=== PATIENT | male | born 1955 | race American Indian/Alaskan Native ===

== ENCOUNTER 2022-07-06 19:25 | Inpatient (IN) | payer MEDICARE ==
[2022-07-07] MEDS ORDERED: HYDROcodone/ACETAMINOPHEN 5-325 MG TAB PO ONE (01:59)
--- NOTE | 2022-07-07 02:16 | Emergency Department Report ---
ED General Adult HPI - General Chief complaint: Extremity Injury, Lower Stated complaint: INFECTED TOE Time Seen by Provider: 07/07/22 01:56 Source: patient Mode of arrival: Ambulatory Limitations: No Limitations - History of Present Illness Initial comments: Patient 67-year-old male with history of diabetes and diabetic right third toe presents for drainage pain to same. Patient is followed by vascular surgery. However states symptoms have worsened over the past 2 weeks. Patient not currently on antibiotic therapy. Is not currently on wound therapy. Patient states yellow-greenish drainage. Patient denies fevers chills or rigors. Patient remains amatory. Diabetic shoes. Patient is followed by [facility] vascular surgery Dr. Cedeño. Patient denies fevers chills nausea vomiting or other symptoms at this time. - Related Data Allergies Allergy/AdvReac Type Severity Reaction Status Date / Time No Known Allergies Allergy Verified 07/07/22 05:35 ED Review of Systems ROS: Stated complaint: INFECTED TOE Other details as noted in HPI Constitutional: denies: chills, fever Eyes: denies: eye pain, eye discharge, vision change ENT: denies: ear pain, throat pain Respiratory: denies: cough, shortness of breath, wheezing Cardiovascular: denies: chest pain, palpitations Endocrine: no symptoms reported Gastrointestinal: denies: abdominal pain, nausea, diarrhea Genitourinary: denies: urgency, dysuria Musculoskeletal: other (Diabetic right foot wound) Skin: other (Right foot third toe wound). denies: rash, lesions Neurological: denies: headache, weakness, paresthesias Psychiatric: denies: anxiety, depression Hematological/Lymphatic: denies: easy bleeding, easy bruising ED Physical Exam - General Limitations: No Limitations General appearance: alert, in no apparent distress - Head Head exam: Present: normocephalic, normal inspection - Eye Eye exam: Present: normal appearance, EOMI Pupils: Present: normal accommodation - ENT ENT exam: Present: mucous membranes moist - Neck Neck exam: Present: normal inspection, full ROM. Absent: tenderness - Respiratory Respiratory exam: Present: normal lung sounds bilaterally. Absent: respiratory distress, wheezes - Cardiovascular Cardiovascular Exam: Present: regular rate, normal rhythm, normal heart sounds. Absent: systolic murmur, diastolic murmur, rubs, gallop - GI/Abdominal GI/Abdominal exam: Present: soft, normal bowel sounds - Rectal Rectal exam: Present: deferred - Extremities Exam Extremities exam: Present: full ROM - Expanded Lower Extremity Exam Right Foot/Toe exam: Present: tenderness, swelling, erythema (Third toe ulcer with drainage). Absent: ecchymosis, crepidus Neuro vascular tendon exam: Absent: pulse deficit, motor deficit, sensory deficit, tendon deficit Gait: Positive: observed and limited by pain - Back Exam Back exam: Present: normal inspection, full ROM. Absent: tenderness - Neurological Exam Neurological exam: Present: alert, oriented X3, CN II-XII intact, motor sensory deficit, reflexes normal - Expanded Neurological Exam Expanded Patient oriented to: Present: person, place, time Speech: Present: fluid speech Motor strength exam: RLE: 5, LLE: 5 Best Eye Response (Tony): (4) open spontaneously Best Motor Response (Tony): (6) obeys commands Best Verbal Response (Hampton): (5) oriented Hampton Total: 15 - Psychiatric Psychiatric exam: Present: normal affect, normal mood - Skin Skin exam: Present: warm, dry, normal color, other (Diabetic right foot ulcer). Absent: rash ED Course Vital Signs 07/06/22 21:14 Temperature 99.0 F Pulse Rate 109 H Respiratory 16 Rate Blood Pressure 124/49 O2 Sat by Pulse 99 Oximetry ED Medical Decision Making - Lab Data Result diagrams: 07/07/22 02:26 07/07/22 02:26 Labs 07/07/22 07/07/22 07/07/22 02:26 02:26 02:26 WBC 27.0 H RBC 2.52 L Hgb 8.2 L Hct 25.5 L MCV 101 H MCH 33 H MCHC 32 RDW 13.1 L Plt Count 31 L Add Manual Diff Complete Total Counted 100 Seg Neuts % (Manual) 88.0 H Band Neutrophils % 2.0 Lymphocytes % (Manual) 7.0 L Reactive Lymphs % (Man) 0 Monocytes % (Manual) 3.0 Eosinophils % (Manual) 0 Basophils % (Manual) 0 Metamyelocytes % 0 Myelocytes % 0 Promyelocytes % 0 Blast Cells % 0 Nucleated RBC % Not Reportable Seg Neutrophils # Man 23.8 H Band Neutrophils # 0.5 Lymphocytes # (Manual) 1.9 Abs React Lymphs (Man) 0.0 Monocytes # (Manual) 0.8 Eosinophils # (Manual) 0.0 Basophils # (Manual) 0.0 Metamyelocytes # 0.0 Myelocytes # 0.0 Promyelocytes # 0.0 Blast Cells # 0.0 WBC Morphology Not Reportable Hypersegmented Neuts Not Reportable Hyposegmented Neuts Not Reportable Hypogranular Neuts Not Reportable Smudge Cells Not Reportable Toxic Granulation Not Reportable Toxic Vacuolation Not Reportable Dohle Bodies Not Reportable Pelger-Huet Anomaly Not Reportable Lulu Rods Not Reportable Platelet Estimate Appears decreased Clumped Platelets Few Plt Clumps, EDTA Not Reportable Large Platelets Not Reportable Giant Platelets Not Reportable Platelet Satelliting Not Reportable Plt Morphology Comment Not Reportable RBC Morphology Not Reportable Dimorphic RBCs Not Reportable Polychromasia Not Reportable Hypochromasia 2+ Poikilocytosis Not Reportable Anisocytosis 1+ Microcytosis Not Reportable Macrocytosis 1+ Spherocytes Not Reportable Pappenheimer Bodies Not Reportable Sickle Cells Not Reportable Target Cells Not Reportable Tear Drop Cells Not Reportable Ovalocytes Few Helmet Cells Not Reportable Capps-[place] Bodies Not Reportable [place]hegan Rings Not Reportable Merry Cells Not Reportable Bite Cells Not Reportable Crenated Cell Not Reportable Elliptocytes Not Reportable Acanthocytes (Spur) Not Reportable Rouleaux Not Reportable Hemoglobin C Crystals Not Reportable Schistocytes Not Reportable Malaria parasites Not Reportable Chintan Bodies Not Reportable Hem Pathologist Commnt No Sodium 129 L Potassium 4.8 Chloride 91.5 L Carbon Dioxide 16 L Anion Gap 26 BUN 57 H Creatinine 1.7 H Estimated GFR 40 BUN/Creatinine Ratio 34 Glucose 509 H* Lactic Acid 1.50 Calcium 8.9 Total Bilirubin 0.70 AST 41 H ALT 28 Alkaline Phosphatase 129 Total Protein 6.9 Albumin 3.6 L Albumin/Globulin Ratio 1.1 - Radiology Data Radiology results: report reviewed, image reviewed LEFT FOOT 3 VIEWS. INDICATION / CLINICAL INFORMATION: r/o osteo COMPARISON: None available. FINDINGS: Small bubbles of gas are present within the soft tissues of the forefoot adjacent the third through fifth toes. Osteolysis of the second toe present. The third toe demonstrates overlying small bubbles of gas versus osteopenia and possible changes of early acute osteomyelitis. Moderate hallux valgus deformity present. IMPRESSION: 1. Soft tissue gas suggestive of gas producing organism and infection as detailed. 2. Early acute osteomyelitis involving third toe not excluded. MRI recommended for further evaluation. Signer Name: Benny Tate II, MD Signed: 07/07/2022 2:43 AM Workstation Name: [id number] Transcribed By: EMA Dictated By: BENNY TATE II, MD Electronically Authenticated By: BENNY TATE II, MD Signed Date/Time: 07/07/22242 DD/ 0 TD/TT: - Medical Decision Making Consulted vascular surgery Dr. Cedeño for diagnosis osteomyelitis left third and second toe, recommendation,: Consult general surgery, admit to hospitalist, diagnosis osteomyelitis left foot. Second and third toe. Discussed same with hospitalist hospitalist agrees with treatment plan. Have discussed same with patient patient agrees with treatment plan. Patient is currently alert oriented x3 with no acute distress. Patient will be admitted to inpatient diagnosis osteomyelitis left foot. Gen Surgery consult completed, Dr. Mccoy, agrees with tx plan, Dx Osteomyelitis left foot, admit to hospitalists, Consult General Surgery. Pt admitted to hospitalist at this time, pt verbalizes consent and understanding of treatments plan. Critical care attestation.: If time is entered above; I have spent that time in minutes in the direct care of this critically ill patient, excluding procedure time. ED Disposition Clinical Impression: Foot osteomyelitis, left Qualifiers: Osteomyelitis type: other acute Qualified Code(s): M86.172 - Other acute osteomyelitis, left ankle and foot Disposition: ADMITTED INPATIENT Is pt being admited?: Yes Does the pt Need Aspirin: No Condition: Stable Time of Disposition: 05:21
[2022-07-07 02:44] LABS: Hematocrit 25.5 % (35.5-45.6); Hemoglobin 8.2 gm/dl (11.8-15.2); Mean Corpuscular HGB Conc 32 % (32-34); Mean Corpuscular Volume 101 fl (84-94); Red Blood Count 2.52 M/mm3 (3.65-5.03); Red Cell Distribution Width 13.1 % (13.2-15.2)
--- NOTE | 2022-07-07 02:47 | XRay Report ---
LEFT FOOT 3 VIEWS. INDICATION / CLINICAL INFORMATION: r/o osteo COMPARISON: None available. FINDINGS: Small bubbles of gas are present within the soft tissues of the forefoot adjacent the third through f ifth toes. Osteolysis of the second toe present. The third toe demonstrates overlying small bubbles o f gas versus osteopenia and possible changes of early acute osteomyelitis. Moderate hallux valgus def ormity present. IMPRESSION: 1. Soft tissue gas suggestive of gas producing organism and infection as detailed. 2. Early acute osteomyelitis involving third toe not excluded. MRI recommended for further evaluation . Signer Name: Mati Phelps II, MD Signed: 07/07/2022 2:43 AM Workstation Name: [id number]
[2022-07-07 03:02] LABS: Albumin 3.6 g/dL (3.9-5); Calcium 8.9 mg/dL (8.4-10.2)
[2022-07-07] MEDS ORDERED: INSULIN REGULAR, HUMAN 100 UNITS/1 ML IV ONE (03:20)
[2022-07-07] MEDS ORDERED: SODIUM CHLORIDE 0.9% 1000 ML 1,000 ML IV ONE ×2 (03:20→04:32)
[2022-07-07 03:21] LABS: Platelet Count 31 K/mm3 (140-440)
[2022-07-07 04:07] LABS: Band Neutrophils # (Manual) 0.5 K/mm3; Basophils % (Manual) 0 % (0.0-1.8); Eosinophils % (Manual) 0 % (0.0-4.3); Total Cells Counted 100
[2022-07-07 04:08] LABS: Anisocytosis 1+; Hypochromasia 2+; Macrocytosis 1+; Ovalocytes Few; Platelet Clumps Few; Platelet Estimate Appears Decreased
[2022-07-07] MEDS ORDERED: VANCOMYCIN/NS 1 GM/250 ML 1 GM/250 ML BAG IV ONE (04:32)
[2022-07-07] MEDS ORDERED: INSULIN REGULAR, HUMAN 100 UNITS/1 ML SUB-Q ONE (08:37)
[2022-07-07] MEDS: CEFEPIME/NS 1 GM/100 ML 1 GM/100 ML BAG IV SCH ×2 (09:10→16:27)
[2022-07-07 09:56] LABS: Chol/HDL Ratio 3.13 %
[2022-07-07] MEDS: INSULIN REGULAR, HUMAN 100 UNITS/1 ML SUB-Q SCH ×4 (09:57→21:46)
[2022-07-07] MEDS ORDERED: LACTATED RINGERS 1,000 ML IV ONE ×2 (13:12→17:40)
--- NOTE | 2022-07-07 14:08 | Consultation ---
History of Present Illness - Reason for Consult Consult date: 07/07/22 3rd toe infection Requesting physician: ALEXANDRU ROWAN - History of Present Illness 67-year-old male with a past medical history of diabetes, CKD, prior bypass of the RLE 10+ years ago, stenting of the LLE from outside facility many years ago who presents to the emergency room with worsening left foot infection. The patient states he has had an ulcer of the third toe of his left foot for the last 1 month. He regularly sees a sales product manager who referred him to vascular surgery. The patient has undergone vascular work-up including ultrasound and diagnostic angiogram by myself. He was being scheduled for a revascularization procedure. The patient was also started on doxycycline and instructed to apply Betadine to the wound daily for wound care. The patient states that over the last 2 to 3 days his ulcer became rapidly worse and became infected. He is noted a stronger odor from the area and more drainage. There is mild swelling of his foot. In the emergency room work-up included lab work and a x-ray of the left foot. Patient was noted to have a leukocytosis greater than 20 and blood sugar greater than 500. X-ray revealed possible osteomyelitis. Vascular consulted for evaluation. Patient has nonpalpable pedal pulses with a open left third digit PIP joint with subluxation of the joint and soft tissue necrosis of the distal and mid phalanx. The toe has a foul odor. Betadine applied. Discussed with patient that plan will be for revascularization on Saturday, and third digit amputation on Saturday. May benefit from hyperbaric oxygen as outpatient. Contacted infectious disease to substitute vancomycin for linezolid to avoid JACQUI on CKD. Dr. Campbell agreed with plan. Past History Past Medical History: diabetes, PVD (s/p RLE bypass 10+ years ago, occluded (pop-dp) ; s/p LLE SFA/pop stenting at outside facility years ago), renal failure (CKD) Past Surgical History: Other (PVD surgery) Social history: no significant social history Family history: no significant family history Medications and Allergies Allergies Allergy/AdvReac Type Severity Reaction Status Date / Time No Known Allergies Allergy Verified 07/07/22 05:35 Active Meds: Active Medications Acetaminophen (Acetaminophen 325 Mg Tab) 650 mg PO Q4H PRN PRN Reason: Pain MILD(1-3)/Fever >100.5/DAS Dextrose (Dextrose 50% In Water (25gm) 50 Ml Syringe) 50 ml IV Q30MIN PRN; Protocol PRN Reason: Hypoglycemia Heparin Sodium (Porcine) (Heparin 5,000 Unit/1 Ml Vial) 5,000 unit SUB-Q Q8HR APRIL Sodium Chloride (Nacl 0.9% 1000 Ml) 1,000 mls @ 100 mls/hr IV DIRECT APRIL Cefepime HCl (Cefepime/Ns 1 Gm/100 Ml) 1 gm in 100 mls @ 200 mls/hr IV Q8H APRIL; Protocol Last Admin: 07/07/22 09:10 Dose: 200 mls/hr Lactated Ringer's (Lactated Ringers) 1,000 mls @ 999 mls/hr IV BOLUS ONE Stop: 07/07/22 14:12 Insulin Human Isoph/Insulin Regular (Insulin Nph/Regular 70/30 Inj) 15 unit SUB-Q BIDDIAB APRIL Insulin Human Regular (Insulin Regular, Human 100 Units/1 Ml) 0 units SUB-Q Q6H APRIL; Protocol Last Admin: 07/07/22 09:57 Dose: 8 units Morphine Sulfate (Morphine 4 Mg/1 Ml Inj) 2 mg IV Q4H PRN PRN Reason: Pain , Severe (7-10) Ondansetron HCl (Ondansetron 4 Mg/2 Ml Inj) 4 mg IV Q8H PRN PRN Reason: Nausea And Vomiting Oxycodone/Acetaminophen (Oxycodone /Acetaminophen 5-325mg Tab) 1 tab PO Q6H PRN PRN Reason: Pain, Moderate (4-6) Sodium Chloride (Sodium Chloride 0.9% 10 Ml Flush Syringe) 10 ml IV BID [facility] Last Admin: 07/07/22 11:12 Dose: 10 ml Sodium Chloride (Sodium Chloride 0.9% 10 Ml Flush Syringe) 10 ml IV PRN PRN PRN Reason: LINE FLUSH Review of Systems All systems: negative (see HPI) Exam - Constitutional Vitals: Temp Pulse Resp BP Pulse Ox 99.0 F 109 H 16 124/49 99 07/06/22 21:14 07/06/22 21:14 07/06/22 21:14 07/06/22 21:14 07/06/22 21:14 General appearance: Present: no acute distress - EENT Eyes: Present: EOM intact ENT: hearing intact - Neck Neck: Present: supple - Respiratory Respiratory effort: normal - Extremities Extremities: normal temperature, normal color Extremity abnormal: pulses diminished, other (Left third digit as described in HPI) - Abdominal General gastrointestinal: Present: soft, non-tender - Psychiatric Psychiatric: appropriate mood/affect, cooperative Results - Labs CBC & Chem 7: 07/07/22 02:26 07/07/22 02:26 Labs: Abnormal lab results 07/07/22 07/07/22 07/07/22 Range/Units 02:26 02:26 08:41 WBC 27.0 H (4.5-11.0) K/mm3 RBC 2.52 L (3.65-5.03) M/mm3 Hgb 8.2 L (11.8-15.2) gm/dl Hct 25.5 L (35.5-45.6) % MCV 101 H (84-94) fl MCH 33 H (28-32) pg RDW 13.1 L (13.2-15.2) % Plt Count 31 L (140-440) K/mm3 Seg Neuts % (Manual) 88.0 H (40.0-70.0) % Lymphocytes % (Manual) 7.0 L (13.4-35.0) % Seg Neutrophils # Man 23.8 H (1.8-7.7) K/mm3 Sodium 129 L (137-145) mmol/L Chloride 91.5 L (98-107) mmol/L Carbon Dioxide 16 L (22-30) mmol/L BUN 57 H (9-20) mg/dL Creatinine 1.7 H (0.8-1.3) mg/dL Glucose 509 H* (75-100) mg/dL POC Glucose (70-105) mg/dL Hemoglobin A1c 6.5 H (4-6) % AST 41 H (5-40) units/L Albumin 3.6 L (3.9-5) g/dL LDL Cholesterol Direct (50-130) mg/dL HDL Cholesterol (40-59) mg/dL 07/07/22 07/07/22 07/07/22 Range/Units 08:41 09:19 11:22 WBC (4.5-11.0) K/mm3 RBC (3.65-5.03) M/mm3 Hgb (11.8-15.2) gm/dl Hct (35.5-45.6) % MCV (84-94) fl MCH (28-32) pg RDW (13.2-15.2) % Plt Count (140-440) K/mm3 Seg Neuts % (Manual) (40.0-70.0) % Lymphocytes % (Manual) (13.4-35.0) % Seg Neutrophils # Man (1.8-7.7) K/mm3 Sodium (137-145) mmol/L Chloride (98-107) mmol/L Carbon Dioxide (22-30) mmol/L BUN (9-20) mg/dL Creatinine (0.8-1.3) mg/dL Glucose (75-100) mg/dL POC Glucose 394 H 343 H (70-105) mg/dL Hemoglobin A1c (4-6) % AST (5-40) units/L Albumin (3.9-5) g/dL LDL Cholesterol Direct 46 L (50-130) mg/dL HDL Cholesterol 37 L (40-59) mg/dL Assessment and Plan 67-year-old male with past medical history of diabetes, PVD, right TMA, left thi rd digit ulceration who presents with wet gangrene of the left third digit distal phalanx and mid phalanx. There is an open left PIP. There is a septic joint left third digit PIP with distal and mid phalanx necrosis and foul odor compatible with wet gangrene. Patient has nonpalpable pedal pulses. Plan for revascularization on Saturday. Plan for amputation on Saturday. Contact infectious disease for antibiotic management and changing vancomycin to linezolid. Appreciate assistance. Continue aspirin, cilostazol, and will start Plavix. N.p.o. after midnight on Saturday for revascularization. Recommend continued IV hydration in preparation for procedure.
--- NOTE | 2022-07-07 14:20 | Consultation ---
History of Present Illness Consult date: 07/07/22 Reason for consult: wound care Chief complaint: Left third toe open wound - History of present illness History of present illness: 67-year-old male with a past medical history of diabetes who presents to the emergency room with worsening left foot infection. The patient states he has had an infection of the third toe of his left foot for the last 1 month. He regularly sees a cellophaner who referred him to vascular surgery. The patient has undergone vascular work-up including ultrasound and diagnostic angiogram with Dr. Cedeño. He was being scheduled for a revascularization procedure. The patient was also started on doxycycline and instructed to apply Betadine to the wound daily for wound care. The patient states that over the last 2 to 3 days his infection has gotten worse. He is noted a stronger odor from the area and more drainage. There is mild swelling of his foot. In the emergency room work- up included lab work and a x-ray of the left foot. Patient was noted to have a leukocytosis greater than 20 and blood sugar greater than 500. X-ray revealed possible osteomyelitis. Past History Past Medical History: diabetes, hypertension Past Surgical History: Other (Right lower extremity arterial bypass, right transmetatarsal amputation) Social history: no significant social history Family history: no significant family history Medications and Allergies Allergies Allergy/AdvReac Type Severity Reaction Status Date / Time No Known Allergies Allergy Verified 07/07/22 05:35 Active Meds: Active Medications Acetaminophen (Acetaminophen 325 Mg Tab) 650 mg PO Q4H PRN PRN Reason: Pain MILD(1-3)/Fever >100.5/DAS Dextrose (Dextrose 50% In Water (25gm) 50 Ml Syringe) 50 ml IV Q30MIN PRN; Pr otocol PRN Reason: Hypoglycemia Heparin Sodium (Porcine) (Heparin 5,000 Unit/1 Ml Vial) 5,000 unit SUB-Q Q8HR APRIL Sodium Chloride (Nacl 0.9% 1000 Ml) 1,000 mls @ 100 mls/hr IV DIRECT APRIL Cefepime HCl (Cefepime/Ns 1 Gm/100 Ml) 1 gm in 100 mls @ 200 mls/hr IV Q8H APRIL; Protocol Last Admin: 07/07/22 09:10 Dose: 200 mls/hr Insulin Human Isoph/Insulin Regular (Insulin Nph/Regular 70/30 Inj) 15 unit SUB-Q BIDDIAB APRIL Insulin Human Regular (Insulin Regular, Human 100 Units/1 Ml) 0 units SUB-Q Q6H [facility]; Protocol Last Admin: 07/07/22 09:57 Dose: 8 units Morphine Sulfate (Morphine 4 Mg/1 Ml Inj) 2 mg IV Q4H PRN PRN Reason: Pain , Severe (7-10) Ondansetron HCl (Ondansetron 4 Mg/2 Ml Inj) 4 mg IV Q8H PRN PRN Reason: Nausea And Vomiting Oxycodone/Acetaminophen (Oxycodone /Acetaminophen 5-325mg Tab) 1 tab PO Q6H PRN PRN Reason: Pain, Moderate (4-6) Sodium Chloride (Sodium Chloride 0.9% 10 Ml Flush Syringe) 10 ml IV BID [facility] Last Admin: 07/07/22 11:12 Dose: 10 ml Sodium Chloride (Sodium Chloride 0.9% 10 Ml Flush Syringe) 10 ml IV PRN PRN PRN Reason: LINE FLUSH Review of Systems All systems: negative (10 point ROS performed and negative except for that listed in HPI) Exam Vital Signs Temp Pulse Resp BP Pulse Ox 99.0 F 109 H 16 124/49 99 07/06/22 21:14 07/06/22 21:14 07/06/22 21:14 07/06/22 21:14 07/06/22 21:14 Narrative exam: Gen.: Awake, alert, oriented x3. No apparent distress ENT: Trachea midline. No lymphadenopathy. No scleral icterus or conjunctival pallor CV: S1, S2 present Respiratory: No audible wheezes Abdomen: Soft, nondistended, nontender. No rebound, rigidity, guarding Extremities: Previous right TMA. Left foot is warm. There is mild edema and erythema of the distal forefoot. Distal pulses are not palpable. There is an open wound of the third toe with necrotic tissue present and bone exposed. The wound was cleansed and Betadine applied. The wound was wrapped with 4 x 4 gauze and secured with a Kerlix. Results - Labs 07/07/22 02:26 07/07/22 02:26 Abnormal lab results 07/07/22 07/07/22 07/07/22 Range/Units 02:26 02:26 08:41 WBC 27.0 H (4.5-11.0) K/mm3 RBC 2.52 L (3.65-5.03) M/mm3 Hgb 8.2 L (11.8-15.2) gm/dl Hct 25.5 L (35.5-45.6) % MCV 101 H (84-94) fl MCH 33 H (28-32) pg RDW 13.1 L (13.2-15.2) % Plt Count 31 L (140-440) K/mm3 Seg Neuts % (Manual) 88.0 H (40.0-70.0) % Lymphocytes % (Manual) 7.0 L (13.4-35.0) % Seg Neutrophils # Man 23.8 H (1.8-7.7) K/mm3 Sodium 129 L (137-145) mmol/L Chloride 91.5 L (98-107) mmol/L Carbon Dioxide 16 L (22-30) mmol/L BUN 57 H (9-20) mg/dL Creatinine 1.7 H (0.8-1.3) mg/dL Glucose 509 H* (75-100) mg/dL POC Glucose (70-105) mg/dL Hemoglobin A1c 6.5 H (4-6) % AST 41 H (5-40) units/L Albumin 3.6 L (3.9-5) g/dL LDL Cholesterol Direct (50-130) mg/dL HDL Cholesterol (40-59) mg/dL 07/07/22 07/07/22 07/07/22 Range/Units 08:41 09:19 11:22 WBC (4.5-11.0) K/mm3 RBC (3.65-5.03) M/mm3 Hgb (11.8-15.2) gm/dl Hct (35.5-45.6) % MCV (84-94) fl MCH (28-32) pg RDW (13.2-15.2) % Plt Count (140-440) K/mm3 Seg Neuts % (Manual) (40.0-70.0) % Lymphocytes % (Manual) (13.4-35.0) % Seg Neutrophils # Man (1.8-7.7) K/mm3 Sodium (137-145) mmol/L Chloride (98-107) mmol/L Carbon Dioxide (22-30) mmol/L BUN (9-20) mg/dL Creatinine (0.8-1.3) mg/dL Glucose (75-100) mg/dL POC Glucose 394 H 343 H (70-105) mg/dL Hemoglobin A1c (4-6) % AST (5-40) units/L Albumin (3.9-5) g/dL LDL Cholesterol Direct 46 L (50-130) mg/dL HDL Cholesterol 37 L (40-59) mg/dL Diabetes panel 07/07/22 07/07/22 07/07/22 Range/Units 02:26 08:41 08:41 Sodium 129 L (137-145) mmol/L Potassium 4.8 (3.6-5.0) mmol/L Chloride 91.5 L (98-107) mmol/L Carbon Dioxide 16 L (22-30) mmol/L BUN 57 H (9-20) mg/dL Creatinine 1.7 H (0.8-1.3) mg/dL Glucose 509 H* (75-100) mg/dL Hemoglobin A1c 6.5 H (4-6) % Calcium 8.9 (8.4-10.2) mg/dL AST 41 H (5-40) units/L ALT 28 (7-56) units/L Alkaline Phosphatase 129 (35-129) units/L Total Protein 6.9 (6.3-8.2) g/dL Albumin 3.6 L (3.9-5) g/dL Triglycerides 114 (2-149) mg/dL HDL Cholesterol 37 L (40-59) mg/dL Calcium panel 07/07/22 Range/Units 02:26 Calcium 8.9 (8.4-10.2) mg/dL Albumin 3.6 L (3.9-5) g/dL Pituitary panel 07/07/22 Range/Units 02:26 Sodium 129 L (137-145) mmol/L Potassium 4.8 (3.6-5.0) mmol/L Chloride 91.5 L (98-107) mmol/L Carbon Dioxide 16 L (22-30) mmol/L BUN 57 H (9-20) mg/dL Creatinine 1.7 H (0.8-1.3) mg/dL Glucose 509 H* (75-100) mg/dL Calcium 8.9 (8.4-10.2) mg/dL Adrenal panel 07/07/22 Range/Units 02:26 Sodium 129 L (137-145) mmol/L Potassium 4.8 (3.6-5.0) mmol/L Chloride 91.5 L (98-107) mmol/L Carbon Dioxide 16 L (22-30) mmol/L BUN 57 H (9-20) mg/dL Creatinine 1.7 H (0.8-1.3) mg/dL Glucose 509 H* (75-100) mg/dL Calcium 8.9 (8.4-10.2) mg/dL Total Bilirubin 0.70 (0.1-1.2) mg/dL AST 41 H (5-40) units/L ALT 28 (7-56) units/L Alkaline Phosphatase 129 (35-129) units/L Total Protein 6.9 (6.3-8.2) g/dL Albumin 3.6 L (3.9-5) g/dL - Imaging Additional studies: X-ray left foot Assessment and Plan 67-year-old male with 1. Infected diabetic foot wound left third toe 2. Osteomyelitis 3. Peripheral arterial disease Plan: 1. Consistent carb diet 2. strict glucose control 3. gentle IVF 4. IV abx 5. Daily wound care 6. Vascular surgery consulted - d/w Dr. Cedeño. Pt to be scheduled for revasc on Saturday 7. Obtain MRI L foot 8. Patient at the very least will need an amputation of his left third toe. We will await results from revascularization procedure and MRI left foot to determine extent of amputation. 9. Patient will be a candidate for hyperbaric oxygen therapy as an outpatient. Will obtain chest x-ray as Pre-HBOT workup Plan was discussed in detail with the patient and he acknowledged understanding. All questions answered. Thank you for this consultation. Please call with any questions or concerns.
--- NOTE | 2022-07-07 14:52 | XRay Report ---
CHEST 1 VIEW 07/07/2022 2:35 PM INDICATION / CLINICAL INFORMATION: hyperbaric oxygen therapy w/u. COMPARISON: None available. FINDINGS: SUPPORT DEVICES: None. HEART / MEDIASTINUM: No significant abnormality. LUNGS / PLEURA: Mild atelectasis in the left lower lung. No pneumothorax. ADDITIONAL FINDINGS: No significant additional findings. IMPRESSION: 1. No acute findings. Signer Name: Bj Macario MD Signed: 07/07/2022 2:47 PM Workstation Name: [id number]
[2022-07-07] MEDS: HEPARIN 5,000 UNIT/1 ML VIAL SUB-Q SCH ×2 (15:10→21:44)
[2022-07-07] MEDS: SODIUM CHLORIDE 0.9% 1000 ML 1,000 ML IV SCH (15:10)
[2022-07-07] MEDS: oxyCODONE /ACETAMINOPHEN 5-325MG TAB PO PRN (15:36)
[2022-07-07] MEDS: LINEZOLID 600 MG/300 ML BAG IV SCH (16:27)
[2022-07-07] MEDS: POVIDONE-IODINE OINTMENT 28.35 GM TP SCH (16:27)
[2022-07-07] MEDS ORDERED: INSULIN NPH/REGULAR 70/30 INJ SUB-Q SCH (17:00)
[2022-07-07] MEDS ORDERED: VANCOMYCIN PHARMACY TO DOSE IV SCH (17:00)
[2022-07-07] MEDS ORDERED: INSULIN REGULAR, HUMAN 100 UNITS/1 ML SUB-Q PRN (17:38)
--- NOTE | 2022-07-07 19:21 | History and Physical Report ---
History of Present Illness Date of examination: 07/07/22 Date of admission: 07/07/22 08:30 Chief complaint: Infected left diabetic foot Past History Past Medical History: diabetes, PVD (s/p RLE bypass 10+ years ago, occluded (pop-dp) ; s/p LLE SFA/pop stenting at outside facility years ago), renal failure (CKD) Past Surgical History: Other (PVD surgery; transmetatarsal amputation of right foot) Social history: no significant social history Family history: no significant family history Medications and Allergies Allergies Allergy/AdvReac Type Severity Reaction Status Date / Time No Known Allergies Allergy Verified 07/07/22 05:35 Active Meds: Active Medications Acetaminophen (Acetaminophen 325 Mg Tab) 650 mg PO Q4H PRN PRN Reason: Pain MILD(1-3)/Fever >100.5/DAS Dextrose (Dextrose 50% In Water (25gm) 50 Ml Syringe) 50 ml IV Q30MIN PRN; Protocol PRN Reason: Hypoglycemia Heparin Sodium (Porcine) (Heparin 5,000 Unit/1 Ml Vial) 5,000 unit SUB-Q Q8HR APRIL Last Admin: 07/07/22 15:10 Dose: 5,000 unit Sodium Chloride (Nacl 0.9% 1000 Ml) 1,000 mls @ 100 mls/hr IV DIRECT APRIL Last Admin: 07/07/22 15:10 Dose: 100 mls/hr Cefepime HCl (Cefepime/Ns 1 Gm/100 Ml) 1 gm in 100 mls @ 200 mls/hr IV Q8H APRIL; Protocol Last Admin: 07/07/22 16:27 Dose: 200 mls/hr Linezolid (Zyvox 600mg/300ml) 600 mg in 300 mls @ 300 mls/hr IV Q12H APRIL; Protocol Last Admin: 07/07/22 16:27 Dose: 300 mls/hr Insulin Human Isoph/Insulin Regular (Insulin Nph/Regular 70/30 Inj) 25 unit SUB-Q BIDDIAB APRIL Insulin Human Regular (Insulin Regular, Human 100 Units/1 Ml) 0 units SUB-Q Q6H APRIL; Protocol Last Admin: 07/07/22 16:24 Dose: 8 units Insulin Human Regular (Insulin Regular, Human 100 Units/1 Ml) 10 units SUB-Q ONCE PRN PRN Reason: Hyperglycemia Last Admin: 07/07/22 18:29 Dose: 10 units Insulin Human Regular (Insulin Regular, Human 100 Units/1 Ml) 5 units SUB-Q ACHS [facility] Morphine Sulfate (Morphine 4 Mg/1 Ml Inj) 2 mg IV Q4H PRN PRN Reason: Pain , Severe (7-10) Ondansetron HCl (Ondansetron 4 Mg/2 Ml Inj) 4 mg IV Q8H PRN PRN Reason: Nausea And Vomiting Oxycodone/Acetaminophen (Oxycodone /Acetaminophen 5-325mg Tab) 1 tab PO Q6H PRN PRN Reason: Pain, Moderate (4-6) Last Admin: 07/07/22 15:36 Dose: 1 tab Pneumococcal Polyvalent Vaccine (Pneumococcal 23 Valent 0.5 Ml Vial) 0.5 ml IM .ONCE ONE Stop: 07/08/22 12:01 Povidone Iodine (Povidone-Iodine Ointment 28.35 Gm) 1 applic TP DAILY [facility] Last Admin: 07/07/22 16:27 Dose: 1 applic Sodium Chloride (Sodium Chloride 0.9% 10 Ml Flush Syringe) 10 ml IV BID [facility] Last Admin: 07/07/22 11:12 Dose: 10 ml Sodium Chloride (Sodium Chloride 0.9% 10 Ml Flush Syringe) 10 ml IV PRN PRN PRN Reason: LINE FLUSH Review of Systems All systems: negative Constitutional: fever, chills, malaise Gastrointestinal: nausea, diarrhea Exam - Constitutional Vitals: Temp Pulse Resp BP Pulse Ox 97.8 F 109 H 18 141/61 99 07/07/22 14:16 07/07/22 14:16 07/07/22 14:16 07/07/22 14:16 07/06/22 21:14 General appearance: Present: no acute distress, well-nourished, malodorous (Malodorous wet gangrene of left foot with ulceration of third digit) - EENT Eyes: Present: PERRL, EOM intact ENT: hearing intact, clear oral mucosa, dentition normal - Neck Neck: Present: supple, normal ROM - Respiratory Respiratory effort: normal Respiratory: bilateral: CTA - Cardiovascular Rhythm: regular Heart Sounds: Present: S1 & S2 - Extremities Extremities: no ischemia, pulses symmetrical, No edema, normal temperature, abnormal (Transmetatarsal amputation of right foot) Extremity abnormal: pulses diminished (Nonpalpable pedal pulses) Peripheral Pulses: within normal limits - Abdominal General gastrointestinal: Present: soft, non-tender, non-distended, normal bowel sounds Male genitourinary: Present: deferred - Rectal Rectal Exam: deferred - Integumentary Integumentary: Present: clear, warm, dry - Musculoskeletal Musculoskeletal: strength equal bilaterally - Psychiatric Psychiatric: appropriate mood/affect, cooperative - Neurologic Neurologic: CNII-XII intact, moves all extremities - Allied Health Allied health notes reviewed: nursing Results - Labs CBC & Chem 7: 07/07/22 02:26 07/07/22 02:26 Labs: Laboratory Last Values WBC 27.0 K/mm3 (4.5-11.0) H 07/07/22 02:26 RBC 2.52 M/mm3 (3.65-5.03) L 07/07/22 02:26 Hgb 8.2 gm/dl (11.8-15.2) L 07/07/22 02:26 Hct 25.5 % (35.5-45.6) L 07/07/22 02:26 MCV 101 fl (84-94) H 07/07/22 02:26 MCH 33 pg (28-32) H 07/07/22 02:26 MCHC 32 % (32-34) 07/07/22 02:26 RDW 13.1 % (13.2-15.2) L 07/07/22 02:26 Plt Count 31 K/mm3 (140-440) L 07/07/22 02:26 Add Manual Diff Complete 07/07/22 02:26 Total Counted 100 07/07/22 02:26 Seg Neuts % (Manual) 88.0 % (40.0-70.0) H 07/07/22 02:26 Band Neutrophils % 2.0 % 07/07/22 02:26 Lymphocytes % (Manual) 7.0 % (13.4-35.0) L 07/07/22 02:26 Reactive Lymphs % (Man) 0 % 07/07/22 02:26 Monocytes % (Manual) 3.0 % (0.0-7.3) 07/07/22 02:26 Eosinophils % (Manual) 0 % (0.0-4.3) 07/07/22 02:26 Basophils % (Manual) 0 % (0.0-1.8) 07/07/22 02:26 Metamyelocytes % 0 % 07/07/22 02:26 Myelocytes % 0 % 07/07/22 02:26 Promyelocytes % 0 % 07/07/22 02:26 Blast Cells % 0 % 07/07/22 02:26 Nucleated RBC % Not Reportable 07/07/22 02:26 Seg Neutrophils # Man 23.8 K/mm3 (1.8-7.7) H 07/07/22 02:26 Band Neutrophils # 0.5 K/mm3 07/07/22 02:26 Lymphocytes # (Manual) 1.9 K/mm3 (1.2-5.4) 07/07/22 02:26 Abs React Lymphs (Man) 0.0 K/mm3 07/07/22 02:26 Monocytes # (Manual) 0.8 K/mm3 (0.0-0.8) 07/07/22 02:26 Eosinophils # (Manual) 0.0 K/mm3 (0.0-0.4) 07/07/22 02:26 Basophils # (Manual) 0.0 K/mm3 (0.0-0.1) 07/07/22 02:26 Metamyelocytes # 0.0 K/mm3 07/07/22 02:26 Myelocytes # 0.0 K/mm3 07/07/22 02:26 Promyelocytes # 0.0 K/mm3 07/07/22 02:26 Blast Cells # 0.0 K/mm3 07/07/22 02:26 WBC Morphology Not Reportable 07/07/22 02:26 Hypersegmented Neuts Not Reportable 07/07/22 02:26 Hyposegmented Neuts Not Reportable 07/07/22 02:26 Hypogranular Neuts Not Reportable 07/07/22 02:26 Smudge Cells Not Reportable 07/07/22 02:26 Toxic Granulation Not Reportable 07/07/22 02:26 Toxic Vacuolation Not Reportable 07/07/22 02:26 Dohle Bodies Not Reportable 07/07/22 02:26 Pelger-Huet Anomaly Not Reportable 07/07/22 02:26 Lulu Rods Not Reportable 07/07/22 02:26 Platelet Estimate Appears decreased 07/07/22 02:26 Clumped Platelets Few 07/07/22 02:26 Plt Clumps, EDTA Not Reportable 07/07/22 02:26 Large Platelets Not Reportable 07/07/22 02:26 Giant Platelets Not Reportable 07/07/22 02:26 Platelet Satelliting Not Reportable 07/07/22 02:26 Plt Morphology Comment Not Reportable 07/07/22 02:26 RBC Morphology Not Reportable 07/07/22 02:26 Dimorphic RBCs Not Reportable 07/07/22 02:26 Polychromasia Not Reportable 07/07/22 02:26 Hypochromasia 2+ 07/07/22 02:26 Poikilocytosis Not Reportable 07/07/22 02:26 Anisocytosis 1+ 07/07/22 02:26 Microcytosis Not Reportable 07/07/22 02:26 Macrocytosis 1+ 07/07/22 02:26 Spherocytes Not Reportable 07/07/22 02:26 Pappenheimer Bodies Not Reportable 07/07/22 02:26 Sickle Cells Not Reportable 07/07/22 02:26 Target Cells Not Reportable 07/07/22 02:26 Tear Drop Cells Not Reportable 07/07/22 02:26 Ovalocytes Few 07/07/22 02:26 Helmet Cells Not Reportable 07/07/22 02:26 [place] Bodies Not Reportable 07/07/22 02:26 [place] Rings Not Reportable 07/07/22 02:26 [place] Cells Not Reportable 07/07/22 02:26 Bite Cells Not Reportable 07/07/22 02:26 Crenated Cell Not Reportable 07/07/22 02:26 Elliptocytes Not Reportable 07/07/22 02:26 Acanthocytes (Spur) Not Reportable 07/07/22 02:26 Rouleaux Not Reportable 07/07/22 02:26 Hemoglobin C Crystals Not Reportable 07/07/22 02:26 Schistocytes Not Reportable 07/07/22 02:26 Malaria parasites Not Reportable 07/07/22 02:26 [place] Bodies Not Reportable 07/07/22 02:26 Hem Pathologist Commnt No 07/07/22 02:26 Sodium 129 mmol/L (137-145) L 07/07/22 02:26 Potassium 4.8 mmol/L (3.6-5.0) 07/07/22 02:26 Chloride 91.5 mmol/L (98-107) L 07/07/22 02:26 Carbon Dioxide 16 mmol/L (22-30) L 07/07/22 02:26 Anion Gap 26 mmol/L 07/07/22 02:26 BUN 57 mg/dL (9-20) H 07/07/22 02:26 Creatinine 1.7 mg/dL (0.8-1.3) H 07/07/22 02:26 Estimated GFR 40 ml/min 07/07/22 02:26 BUN/Creatinine Ratio 34 % 07/07/22 02:26 Glucose 509 mg/dL (75-100) H* 07/07/22 02:26 POC Glucose 464 mg/dL (70-105) H 07/07/22 18:16 Hemoglobin A1c 6.5 % (4-6) H 07/07/22 08:41 Lactic Acid 1.50 mmol/L (0.7-2.0) 07/07/22 02:26 Calcium 8.9 mg/dL (8.4-10.2) 07/07/22 02:26 Total Bilirubin 0.70 mg/dL (0.1-1.2) 07/07/22 02:26 AST 41 units/L (5-40) H 07/07/22 02:26 ALT 28 units/L (7-56) 07/07/22 02:26 Alkaline Phosphatase 129 units/L (35-129) 07/07/22 02:26 Total Protein 6.9 g/dL (6.3-8.2) 07/07/22 02:26 Albumin 3.6 g/dL (3.9-5) L 07/07/22 02:26 Albumin/Globulin Ratio 1.1 % 07/07/22 02:26 Triglycerides 114 mg/dL (2-149) 07/07/22 08:41 Cholesterol 116 mg/dL (50-199) 07/07/22 08:41 LDL Cholesterol Direct 46 mg/dL (50-130) L 07/07/22 08:41 HDL Cholesterol 37 mg/dL (40-59) L 07/07/22 08:41 Cholesterol/HDL Ratio 3.13 % 07/07/22 08:41 Microbiology: Microbiology 07/07/22 02:26 Peripheral/Venous Blood Culture - Preliminary Culture in Progress 07/07/22 02:26 Peripheral/Venous Blood Culture - Preliminary Culture in Progress [place]/IV: Voiding Method Urinal Assessment and Plan Assessment and plan: #Wet gangrene of left third distal phalanx and middle phalanx #Diabetic foot infection with ulceration of left third digit #Osteomyelitis of left foot #Peripheral arterial disease of bilateral lower extremities Visualized on x-ray of left foot and CT of left lower extremity. Pending MRI left foot WBC 27 Continue cefepime 1 g every 8 hours and IV linezolid 600 mg every 12 hours. Status post aggressive IV fluid resuscitation. Infectious disease consulted; pending recs Vascular surgery consulted; appreciate recs. Planning for revascularization on 07/09/2022. General surgery consulted; appreciate recs. Plan for possible amputation on 07/10/2022. 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 Monitor with repeat BMP tomorrow. Consider nephrology consult showed creatinine 1 continue to increase. #Normocytic anemia #Likely anemia of chronic disease Hemoglobin 8.2 Pending iron studies; transfuse if hemoglobin <7. #Chronic thrombocytopenia Platelets 31 Patient endorses being aware but not having etiology determined by other clinicians. Transfusing 2 jumbo platelets tomorrow for pending vascularization on 07/09/2022. #Moderate protein caloric malnutrition Albumin 3.6 Will initiate dietary supplementation once hyperglycemia is under control. #Advanced care planning -Disease education conducted, care plan discussed, diagnoses discussed, prognosis discussed, and patient acknowledges understanding with care plan -Time: +30 min Advance Directives: No VTE prophylaxis?: Chemical Plan of care discussed with patient/family: Yes
[2022-07-08] MEDS: INSULIN REGULAR, HUMAN 100 UNITS/1 ML SUB-Q SCH ×9 (00:28→23:18)
[2022-07-08] MEDS: oxyCODONE /ACETAMINOPHEN 5-325MG TAB PO PRN ×4 (00:35→21:08)
[2022-07-08] MEDS: CEFEPIME/NS 1 GM/100 ML 1 GM/100 ML BAG IV SCH ×2 (00:35→13:35)
[2022-07-08] MEDS: LINEZOLID 600 MG/300 ML BAG IV SCH ×2 (03:19→15:19)
[2022-07-08] MEDS: HEPARIN 5,000 UNIT/1 ML VIAL SUB-Q SCH ×3 (06:08→22:03)
[2022-07-08] MEDS: SODIUM CHLORIDE 0.9% 1000 ML 1,000 ML IV SCH (06:16)
[2022-07-08 06:17] LABS: Hematocrit 25.3 % (35.5-45.6); Hemoglobin 7.9 gm/dl (11.8-15.2); Mean Corpuscular HGB Conc 31 % (32-34); Mean Corpuscular Volume 102 fl (84-94); Red Blood Count 2.49 M/mm3 (3.65-5.03); Red Cell Distribution Width 13.1 % (13.2-15.2)
[2022-07-08 06:18] LABS: Platelet Count 27 K/mm3 (140-440)
[2022-07-08 06:23] LABS: BUN/Creatinine Ratio 32; Blood Urea Nitrogen 29 mg/dL (9-20); Calcium 8.5 mg/dL (8.4-10.2); Hemolysis Index 40; Iron 16 ug/dL (49-181); Total Iron Binding Capacity 133 mcg/dL (250-450)
[2022-07-08 07:05] LABS: Anisocytosis 1+; Basophils % (Manual) 0 % (0.0-1.8); Macrocytosis 1+; Monocytes % (Manual) 4.5 % (0.0-7.3); Total Cells Counted 200
[2022-07-08 07:06] LABS: Platelet Estimate Consistent w Auto
[2022-07-08] MEDS ORDERED: SODIUM CHLORIDE 0.9% 500 ML 500 ML IV ONE (08:49)
[2022-07-08] MEDS: NIFEdipine XL 30 MG TAB PO SCH (09:50)
[2022-07-08] MEDS: INSULIN NPH/REGULAR 70/30 INJ SUB-Q SCH ×2 (09:52→17:42)
[2022-07-08] MEDS ORDERED: PNEUMOCOCCAL 23 Valent 0.5 ML VIAL IM ONE (12:00)
--- NOTE | 2022-07-08 13:36 | Progress Note ---
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 Pending MRI left foot WBC 27-->21 Continue cefepime 1 g every 8 hours and IV linezolid 600 mg every 12 hours. Status post aggressive IV fluid resuscitation. Infectious disease consulted; pending recs Vascular surgery consulted; appreciate recs. Planning for revascularization on 07/09/2022. General surgery consulted; appreciate recs. Plan for possible amputation on 07/10/2022. Continue to monitor #Insulin dependent type II diabetes mellitus with hyperglycemiaimproving Worsened by diabetic foot infection - hemoglobin A1c: 6.5 - home regimen: Unknown - current regimen: NPH 25 units twice daily + moderate SSI +8 units regular insulin with meals - blood glucose goal 140-180 while inpatient - continue to monitor #Pseudohyponatremiaresolved Sodium 129 (corrected 136) #JACQUI on likely CKD stage IIIresolved Creatinine 1.7-->0.9 (baseline unknown) Status post aggressive IV fluid resuscitation Renally dose meds and avoid nephrotoxic drugs. Monitor with repeat BMP tomorrow. Consider nephrology consult showed creatinine 1 continue to increase. #Hypertension - home medications: Unknown - current medications: Started nifedipine 30 mg daily - SBP goal <160 and DBP goal <90 while inpatient - continue to monitor #Iron deficiency anemia #anemia of chronic disease Hemoglobin 8.2 Pending iron studies; transfuse if hemoglobin <7. #Chronic thrombocytopenia Platelets 31-->27 Patient endorses being aware but not having etiology determined by other clinicians. Transfusing 2 jumbo platelets today for pending vascularization on 07/09/2022. #Moderate protein caloric malnutrition Albumin 3.6 Will initiate dietary supplementation once hyperglycemia is under control. #Advanced care planning -Disease education conducted, care plan discussed, diagnoses discussed, prognosis discussed, and patient acknowledges understanding with care plan -Time: +30 min Disposition Plan: Continue medical management Total Time Spent with Patient (Minutes): 45 minutes History Interval history: No acute events overnight. Hospitalist Physical - Constitutional Vitals: Temp Pulse Resp BP Pulse Ox 98.7 F 106 H 16 161/69 97 07/08/22 07:38 07/08/22 07:38 07/08/22 09:49 07/08/22 07:38 07/08/22 07:38 General appearance: Present: no acute distress, well-nourished, malodorous (Malodorous wet gangrene of left foot with ulceration of third digit) - EENT Eyes: Present: PERRL, EOM intact ENT: hearing intact, clear oral mucosa, dentition normal - Neck Neck: Present: supple, normal ROM - Respiratory Respiratory effort: normal Respiratory: bilateral: CTA - Cardiovascular Rhythm: regular Heart Sounds: Present: S1 & S2 - Extremities Extremities: no ischemia, pulses intact, No edema, normal temperature, normal color, abnormal (Transmetatarsal amputation of right foot; weight gangrenous ulcer of left foot) Extremity abnormal: pulses diminished (At about milligrams a) Peripheral Pulses: within normal limits - Abdominal General gastrointestinal: soft, non-tender, non-distended, normal bowel sounds - Integumentary Integumentary: Present: clear, warm, dry - Psychiatric Psychiatric: appropriate mood/affect, intact judgment & insight, memory intact, cooperative - Neurologic Neurologic: CNII-XII intact, moves all extremities - Allied Health Allied health notes reviewed: nursing Results - Labs CBC & Chem 7: 07/08/22 05:35 07/08/22 05:35 Labs: Laboratory Last Values WBC 21.2 K/mm3 (4.5-11.0) H 07/08/22 05:35 RBC 2.49 M/mm3 (3.65-5.03) L 07/08/22 05:35 Hgb 7.9 gm/dl (11.8-15.2) L 07/08/22 05:35 Hct 25.3 % (35.5-45.6) L 07/08/22 05:35 MCV 102 fl (84-94) H 07/08/22 05:35 MCH 32 pg (28-32) 07/08/22 05:35 MCHC 31 % (32-34) L 07/08/22 05:35 RDW 13.1 % (13.2-15.2) L 07/08/22 05:35 Plt Count 27 K/mm3 (140-440) L 07/08/22 05:35 Add Manual Diff Complete 07/08/22 05:35 Total Counted 200 07/08/22 05:35 Seg Neuts % (Manual) 81.5 % (40.0-70.0) H 07/08/22 05:35 Band Neutrophils % 0 % 07/08/22 05:35 Lymphocytes % (Manual) 12.0 % (13.4-35.0) L 07/08/22 05:35 Reactive Lymphs % (Man) 0 % 07/08/22 05:35 Monocytes % (Manual) 4.5 % (0.0-7.3) 07/08/22 05:35 Eosinophils % (Manual) 2.0 % (0.0-4.3) 07/08/22 05:35 Basophils % (Manual) 0 % (0.0-1.8) 07/08/22 05:35 Metamyelocytes % 0 % 07/08/22 05:35 Myelocytes % 0 % 07/08/22 05:35 Promyelocytes % 0 % 07/08/22 05:35 Blast Cells % 0 % 07/08/22 05:35 Nucleated RBC % Not Reportable 07/08/22 05:35 Seg Neutrophils # Man 17.3 K/mm3 (1.8-7.7) H 07/08/22 05:35 Band Neutrophils # 0.0 K/mm3 07/08/22 05:35 Lymphocytes # (Manual) 2.5 K/mm3 (1.2-5.4) 07/08/22 05:35 Abs React Lymphs (Man) 0.0 K/mm3 07/08/22 05:35 Monocytes # (Manual) 1.0 K/mm3 (0.0-0.8) H 07/08/22 05:35 Eosinophils # (Manual) 0.4 K/mm3 (0.0-0.4) 07/08/22 05:35 Basophils # (Manual) 0.0 K/mm3 (0.0-0.1) 07/08/22 05:35 Metamyelocytes # 0.0 K/mm3 07/08/22 05:35 Myelocytes # 0.0 K/mm3 07/08/22 05:35 Promyelocytes # 0.0 K/mm3 07/08/22 05:35 Blast Cells # 0.0 K/mm3 07/08/22 05:35 WBC Morphology Not Reportable 07/08/22 05:35 Hypersegmented Neuts Not Reportable 07/08/22 05:35 Hyposegmented Neuts Not Reportable 07/08/22 05:35 Hypogranular Neuts Not Reportable 07/08/22 05:35 Smudge Cells Not Reportable 07/08/22 05:35 Toxic Granulation Not Reportable 07/08/22 05:35 Toxic Vacuolation Not Reportable 07/08/22 05:35 Dohle Bodies Not Reportable 07/08/22 05:35 Pelger-Huet Anomaly Not Reportable 07/08/22 05:35 Lulu Rods Not Reportable 07/08/22 05:35 Platelet Estimate Consistent w auto 07/08/22 05:35 Clumped Platelets Not Reportable 07/08/22 05:35 Plt Clumps, EDTA Not Reportable 07/08/22 05:35 Large Platelets Not Reportable 07/08/22 05:35 Giant Platelets Not Reportable 07/08/22 05:35 Platelet Satelliting Not Reportable 07/08/22 05:35 Plt Morphology Comment Not Reportable 07/08/22 05:35 RBC Morphology Not Reportable 07/08/22 05:35 Dimorphic RBCs Not Reportable 07/08/22 05:35 Polychromasia Not Reportable 07/08/22 05:35 Hypochromasia Not Reportable 07/08/22 05:35 Poikilocytosis Not Reportable 07/08/22 05:35 Anisocytosis 1+ 07/08/22 05:35 Microcytosis Not Reportable 07/08/22 05:35 Macrocytosis 1+ 07/08/22 05:35 Spherocytes Not Reportable 07/08/22 05:35 Pappenheimer Bodies Not Reportable 07/08/22 05:35 Sickle Cells Not Reportable 07/08/22 05:35 Target Cells Not Reportable 07/08/22 05:35 Tear Drop Cells Not Reportable 07/08/22 05:35 Ovalocytes Not Reportable 07/08/22 05:35 Helmet Cells Not Reportable 07/08/22 05:35 [place] Bodies Not Reportable 07/08/22 05:35 Buda Rings Not Reportable 07/08/22 05:35 Merry Cells Not Reportable 07/08/22 05:35 Bite Cells Not Reportable 07/08/22 05:35 Crenated Cell Not Reportable 07/08/22 05:35 Elliptocytes Not Reportable 07/08/22 05:35 Acanthocytes (Spur) Not Reportable 07/08/22 05:35 Rouleaux Not Reportable 07/08/22 05:35 Hemoglobin C Crystals Not Reportable 07/08/22 05:35 Schistocytes Not Reportable 07/08/22 05:35 Malaria parasites Not Reportable 07/08/22 05:35 Chintan Bodies Not Reportable 07/08/22 05:35 Hem Pathologist Commnt No 07/08/22 05:35 Sodium 134 mmol/L (137-145) L 07/08/22 05:35 Potassium 4.5 mmol/L (3.6-5.0) 07/08/22 05:35 Chloride 101.0 mmol/L (98-107) 07/08/22 05:35 Carbon Dioxide 21 mmol/L (22-30) L 07/08/22 05:35 Anion Gap 17 mmol/L 07/08/22 05:35 BUN 29 mg/dL (9-20) H 07/08/22 05:35 Creatinine 0.9 mg/dL (0.8-1.3) 07/08/22 05:35 Estimated GFR > 60 ml/min 07/08/22 05:35 BUN/Creatinine Ratio 32 % 07/08/22 05:35 Glucose 179 mg/dL (75-100) H 07/08/22 05:35 POC Glucose 164 mg/dL (70-105) H 07/08/22 05:50 Hemoglobin A1c 6.5 % (4-6) H 07/07/22 08:41 Lactic Acid 1.50 mmol/L (0.7-2.0) 07/07/22 02:26 Calcium 8.5 mg/dL (8.4-10.2) 07/08/22 05:35 Iron 16 ug/dL (49-181) L 07/08/22 05:35 TIBC 133 mcg/dL (250-450) L 07/08/22 05:35 Ferritin 2888.0 ng/mL (30.0-300.0) H 07/08/22 05:35 Total Bilirubin 0.70 mg/dL (0.1-1.2) 07/07/22 02:26 AST 41 units/L (5-40) H 07/07/22 02:26 ALT 28 units/L (7-56) 07/07/22 02:26 Alkaline Phosphatase 129 units/L (35-129) 07/07/22 02:26 Total Protein 6.9 g/dL (6.3-8.2) 07/07/22 02:26 Albumin 3.6 g/dL (3.9-5) L 07/07/22 02:26 Albumin/Globulin Ratio 1.1 % 07/07/22 02:26 Triglycerides 114 mg/dL (2-149) 07/07/22 08:41 Cholesterol 116 mg/dL (50-199) 07/07/22 08:41 LDL Cholesterol Direct 46 mg/dL (50-130) L 07/07/22 08:41 HDL Cholesterol 37 mg/dL (40-59) L 07/07/22 08:41 Cholesterol/HDL Ratio 3.13 % 07/07/22 08:41 Blood Type O POSITIVE 07/08/22 Unknown Microbiology: Microbiology 07/07/22 02:26 Peripheral/Venous Blood Culture - Preliminary NO GROWTH AFTER 24 HOURS 07/07/22 02:26 Peripheral/Venous Blood Culture - Preliminary NO GROWTH AFTER 24 HOURS Villareal/IV: Voiding Method Urinal Active Medications - Current Medications Current Medications: Generic Name Dose Route Start Last Admin Trade Name Freq PRN Reason Stop Dose Admin Acetaminophen 650 mg 07/07/22 08:30 Acetaminophen 325 Mg Tab PO Q4H PRN Pain MILD(1-3)/Fever >100.5/DAS Atorvastatin Calcium 40 mg 07/08/22 22:00 Atorvastatin 40 Mg Tab PO QHS APRIL Dextrose 50 ml 07/07/22 08:35 Dextrose 50% In Water (25gm) 50 Ml Syringe IV Q30MIN PRN Hypoglycemia Protocol Heparin Sodium (Porcine) 5,000 unit 07/07/22 14:00 07/08/22 06:08 Heparin 5,000 Unit/1 Ml Vial SUB-Q 5,000 unit Q8HR APRIL Administration Sodium Chloride 1,000 mls @ 100 mls/hr 07/07/22 05:30 07/08/22 06:16 Nacl 0.9% 1000 Ml IV 100 mls/hr DIRECT APRIL Administration Cefepime HCl 1 gm in 100 mls @ 200 mls/hr 07/07/22 09:00 07/08/22 00:35 Cefepime/Ns 1 Gm/100 Ml IV 200 mls/hr Q8H APRIL Administration Protocol Linezolid 600 mg in 300 mls @ 300 mls/hr 07/07/22 15:00 07/08/22 03:19 Zyvox 600mg/300ml IV 300 mls/hr Q12H APRIL Administration Protocol Insulin Human Isoph/Insulin Regular 25 unit 07/07/22 19:16 07/08/22 09:52 Insulin Nph/Regular 70/30 Inj SUB-Q 25 unit BIDDIAB APRIL Administration Insulin Human Regular 0 units 07/07/22 09:00 07/08/22 09:54 Insulin Regular, Human 100 Units/1 Ml SUB-Q 2 units Q6H APRIL Administration Protocol Insulin Human Regular 10 units 07/07/22 17:38 07/07/22 18:29 Insulin Regular, Human 100 Units/1 Ml SUB-Q 10 units ONCE PRN Administration Hyperglycemia Insulin Human Regular 5 units 07/07/22 22:00 07/07/22 21:44 Insulin Regular, Human 100 Units/1 Ml SUB-Q 5 units ACHS APRIL Administration Insulin Human Regular 0 units 07/08/22 00:00 07/08/22 06:08 Insulin Regular, Human 100 Units/1 Ml SUB-Q 2 units Q6H APRIL Administration Protocol Morphine Sulfate 2 mg 07/07/22 08:30 Morphine 4 Mg/1 Ml Inj IV Q4H PRN Pain , Severe (7-10) Nifedipine 30 mg 07/08/22 10:00 07/08/22 09:50 Nifedipine Xl 30 Mg Tab PO 30 mg QDAY APRIL Administration Ondansetron HCl 4 mg 07/07/22 08:30 Ondansetron 4 Mg/2 Ml Inj IV Q8H PRN Nausea And Vomiting Oxycodone/Acetaminophen 1 tab 07/07/22 08:30 07/08/22 09:49 Oxycodone /Acetaminophen 5-325mg Tab PO 1 tab Q6H PRN Administration Pain, Moderate (4-6) Povidone Iodine 1 applic 07/07/22 15:00 07/07/22 16:27 Povidone-Iodine Ointment 28.35 Gm TP 1 applic DAILY APRIL Administration Sodium Chloride 10 ml 07/07/22 10:00 07/07/22 21:47 Sodium Chloride 0.9% 10 Ml Flush Syringe IV 10 ml BID APRIL Administration Sodium Chloride 10 ml 07/07/22 08:30 Sodium Chloride 0.9% 10 Ml Flush Syringe IV PRN PRN LINE FLUSH Nutrition/Malnutrition Assess - Dietary Evaluation Nutrition/Malnutrition Findings: Nutrition Notes Start: 07/08/22 11:33 Freq: Status: Active Protocol: Document 07/08/22 11:33 ESTHER (Rec: 07/08/22 11:52 ESTHER [email or web address]) Nutrition Notes 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 He consumed 50% of dinner last pm; he is able to feed himself. Revascularization procedure scheduled for tomorrow; pt will be NPO after midnight tonight. PMHx includes PVD (s/p RLE bypass 10+ yrs ago), (R) foot transmetatarsal amputation. 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 No Is Patient Ambulatory and/or Out of Bed No REE-([facility]-confined to bed) 5887.160 Calculation Used for Recommendations [facility] Additional Notes Pro needs 1.25-1.5g/k- 108g/day Fluid needs 1ml/kcal Nutrition Intervention Follow-Up By: 07/12/22 Additional Comments F/U: intakes, need for ONS
[2022-07-08] MEDS: POVIDONE-IODINE OINTMENT 28.35 GM TP SCH (13:53)
[2022-07-09] MEDS: CEFEPIME/NS 1 GM/100 ML 1 GM/100 ML BAG IV SCH ×2 (01:00→18:57)
[2022-07-09] MEDS: INSULIN REGULAR, HUMAN 100 UNITS/1 ML SUB-Q SCH ×8 (01:01→22:52)
[2022-07-09] MEDS: ACETAMINOPHEN 325 MG TAB PO PRN (01:31)
[2022-07-09] MEDS: LINEZOLID 600 MG/300 ML BAG IV SCH (02:56)
[2022-07-09 08:26] LABS: Basophils # (Auto) 0.1 K/mm3 (0.0-0.1); Basophils % (Auto) 0.5 % (0.0-1.8); Eosinophils # (Auto) 0.1 K/mm3 (0.0-0.4); Eosinophils % (Auto) 0.7 % (0.0-4.3); Hematocrit 27.3 % (35.5-45.6); Hemoglobin 8.6 gm/dl (11.8-15.2); Lymphocytes # (Auto) 2.9 K/mm3 (1.2-5.4); Lymphocytes % (Auto) 16.2 % (13.4-35.0); Mean Corpuscular HGB Conc 31 % (32-34); Mean Corpuscular Volume 101 fl (84-94); Monocytes # (Auto) 2.1 K/mm3 (0.0-0.8); Monocytes % (Auto) 11.9 % (0.0-7.3); Red Blood Count 2.71 M/mm3 (3.65-5.03); Red Cell Distribution Width 13.1 % (13.2-15.2)
[2022-07-09 08:30] LABS: Platelet Count 47 K/mm3 (140-440)
[2022-07-09] MEDS: oxyCODONE /ACETAMINOPHEN 5-325MG TAB PO PRN (08:43)
[2022-07-09 08:58] LABS: BUN/Creatinine Ratio 16; Blood Urea Nitrogen 13 mg/dL (9-20); Calcium 8.6 mg/dL (8.4-10.2); Hemolysis Index 0
[2022-07-09 09:03] LABS: INR 0.99 (0.87-1.13)
[2022-07-09] MEDS: INSULIN NPH/REGULAR 70/30 INJ SUB-Q SCH ×2 (09:12→18:23)
[2022-07-09] MEDS: HEPARIN 5,000 UNIT/1 ML VIAL SUB-Q SCH ×3 (09:12→22:50)
[2022-07-09] MEDS: NIFEdipine XL 30 MG TAB PO SCH (09:12)
--- NOTE | 2022-07-09 10:07 | Consultation ---
History of Present Illness - Reason for Consult Consult date: 07/09/22 abx management Requesting physician: AMMY KURTZ - History of Present Illness The patient is a 67-year-old male with diabetes, hypertension, peripheral vascular disease with previous history of RLE arterial bypass, right TMA, former smoker quit in 2005 was admitted to the hospital with left third toe wound. Ulcer has been present for the last 1 month, following up outpatient with podiatry who referred him to vascular surgery. Patient was given p.o. doxycycline as an outpatient but due to worsening ulcer and infection along with odor, came to the hospital. X-ray showed findings concerning for osteomyelitis. Vascular and general surgery are following. Awaiting revascularization and possible to amputation. ID was consulted for antibiotic management. Low-grade fever of 100 F. Labs revealed leukocytosis which appears to be improving. There is also significant thrombocytopenia. Review of Systems: General: no fevers,chills or rigors HEENT: no new visual disturbance Respiratory: No cough, sputum, hemoptysis or shortness of breath Cardiovascular: No chest pain, syncope Gastrointestinal: No nausea, vomiting or diarrhea Genitourinary: No dysuria or hematuria Musculoskeletal: No new or worsening neck pain or back pain Neurologic: No headaches, seizures Hematologic: No easy bruising or bleeding Endocrine: No night sweats or acute weight loss Skin: negative for rash, jaundice Psychiatric: No suicidal or homicidal ideation Past History Past Medical History: diabetes, PVD (s/p RLE bypass 10+ years ago, occluded (pop-dp) ; s/p LLE SFA/pop stenting at outside facility years ago), renal alina lure (CKD) Past Surgical History: Other (PVD surgery; transmetatarsal amputation of right foot) Social history: no significant social history Family history: no significant family history Medications and Allergies Allergies Allergy/AdvReac Type Severity Reaction Status Date / Time No Known Allergies Allergy Verified 07/07/22 05:35 Home Medications Medication Instructions Recorded Confirmed Last Taken Type Atorvastatin 40 mg PO DAILY 07/07/22 07/07/22 07/06/22 History Chlorthalidone 12.5 mg PO DAILY 07/07/22 07/07/22 07/06/22 History Lisinopril 30 mg PO DAILY 07/07/22 07/07/22 07/06/22 History Metoprolol 100 mg PO BID 0907/07/22 07/06/22 History Sertraline 100 mg PO DAILY 07/07/22 07/07/22 07/06/22 History Tamsulosin [Flomax] 0.4 mg PO QDAY 07/07/22 07/07/22 07/06/22 History traZODone [Desyrel] 100 mg PO QHS 07/07/22 07/07/22 Unknown History Active Meds: Active Medications Acetaminophen (Acetaminophen 325 Mg Tab) 650 mg PO Q4H PRN PRN Reason: Pain MILD(1-3)/Fever >100.5/DAS Last Admin: 07/09/22 01:31 Dose: 650 mg Atorvastatin Calcium (Atorvastatin 40 Mg Tab) 40 mg PO QHS APRIL Last Admin: 07/08/22 21:08 Dose: 40 mg Dextrose (Dextrose 50% In Water (25gm) 50 Ml Syringe) 50 ml IV Q30MIN PRN; Protocol PRN Reason: Hypoglycemia Heparin Sodium (Porcine) (Heparin 5,000 Unit/1 Ml Vial) 5,000 unit SUB-Q Q8HR APRIL Last Admin: 07/09/22 09:12 Dose: 5,000 unit Sodium Chloride (Nacl 0.9% 1000 Ml) 1,000 mls @ 100 mls/hr IV DIRECT APRIL Last Admin: 07/08/22 06:16 Dose: 100 mls/hr Cefepime HCl (Cefepime/Ns 1 Gm/100 Ml) 1 gm in 100 mls @ 200 mls/hr IV Q8H APRIL; Protocol Last Admin: 07/09/22 01:00 Dose: 200 mls/hr Linezolid (Zyvox 600mg/300ml) 600 mg in 300 mls @ 300 mls/hr IV Q12H APRIL; Protocol Last Admin: 07/09/22 02:56 Dose: 300 mls/hr Insulin Human Isoph/Insulin Regular (Insulin Nph/Regular 70/30 Inj) 25 unit SUB-Q BIDDIAB APRIL Last Admin: 07/09/22 09:12 Dose: Not Given Insulin Human Regular (Insulin Regular, Human 100 Units/1 Ml) 5 units SUB-Q ACHS APRIL Last Admin: 07/09/22 08:45 Dose: Not Given Insulin Human Regular (Insulin Regular, Human 100 Units/1 Ml) 0 units SUB-Q Q6H APRIL; Protocol Last Admin: 07/09/22 06:48 Dose: Not Given Morphine Sulfate (Morphine 4 Mg/1 Ml Inj) 2 mg IV Q4H PRN PRN Reason: Pain , Severe (7-10) Nifedipine (Nifedipine Xl 30 Mg Tab) 30 mg PO QDAY [facility] Last Admin: 07/09/22 09:12 Dose: 30 mg Ondansetron HCl (Ondansetron 4 Mg/2 Ml Inj) 4 mg IV Q8H PRN PRN Reason: Nausea And Vomiting Oxycodone/Acetaminophen (Oxycodone /Acetaminophen 5-325mg Tab) 1 tab PO Q6H PRN PRN Reason: Pain, Moderate (4-6) Last Admin: 07/09/22 08:43 Dose: 1 tab Povidone Iodine (Povidone-Iodine Ointment 28.35 Gm) 1 applic TP DAILY [facility] Last Admin: 07/08/22 13:53 Dose: 1 applic Sodium Chloride (Sodium Chloride 0.9% 10 Ml Flush Syringe) 10 ml IV BID [facility] Last Admin: 07/08/22 21:10 Dose: 10 ml Sodium Chloride (Sodium Chloride 0.9% 10 Ml Flush Syringe) 10 ml IV PRN PRN PRN Reason: LINE FLUSH Physical Examination - Physical Exam Narrative exam: Physical Exam: Constitutional: Alert, cooperative. No acute distress Head, Ears, Nose: Normocephalic, atraumatic. External ears, nose normal Eyes: Conjunctivae/corneas clear. No icterus. No ptosis. Neck: Supple, no meningeal signs Cardiovascular: S1, S2 + Respiratory: Good air entry, clear to auscultation bilaterally GI: Soft, non-tender; bowel sounds normal. No peritoneal signs Musculoskeletal: Right TMA well-healed, left foot in dressing Skin: No rash or abscess Hem/Lymphatic: No palpable cervical or supraclavicular nodes. No lymphangitis Psych: Mood ok. Affect normal Neurological: Awake, alert, oriented. No gross abnormality - Constitutional Vitals: Vital Signs Temp Pulse Resp BP Pulse Ox 98.5 F 99 H 18 140/64 99 07/09/22 04:50 07/09/22 04:50 07/09/22 04:50 07/09/22 04:50 07/09/22 04:50 Temperature -Last 24 Hours Temperature 98.5 F Temperature 100.0 F Temperature 100.0 F Temperature 98.6 F Temperature 98.2 F Temperature 98.6 F Results - Labs CBC & Chem 7: 07/09/22 Unknown 07/09/22 Unknown Labs: Abnormal lab results 07/08/22 07/08/22 07/08/22 Range/Units 07:39 11:39 16:33 WBC (4.5-11.0) K/mm3 RBC (3.65-5.03) M/mm3 Hgb (11.8-15.2) gm/dl Hct (35.5-45.6) % MCV (84-94) fl MCHC (32-34) % RDW (13.2-15.2) % Plt Count (140-440) K/mm3 Ransom % (Auto) (0.0-7.3) % Ransom # (Auto) (0.0-0.8) K/mm3 Seg Neutrophils % (40.0-70.0) % Seg Neutrophils # (1.8-7.7) K/mm3 Sodium (137-145) mmol/L Glucose (75-100) mg/dL POC Glucose 180 H 202 H 182 H (70-105) mg/dL 07/09/22 07/09/22 07/09/22 Range/Units 06:01 Unknown Unknown WBC 17.9 H (4.5-11.0) K/mm3 RBC 2.71 L (3.65-5.03) M/mm3 Hgb 8.6 L (11.8-15.2) gm/dl Hct 27.3 L (35.5-45.6) % MCV 101 H (84-94) fl MCHC 31 L (32-34) % RDW 13.1 L (13.2-15.2) % Plt Count 47 L (140-440) K/mm3 Ransom % (Auto) 11.9 H (0.0-7.3) % Ransom # (Auto) 2.1 H (0.0-0.8) K/mm3 Seg Neutrophils % 70.7 H (40.0-70.0) % Seg Neutrophils # 12.6 H (1.8-7.7) K/mm3 Sodium 136 L (137-145) mmol/L Glucose 174 H (75-100) mg/dL POC Glucose 150 H (70-105) mg/dL - Imaging and Cardiology Chest x-ray: report reviewed, image reviewed (no pneumonia) Assessment and Plan Cultures: 07/07/2022 blood culture: No growth A/P: 67-year-old male with diabetes, hypertension, peripheral vascular disease with previous history of RLE arterial bypass, right TMA, former smoker quit in 2005 was admitted to the hospital with left third toe wound: #Sepsis, secondary to diabetic foot infection, osteomyelitis of left foot third toe: Risk factors diabetes and peripheral vascular disease. WBC improving. #Thrombocytopenia: ?acute #JACQUI: Improving. Renally adjust antibiotics as needed. #Peripheral vascular disease, history of RLE arterial bypass, prior right TMA. #Diabetes mellitus type 2, uncontrolled Recs: Continue IV cefepime Due to thrombocytopenia, will discontinue linezolid and switch to IV daptomycin. Avoiding vancomycin due to patient's CKD and elevated creatinine at the time of admission Follow-up revascularization and toe amputation plans Ivett Campbell MD, FACP, [facility] O: [phone] F: [phone] C: [phone]
[2022-07-09] MEDS ORDERED: ASPIRIN EC 81 MG TAB PO SCH (12:00)
--- NOTE | 2022-07-09 12:07 | Event Note ---
Date: 07/09/22 Pt chart reviewed. Tm 100. WBC trending down. CXR - no acute findings HbA1C 6.5 67-year-old male with 1. Infected diabetic foot wound left third toe 2. Osteomyelitis 3. Peripheral arterial disease Plan: 1. Consistent carb diet after revasc procedure today 2. strict glucose control 3. gentle IVF 4. IV abx - ID on board 5. Daily wound care 6. Vascular on board - for revasc today 7. MRI L foot pending 8. Patient at the very least will need an amputation of his left third toe. We will await results from revascularization procedure and MRI left foot to determine extent of amputation. 9. Will submit for HBOT auth via outpatient wound clinic. Pt to follow up there [place]. Thank you for this consultation. Please call with any questions or concerns.
--- NOTE | 2022-07-09 12:33 | Progress Note ---
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 Pending MRI left foot WBC 27-->21-->17.9 Continue cefepime 1 g every 8 hours and IV linezolid 600 mg every 12 hours. Status post aggressive IV fluid resuscitation. Infectious disease consulted; appreciate recs Vascular surgery consulted; appreciate recs. Planning for revascularization on 07/09/2022. General surgery consulted; appreciate recs. Plan for possible amputation on 07/10/2022. Continue to monitor #Insulin dependent type II diabetes mellitus with hyperglycemiaimproving Worsened by diabetic foot infection - hemoglobin A1c: 6.5 - home regimen: Unknown - current regimen: NPH 25 units twice daily + moderate SSI +8 units regular insulin with meals - blood glucose goal 140-180 while inpatient - continue to monitor #Pseudohyponatremiaresolved Sodium 129 (corrected 136) #JACQUI on likely CKD stage IIIresolved Creatinine 1.7-->0.9 (baseline unknown) Status post aggressive IV fluid resuscitation Renally dose meds and avoid nephrotoxic drugs. Monitor with repeat BMP tomorrow. Consider nephrology consult showed cre atinine 1 continue to increase. #Hypertension - home medications: Unknown - current medications: Started nifedipine 30 mg daily - SBP goal <160 and DBP goal <90 while inpatient - continue to monitor #Iron deficiency anemia #anemia of chronic disease Hemoglobin 8.2 Iron 16, TIBC 133, ferritin 2880. Transfuse if hemoglobin <7 #Chronic thrombocytopenia Platelets 31-->27-->47 (status post transfusion of 1 platelet on 07/08/2022) Patient endorses being aware but not having etiology determined by other clinicians. Pending transfusion of 1 additional jumbo platelet for upcoming amputation by general surgery. #Moderate protein caloric malnutrition Albumin 3.6 Will initiate dietary supplementation once hyperglycemia is under control. #Advanced care planning -Disease education conducted, care plan discussed, diagnoses discussed, prognosis discussed, and patient acknowledges understanding with care plan -Time: +30 min Disposition Plan: Continue medical management Total Time Spent with Patient (Minutes): 45 minutes History Interval history: No acute events overnight. Hospitalist Physical - Constitutional Vitals: Temp Pulse Resp BP Pulse Ox 99.5 F 94 H 16 147/71 96 07/09/22 10:29 07/09/22 10:29 07/09/22 10:29 07/09/22 10:29 07/09/22 10:29 General appearance: Present: no acute distress, well-nourished, malodorous (Malodorous wet gangrene of left foot with ulceration of third digit) - EENT Eyes: Present: PERRL, EOM intact ENT: hearing intact, clear oral mucosa, dentition normal - Neck Neck: Present: supple, normal ROM - Respiratory Respiratory effort: normal Respiratory: bilateral: CTA - Cardiovascular Rhythm: regular Heart Sounds: Present: S1 & S2 - Extremities Extremities: no ischemia, pulses symmetrical, normal temperature, Full ROM, abnormal (Right transmetatarsal amputation) Extremity abnormal: ulceration (Ulceration of left third digit with wet gangrene) Peripheral Pulses: within normal limits - Abdominal General gastrointestinal: soft, non-tender, non-distended, normal bowel sounds - Integumentary Integumentary: Present: clear, warm, dry - Psychiatric Psychiatric: appropriate mood/affect, intact judgment & insight, memory intact, cooperative - Neurologic Neurologic: CNII-XII intact, moves all extremities - Allied Health Allied health notes reviewed: nursing Results - Labs CBC & Chem 7: 07/09/22 Unknown 07/09/22 Unknown Labs: Laboratory Last Values WBC 17.9 K/mm3 (4.5-11.0) H 07/09/22 Unknown RBC 2.71 M/mm3 (3.65-5.03) L 07/09/22 Unknown Hgb 8.6 gm/dl (11.8-15.2) L 07/09/22 Unknown Hct 27.3 % (35.5-45.6) L 07/09/22 Unknown MCV 101 fl (84-94) H 07/09/22 Unknown MCH 32 pg (28-32) 07/09/22 Unknown MCHC 31 % (32-34) L 07/09/22 Unknown RDW 13.1 % (13.2-15.2) L 07/09/22 Unknown Plt Count 47 K/mm3 (140-440) L 07/09/22 Unknown Lymph % (Auto) 16.2 % (13.4-35.0) 07/09/22 Unknown [place] % (Auto) 11.9 % (0.0-7.3) H 07/09/22 Unknown Eos % (Auto) 0.7 % (0.0-4.3) 07/09/22 Unknown Baso % (Auto) 0.5 % (0.0-1.8) 07/09/22 Unknown Lymph # (Auto) 2.9 K/mm3 (1.2-5.4) 07/09/22 Unknown [place] # (Auto) 2.1 K/mm3 (0.0-0.8) H 07/09/22 Unknown Eos # (Auto) 0.1 K/mm3 (0.0-0.4) 07/09/22 Unknown Baso # (Auto) 0.1 K/mm3 (0.0-0.1) 07/09/22 Unknown Add Manual Diff Complete 07/08/22 05:35 Total Counted 200 07/08/22 05:35 Seg Neutrophils % 70.7 % (40.0-70.0) H 07/09/22 Unknown Seg Neuts % (Manual) 81.5 % (40.0-70.0) H 07/08/22 05:35 Band Neutrophils % 0 % 07/08/22 05:35 Lymphocytes % (Manual) 12.0 % (13.4-35.0) L 07/08/22 05:35 Reactive Lymphs % (Man) 0 % 07/08/22 05:35 Monocytes % (Manual) 4.5 % (0.0-7.3) 07/08/22 05:35 Eosinophils % (Manual) 2.0 % (0.0-4.3) 07/08/22 05:35 Basophils % (Manual) 0 % (0.0-1.8) 07/08/22 05:35 Metamyelocytes % 0 % 07/08/22 05:35 Myelocytes % 0 % 07/08/22 05:35 Promyelocytes % 0 % 07/08/22 05:35 Blast Cells % 0 % 07/08/22 05:35 Nucleated RBC % Not Reportable 07/08/22 05:35 Seg Neutrophils # 12.6 K/mm3 (1.8-7.7) H 07/09/22 Unknown Seg Neutrophils # Man 17.3 K/mm3 (1.8-7.7) H 07/08/22 05:35 Band Neutrophils # 0.0 K/mm3 07/08/22 05:35 Lymphocytes # (Manual) 2.5 K/mm3 (1.2-5.4) 07/08/22 05:35 Abs React Lymphs (Man) 0.0 K/mm3 07/08/22 05:35 Monocytes # (Manual) 1.0 K/mm3 (0.0-0.8) H 07/08/22 05:35 Eosinophils # (Manual) 0.4 K/mm3 (0.0-0.4) 07/08/22 05:35 Basophils # (Manual) 0.0 K/mm3 (0.0-0.1) 07/08/22 05:35 Metamyelocytes # 0.0 K/mm3 07/08/22 05:35 Myelocytes # 0.0 K/mm3 07/08/22 05:35 Promyelocytes # 0.0 K/mm3 07/08/22 05:35 Blast Cells # 0.0 K/mm3 07/08/22 05:35 WBC Morphology Not Reportable 07/08/22 05:35 Hypersegmented Neuts Not Reportable 07/08/22 05:35 Hyposegmented Neuts Not Reportable 07/08/22 05:35 Hypogranular Neuts Not Reportable 07/08/22 05:35 Smudge Cells Not Reportable 07/08/22 05:35 Toxic Granulation Not Reportable 07/08/22 05:35 Toxic Vacuolation Not Reportable 07/08/22 05:35 Dohle Bodies Not Reportable 07/08/22 05:35 Pelger-Huet Anomaly Not Reportable 07/08/22 05:35 Lulu Rods Not Reportable 07/08/22 05:35 Platelet Estimate Consistent w auto 07/08/22 05:35 Clumped Platelets Not Reportable 07/08/22 05:35 Plt Clumps, EDTA Not Reportable 07/08/22 05:35 Large Platelets Not Reportable 07/08/22 05:35 Giant Platelets Not Reportable 07/08/22 05:35 Platelet Satelliting Not Reportable 07/08/22 05:35 Plt Morphology Comment Not Reportable 07/08/22 05:35 RBC Morphology Not Reportable 07/08/22 05:35 Dimorphic RBCs Not Reportable 07/08/22 05:35 Polychromasia Not Reportable 07/08/22 05:35 Hypochromasia Not Reportable 07/08/22 05:35 Poikilocytosis Not Reportable 07/08/22 05:35 Anisocytosis 1+ 07/08/22 05:35 Microcytosis Not Reportable 07/08/22 05:35 Macrocytosis 1+ 07/08/22 05:35 Spherocytes Not Reportable 07/08/22 05:35 Pappenheimer Bodies Not Reportable 07/08/22 05:35 Sickle Cells Not Reportable 07/08/22 05:35 Target Cells Not Reportable 07/08/22 05:35 Tear Drop Cells Not Reportable 07/08/22 05:35 Ovalocytes Not Reportable 07/08/22 05:35 Helmet Cells Not Reportable 07/08/22 05:35 Capps-[place]hal[place] Bodies Not Reportable 07/08/22 05:35 [place] Rings Not Reportable 07/08/22 05:35 [place] Cells Not Reportable 07/08/22 05:35 Bite Cells Not Reportable 07/08/22 05:35 Crenated Cell Not Reportable 07/08/22 05:35 Elliptocytes Not Reportable 07/08/22 05:35 Acanthocytes (Spur) Not Reportable 07/08/22 05:35 Rouleaux Not Reportable 07/08/22 05:35 Hemoglobin C Crystals Not Reportable 07/08/22 05:35 Schistocytes Not Reportable 07/08/22 05:35 Malaria parasites Not Reportable 07/08/22 05:35 Chintan Bodies Not Reportable 07/08/22 05:35 Hem Pathologist Commnt No 07/08/22 05:35 PT 14.5 Sec. (12.2-14.9) 07/09/22 Unknown INR 0.99 (0.87-1.13) 07/09/22 Unknown Sodium 136 mmol/L (137-145) L 07/09/22 Unknown Potassium 4.3 mmol/L (3.6-5.0) 07/09/22 Unknown Chloride 99.2 mmol/L (98-107) 07/09/22 Unknown Carbon Dioxide 27 mmol/L (22-30) 07/09/22 Unknown Anion Gap 14 mmol/L 07/09/22 Unknown BUN 13 mg/dL (9-20) 07/09/22 Unknown Creatinine 0.8 mg/dL (0.8-1.3) 07/09/22 Unknown Estimated GFR > 60 ml/min 07/09/22 Unknown BUN/Creatinine Ratio 16 % 07/09/22 Unknown Glucose 174 mg/dL (75-100) H 07/09/22 Unknown POC Glucose 150 mg/dL (70-105) H 07/09/22 06:01 Hemoglobin A1c 6.5 % (4-6) H 07/07/22 08:41 Lactic Acid 1.50 mmol/L (0.7-2.0) 07/07/22 02:26 Calcium 8.6 mg/dL (8.4-10.2) 07/09/22 Unknown Iron 16 ug/dL (49-181) L 07/08/22 05:35 TIBC 133 mcg/dL (250-450) L 07/08/22 05:35 Ferritin 2888.0 ng/mL (30.0-300.0) H 07/08/22 05:35 Total Bilirubin 0.70 mg/dL (0.1-1.2) 07/07/22 02:26 AST 41 units/L (5-40) H 07/07/22 02:26 ALT 28 units/L (7-56) 07/07/22 02:26 Alkaline Phosphatase 129 units/L (35-129) 07/07/22 02:26 Total Protein 6.9 g/dL (6.3-8.2) 07/07/22 02:26 Albumin 3.6 g/dL (3.9-5) L 07/07/22 02:26 Albumin/Globulin Ratio 1.1 % 07/07/22 02:26 Triglycerides 114 mg/dL (2-149) 07/07/22 08:41 Cholesterol 116 mg/dL (50-199) 07/07/22 08:41 LDL Cholesterol Direct 46 mg/dL (50-130) L 07/07/22 08:41 HDL Cholesterol 37 mg/dL (40-59) L 07/07/22 08:41 Cholesterol/HDL Ratio 3.13 % 07/07/22 08:41 Blood Type O POSITIVE 07/08/22 Unknown Microbiology: Microbiology 07/07/22 02:26 Peripheral/Venous Blood Culture - Preliminary NO GROWTH AFTER 48 HOURS 07/07/22 02:26 Peripheral/Venous Blood Culture - Preliminary NO GROWTH AFTER 48 HOURS [place]/IV: Voiding Method Urinal Active Medications - Current Medications Current Medications: Generic Name Dose Route Start Last Admin Trade Name Freq PRN Reason Stop Dose Admin Acetaminophen 650 mg 07/07/22 08:30 07/09/22 01:31 Acetaminophen 325 Mg Tab PO 650 mg Q4H PRN Administration Pain MILD(1-3)/Fever >100.5/DAS Aspirin 81 mg 07/09/22 12:00 Aspirin Ec 81 Mg Tab PO QDAY APRIL Atorvastatin Calcium 40 mg 07/08/22 22:00 07/08/22 21:08 Atorvastatin 40 Mg Tab PO 40 mg QHS APRIL Administration Cilostazol 100 mg 07/09/22 12:00 Cilostazol 100 Mg Tab PO BID APRIL Dextrose 50 ml 07/07/22 08:35 Dextrose 50% In Water (25gm) 50 Ml Syringe IV Q30MIN PRN Hypoglycemia Protocol Heparin Sodium (Porcine) 5,000 unit 07/07/22 14:00 07/09/22 09:12 Heparin 5,000 Unit/1 Ml Vial SUB-Q 5,000 unit Q8HR APRIL Administration Sodium Chloride 1,000 mls @ 100 mls/hr 07/07/22 05:30 07/08/22 06:16 Nacl 0.9% 1000 Ml IV 100 mls/hr DIRECT APRIL Administration Cefepime HCl 1 gm in 100 mls @ 200 mls/hr 07/07/22 09:00 07/09/22 01:00 Cefepime/Ns 1 Gm/100 Ml IV 200 mls/hr Q8H APRIL Administration Protocol Daptomycin 420 mg/ Sodium 100 mls @ 200 mls/hr 07/09/22 12:00 Chloride IV Q24H [facility] Protocol Insulin Human Isoph/Insulin Regular 25 unit 07/07/22 19:16 07/09/22 09:12 Insulin Nph/Regular 70/30 Inj SUB-Q Not Given BIDDIAB [facility] Insulin Human Regular 5 units 07/07/22 22:00 07/09/22 08:45 Insulin Regular, Human 100 Units/1 Ml SUB-Q Not Given ACHS [facility] Insulin Human Regular 0 units 07/08/22 00:00 07/09/22 06:48 Insulin Regular, Human 100 Units/1 Ml SUB-Q Not Given Q6H [facility] Protocol Morphine Sulfate 2 mg 07/07/22 08:30 Morphine 4 Mg/1 Ml Inj IV Q4H PRN Pain , Severe (7-10) Nifedipine 30 mg 07/08/22 10:00 07/09/22 09:12 Nifedipine Xl 30 Mg Tab PO 30 mg QDAY APRIL Administration Ondansetron HCl 4 mg 07/07/22 08:30 Ondansetron 4 Mg/2 Ml Inj IV Q8H PRN Nausea And Vomiting Oxycodone/Acetaminophen 1 tab 07/07/22 08:30 07/09/22 08:43 Oxycodone /Acetaminophen 5-325mg Tab PO 1 tab Q6H PRN Administration Pain, Moderate (4-6) Povidone Iodine 1 applic 07/07/22 15:00 07/08/22 13:53 Povidone-Iodine Ointment 28.35 Gm TP 1 applic DAILY APRIL Administration Sodium Chloride 10 ml 07/07/22 10:00 07/08/22 21:10 Sodium Chloride 0.9% 10 Ml Flush Syringe IV 10 ml BID APRIL Administration Sodium Chloride 10 ml 07/07/22 08:30 Sodium Chloride 0.9% 10 Ml Flush Syringe IV PRN PRN LINE FLUSH Nutrition/Malnutrition Assess - Dietary Evaluation Nutrition/Malnutrition Findings: Nutrition Notes Start: 07/08/22 11:33 Freq: Status: Active Protocol: Document 07/08/22 11:33 ESTHER (Rec: 07/08/22 11:52 ESTHER [id number]) Nutrition Notes Need for Assessment generated from: contract officer Initial or Follow up Brief Note Current Diagnosis Diabetes Other Pertinent Diagnosis Infected (L) diabetic foot, (L ) foot osteomyelitis Current Diet Consistent CHO Labs/Tests BUN 29 BG 179 Iron 16 TIBC 133 A1C 6.5 Pertinent Medications NS at 100ml/hr Height 5 ft 8 in Weight 72 kg [place] Body Weight (kg) 70.00 BMI 24.1 Weight Status Appropriate Subjective/Other Information Pt screened for skin risk assessment (Austen score: 18). He consumed 50% of dinner last pm; he is able to feed himself. Revascularization procedure scheduled for tomorrow; pt will be NPO after midnight tonight. PMHx includes PVD (s/p RLE bypass 10+ yrs ago), (R) foot transmetatarsal amputation. Burn Absent Trauma Absent Current % PO Fair (50-74%) Minimum of two criteria No Reduced Faculty Instructor Strength Measurably Reduced (severe) Is patient on ventilator? No Is Patient Ambulatory and/or Out of Bed No REE-([facility]-confined to bed) 4967.160 Calculation Used for Recommendations [facility] Additional Notes Pro needs 1.25-1.5g/k- 108g/day Fluid needs 1ml/kcal Nutrition Intervention Follow-Up By: 07/12/22 Additional Comments F/U: intakes, need for ONS
[2022-07-09 14:36] LABS: Hematocrit 27.2 % (35.5-45.6); Hemoglobin 8.8 gm/dl (11.8-15.2); Mean Corpuscular HGB Conc 33 % (32-34); Mean Corpuscular Volume 101 fl (84-94); Red Cell Distribution Width 13.3 % (13.2-15.2)
[2022-07-09 14:39] LABS: Platelet Count 44 K/mm3 (140-440)
[2022-07-09] MEDS ORDERED: NITROGLYCERIN DRIP 50 MG/250 ML BOTTLE ONE (15:08)
[2022-07-09] MEDS ORDERED: ceFAZolin/Water 2 GM/20 ML 2 GM/20 ML SYRINGE IV ONE (15:09)
[2022-07-09] MEDS ORDERED: HEPARIN/NS 5000 UNIT/500ML 1,000 ML IR ONE (15:09)
--- NOTE | 2022-07-09 15:10 | Event Note ---
Date: 07/09/22 Patient has thrombocytopenia. Received 1 unit pheresis yesterday and today. Repeat CBC demonstrated platelet count 47. We will proceed with rev ascularization. Risk discussed with patient. Ordered 1 more unit of platelet pheresis. May need more platelet infusions for toe amputation tomorrow.
[2022-07-09] MEDS ORDERED: SODIUM CHLORIDE 0.9% 500 ML 500 ML IV SCH (15:30)
[2022-07-09] MEDS: fentaNYL 100 MCG/2 ML INJ ONE ×5 (15:33→16:20)
[2022-07-09] MEDS: MIDAZOLAM 2 MG/2 ML INJ ONE ×5 (15:33→16:20)
[2022-07-09] MEDS: SODIUM CHLORIDE 0.9% 1000 ML 1,000 ML IV SCH (15:35)
[2022-07-09] MEDS: HEPARIN 10,000 UNITS/10 ML VIAL ONE ×2 (15:36→16:20)
[2022-07-09] MEDS ORDERED: LIDOCAINE 1%/EPINEPHRINE 1:100,000 VIAL (20 ML) INFILTRATI ONE (15:48)
[2022-07-09] MEDS ORDERED: ONDANSETRON 4 MG/2 ML INJ ONE ×3 (16:05→17:01)
[2022-07-09] MEDS ORDERED: MIDAZOLAM 2 MG/2 ML INJ ONE (16:58)
[2022-07-09] MEDS ORDERED: CLOPIDOGREL 75 MG TAB ONE (17:12)
--- NOTE | 2022-07-09 17:28 | Post Operative Note ---
Date of procedure: 07/09/22 Pre-op diagnosis: PVD with gangrene of the left 3rd digit Post-op diagnosis: same Findings: Patient had adverse effect to Versed with nausea and vomiting. Zofran provided. 12 mg of Zofran had to be provided for control of vomiting during procedure. May need Reglan. Procedure: 1. Ultrasound guided access of the right common femoral artery 2. Angiography of the right lower extremity 3. Selection of the abdominal aorta, left common iliac arteries, left superficial femoral artery, left tibioperoneal trunk with angiography 4. Fluoroscopic guided placement of a 7 mm spider in the left popliteal artery 5. Atherectomy of the left knjmv-tsz-kbor popliteal artery with a Funplus M device 6. Angioplasty of the left yovlt-jno-cttq popliteal artery with a 6 mm x 150 mm 0.018 iNPACT balloon 7. Angioplasty of the left common iliac artery with a 7 mm x 40 mm angioplasty balloon 8. Closure of the right common femoral artery with a 6 [place] Pro stent Anesthesia: local (With conscious sedation) Surgeon: AMMY KURTZ Estimated blood loss: minimal Condition: stable Disposition: floor
--- NOTE | 2022-07-09 17:32 | Operative Report ---
Operative Report Operative Report: EXAM: 1. Ultrasound guided access of the right common femoral artery 2. Angiography of the right lower extremity 3. Selection of the abdominal aorta, left common iliac arteries, left superficial femoral artery, left tibioperoneal trunk with angiography 4. Fluoroscopic guided placement of a 7 mm spider in the left popliteal artery 5. Atherectomy of the left ziqmm-qoc-razy popliteal artery with a Hawkone M device 6. Angioplasty of the left maibk-hox-twjb popliteal artery with a 6 mm x 150 mm 0.018 iNPACT balloon 7. Fluoroscopic guided retrieval of the spider embolic protection device 8. Angioplasty of the left common iliac artery with a 7 mm x 40 mm angioplasty balloon 9. Closure of the right common femoral artery with a 6 Barb[place] Pro stent DATE: 07/09/2022 ROTARY DRYER OPERATOR: AMMY KURTZ MD INDICATION: PVD with gangrene of the left third digit MEDICATIONS: Please see nursing report for full details. DEVICES: Hawkone M device 6 mm x 150 mm 0.018 iNPACT balloon 7 mm x 40 mm angioplasty balloon CONTRAST: Please see Cleaning Validation Consultant report for full detail PROCEDURE: The risk, benefits, and alternatives were discussed with the patient; written informed consent was obtained. The patient was transferred to the angiography table in stable condition and his groins were prepped and draped in a sterile fashion. Ultrasound was used to evaluate the right common femoral artery which was patent. Under direct ultrasound guidance, the right common femoral artery was accessed with a 21-gauge micropuncture needle. 0.018 inch wire was passed into the aorta. Needle was exchanged for transitional dilator. Wire was exchanged for a 0.035 inch wire. Transitional dilator was exchanged for 5 Barb[place] sheath. Digital subtraction angiography was performed demonstrating appropriate puncture, above the bifurcation below the inferior epigastric artery. The right external iliac artery, common femoral artery, proximal profunda femoral artery and proximal superficial femoral artery were patent. The abdominal aorta was selected and digital subtraction angiography was performed. Left external iliac artery was selected and digital subtraction angiography was performed. The left profunda femoral artery was selected and digital subtraction angiography was performed. The left superficial femoral ar gabby was selected and digital subtraction angiography was performed. The infrarenal abdominal aorta is patent. The left proximal common iliac artery is patent. The left mid common iliac artery has a 50% stenosis. The left distal common iliac artery is patent. The left external iliac artery is patent. Left internal iliac artery is diffusely atherosclerotic. The left common femoral artery has a high bifurcation but is patent. The left profunda femoral artery is patent. The left proximal and mid superficial femoral artery are patent. The left distal superficial femoral artery is stented and the stented area is patent. Immediately below the stented area in the tynlh-lcr-alkt popliteal artery is a 70% calcific eccentric stenosis and some 30 to 40% stenosis. The left mid knee popliteal artery is patent. The left below-knee popliteal artery has a 30 to 40% stenosis. The tibioperoneal trunk is patent. There is two-vessel runoff through the peroneal artery and the posterior tibial artery. These vessels are both predominantly patent. There is 20 to 30% irregular stenosis in the mid proximal to midportion of the vessel but otherwise they are patent. The medial and lateral plantar arteries are patent. Anterior tibial artery is occluded soon after takeoff and reconstitutes at the level of the dorsalis pedis artery through wispy collaterals from the peroneal artery. The reconstituted vessel is very small in diameter. After reviewing the diagnostic imaging, the patient was heparinized. Sheath was then exchanged for a 6 [place] destination positioned in the left superficial femoral artery. Wire and catheter used to cross into the popliteal artery and then the tibial peroneal trunk was selected. Digital subtraction angiography was performed confirming position and demonstrating the above-mentioned runoff. The catheter was retracted to the popliteal artery and a 7 mm spider embolic protection device was deployed in the left mid popliteal artery. Atherectomy was performed of the zjvpx-ymz-ldvm popliteal artery with a Hawkone M device. Once there was less than 40% residual stenosis, I used a 6 mm x 150 mm 0.018 iNPACT balloon to perform angioplasty of the ujxcr-twj-wowe popliteal artery region. Digital subtraction angiography was performed demonstrating less than 10% residual narrowing of the wlnll-ugw-gjvo popliteal artery. The embolic protection device was then retrieved. Hub was removed and flushed. Hub was reattached. Digital subtraction angiography was performed demonstrating unchanged runoff. Sheath was then retracted to the left proximal common iliac artery and 7 mm x 40 mm angioplasty balloon was used to perform angioplasty of the left mid common iliac artery. Digital subtraction angiography was then performed demonstrating less than 30% residual stenosis. I considered stenting this lesion, but the patient was having emesis during the procedure and prior to the procedure which was only partially being effectively treated with Zofran. Therefore, I decided to conclude the procedure with angioplasty alone. All wires, catheters, and sheaths were then retracted to the right external iliac artery and the right common femoral artery arteriotomy was closed with a 6 Barb[place] Pro style device. There is immediate acquisition of hemostasis. Sterile dressing and pressure dressing applied. The patient tolerated the procedure well except for emesis which predated the procedure. No immediate postprocedural complications. FINDINGS: Please see procedure note above. IMPRESSION: Successful atherectomy and angioplasty of the left cwstn-kam-wbid popliteal artery. Successful angioplasty of the left common iliac artery. Successful third order selection of the left tibioperoneal trunk.
[2022-07-09] MEDS ORDERED: CLOPIDOGREL 300 MG TAB PO ONE ×2 (17:33→22:21)
[2022-07-09] MEDS: POVIDONE-IODINE OINTMENT 28.35 GM TP SCH (18:21)
[2022-07-09] MEDS: CILOSTAZOL 100 MG TAB PO SCH ×2 (18:25→22:51)
[2022-07-09 18:52] LABS: Basophils % (Manual) 0 % (0.0-1.8); Eosinophils % (Manual) 0 % (0.0-4.3); Platelet Estimate Consistent w Auto; RBC Morphology Normal; Total Cells Counted 100
[2022-07-09] MEDS: MORPHINE 4 MG/1 ML INJ IV PRN (20:04)
[2022-07-09] MEDS: METOCLOPRAMIDE 10 MG/2 ML INJ IV PRN (22:50)
[2022-07-10] MEDS: CEFEPIME/NS 1 GM/100 ML 1 GM/100 ML BAG IV SCH (01:00)
[2022-07-10] MEDS ORDERED: SODIUM CHLORIDE 0.9% 500 ML IVPB IV ONE (04:04)
[2022-07-10] MEDS: HEPARIN 5,000 UNIT/1 ML VIAL SUB-Q SCH ×3 (05:39→21:49)
[2022-07-10 05:41] LABS: Hematocrit 24.9 % (35.5-45.6); Hemoglobin 8.1 gm/dl (11.8-15.2); Mean Corpuscular HGB Conc 32 % (32-34); Mean Corpuscular Volume 99 fl (84-94); Red Blood Count 2.51 M/mm3 (3.65-5.03); Red Cell Distribution Width 13.3 % (13.2-15.2)
[2022-07-10 06:04] LABS: BUN/Creatinine Ratio 16; Blood Urea Nitrogen 14 mg/dL (9-20); Calcium 8.5 mg/dL (8.4-10.2); Hemolysis Index 5
[2022-07-10] MEDS: INSULIN REGULAR, HUMAN 100 UNITS/1 ML SUB-Q SCH ×10 (06:17→23:18)
[2022-07-10 06:24] LABS: Platelet Count 41 K/mm3 (140-440)
[2022-07-10 06:28] LABS: Basophils % (Manual) 0 % (0.0-1.8); Eosinophils % (Manual) 0 % (0.0-4.3); Total Cells Counted 100
[2022-07-10 06:29] LABS: Platelet Estimate Consistent w Auto
[2022-07-10] MEDS: oxyCODONE /ACETAMINOPHEN 5-325MG TAB PO PRN ×2 (09:26→21:49)
[2022-07-10] MEDS: NIFEdipine XL 30 MG TAB PO SCH (09:26)
[2022-07-10] MEDS: CILOSTAZOL 100 MG TAB PO SCH ×2 (09:28→21:48)
[2022-07-10] MEDS: INSULIN NPH/REGULAR 70/30 INJ SUB-Q SCH ×2 (09:29→18:52)
[2022-07-10] MEDS: POVIDONE-IODINE OINTMENT 28.35 GM TP SCH (09:29)
[2022-07-10] MEDS: CLOPIDOGREL 75 MG TAB PO SCH (09:46)
[2022-07-10] MEDS ORDERED: ATORVASTATIN 40 MG PO SCH (10:00)
[2022-07-10] MEDS ORDERED: METOPROLOL 100 MG PO SCH (10:00)
--- NOTE | 2022-07-10 10:27 | Progress Note ---
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 Pending MRI left foot WBC 27-->21-->17.9 Continue cefepime 1 g every 8 hours and IV linezolid 600 mg every 12 hours. Status post aggressive IV fluid resuscitation. Infectious disease consulted; appreciate recs Vascular surgery consulted; appreciate recs. Planning for revascularization on 07/09/2022. General surgery consulted; appreciate recs. Plan for amputation on 07/10/2022. Continue to monitor Insulin dependent type II diabetes mellitus with hyperglycemiaimproving Worsened by diabetic foot infection - hemoglobin A1c: 6.5 - home regimen: Unknown - current regimen: NPH 25 units twice daily + moderate SSI +8 units regular insulin with meals - blood glucose goal 140-180 while inpatient - continue to monitor Pseudohyponatremiaresolved Sodium 129 (corrected 136) JACQUI on likely CKD stage IIIresolved Creatinine 1.7-->0.9 (baseline unknown) Status post aggressive IV fluid resuscitation Renally dose meds and avoid nephrotoxic drugs. Monitor with repeat BMP tomorrow. Consider nephrology consult showed creatinine 1 continue to increase. Hypertension - home medications: Unknown - current medications: Started nifedipine 30 mg daily - SBP goal <160 and DBP goal <90 while inpatient - continue to monitor Iron deficiency anemia anemia of chronic disease Hemoglobin 8.2 Iron 16, TIBC 133, ferritin 2880. Transfuse if hemoglobin <7 Chronic thrombocytopenia Platelets 31-->27-->47--41 (status post transfusion of 1 platelet on 07/08/2022) Patient endorses being aware but not having etiology determined by other clinicians. Pending transfusion of 1 additional jumbo platelet for upcoming amputation by general surgery. #Moderate protein caloric malnutrition Albumin 3.6 Will initiate dietary supplementation once hyperglycemia is under control. History Interval history: No new issues overnight Hospitalist Physical - Constitutional Vitals: Temp Pulse Resp BP Pulse Ox 98.6 F 117 H 16 162/67 97 07/10/22 08:07 07/10/22 08:10 07/10/22 09:26 07/10/22 08:10 07/10/22 08:10 General appearance: Present: no acute distress, well-nourished, malodorous (Malodorous wet gangrene of left foot with ulceration of third digit) - EENT Eyes: Present: PERRL, EOM intact ENT: hearing intact, clear oral mucosa, dentition normal - Neck Neck: Present: supple, normal ROM - Respiratory Respiratory effort: normal Respiratory: bilateral: CTA - Cardiovascular Rhythm: regular Heart Sounds: Present: S1 & S2. Absent: gallop, rub - Extremities Extremities: no ischemia, No edema, Full ROM - Abdominal General gastrointestinal: soft, non-tender, non-distended, normal bowel sounds - Integumentary Integumentary: Present: clear, warm, dry - Neurologic Neurologic: CNII-XII intact, moves all extremities Results - Labs CBC & Chem 7: 07/10/22 05:10 07/10/22 05:10 Labs: Laboratory Last Values WBC 25.0 K/mm3 (4.5-11.0) H 07/10/22 05:10 RBC 2.51 M/mm3 (3.65-5.03) L 07/10/22 05:10 Hgb 8.1 gm/dl (11.8-15.2) L 07/10/22 05:10 Hct 24.9 % (35.5-45.6) L 07/10/22 05:10 MCV 99 fl (84-94) H 07/10/22 05:10 MCH 32 pg (28-32) 07/10/22 05:10 MCHC 32 % (32-34) 07/10/22 05:10 RDW 13.3 % (13.2-15.2) 07/10/22 05:10 Plt Count 41 K/mm3 (140-440) L 07/10/22 05:10 Lymph % (Auto) 16.2 % (13.4-35.0) 07/09/22 Unknown Robertson % (Auto) 11.9 % (0.0-7.3) H 07/09/22 Unknown Eos % (Auto) 0.7 % (0.0-4.3) 07/09/22 Unknown Baso % (Auto) 0.5 % (0.0-1.8) 07/09/22 Unknown Lymph # (Auto) 2.9 K/mm3 (1.2-5.4) 07/09/22 Unknown Robertson # (Auto) 2.1 K/mm3 (0.0-0.8) H 07/09/22 Unknown Eos # (Auto) 0.1 K/mm3 (0.0-0.4) 07/09/22 Unknown Baso # (Auto) 0.1 K/mm3 (0.0-0.1) 07/09/22 Unknown Add Manual Diff Complete 07/10/22 05:10 Total Counted 100 07/10/22 05:10 Seg Neutrophils % 70.7 % (40.0-70.0) H 07/09/22 Unknown Seg Neuts % (Manual) 91.0 % (40.0-70.0) H 07/10/22 05:10 Band Neutrophils % 0 % 07/10/22 05:10 Lymphocytes % (Manual) 6.0 % (13.4-35.0) L 07/10/22 05:10 Reactive Lymphs % (Man) 0 % 07/10/22 05:10 Monocytes % (Manual) 3.0 % (0.0-7.3) 07/10/22 05:10 Eosinophils % (Manual) 0 % (0.0-4.3) 07/10/22 05:10 Basophils % (Manual) 0 % (0.0-1.8) 07/10/22 05:10 Metamyelocytes % 0 % 07/10/22 05:10 Myelocytes % 0 % 07/10/22 05:10 Promyelocytes % 0 % 07/10/22 05:10 Blast Cells % 0 % 07/10/22 05:10 Nucleated RBC % Not Reportable 07/10/22 05:10 Seg Neutrophils # 12.6 K/mm3 (1.8-7.7) H 07/09/22 Unknown Seg Neutrophils # Man 22.8 K/mm3 (1.8-7.7) H 07/10/22 05:10 Band Neutrophils # 0.0 K/mm3 07/10/22 05:10 Lymphocytes # (Manual) 1.5 K/mm3 (1.2-5.4) 07/10/22 05:10 Abs React Lymphs (Man) 0.0 K/mm3 07/10/22 05:10 Monocytes # (Manual) 0.8 K/mm3 (0.0-0.8) 07/10/22 05:10 Eosinophils # (Manual) 0.0 K/mm3 (0.0-0.4) 07/10/22 05:10 Basophils # (Manual) 0.0 K/mm3 (0.0-0.1) 07/10/22 05:10 Metamyelocytes # 0.0 K/mm3 07/10/22 05:10 Myelocytes # 0.0 K/mm3 07/10/22 05:10 Promyelocytes # 0.0 K/mm3 07/10/22 05:10 Blast Cells # 0.0 K/mm3 07/10/22 05:10 WBC Morphology Not Reportable 07/10/22 05:10 Hypersegmented Neuts Not Reportable 07/10/22 05:10 Hyposegmented Neuts Not Reportable 07/10/22 05:10 Hypogranular Neuts Not Reportable 07/10/22 05:10 Smudge Cells Not Reportable 07/10/22 05:10 Toxic Granulation Not Reportable 07/10/22 05:10 Toxic Vacuolation Not Reportable 07/10/22 05:10 Dohle Bodies Not Reportable 07/10/22 05:10 Pelger-Huet Anomaly Not Reportable 07/10/22 05:10 Lulu Rods Not Reportable 07/10/22 05:10 Platelet Estimate Consistent w auto 07/10/22 05:10 Clumped Platelets Not Reportable 07/10/22 05:10 Plt Clumps, EDTA Not Reportable 07/10/22 05:10 Large Platelets Not Reportable 07/10/22 05:10 Giant Platelets Not Reportable 07/10/22 05:10 Platelet Satelliting Not Reportable 07/10/22 05:10 Plt Morphology Comment Platelet clumping 07/10/22 05:10 RBC Morphology Not Reportable 07/10/22 05:10 Dimorphic RBCs Not Reportable 07/10/22 05:10 Polychromasia Not Reportable 07/10/22 05:10 Hypochromasia Not Reportable 07/10/22 05:10 Poikilocytosis Not Reportable 07/10/22 05:10 Anisocytosis Not Reportable 07/10/22 05:10 Microcytosis Not Reportable 07/10/22 05:10 Macrocytosis Not Reportable 07/10/22 05:10 Spherocytes Not Reportable 07/10/22 05:10 Pappenheimer Bodies Not Reportable 07/10/22 05:10 Sickle Cells Not Reportable 07/10/22 05:10 Target Cells Not Reportable 07/10/22 05:10 Tear Drop Cells Not Reportable 07/10/22 05:10 Ovalocytes Not Reportable 07/10/22 05:10 Helmet Cells Not Reportable 07/10/22 05:10 Capps-Lanark Bodies Not Reportable 07/10/22 05:10 Warne Rings Not Reportable 07/10/22 05:10 Levasy Cells Not Reportable 07/10/22 05:10 Bite Cells Not Reportable 07/10/22 05:10 Crenated Cell Not Reportable 07/10/22 05:10 Elliptocytes Not Reportable 07/10/22 05:10 Acanthocytes (Spur) Not Reportable 07/10/22 05:10 Rouleaux Not Reportable 07/10/22 05:10 Hemoglobin C Crystals Not Reportable 07/10/22 05:10 Schistocytes Not Reportable 07/10/22 05:10 Malaria parasites Not Reportable 07/10/22 05:10 Chintan Bodies Not Reportable 07/10/22 05:10 Hem Pathologist Commnt No 07/10/22 05:10 PT 14.5 Sec. (12.2-14.9) 07/09/22 Unknown INR 0.99 (0.87-1.13) 07/09/22 Unknown Sodium 139 mmol/L (137-145) 07/10/22 05:10 Potassium 4.0 mmol/L (3.6-5.0) 07/10/22 05:10 Chloride 99.7 mmol/L (98-107) 07/10/22 05:10 Carbon Dioxide 26 mmol/L (22-30) 07/10/22 05:10 Anion Gap 17 mmol/L 07/10/22 05:10 BUN 14 mg/dL (9-20) 07/10/22 05:10 Creatinine 0.9 mg/dL (0.8-1.3) 07/10/22 05:10 Estimated GFR > 60 ml/min 07/10/22 05:10 BUN/Creatinine Ratio 16 % 07/10/22 05:10 Glucose 197 mg/dL (75-100) H 07/10/22 05:10 POC Glucose 380 mg/dL (70-105) H 07/09/22 20:41 Hemoglobin A1c 6.5 % (4-6) H 07/07/22 08:41 Lactic Acid 1.50 mmol/L (0.7-2.0) 07/07/22 02:26 Calcium 8.5 mg/dL (8.4-10.2) 07/10/22 05:10 Iron 16 ug/dL (49-181) L 07/08/22 05:35 TIBC 133 mcg/dL (250-450) L 07/08/22 05:35 Ferritin 2888.0 ng/mL (30.0-300.0) H 07/08/22 05:35 Total Bilirubin 0.70 mg/dL (0.1-1.2) 07/07/22 02:26 AST 41 units/L (5-40) H 07/07/22 02:26 ALT 28 units/L (7-56) 07/07/22 02:26 Alkaline Phosphatase 129 units/L (35-129) 07/07/22 02:26 Total Creatine Kinase 816 units/L (55-170) H 07/10/22 05:10 Total Protein 6.9 g/dL (6.3-8.2) 07/07/22 02:26 Albumin 3.6 g/dL (3.9-5) L 07/07/22 02:26 Albumin/Globulin Ratio 1.1 % 07/07/22 02:26 Triglycerides 114 mg/dL (2-149) 07/07/22 08:41 Cholesterol 116 mg/dL (50-199) 07/07/22 08:41 LDL Cholesterol Direct 46 mg/dL (50-130) L 07/07/22 08:41 HDL Cholesterol 37 mg/dL (40-59) L 07/07/22 08:41 Cholesterol/HDL Ratio 3.13 % 07/07/22 08:41 Blood Type O POSITIVE 07/08/22 Unknown Microbiology: Microbiology 07/07/22 02:26 Peripheral/Venous Blood Culture - Preliminary NO GROWTH AFTER 72 HOURS 07/07/22 02:26 Peripheral/Venous Blood Culture - Preliminary NO GROWTH AFTER 72 HOURS Villareal/IV: Voiding Method Condom Catheter Active Medications - Current Medications Current Medications: Generic Name Dose Route Start Last Admin Trade Name Freq PRN Reason Stop Dose Admin Acetaminophen 650 mg 07/07/22 08:30 07/09/22 01:31 Acetaminophen 325 Mg Tab PO 650 mg Q4H PRN Administration Pain MILD(1-3)/Fever >100.5/DAS Atorvastatin Calcium 40 mg 07/08/22 22:00 07/09/22 22:51 Atorvastatin 40 Mg Tab PO 40 mg QHS APRIL Administration Cilostazol 100 mg 07/09/22 12:00 07/10/22 09:28 Cilostazol 100 Mg Tab PO 100 mg BID APRIL Administration Clopidogrel Bisulfate 75 mg 07/10/22 10:00 07/10/22 09:46 Clopidogrel 75 Mg Tab PO Not Given QDAY APRIL Dextrose 50 ml 07/07/22 08:35 Dextrose 50% In Water (25gm) 50 Ml Syringe IV Q30MIN PRN Hypoglycemia Protocol Heparin Sodium (Porcine) 5,000 unit 07/07/22 14:00 07/10/22 05:39 Heparin 5,000 Unit/1 Ml Vial SUB-Q Not Given Q8HR [facility] Sodium Chloride 1,000 mls @ 100 mls/hr 07/07/22 05:30 07/09/22 15:35 Nacl 0.9% 1000 Ml IV 100 mls/hr DIRECT APRIL Administration Cefepime HCl 1 gm in 100 mls @ 200 mls/hr 07/07/22 09:00 07/10/22 01:00 Cefepime/Ns 1 Gm/100 Ml IV 200 mls/hr Q8H APRIL Administration Protocol Daptomycin 500 mg/ Sodium 100 mls @ 200 mls/hr 07/10/22 18:00 Chloride IV Q24H [facility] Protocol Insulin Human Isoph/Insulin Regular 25 unit 07/07/22 19:16 07/10/22 09:29 Insulin Nph/Regular 70/30 Inj SUB-Q Not Given BIDDIAB APRIL Insulin Human Regular 5 units 07/07/22 22:00 07/10/22 09:30 Insulin Regular, Human 100 Units/1 Ml SUB-Q Not Given ACHS [facility] Insulin Human Regular 0 units 07/08/22 00:00 07/10/22 06:17 Insulin Regular, Human 100 Units/1 Ml SUB-Q 2 units Q6H APRIL Administration Protocol Metoclopramide HCl 10 mg 07/09/22 17:34 07/09/22 22:50 Metoclopramide 10 Mg/2 Ml Inj IV 10 mg Q6H PRN Administration Nausea And Vomiting Miscellaneous Medication 40 mg 07/10/22 10:00 Atorvastatin PO DAILY APRIL Miscellaneous Medication 100 mg 07/10/22 10:00 Metoprolol PO BID APRIL Morphine Sulfate 2 mg 07/07/22 08:30 07/09/22 20:04 Morphine 4 Mg/1 Ml Inj IV 2 mg Q4H PRN Administration Pain , Severe (7-10) Nifedipine 30 mg 07/08/22 10:00 07/10/22 09:26 Nifedipine Xl 30 Mg Tab PO 30 mg QDAY APRIL Administration Ondansetron HCl 4 mg 07/07/22 08:30 Ondansetron 4 Mg/2 Ml Inj IV Q8H PRN Nausea And Vomiting Oxycodone/Acetaminophen 1 tab 07/07/22 08:30 07/10/22 09:26 Oxycodone /Acetaminophen 5-325mg Tab PO 1 tab Q6H PRN Administration Pain, Moderate (4-6) Povidone Iodine 1 applic 07/07/22 15:00 07/10/22 09:29 Povidone-Iodine Ointment 28.35 Gm TP 1 applic DAILY APRIL Administration Sodium Chloride 10 ml 07/07/22 10:00 07/10/22 09:29 Sodium Chloride 0.9% 10 Ml Flush Syringe IV 10 ml BID APRIL Administration Sodium Chloride 10 ml 07/07/22 08:30 Sodium Chloride 0.9% 10 Ml Flush Syringe IV PRN PRN LINE FLUSH Nutrition/Malnutrition Assess - Dietary Evaluation Nutrition/Malnutrition Findings: Nutrition Notes Start: 07/08/22 11:33 Freq: Status: Active Protocol: Document 07/08/22 11:33 ESTHER (Rec: 07/08/22 11:52 ESTHER [id number]) Nutrition Notes Need for Assessment generated from: rn imcu Initial or Follow up Brief Note Current Diagnosis Diabetes Other Pertinent Diagnosis Infected (L) diabetic foot, (L ) foot osteomyelitis Current Diet Consistent CHO Labs/Tests BUN 29 BG 179 Iron 16 TIBC 133 A1C 6.5 Pertinent Medications NS at 100ml/hr Height 5 ft 8 in Weight 72 kg [place] Body Weight (kg) 70.00 BMI 24.1 Weight Status Appropriate Subjective/Other Information Pt screened for skin risk assessment (Austen score: 18). He consumed 50% of dinner last pm; he is able to feed himself. Revascularization procedure scheduled for tomorrow; pt will be NPO after midnight tonight. PMHx includes PVD (s/p RLE bypass 10+ yrs ago), (R) foot transmetatarsal amputation. 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 No Is Patient Ambulatory and/or Out of Bed No REE-([facility]-confined to bed) 3047.160 Calculation Used for Recommendations [facility] Additional Notes Pro needs 1.25-1.5g/k- 108g/day Fluid needs 1ml/kcal Nutrition Intervention Follow-Up By: 07/12/22 Additional Comments F/U: intakes, need for ONS
--- NOTE | 2022-07-10 10:52 | Anesthesia Consultation ---
Anesthesia Consult and Med Hx Date of service: 07/10/22 - Airway Anesthetic Teeth Evaluation: Edentulous ROM Head & Neck: Adequate Mental/Hyoid Distance: Adequate Mallampati Class: Class II Intubation Access Assessment: Probably Good - Pulmonary Exam CTA: Yes - Cardiac Exam Cardiac Exam: RRR - Pre-Operative Health Status ASA Pre-Surgery Classification: ASA3 Proposed Anesthetic Plan: General - Pulmonary Hx Smoking: No Hx Respiratory Symptoms: No - Cardiovascular System Hx Hypertension: Yes Hx Heart Attack/AMI: No Hx Cardia Arrhythmia: No - Central Nervous System Hx Neuromuscular Disorder: No CVA: No - Gastrointestinal Hx Gastroesophageal Reflux Disease: No - Endocrine Hx Renal Disease: No (Cr 0.9) Hx Liver Disease: No Hx Insulin Dependent Diabetes: Yes Hx Thyroid Disease: No - Hematic Hx Anemia: Yes (hgb 8.1) - Other Systems Hx Alcohol Use: No Hx Obesity: No - Additional Comments Anesthesia Medical History Comments: No GAC. No FHAC.
--- NOTE | 2022-07-10 10:52 | Anesthesia Day of Surgery ---
Anesthesia Day of Surgery - Day of Surgery Patient Examined: Yes Patient H&P Reviewed: Yes Patient is NPO: Yes (>24 hours)
--- NOTE | 2022-07-10 11:00 | Progress Note ---
Assessment and Plan Cultures: 07/07/2022 blood culture: No growth A/P: 67-year-old male with diabetes, hypertension, peripheral vascular disease with previous history of RLE arterial bypass, right TMA, former smoker quit in 2005 was admitted to the hospital with left third toe wound: #Sepsis, secondary to diabetic foot infection, osteomyelitis of left foot third toe: Risk factors diabetes and peripheral vascular disease. WBC improving. S/p revascularization on 07/09/2022. #Thrombocytopenia: ?acute #JACQUI: Improving. Renally adjust antibiotics as needed. #Peripheral vascular disease, history of RLE arterial bypass, prior right TMA. S/p revascularization on 07/09/2022. #Diabetes mellitus type 2, uncontrolled Recs: Continue IV cefepime + Daptomycin. Avoiding linezolid due to thrombocytopenia. CK elevated at 816, recheck tomorrow, if persistently elevated or worsening, will switch IV daptomycin to vancomycin. awaiting toe amputation Ivett Campbell MD, FACP, [facility] O: [phone] F: [phone] C: [phone] Subjective Date of service: 07/10/22 Interval history: Afebrile. Had some nausea, vomiting during procedure yesterday. None currently. Objective - Exam Narrative Exam: Physical Exam: Constitutional: Alert, cooperative. No acute distress Head, Ears, Nose: Normocephalic, atraumatic. External ears, nose normal Eyes: Conjunctivae/corneas clear. No icterus. No ptosis. Neck: Supple, no meningeal signs Cardiovascular: S1, S2 + Respiratory: Good air entry, clear to auscultation bilaterally GI: Soft, non-tender; bowel sounds normal. No peritoneal signs Musculoskeletal: Right TMA well-healed, left foot in dressing Skin: No rash or abscess Hem/Lymphatic: No palpable cervical or supraclavicular nodes. No lymphangitis Psych: Mood ok. Affect normal Neurological: Awake, alert, oriented. No gross abnormality - Constitutional Vitals: Vital Signs Temp Pulse Resp BP Pulse Ox 98.6 F 117 H 16 162/67 97 07/10/22 08:07 07/10/22 08:10 07/10/22 09:26 07/10/22 08:10 07/10/22 08:10 Temperature -Last 24 Hours Temperature 98.6 F Temperature 99.2 F Temperature 99.2 F Temperature 99.1 F Temperature 99.1 F Temperature 99 F Temperature 99 F Temperature 98.9 F Temperature 100.0 F Temperature 99.2 F Temperature 99.3 F - Labs CBC & Chem 7: 07/10/22 05:10 07/10/22 05:10 Labs: Abnormal lab results 07/09/22 07/09/22 07/09/22 Range/Units 08:50 12:09 13:02 WBC 22.5 H (4.5-11.0) K/mm3 RBC 2.70 L (3.65-5.03) M/mm3 Hgb 8.8 L (11.8-15.2) gm/dl Hct 27.2 L (35.5-45.6) % MCV 101 H (84-94) fl MCH 33 H (28-32) pg Plt Count 44 L (140-440) K/mm3 Seg Neuts % (Manual) 77.0 H (40.0-70.0) % Lymphocytes % (Manual) 11.0 L (13.4-35.0) % Monocytes % (Manual) 12.0 H (0.0-7.3) % Seg Neutrophils # Man 17.3 H (1.8-7.7) K/mm3 Monocytes # (Manual) 2.7 H (0.0-0.8) K/mm3 Glucose (75-100) mg/dL POC Glucose 191 H 228 H (70-105) mg/dL Total Creatine Kinase (55-170) units/L 07/09/22 07/10/22 07/10/22 Range/Units 20:41 05:10 05:10 WBC 25.0 H (4.5-11.0) K/mm3 RBC 2.51 L (3.65-5.03) M/mm3 Hgb 8.1 L (11.8-15.2) gm/dl Hct 24.9 L (35.5-45.6) % MCV 99 H (84-94) fl MCH (28-32) pg Plt Count 41 L (140-440) K/mm3 Seg Neuts % (Manual) 91.0 H (40.0-70.0) % Lymphocytes % (Manual) 6.0 L (13.4-35.0) % Monocytes % (Manual) (0.0-7.3) % Seg Neutrophils # Man 22.8 H (1.8-7.7) K/mm3 Monocytes # (Manual) (0.0-0.8) K/mm3 Glucose 197 H (75-100) mg/dL POC Glucose 380 H (70-105) mg/dL Total Creatine Kinase 816 H (55-170) units/L
--- NOTE | 2022-07-10 12:03 | Vascular Lab Report ---
DUPLEX DOPPLER UPPER EXTREMITY ARTERIAL, RIGHT INDICATION / CLINICAL INFORMATION: severe pain after IV placement. TECHNIQUE: Arterial duplex examination of the right upper extremity performed using B-mode, color jennifer w and spectral Doppler assessment. FINDINGS: RIGHT: -Subclavian: PSV 150 cm/sec. Triphasic waveform. - Axillary: PSV 107 cm/sec. Biphasic waveform. -Brachial: PSV 150 cm/sec. Triphasic waveform. proximal Radial: PSV 87 cm/sec. Biphasic waveform. -distal Radial: PSV 152 cm/sec. Monophasic waveform. -proximal Ulnar: PSV 100 cm/sec. Triphasic waveform. -distal ulnar: PSV 147 cm/sec. Monophasic waveform. ADDITIONAL FINDINGS: None. IMPRESSION: 1. Arterial structures of the right upper extremity are patent as noted above. There is however monop hasic wave forms in the distal radial and ulnar arteries. The remaining arteries demonstrate multipha sic flow. Doppler Waveform: - Triphasic is normal. - Biphasic is abnormal if clear transition from triphasic signal along vascular tree. - Monophasic is abnormal. Signer Name: Ceasar Velasquez Jr, MD Signed: 07/10/2022 11:59 AM Workstation Name: [id number]
--- NOTE | 2022-07-10 12:42 | Vascular Lab Report ---
DUPLEX DOPPLER UPPER EXTREMITY VENOUS, RIGHT INDICATION / CLINICAL INFORMATION: severe pain after IV placement. TECHNIQUE: Duplex doppler imaging was performed through the veins of the right upper extremity using venous compression and other maneuvers. COMPARISON: None available. FINDINGS: RIGHT INTERNAL JUGULAR VEIN: Negative. RIGHT SUBCLAVIAN VEIN: Negative. RIGHT AXILLARY VEIN: Negative. RIGHT BRACHIAL VEIN: Negative. RIGHT FOREARM VEINS: Negative. RIGHT BASILIC VEIN (SUPERFICIAL): Negative. ADDITIONAL FINDINGS: Occlusive superficial thrombus is visualized in the cephalic vein. IMPRESSION: 1. No sonographic evidence for DVT. 2. Occlusive superficial thrombus within the right cephalic vein. Scribed by: Anjali Rinaldi RDMS, GRETCHEN, ABBE Scribed: 07/10/2022 11:24 AM I have reviewed the images, agree with this report, and edited this report as needed. Signer Name: Kobe Lou MD Signed: 07/10/2022 12:38 PM Workstation Name: [id number]
[2022-07-10] MEDS ORDERED: ONDANSETRON 4 MG/2 ML INJ ONE (13:13)
[2022-07-10] MEDS ORDERED: LIDOCAINE MPF (2%) 20 MG/1 ML VIAL 5 ML ONE (13:13)
[2022-07-10] MEDS ORDERED: propofoL 200 MG/20 ML VIAL IV ONE (13:14)
[2022-07-10] MEDS ORDERED: fentaNYL 100 MCG/2 ML INJ ONE (13:14)
[2022-07-10] MEDS ORDERED: LIDOCAINE (2%) 20 MG/1 ML VIAL 20 ML MDV INFILTRATI ONE (14:17)
[2022-07-10] MEDS ORDERED: BUPIVACAINE/PF (0.5%) 5 MG/1 ML 30 ML VIAL INFILTRATI ONE ×2 (14:17→15:21)
[2022-07-10] MEDS: METOPROLOL TARTRATE 100 MG TAB PO SCH ×2 (14:52→21:49)
[2022-07-10] MEDS ORDERED: SODIUM CHLORIDE 0.9% 1000 ML 1,000 ML ONE (14:58)
--- NOTE | 2022-07-10 15:04 | Operative Report ---
Operative Report Operative Report: Date of procedure: 07/10/2022 Preop diagnosis: Left foot third toe osteomyelitis and soft tissue infection Postop diagnosis: Same with extension of soft tissue infection to include the fourth toe Procedure: Amputation of left third toe Surgeon: Dr. Fajardo Anesthesia: LMA Specimen: Distal phalanx Estimated blood loss: Minimal Findings: Patient is taken to the OR where under LMA anesthesia timeouts completed consents on the chart. The left foot is prepped with Betadine and draped in a sterile fashion: A teardrop shaped incision is used to expose the joint space between the middle and distal phalanx. The toe amputation is completed through the joint space. Extensive soft tissue necrosis is noted circumferentially around the third and fourth toes. The metatarsal phalangeal joint is entered and used to have as the level of amputation. Bone cutter is used to trim the cartilage from the distal metatarsal head. The wound is irrigated with copious amounts of Betadine and saline. It is then packed with iodoform gauze. Patient tolerated the procedure well. A sterile dressing is placed over this.
[2022-07-10] MEDS ORDERED: LIDOCAINE (1%) 10 MG/1 ML VIAL 20 ML MDV INFILTRATI ONE (15:20)
[2022-07-10] MEDS ORDERED: SODIUM CHLORIDE 0.9% IRR 1,500 ML BOTTLE IR ONE (15:20)
[2022-07-10] MEDS ORDERED: INSULIN REGULAR, HUMAN 100 UNITS/1 ML SUB-Q NR (15:33)
[2022-07-10] MEDS: HYDROmorphone 0.5 MG/0.5 ML INJ IV PRN ×2 (15:41→15:57)
--- NOTE | 2022-07-10 16:18 | Post Anesthesia Evaluation ---
- Post Anesthesia Evaluation Patient Participated: Yes Airway Patent: Yes Stable Respiratory Function: Yes Nausea/Vomiting: No Temp > 96.8F: Yes Pain Manageable: Yes Adequeate Hydration: Yes Anesthesia Complications: No
--- NOTE | 2022-07-10 17:34 | Magnetic Resonance Report ---
MRI LEFT FOOT WITHOUT AND WITH CONTRAST INDICATION / CLINICAL INFORMATION: L foot infected diabetic wounds, r/o osteo. TECHNIQUE: Multiplanar, multisequence MR images were obtained. Pre and postcontrast sequences were ob tained. 17 mL Clariscan injected IV. COMPARISON: Radiographs 07/07/2022 FINDINGS: BONES: There is osseous destruction throughout the middle phalanx of the second toe with similar eros ions of the adjacent distal and proximal phalanges. There is marrow edema involving the proximal and middle phalanges of the third toe. No osseous lesion. JOINTS: Moderate grade tear MTP joint osteoarthrosis. No significant joint effusion or synovitis. MUSCLES: No significant abnormality. FLEXOR TENDONS: No significant abnormality. EXTENSOR TENDONS: No significant abnormality. PERONEAL TENDONS: No significant abnormality. LIGAMENTS: No significant abnormality. SOFT TISSUES: There is excess soft tissue thickening about the distal forefoot and toes with postcont rast enhancement, predominantly involving the second and third toes. There is a peripherally fluid we ighted sequence hyperintense collection extending along the distal intermetatarsal space of the third and fourth rays measuring 2.8 x 0.6 x 0.6 cm. A small developing collection is seen between the meta tarsal heads of the fourth and fifth rays, possibly representing fibrous change/early abscess. Again extensive locules of air throughout the subcutaneous tissues, concerning for gas-forming organism. ADDITIONAL FINDINGS: None. IMPRESSION: 1. Extensive soft tissue infection of the forefoot with relatively diffuse edema and postcontrast enh ancement, with extensive scattered locules of air. Findings are consistent with diffuse cellulitis wi th potential necrotizing fasciitis. 2. Osteomyelitis of the phalanges of the second and third toes. 3. Intermetatarsal abscess measuring up to 2.8 cm between the third and fourth rays. 4. Phlegmonous change/developing abscess between the fourth and fifth metatarsal heads. Report dictated by: Ivan Delgadillo MD Report dictated on: 07/10/2022 12:19 PM I have reviewed the images, agree with this report, and edited this report as needed. Signer Name: Yoan Hastings MD Signed: 07/10/2022 5:30 PM Workstation Name: [id number]
[2022-07-10] MEDS: MORPHINE 4 MG/1 ML INJ IV PRN (19:01)
[2022-07-10] MEDS: SODIUM CHLORIDE 0.9% 1000 ML 1,000 ML IV SCH (22:00)
[2022-07-11] MEDS: INSULIN REGULAR, HUMAN 100 UNITS/1 ML SUB-Q SCH ×9 (00:18→18:27)
[2022-07-11] MEDS: CEFEPIME/NS 1 GM/100 ML 1 GM/100 ML BAG IV SCH ×2 (01:46→10:24)
[2022-07-11] MEDS: MORPHINE 4 MG/1 ML INJ IV PRN ×2 (04:09→21:14)
[2022-07-11] MEDS: HEPARIN 5,000 UNIT/1 ML VIAL SUB-Q SCH ×3 (05:22→21:22)
[2022-07-11 06:55] LABS: Hematocrit 24.7 % (35.5-45.6); Hemoglobin 7.9 gm/dl (11.8-15.2); Mean Corpuscular HGB Conc 32 % (32-34); Mean Corpuscular Volume 100 fl (84-94); Platelet Count 51 K/mm3 (140-440); Red Blood Count 2.48 M/mm3 (3.65-5.03); Red Cell Distribution Width 13.3 % (13.2-15.2)
[2022-07-11 07:02] LABS: BUN/Creatinine Ratio 14; Blood Urea Nitrogen 13 mg/dL (9-20); Calcium 8.3 mg/dL (8.4-10.2); Hemolysis Index 3
[2022-07-11 07:36] LABS: Basophils % (Manual) 0 % (0.0-1.8); Eosinophils % (Manual) 0 % (0.0-4.3); Total Cells Counted 100
[2022-07-11 07:37] LABS: Hypochromasia 1+; Platelet Estimate Consistent w Auto
--- NOTE | 2022-07-11 09:09 | Progress Note ---
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 Pending MRI left foot WBC 27-->21-->17.9 Continue cefepime 1 g every 8 hours and IV linezolid 600 mg every 12 hours. Status post aggressive IV fluid resuscitation. Infectious disease consulted; appreciate recs Vascular surgery consulted; appreciate recs. Planning for revascularization on 07/09/2022. General surgery consulted; appreciate recs. Plan for amputation on 07/10/2022. Amputation complete. Tolerated procedure well. Follow further recommendations per surgery and ID. Continue to monitor Insulin dependent type II diabetes mellitus with hyperglycemiaimproving Worsened by diabetic foot infection - hemoglobin A1c: 6.5 - home regimen: Unknown - current regimen: NPH 25 units twice daily + moderate SSI +8 units regular insulin with meals - blood glucose goal 140-180 while inpatient - continue to monitor Pseudohyponatremiaresolved Sodium 129 (corrected 136) JACQUI on likely CKD stage IIIresolved Creatinine 1.7-->0.9 (baseline unknown) Resolved. Patient back at baseline. Status post aggressive IV fluid resuscitation Renally dose meds and avoid nephrotoxic drugs. Monitor with repeat BMP tomorrow. Consider nephrology consult showed creatinine 1 continue to increase. Hypertension - home medications: Unknown Suboptimal control. Will increase nifedipine to 60. - current medications: Started nifedipine 30 mg daily increased to 60 mg. - SBP goal <160 and DBP goal <90 while inpatient - continue to monitor Iron deficiency anemia anemia of chronic disease Hemoglobin 8.2 Iron 16, TIBC 133, ferritin 2880. Transfuse if hemoglobin <7 Chronic thrombocytopenia Platelets 31-->27-->47--41 (status post transfusion of 1 platelet on 07/08/2022) Patient endorses being aware but not having etiology determined by other clinicians. Pending transfusion of 1 additional jumbo platelet for upcoming amputation by general surgery. #Moderate protein caloric malnutrition Albumin 3.6 Will initiate dietary supplementation once hyperglycemia is under control. History Interval history: Presents with sepsis. Peripheral vascular disease. Revascularization procedure 07/09/2022. Patient septic with a white count of 27. Patient feels much better today denies pain. Surgical procedure amputation went well. Patient remains on cefepime and daptomycin. Improvement of platelets from 41-51 over p.m. Tolerated surgical procedure well. No fever or chills. No pain. Area bandaged. Hospitalist Physical - Constitutional Vitals: Temp Pulse Resp BP Pulse Ox 98.4 F 106 H 18 144/57 94 07/11/22 05:31 07/11/22 05:31 07/11/22 05:31 07/11/22 05:31 07/11/22 05:31 General appearance: Present: no acute distress, well-nourished, malodorous (Malodorous wet gangrene of left foot with ulceration of third digit) - EENT Eyes: Present: PERRL, EOM intact ENT: clear oral mucosa, dentition normal - Neck Neck: Present: supple, normal ROM - Respiratory Respiratory: bilateral: CTA - Cardiovascular Rhythm: regular - Extremities Extremities: no ischemia, pulses intact Extremity abnormal: other (Foot bandaged. Not evaluated today. Surgical dressing.) Peripheral Pulses: within normal limits - Abdominal General gastrointestinal: soft, non-tender, non-distended - Psychiatric Psychiatric: appropriate mood/affect, cooperative - Neurologic Neurologic: CNII-XII intact, focal deficits Results - Labs CBC & Chem 7: 07/11/22 06:04 07/11/22 06:04 Labs: Laboratory Last Values WBC 27.9 K/mm3 (4.5-11.0) H 07/11/22 06:04 RBC 2.48 M/mm3 (3.65-5.03) L 07/11/22 06:04 Hgb 7.9 gm/dl (11.8-15.2) L 07/11/22 06:04 Hct 24.7 % (35.5-45.6) L 07/11/22 06:04 MCV 100 fl (84-94) H 07/11/22 06:04 MCH 32 pg (28-32) 07/11/22 06:04 MCHC 32 % (32-34) 07/11/22 06:04 RDW 13.3 % (13.2-15.2) 07/11/22 06:04 Plt Count 51 K/mm3 (140-440) L 07/11/22 06:04 Lymph % (Auto) 16.2 % (13.4-35.0) 07/09/22 Unknown [place] % (Auto) 11.9 % (0.0-7.3) H 07/09/22 Unknown Eos % (Auto) 0.7 % (0.0-4.3) 07/09/22 Unknown Baso % (Auto) 0.5 % (0.0-1.8) 07/09/22 Unknown Lymph # (Auto) 2.9 K/mm3 (1.2-5.4) 07/09/22 Unknown [place] # (Auto) 2.1 K/mm3 (0.0-0.8) H 07/09/22 Unknown Eos # (Auto) 0.1 K/mm3 (0.0-0.4) 07/09/22 Unknown Baso # (Auto) 0.1 K/mm3 (0.0-0.1) 07/09/22 Unknown Add Manual Diff Complete 07/11/22 06:04 Total Counted 100 07/11/22 06:04 Seg Neutrophils % 70.7 % (40.0-70.0) H 07/09/22 Unknown Seg Neuts % (Manual) 82.0 % (40.0-70.0) H 07/11/22 06:04 Band Neutrophils % 0 % 07/11/22 06:04 Lymphocytes % (Manual) 8.0 % (13.4-35.0) L 07/11/22 06:04 Reactive Lymphs % (Man) 0 % 07/11/22 06:04 Monocytes % (Manual) 10.0 % (0.0-7.3) H 07/11/22 06:04 Eosinophils % (Manual) 0 % (0.0-4.3) 07/11/22 06:04 Basophils % (Manual) 0 % (0.0-1.8) 07/11/22 06:04 Metamyelocytes % 0 % 07/11/22 06:04 Myelocytes % 0 % 07/11/22 06:04 Promyelocytes % 0 % 07/11/22 06:04 Blast Cells % 0 % 07/11/22 06:04 Nucleated RBC % Not Reportable 07/11/22 06:04 Seg Neutrophils # 12.6 K/mm3 (1.8-7.7) H 07/09/22 Unknown Seg Neutrophils # Man 22.9 K/mm3 (1.8-7.7) H 07/11/22 06:04 Band Neutrophils # 0.0 K/mm3 07/11/22 06:04 Lymphocytes # (Manual) 2.2 K/mm3 (1.2-5.4) 07/11/22 06:04 Abs React Lymphs (Man) 0.0 K/mm3 07/11/22 06:04 Monocytes # (Manual) 2.8 K/mm3 (0.0-0.8) H 07/11/22 06:04 Eosinophils # (Manual) 0.0 K/mm3 (0.0-0.4) 07/11/22 06:04 Basophils # (Manual) 0.0 K/mm3 (0.0-0.1) 07/11/22 06:04 Metamyelocytes # 0.0 K/mm3 07/11/22 06:04 Myelocytes # 0.0 K/mm3 07/11/22 06:04 Promyelocytes # 0.0 K/mm3 07/11/22 06:04 Blast Cells # 0.0 K/mm3 07/11/22 06:04 WBC Morphology Not Reportable 07/11/22 06:04 Hypersegmented Neuts Not Reportable 07/11/22 06:04 Hyposegmented Neuts Not Reportable 07/11/22 06:04 Hypogranular Neuts Not Reportable 07/11/22 06:04 Smudge Cells Not Reportable 07/11/22 06:04 Toxic Granulation Not Reportable 07/11/22 06:04 Toxic Vacuolation Not Reportable 07/11/22 06:04 Dohle Bodies Not Reportable 07/11/22 06:04 Pelger-Huet Anomaly Not Reportable 07/11/22 06:04 Lulu Rods Not Reportable 07/11/22 06:04 Platelet Estimate Consistent w auto 07/11/22 06:04 Clumped Platelets Not Reportable 07/11/22 06:04 Plt Clumps, EDTA Not Reportable 07/11/22 06:04 Large Platelets Not Reportable 07/11/22 06:04 Giant Platelets Not Reportable 07/11/22 06:04 Platelet Satelliting Not Reportable 07/11/22 06:04 Plt Morphology Comment Not Reportable 07/11/22 06:04 RBC Morphology Not Reportable 07/11/22 06:04 Dimorphic RBCs Not Reportable 07/11/22 06:04 Polychromasia Not Reportable 07/11/22 06:04 Hypochromasia 1+ 07/11/22 06:04 Poikilocytosis Not Reportable 07/11/22 06:04 Anisocytosis Not Reportable 07/11/22 06:04 Microcytosis Not Reportable 07/11/22 06:04 Macrocytosis Not Reportable 07/11/22 06:04 Spherocytes Not Reportable 07/11/22 06:04 Pappenheimer Bodies Not Reportable 07/11/22 06:04 Sickle Cells Not Reportable 07/11/22 06:04 Target Cells Not Reportable 07/11/22 06:04 Tear Drop Cells Not Reportable 07/11/22 06:04 Ovalocytes Not Reportable 07/11/22 06:04 Helmet Cells Not Reportable 07/11/22 06:04 [place] Bodies Not Reportable 07/11/22 06:04 [place] Rings Not Reportable 07/11/22 06:04 [place] Cells Not Reportable 07/11/22 06:04 Bite Cells Not Reportable 07/11/22 06:04 Crenated Cell Not Reportable 07/11/22 06:04 Elliptocytes Not Reportable 07/11/22 06:04 Acanthocytes (Spur) Not Reportable 07/11/22 06:04 Rouleaux Not Reportable 07/11/22 06:04 Hemoglobin C Crystals Not Reportable 07/11/22 06:04 Schistocytes Not Reportable 07/11/22 06:04 Malaria parasites Not Reportable 07/11/22 06:04 [place] Bodies Not Reportable 07/11/22 06:04 Hem Pathologist Commnt No 07/11/22 06:04 PT 14.5 Sec. (12.2-14.9) 07/09/22 Unknown INR 0.99 (0.87-1.13) 07/09/22 Unknown Sodium 141 mmol/L (137-145) 07/11/22 06:04 Potassium 4.4 mmol/L (3.6-5.0) 07/11/22 06:04 Chloride 100.8 mmol/L (98-107) 07/11/22 06:04 Carbon Dioxide 23 mmol/L (22-30) 07/11/22 06:04 Anion Gap 22 mmol/L 07/11/22 06:04 BUN 13 mg/dL (9-20) 07/11/22 06:04 Creatinine 0.9 mg/dL (0.8-1.3) 07/11/22 06:04 Estimated GFR > 60 ml/min 07/11/22 06:04 BUN/Creatinine Ratio 14 % 07/11/22 06:04 Glucose 64 mg/dL (75-100) L 07/11/22 06:04 POC Glucose 250 mg/dL (70-105) H 07/10/22 20:20 Hemoglobin A1c 6.5 % (4-6) H 07/07/22 08:41 Lactic Acid 1.50 mmol/L (0.7-2.0) 07/07/22 02:26 Calcium 8.3 mg/dL (8.4-10.2) L 07/11/22 06:04 Iron 16 ug/dL (49-181) L 07/08/22 05:35 TIBC 133 mcg/dL (250-450) L 07/08/22 05:35 Ferritin 2888.0 ng/mL (30.0-300.0) H 07/08/22 05:35 Total Bilirubin 0.70 mg/dL (0.1-1.2) 07/07/22 02:26 AST 41 units/L (5-40) H 07/07/22 02:26 ALT 28 units/L (7-56) 07/07/22 02:26 Alkaline Phosphatase 129 units/L (35-129) 07/07/22 02:26 Total Creatine Kinase 483 units/L (55-170) H 07/11/22 06:04 Total Protein 6.9 g/dL (6.3-8.2) 07/07/22 02:26 Albumin 3.6 g/dL (3.9-5) L 07/07/22 02:26 Albumin/Globulin Ratio 1.1 % 07/07/22 02:26 Triglycerides 114 mg/dL (2-149) 07/07/22 08:41 Cholesterol 116 mg/dL (50-199) 07/07/22 08:41 LDL Cholesterol Direct 46 mg/dL (50-130) L 07/07/22 08:41 HDL Cholesterol 37 mg/dL (40-59) L 07/07/22 08:41 Cholesterol/HDL Ratio 3.13 % 07/07/22 08:41 Blood Type O POSITIVE 07/08/22 Unknown Microbiology: Microbiology 07/07/22 02:26 Peripheral/Venous Blood Culture - Preliminary NO GROWTH AFTER 4 DAYS 07/07/22 02:26 Peripheral/Venous Blood Culture - Preliminary NO GROWTH AFTER 4 DAYS [place]/IV: Voiding Method Condom Catheter Active Medications - Current Medications Current Medications: Generic Name Dose Route Start Last Admin Trade Name Freq PRN Reason Stop Dose Admin Acetaminophen 650 mg 07/07/22 08:30 07/09/22 01:31 Acetaminophen 325 Mg Tab PO 650 mg Q4H PRN Administration Pain MILD(1-3)/Fever >100.5/DAS Atorvastatin Calcium 40 mg 07/10/22 11:00 07/10/22 17:39 Atorvastatin 40 Mg Tab PO Not Given DAILY APRIL Cilostazol 100 mg 07/09/22 12:00 07/10/22 21:48 Cilostazol 100 Mg Tab PO 100 mg BID APRIL Administration Clopidogrel Bisulfate 75 mg 07/10/22 10:00 07/10/22 09:46 Clopidogrel 75 Mg Tab PO Not Given QDAY APRIL Dextrose 50 ml 07/07/22 08:35 Dextrose 50% In Water (25gm) 50 Ml Syringe IV Q30MIN PRN Hypoglycemia Protocol Heparin Sodium (Porcine) 5,000 unit 07/07/22 14:00 07/11/22 05:22 Heparin 5,000 Unit/1 Ml Vial SUB-Q 5,000 unit Q8HR APRIL Administration Sodium Chloride 1,000 mls @ 100 mls/hr 07/07/22 05:30 07/10/22 22:00 Nacl 0.9% 1000 Ml IV 100 mls/hr DIRECT APRIL Administration Cefepime HCl 1 gm in 100 mls @ 200 mls/hr 07/07/22 09:00 07/11/22 04:57 Cefepime/Ns 1 Gm/100 Ml IV Infused Q8H APRIL Infusion Protocol Daptomycin 500 mg/ Sodium 100 mls @ 200 mls/hr 07/10/22 18:00 07/10/22 20:37 Chloride IV Infused Q24H APRIL Infusion Protocol Insulin Human Isoph/Insulin Regular 25 unit 07/07/22 19:16 07/10/22 18:52 Insulin Nph/Regular 70/30 Inj SUB-Q 25 unit BIDDIAB APRIL Administration Insulin Human Regular 5 units 07/07/22 22:00 07/10/22 23:18 Insulin Regular, Human 100 Units/1 Ml SUB-Q 5 units ACHS APRIL Administration Insulin Human Regular 0 units 07/08/22 00:00 07/11/22 07:51 Insulin Regular, Human 100 Units/1 Ml SUB-Q Not Given Q6H [facility] Protocol Metoclopramide HCl 10 mg 07/09/22 17:34 07/09/22 22:50 Metoclopramide 10 Mg/2 Ml Inj IV 10 mg Q6H PRN Administration Nausea And Vomiting Metoprolol Tartrate 100 mg 07/10/22 11:00 07/10/22 21:49 Metoprolol Tartrate 100 Mg Tab PO 100 mg BID APRIL Administration Morphine Sulfate 2 mg 07/07/22 08:30 07/11/22 04:09 Morphine 4 Mg/1 Ml Inj IV 2 mg Q4H PRN Administration Pain , Severe (7-10) Nifedipine 30 mg 07/08/22 10:00 07/10/22 09:26 Nifedipine Xl 30 Mg Tab PO 30 mg QDAY APRIL Administration Ondansetron HCl 4 mg 07/07/22 08:30 Ondansetron 4 Mg/2 Ml Inj IV Q8H PRN Nausea And Vomiting Oxycodone/Acetaminophen 1 tab 07/07/22 08:30 07/10/22 21:49 Oxycodone /Acetaminophen 5-325mg Tab PO 1 tab Q6H PRN Administration Pain, Moderate (4-6) Povidone Iodine 1 applic 07/07/22 15:00 07/10/22 09:29 Povidone-Iodine Ointment 28.35 Gm TP 1 applic DAILY APRIL Administration Sodium Chloride 10 ml 07/07/22 10:00 07/10/22 23:19 Sodium Chloride 0.9% 10 Ml Flush Syringe IV 10 ml BID APRIL Administration Sodium Chloride 10 ml 07/07/22 08:30 Sodium Chloride 0.9% 10 Ml Flush Syringe IV PRN PRN LINE FLUSH Nutrition/Malnutrition Assess - Dietary Evaluation Nutrition/Malnutrition Findings: Nutrition Notes Start: 07/08/22 11:33 Freq: Status: Active Protocol: Document 07/08/22 11:33 ESTHER (Rec: 07/08/22 11:52 ESTHER [email or web address]) Nutrition Notes Need for Assessment generated from: dispatcher 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 He consumed 50% of dinner last pm; he is able to feed himself. Revascularization procedure scheduled for tomorrow; pt will be NPO after midnight tonight. PMHx includes PVD (s/p RLE bypass 10+ yrs ago), (R) foot transmetatarsal amputation. Burn Absent Trauma Absent Current % PO Fair (50-74%) Minimum of two criteria No Reduced Solvent Mixer Strength Measurably Reduced (severe) Is patient on ventilator? No Is Patient Ambulatory and/or Out of Bed No REE-([facility]-confined to bed) 2357.160 Calculation Used for Recommendations [facility] Additional Notes Pro needs 1.25-1.5g/k- 108g/day Fluid needs 1ml/kcal Nutrition Intervention Follow-Up By: 07/12/22 Additional Comments F/U: intakes, need for ONS
[2022-07-11] MEDS: CILOSTAZOL 100 MG TAB PO SCH ×2 (10:22→21:13)
[2022-07-11] MEDS: CLOPIDOGREL 75 MG TAB PO SCH (10:22)
[2022-07-11] MEDS: NIFEdipine XL 30 MG TAB PO SCH (10:22)
[2022-07-11] MEDS: METOPROLOL TARTRATE 100 MG TAB PO SCH ×2 (10:22→21:14)
[2022-07-11] MEDS: INSULIN NPH/REGULAR 70/30 INJ SUB-Q SCH ×2 (10:23→17:58)
[2022-07-11] MEDS: POVIDONE-IODINE OINTMENT 28.35 GM TP SCH (10:23)
--- NOTE | 2022-07-11 10:45 | Progress Note ---
Assessment and Plan Cultures: 07/07/2022 blood culture: No growth A/P: 67-year-old male with diabetes, hypertension, peripheral vascular disease with previous history of RLE arterial bypass, right TMA, former smoker quit in 2005 was admitted to the hospital with left third toe wound: #Sepsis, secondary to diabetic foot infection, osteomyelitis of left foot third toe: Risk factors diabetes and peripheral vascular disease. WBC improving. S/p revascularization on 07/09/2022, followed by toe amputation 07/10/2022. Noted to have necrotic tissue. #Thrombocytopenia: ?acute #JACQUI: Improving. Renally adjust antibiotics as needed. #Peripheral vascular disease, history of RLE arterial bypass, prior right TMA. S/p revascularization on 07/09/2022. #Diabetes mellitus type 2, uncontrolled Recs: -Continue IV cefepime + Daptomycin. Avoiding linezolid due to thrombocytopenia. -CK downtrending, OK to continue Daptomycin -monitor WBC Ivett Campbell MD, FACP, [facility] O: [phone] F: [phone] C: [phone] Subjective Date of service: 07/11/22 Interval history: Afebrile. tolerating abx, no complaints. Underwent toe amputation yesterday. Objective - Exam Narrative Exam: Physical Exam: Constitutional: Alert, cooperative. No acute distress Head, Ears, Nose: Normocephalic, atraumatic. External ears, nose normal Eyes: Conjunctivae/corneas clear. No icterus. No ptosis. Neck: Supple, no meningeal signs Cardiovascular: S1, S2 + Respiratory: Good air entry, clear to auscultation bilaterally GI: Soft, non-tender; bowel sounds normal. No peritoneal signs Musculoskeletal: Right TMA well-healed, left foot dressing + Skin: No rash or abscess Hem/Lymphatic: No palpable cervical or supraclavicular nodes. No lymphangitis Psych: Mood ok. Affect normal Neurological: Awake, alert, oriented. No gross abnormality - Constitutional Vitals: Vital Signs Temp Pulse Resp BP Pulse Ox 98.4 F 106 H 18 144/57 94 07/11/22 05:31 07/11/22 05:31 07/11/22 05:31 07/11/22 05:31 07/11/22 05:31 Temperature -Last 24 Hours Temperature 98.4 F Temperature 98.0 F Temperature 98.6 F Temperature 98.4 F Temperature 97.7 F - Labs CBC & Chem 7: 07/11/22 06:04 07/11/22 06:04 Labs: Abnormal lab results 07/10/22 07/10/22 07/10/22 Range/Units 05:49 15:31 15:33 WBC (4.5-11.0) K/mm3 RBC (3.65-5.03) M/mm3 Hgb (11.8-15.2) gm/dl Hct (35.5-45.6) % MCV (84-94) fl Plt Count (140-440) K/mm3 Seg Neuts % (Manual) (40.0-70.0) % Lymphocytes % (Manual) (13.4-35.0) % Monocytes % (Manual) (0.0-7.3) % Seg Neutrophils # Man (1.8-7.7) K/mm3 Monocytes # (Manual) (0.0-0.8) K/mm3 Glucose (75-100) mg/dL POC Glucose 230 H 319 H 335 H (70-105) mg/dL Calcium (8.4-10.2) mg/dL Total Creatine Kinase (55-170) units/L 07/10/22 07/10/22 07/11/22 Range/Units 17:52 20:20 06:04 WBC 27.9 H (4.5-11.0) K/mm3 RBC 2.48 L (3.65-5.03) M/mm3 Hgb 7.9 L (11.8-15.2) gm/dl Hct 24.7 L (35.5-45.6) % MCV 100 H (84-94) fl Plt Count 51 L (140-440) K/mm3 Seg Neuts % (Manual) 82.0 H (40.0-70.0) % Lymphocytes % (Manual) 8.0 L (13.4-35.0) % Monocytes % (Manual) 10.0 H (0.0-7.3) % Seg Neutrophils # Man 22.9 H (1.8-7.7) K/mm3 Monocytes # (Manual) 2.8 H (0.0-0.8) K/mm3 Glucose (75-100) mg/dL POC Glucose 334 H 250 H (70-105) mg/dL Calcium (8.4-10.2) mg/dL Total Creatine Kinase (55-170) units/L 07/11/22 Range/Units 06:04 WBC (4.5-11.0) K/mm3 RBC (3.65-5.03) M/mm3 Hgb (11.8-15.2) gm/dl Hct (35.5-45.6) % MCV (84-94) fl Plt Count (140-440) K/mm3 Seg Neuts % (Manual) (40.0-70.0) % Lymphocytes % (Manual) (13.4-35.0) % Monocytes % (Manual) (0.0-7.3) % Seg Neutrophils # Man (1.8-7.7) K/mm3 Monocytes # (Manual) (0.0-0.8) K/mm3 Glucose 64 L (75-100) mg/dL POC Glucose (70-105) mg/dL Calcium 8.3 L (8.4-10.2) mg/dL Total Creatine Kinase 483 H (55-170) units/L
--- NOTE | 2022-07-11 12:35 | Post Anesthesia Evaluation ---
- Post Anesthesia Evaluation Patient Participated: Yes Airway Patent: Yes Temp > 96.8F: Yes Pain Manageable: Yes Adequeate Hydration: Yes Anesthesia Complications: No Block Receding Appropriately: No Patient on Ventilator: No
--- NOTE | 2022-07-11 15:09 | Progress Note ---
Assessment and Plan Patient is postop day 1 status post amputation of his third toe. Intraoperative observations include an abscess between the third and fourth toes extending to space between the metatarsal bones. Extensive necrosis also noted to the distal part of the fourth toe and possibly extending to include the fifth toe. MRI reports and it x-rays reviewed with radiologist today. They confirmed the presence of the abscess between the third and fourth toe also extensive bony destruction of the third fourth fifth and even the second toe. Intraoperative findings and MRI findings discussed with the patient. Recommendations are to return to the OR tomorrow for potentially transmetatarsal amputations of the second through the fifth toes. Patient understands and agrees to proceed with surgery. Subjective Date of service: 07/11/22 Patient Reports: Positive: still having pain Narrative: Patient is postop day 1 status post amputation of his third toe. Intraoperative observations include an abscess between the third and fourth toes extending to space between the metatarsal bones. Extensive necrosis also noted to the distal part of the fourth toe and possibly extending to include the fifth toe. MRI reports and it x-rays reviewed with radiologist today. They confirmed the presence of the abscess between the third and fourth toe also extensive bony destruction of the third fourth fifth and even the second toe. Intraoperative findings and MRI findings discussed with the patient. Recommendations are to return to the OR tomorrow for potentially transmetatarsal amputations of the second through the fifth toes. Patient understands and ag jaime to proceed with surgery. Objective Vital Signs - 12hr 07/11/22 07/11/22 05:31 14:00 Temperature 98.4 F Pulse Rate 106 H 92 H Respiratory 18 Rate Blood Pressure 144/57 O2 Sat by Pulse 94 98 Oximetry - Labs 07/11/22 06:04 07/11/22 06:04 Diabetes panel 07/11/22 Range/Units 06:04 Sodium 141 (137-145) mmol/L Potassium 4.4 (3.6-5.0) mmol/L Chloride 100.8 (98-107) mmol/L Carbon Dioxide 23 (22-30) mmol/L BUN 13 (9-20) mg/dL Creatinine 0.9 (0.8-1.3) mg/dL Glucose 64 L (75-100) mg/dL Calcium 8.3 L (8.4-10.2) mg/dL Calcium panel 07/11/22 Range/Units 06:04 Calcium 8.3 L (8.4-10.2) mg/dL Pituitary panel 07/11/22 Range/Units 06:04 Sodium 141 (137-145) mmol/L Potassium 4.4 (3.6-5.0) mmol/L Chloride 100.8 (98-107) mmol/L Carbon Dioxide 23 (22-30) mmol/L BUN 13 (9-20) mg/dL Creatinine 0.9 (0.8-1.3) mg/dL Glucose 64 L (75-100) mg/dL Calcium 8.3 L (8.4-10.2) mg/dL Adrenal panel 07/11/22 Range/Units 06:04 Sodium 141 (137-145) mmol/L Potassium 4.4 (3.6-5.0) mmol/L Chloride 100.8 (98-107) mmol/L Carbon Dioxide 23 (22-30) mmol/L BUN 13 (9-20) mg/dL Creatinine 0.9 (0.8-1.3) mg/dL Glucose 64 L (75-100) mg/dL Calcium 8.3 L (8.4-10.2) mg/dL
[2022-07-11] MEDS: SODIUM CHLORIDE 0.9% 1000 ML 1,000 ML IV SCH ×2 (17:02→17:04)
[2022-07-12] MEDS: INSULIN REGULAR, HUMAN 100 UNITS/1 ML SUB-Q SCH ×9 (01:31→18:09)
[2022-07-12] MEDS: CEFEPIME/NS 1 GM/100 ML 1 GM/100 ML BAG IV SCH ×5 (01:39→18:31)
[2022-07-12] MEDS: HEPARIN 5,000 UNIT/1 ML VIAL SUB-Q SCH ×3 (04:59→22:30)
[2022-07-12] MEDS: INSULIN NPH/REGULAR 70/30 INJ SUB-Q SCH ×2 (08:03→18:08)
[2022-07-12] MEDS: NIFEdipine XL 30 MG TAB PO SCH (08:59)
[2022-07-12] MEDS: CILOSTAZOL 100 MG TAB PO SCH ×2 (08:59→22:26)
[2022-07-12] MEDS: METOPROLOL TARTRATE 100 MG TAB PO SCH ×2 (08:59→22:27)
[2022-07-12] MEDS: CLOPIDOGREL 75 MG TAB PO SCH (08:59)
[2022-07-12] MEDS: POVIDONE-IODINE OINTMENT 28.35 GM TP SCH (09:03)
--- NOTE | 2022-07-12 11:11 | Progress Note ---
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 Pending MRI left foot WBC 27-->21-->17.9 -Continue IV cefepime + Daptomycin. Avoiding linezolid due to thrombocytopenia. -CK downtrending, ID wants to cintinue Daptomycin Infectious disease consulted; appreciate recs Vascular surgery consulted; appreciate recs. Planning for revascularization on 07/09/2022. General surgery consulted; appreciate recs. Plan for amputation on 07/10/2022. Continue to monitor Insulin dependent type II diabetes mellitus with hyperglycemiaimproving Worsened by diabetic foot infection - hemoglobin A1c: 6.5 - home regimen: Unknown - current regimen: NPH 25 units twice daily + moderate SSI +8 units regular insulin with meals - blood glucose goal 140-180 while inpatient - continue to monitor Pseudohyponatremiaresolved Sodium 129 (corrected 136) JACQUI on likely CKD stage IIIresolved Creatinine 1.7-->0.9 (baseline unknown) Status post aggressive IV fluid resuscitation Renally dose meds and avoid nephrotoxic drugs. Monitor with repeat BMP tomorrow. Consider nephrology consult showed creatinine 1 continue to increase. Hypertension - home medications: Unknown - current medications: Started nifedipine 30 mg daily - SBP goal <160 and DBP goal <90 while inpatient - continue to monitor Iron deficiency anemia anemia of chronic disease Hemoglobin 8.2 Iron 16, TIBC 133, ferritin 2880. Transfuse if hemoglobin <7 Chronic thrombocytopenia Platelets 31-->27-->47--41 (status post transfusion of 1 platelet on 07/08/2022) Patient endorses being aware but not having etiology determined by other clinicians. Pending transfusion of 1 additional jumbo platelet for upcoming amputation by general surgery. #Moderate protein caloric malnutrition Albumin 3.6 Will initiate dietary supplementation once hyperglycemia is under control. Disposition Case management reports placement at a [facility] History Interval history: No new issues overnight Hospitalist Physical - Constitutional Vitals: Temp Pulse Resp BP Pulse Ox 98.4 F 125 H 18 175/70 95 07/12/22 07:51 07/12/22 08:59 07/12/22 07:51 07/12/22 08:59 07/12/22 07:51 General appearance: Present: no acute distress, well-nourished, malodorous (Malodorous wet gangrene of left foot with ulceration of third digit) - EENT Eyes: Present: PERRL, EOM intact ENT: hearing intact, clear oral mucosa, dentition normal - Neck Neck: Present: supple, normal ROM - Respiratory Respiratory effort: normal Respiratory: bilateral: CTA - Cardiovascular Rhythm: regular Heart Sounds: Present: S1 & S2. Absent: gallop, rub - Extremities Extremities: no ischemia, No edema, Full ROM - Abdominal General gastrointestinal: soft, non-tender, non-distended, normal bowel sounds - Integumentary Integumentary: Present: clear, warm, dry - Neurologic Neurologic: CNII-XII intact, moves all extremities Results - Labs CBC & Chem 7: 07/11/22 06:04 07/11/22 06:04 Labs: Laboratory Last Values WBC 27.9 K/mm3 (4.5-11.0) H 07/11/22 06:04 RBC 2.48 M/mm3 (3.65-5.03) L 07/11/22 06:04 Hgb 7.9 gm/dl (11.8-15.2) L 07/11/22 06:04 Hct 24.7 % (35.5-45.6) L 07/11/22 06:04 MCV 100 fl (84-94) H 07/11/22 06:04 MCH 32 pg (28-32) 07/11/22 06:04 MCHC 32 % (32-34) 07/11/22 06:04 RDW 13.3 % (13.2-15.2) 07/11/22 06:04 Plt Count 51 K/mm3 (140-440) L 07/11/22 06:04 Lymph % (Auto) 16.2 % (13.4-35.0) 07/09/22 Unknown Tillman % (Auto) 11.9 % (0.0-7.3) H 07/09/22 Unknown Eos % (Auto) 0.7 % (0.0-4.3) 07/09/22 Unknown Baso % (Auto) 0.5 % (0.0-1.8) 07/09/22 Unknown Lymph # (Auto) 2.9 K/mm3 (1.2-5.4) 07/09/22 Unknown Tillman # (Auto) 2.1 K/mm3 (0.0-0.8) H 07/09/22 Unknown Eos # (Auto) 0.1 K/mm3 (0.0-0.4) 07/09/22 Unknown Baso # (Auto) 0.1 K/mm3 (0.0-0.1) 07/09/22 Unknown Add Manual Diff Complete 07/11/22 06:04 Total Counted 100 07/11/22 06:04 Seg Neutrophils % 70.7 % (40.0-70.0) H 07/09/22 Unknown Seg Neuts % (Manual) 82.0 % (40.0-70.0) H 07/11/22 06:04 Band Neutrophils % 0 % 07/11/22 06:04 Lymphocytes % (Manual) 8.0 % (13.4-35.0) L 07/11/22 06:04 Reactive Lymphs % (Man) 0 % 07/11/22 06:04 Monocytes % (Manual) 10.0 % (0.0-7.3) H 07/11/22 06:04 Eosinophils % (Manual) 0 % (0.0-4.3) 07/11/22 06:04 Basophils % (Manual) 0 % (0.0-1.8) 07/11/22 06:04 Metamyelocytes % 0 % 07/11/22 06:04 Myelocytes % 0 % 07/11/22 06:04 Promyelocytes % 0 % 07/11/22 06:04 Blast Cells % 0 % 07/11/22 06:04 Nucleated RBC % Not Reportable 07/11/22 06:04 Seg Neutrophils # 12.6 K/mm3 (1.8-7.7) H 07/09/22 Unknown Seg Neutrophils # Man 22.9 K/mm3 (1.8-7.7) H 07/11/22 06:04 Band Neutrophils # 0.0 K/mm3 07/11/22 06:04 Lymphocytes # (Manual) 2.2 K/mm3 (1.2-5.4) 07/11/22 06:04 Abs React Lymphs (Man) 0.0 K/mm3 07/11/22 06:04 Monocytes # (Manual) 2.8 K/mm3 (0.0-0.8) H 07/11/22 06:04 Eosinophils # (Manual) 0.0 K/mm3 (0.0-0.4) 07/11/22 06:04 Basophils # (Manual) 0.0 K/mm3 (0.0-0.1) 07/11/22 06:04 Metamyelocytes # 0.0 K/mm3 07/11/22 06:04 Myelocytes # 0.0 K/mm3 07/11/22 06:04 Promyelocytes # 0.0 K/mm3 07/11/22 06:04 Blast Cells # 0.0 K/mm3 07/11/22 06:04 WBC Morphology Not Reportable 07/11/22 06:04 Hypersegmented Neuts Not Reportable 07/11/22 06:04 Hyposegmented Neuts Not Reportable 07/11/22 06:04 Hypogranular Neuts Not Reportable 07/11/22 06:04 Smudge Cells Not Reportable 07/11/22 06:04 Toxic Granulation Not Reportable 07/11/22 06:04 Toxic Vacuolation Not Reportable 07/11/22 06:04 Dohle Bodies Not Reportable 07/11/22 06:04 Pelger-Huet Anomaly Not Reportable 07/11/22 06:04 Lulu Rods Not Reportable 07/11/22 06:04 Platelet Estimate Consistent w auto 07/11/22 06:04 Clumped Platelets Not Reportable 07/11/22 06:04 Plt Clumps, EDTA Not Reportable 07/11/22 06:04 Large Platelets Not Reportable 07/11/22 06:04 Giant Platelets Not Reportable 07/11/22 06:04 Platelet Satelliting Not Reportable 07/11/22 06:04 Plt Morphology Comment Not Reportable 07/11/22 06:04 RBC Morphology Not Reportable 07/11/22 06:04 Dimorphic RBCs Not Reportable 07/11/22 06:04 Polychromasia Not Reportable 07/11/22 06:04 Hypochromasia 1+ 07/11/22 06:04 Poikilocytosis Not Reportable 07/11/22 06:04 Anisocytosis Not Reportable 07/11/22 06:04 Microcytosis Not Reportable 07/11/22 06:04 Macrocytosis Not Reportable 07/11/22 06:04 Spherocytes Not Reportable 07/11/22 06:04 Pappenheimer Bodies Not Reportable 07/11/22 06:04 Sickle Cells Not Reportable 07/11/22 06:04 Target Cells Not Reportable 07/11/22 06:04 Tear Drop Cells Not Reportable 07/11/22 06:04 Ovalocytes Not Reportable 07/11/22 06:04 Helmet Cells Not Reportable 07/11/22 06:04 Capps-Sauget Bodies Not Reportable 07/11/22 06:04 [place] Rings Not Reportable 07/11/22 06:04 Merry Cells Not Reportable 07/11/22 06:04 Bite Cells Not Reportable 07/11/22 06:04 Crenated Cell Not Reportable 07/11/22 06:04 Elliptocytes Not Reportable 07/11/22 06:04 Acanthocytes (Spur) Not Reportable 07/11/22 06:04 Rouleaux Not Reportable 07/11/22 06:04 Hemoglobin C Crystals Not Reportable 07/11/22 06:04 Schistocytes Not Reportable 07/11/22 06:04 Malaria parasites Not Reportable 07/11/22 06:04 Chintan Bodies Not Reportable 07/11/22 06:04 Hem Pathologist Commnt No 07/11/22 06:04 PT 14.5 Sec. (12.2-14.9) 07/09/22 Unknown INR 0.99 (0.87-1.13) 07/09/22 Unknown Sodium 141 mmol/L (137-145) 07/11/22 06:04 Potassium 4.4 mmol/L (3.6-5.0) 07/11/22 06:04 Chloride 100.8 mmol/L (98-107) 07/11/22 06:04 Carbon Dioxide 23 mmol/L (22-30) 07/11/22 06:04 Anion Gap 22 mmol/L 07/11/22 06:04 BUN 13 mg/dL (9-20) 07/11/22 06:04 Creatinine 0.9 mg/dL (0.8-1.3) 07/11/22 06:04 Estimated GFR > 60 ml/min 07/11/22 06:04 BUN/Creatinine Ratio 14 % 07/11/22 06:04 Glucose 64 mg/dL (75-100) L 07/11/22 06:04 POC Glucose 109 mg/dL (70-105) H 07/11/22 22:37 Hemoglobin A1c 6.5 % (4-6) H 07/07/22 08:41 Lactic Acid 1.50 mmol/L (0.7-2.0) 07/07/22 02:26 Calcium 8.3 mg/dL (8.4-10.2) L 07/11/22 06:04 Iron 16 ug/dL (49-181) L 07/08/22 05:35 TIBC 133 mcg/dL (250-450) L 07/08/22 05:35 Ferritin 2888.0 ng/mL (30.0-300.0) H 07/08/22 05:35 Total Bilirubin 0.70 mg/dL (0.1-1.2) 07/07/22 02:26 AST 41 units/L (5-40) H 07/07/22 02:26 ALT 28 units/L (7-56) 07/07/22 02:26 Alkaline Phosphatase 129 units/L (35-129) 07/07/22 02:26 Total Creatine Kinase 304 units/L (55-170) H 07/12/22 05:15 Total Protein 6.9 g/dL (6.3-8.2) 07/07/22 02:26 Albumin 3.6 g/dL (3.9-5) L 07/07/22 02:26 Albumin/Globulin Ratio 1.1 % 07/07/22 02:26 Triglycerides 114 mg/dL (2-149) 07/07/22 08:41 Cholesterol 116 mg/dL (50-199) 07/07/22 08:41 LDL Cholesterol Direct 46 mg/dL (50-130) L 07/07/22 08:41 HDL Cholesterol 37 mg/dL (40-59) L 07/07/22 08:41 Cholesterol/HDL Ratio 3.13 % 07/07/22 08:41 Blood Type O POSITIVE 07/08/22 Unknown Microbiology: Microbiology 07/10/22 15:32 Toe - Left Third Surgical Culture - Preliminary 07/07/22 02:26 Peripheral/Venous Blood Culture - Final NO GROWTH AFTER 5 DAYS 07/07/22 02:26 Peripheral/Venous Blood Culture - Final NO GROWTH AFTER 5 DAYS Villare[place]/IV: Voiding Method Urinal Active Medications - Current Medications Current Medications: Generic Name Dose Route Start Last Admin Trade Name Freq PRN Reason Stop Dose Admin Acetaminophen 650 mg 07/07/22 08:30 07/09/22 01:31 Acetaminophen 325 Mg Tab PO 650 mg Q4H PRN Administration Pain MILD(1-3)/Fever >100.5/DAS Atorvastatin Calcium 40 mg 07/10/22 11:00 07/12/22 08:59 Atorvastatin 40 Mg Tab PO 40 mg DAILY APRIL Administration Cilostazol 100 mg 07/09/22 12:00 07/12/22 08:59 Cilostazol 100 Mg Tab PO 100 mg BID APRIL Administration Clopidogrel Bisulfate 75 mg 07/10/22 10:00 07/12/22 08:59 Clopidogrel 75 Mg Tab PO 75 mg QDAY APRIL Administration Dextrose 50 ml 07/07/22 08:35 Dextrose 50% In Water (25gm) 50 Ml Syringe IV Q30MIN PRN Hypoglycemia Protocol Heparin Sodium (Porcine) 5,000 unit 07/07/22 14:00 07/12/22 04:59 Heparin 5,000 Unit/1 Ml Vial SUB-Q 5,000 unit Q8HR APRIL Administration Sodium Chloride 1,000 mls @ 100 mls/hr 07/07/22 05:30 07/11/22 17:04 Nacl 0.9% 1000 Ml IV 100 mls/hr DIRECT APRIL Administration Cefepime HCl 1 gm in 100 mls @ 200 mls/hr 07/07/22 09:00 07/12/22 01:42 Cefepime/Ns 1 Gm/100 Ml IV 200 mls/hr Q8H APRIL Administration Protocol Daptomycin 500 mg/ Sodium 100 mls @ 200 mls/hr 07/10/22 18:00 07/11/22 17:59 Chloride IV 200 mls/hr Q24H APRIL Administration Protocol Insulin Human Isoph/Insulin Regular 25 unit 07/07/22 19:16 07/12/22 08:03 Insulin Nph/Regular 70/30 Inj SUB-Q Not Given BIDDIAB [facility] Insulin Human Regular 5 units 07/07/22 22:00 07/12/22 08:03 Insulin Regular, Human 100 Units/1 Ml SUB-Q Not Given ACHS [facility] Insulin Human Regular 0 units 07/08/22 00:00 07/12/22 05:01 Insulin Regular, Human 100 Units/1 Ml SUB-Q Not Given Q6H [facility] Protocol Metoclopramide HCl 10 mg 07/09/22 17:34 07/09/22 22:50 Metoclopramide 10 Mg/2 Ml Inj IV 10 mg Q6H PRN Administration Nausea And Vomiting Metoprolol Tartrate 100 mg 07/10/22 11:00 07/12/22 08:59 Metoprolol Tartrate 100 Mg Tab PO 100 mg BID APRIL Administration Morphine Sulfate 2 mg 07/07/22 08:30 07/11/22 21:14 Morphine 4 Mg/1 Ml Inj IV 2 mg Q4H PRN Administration Pain , Severe (7-10) Nifedipine 30 mg 07/08/22 10:00 07/12/22 08:59 Nifedipine Xl 30 Mg Tab PO 30 mg QDAY APRLI Administration Ondansetron HCl 4 mg 07/07/22 08:30 Ondansetron 4 Mg/2 Ml Inj IV Q8H PRN Nausea And Vomiting Oxycodone/Acetaminophen 1 tab 07/07/22 08:30 07/10/22 21:49 Oxycodone /Acetaminophen 5-325mg Tab PO 1 tab Q6H PRN Administration Pain, Moderate (4-6) Povidone Iodine 1 applic 07/07/22 15:00 07/12/22 09:03 Povidone-Iodine Ointment 28.35 Gm TP Not Given DAILY [facility] Sodium Chloride 10 ml 07/07/22 10:00 07/12/22 08:59 Sodium Chloride 0.9% 10 Ml Flush Syringe IV 10 ml BID APRIL Administration Sodium Chloride 10 ml 07/07/22 08:30 Sodium Chloride 0.9% 10 Ml Flush Syringe IV PRN PRN LINE FLUSH Nutrition/Malnutrition Assess - Dietary Evaluation Nutrition/Malnutrition Findings: Nutrition Notes Start: 07/08/22 11:33 Freq: Status: Active Protocol: Document 07/08/22 11:33 ESTHER (Rec: 07/08/22 11:52 ESTHER [id number]) Nutrition Notes 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 He consumed 50% of dinner last pm; he is able to feed himself. Revascularization procedure scheduled for tomorrow; pt will be NPO after midnight tonight. PMHx includes PVD (s/p RLE bypass 10+ yrs ago), (R) foot transmetatarsal amputation. Burn Absent Trauma Absent Current % PO Fair (50-74%) Minimum of two criteria No Reduced Detective Strength Measurably Reduced (severe) Is patient on ventilator? No Is Patient Ambulatory and/or Out of Bed No REE-([facility]-confined to bed) 2859.160 Calculation Used for Recommendations [facility] Additional Notes Pro needs 1.25-1.5g/k- 108g/day Fluid needs 1ml/kcal Nutrition Intervention Follow-Up By: 07/12/22 Additional Comments F/U: intakes, need for ONS
--- NOTE | 2022-07-12 11:23 | Progress Note ---
Assessment and Plan Cultures: 07/07/2022 blood culture: No growth 07/10/2022 left third toe surgical culture: In process. Gram stain appears mixed with GPC in pairs, rare GNR. 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 WBC elevated. S/p revascularization on 07/09/2022, followed by toe amputation 07/10/2022. Noted to have necrotic tissue. MRI with abscess between the third and fourth toe also extensive bony destruction of the third fourth fifth and even the second toe. #Thrombocytopenia: ?acute #JACQUI: Improved. Renally adjust antibiotics as needed. #Peripheral vascular disease, history of RLE arterial bypass, prior right TMA. S/p revascularization on 07/09/2022. #Diabetes mellitus type 2, uncontrolled Recs: -Continue IV cefepime + Daptomycin. Avoiding linezolid due to thrombocytopenia. -Flagyl added for anaerobic coverage -CK continues to downtrend, okay to continue IV daptomycin -Follow-up surgical culture -Noted plans to return to the OR for potential transmetatarsal amputations of the second through the fifth toes Ivett Campbell MD, FACP, [facility] O: [phone] F: [phone] C: [phone] Subjective Date of service: 07/12/22 Interval history: Tmax 99.7F. Tolerating abx, no complaints. Awaiting OR. Objective - Exam Narrative Exam: Physical Exam: Constitutional: Alert, cooperative. No acute distress Head, Ears, Nose: Normocephalic, atraumatic. External ears, nose normal Eyes: Conjunctivae/corneas clear. No icterus. No ptosis. Neck: Supple, no meningeal signs Cardiovascular: S1, S2 + Respiratory: Good air entry, clear to auscultation bilaterally GI: Soft, non-tender; bowel sounds normal. No peritoneal signs Musculoskeletal: Right TMA well-healed, left foot dressing + Skin: No rash or abscess Hem/Lymphatic: No palpable cervical or supraclavicular nodes. No lymphangitis Psych: Mood ok. Affect normal Neurological: Awake, alert, oriented. No gross abnormality - Constitutional Vitals: Vital Signs Temp Pulse Resp BP Pulse Ox 98.4 F 125 H 18 175/70 95 07/12/22 07:51 07/12/22 08:59 07/12/22 07:51 07/12/22 08:59 07/12/22 07:51 Temperature -Last 24 Hours Temperature 98.4 F Temperature 97.5 F Temperature 99.3 F Temperature 99.7 F Temperature 98.3 F Temperature 98.1 F - Labs CBC & Chem 7: 07/11/22 06:04 07/11/22 06:04 Labs: Abnormal lab results 07/11/22 07/11/22 07/11/22 Range/Units 08:35 13:06 16:00 POC Glucose 111 H 220 H 107 H (70-105) mg/dL Total Creatine Kinase (55-170) units/L 07/11/22 07/12/22 Range/Units 22:37 05:15 POC Glucose 109 H (70-105) mg/dL Total Creatine Kinase 304 H (55-170) units/L
[2022-07-12] MEDS: metroNIDAZOLE/NS 500 MG/100 ML 500 MG/100 ML BAG IV SCH ×2 (12:20→22:34)
[2022-07-12] MEDS ORDERED: CEFEPIME/NS 1 GM/100 ML 1 GM/100 ML BAG IV SCH (13:00)
--- NOTE | 2022-07-12 13:13 | Progress Note ---
Assessment and Plan Patient doing well following his revascularization procedure. Management per surgery regarding toe amputations. Patient otherwise doing well Subjective Date of service: 07/12/22 Principal diagnosis: PVD with critical limb Interval history: Patient with a history of toe infection status post amputation of the third toe on his left foot. Prior to this, he underwent a revascularization procedure. His foot is wrapped as he has planned a second through fourth toe amputations today. The patient's lower leg to the dorsum of the foot are warm and asymmetrically warmer than his contralateral leg indicating increased perfusion. His right groin puncture site is soft with no significant hematoma. Objective - Constitutional Vitals: Vital Signs - 12hr 07/12/22 07/12/22 07/12/22 03:44 07:51 08:59 Temperature 97.5 F L 98.4 F Pulse Rate 106 H 125 H 125 H Respiratory 18 18 Rate Blood Pressure 147/60 175/70 175/70 O2 Sat by Pulse 90 95 Oximetry 07/12/22 11:09 Temperature 98.7 F Pulse Rate 97 H Respiratory 18 Rate Blood Pressure 148/65 O2 Sat by Pulse 96 Oximetry General appearance: Present: no acute distress - EENT Eyes: EOM intact ENT: hearing intact - Neck Neck: supple, normal ROM - Respiratory Respiratory effort: normal Extremities: abnormal - Gastrointestinal General gastrointestinal: Present: deferred Rectal Exam: deferred - Genitourinary Male genitourinary: deferred - Labs CBC & Chem 7: 07/11/22 06:04 07/11/22 06:04 Labs: Abnormal lab results 07/11/22 07/11/22 07/11/22 Range/Units 13:06 16:00 22:37 POC Glucose 220 H 107 H 109 H (70-105) mg/dL Total Creatine Kinase (55-170) units/L 07/12/22 07/12/22 07/12/22 Range/Units 04:51 05:15 07:53 POC Glucose 189 H 242 H (70-105) mg/dL Total Creatine Kinase 304 H (55-170) units/L 07/12/22 Range/Units 11:09 POC Glucose 269 H (70-105) mg/dL Total Creatine Kinase (55-170) units/L Medications & Allergies - Medications Allergies/Adverse Reactions: Allergies No Known Allergies Allergy (Verified 07/10/22 13:17) Home Medications: Home Medications Medication Instructions Recorded Confirmed Last Taken Type Tamsulosin [Flomax] 0.4 mg PO QDAY 07/07/22 07/10/22 Unknown History traZODone [Desyrel] 100 mg PO QHS 07/07/22 07/10/22 Unknown History AtorvaSTATin [Lipitor] 40 mg PO QHS 07/10/22 07/10/22 Unknown History Chlorthalidone [Thalitone] 25 mg PO QDAY 07/10/22 07/10/22 Unknown History Insulin Glargine,Hum.rec.anlog 60 units SQ QDAY 07/10/22 07/10/22 Unknown History [Lantus Solostar] Lisinopril [Zestril TAB] 30 mg PO QDAY 07/10/22 07/10/22 Unknown History Lispro Insulin [HumaLOG] 10 units SQ TIDWM 07/10/22 07/10/22 Unknown History Metoprolol [Lopressor] 100 mg PO BID 07/10/22 07/10/22 Unknown History Multivitamin 1 each PO QDAY 07/10/22 07/10/22 Unknown History Sertraline [Zoloft] 100 mg PO QDAY 07/10/22 07/10/22 Unknown History Timolol Maleate/Pf [Timolol 1 drop OU BID 07/10/22 07/10/22 Unknown History Maleate 0.5% Eye Drop] cilostazoL [Pletal] 100 mg PO BID 07/10/22 07/10/22 Unknown History Active Medications: Generic Name Dose Route Start Last Admin Trade Name Freq PRN Reason Stop Dose Admin Acetaminophen 650 mg 07/07/22 08:30 07/09/22 01:31 Acetaminophen 325 Mg Tab PO 650 mg Q4H PRN Administration Pain MILD(1-3)/Fever >100.5/DAS Atorvastatin Calcium 40 mg 07/10/22 11:00 07/12/22 08:59 Atorvastatin 40 Mg Tab PO 40 mg DAILY APRIL Administration Cilostazol 100 mg 07/09/22 12:00 07/12/22 08:59 Cilostazol 100 Mg Tab PO 100 mg BID APRIL Administration Clopidogrel Bisulfate 75 mg 07/10/22 10:00 07/12/22 08:59 Clopidogrel 75 Mg Tab PO 75 mg QDAY APRIL Administration Dextrose 50 ml 07/07/22 08:35 Dextrose 50% In Water (25gm) 50 Ml Syringe IV Q30MIN PRN Hypoglycemia Protocol Heparin Sodium (Porcine) 5,000 unit 07/07/22 14:00 07/12/22 04:59 Heparin 5,000 Unit/1 Ml Vial SUB-Q 5,000 unit Q8HR APRIL Administration Sodium Chloride 1,000 mls @ 100 mls/hr 07/07/22 05:30 07/11/22 17:04 Nacl 0.9% 1000 Ml IV 100 mls/hr DIRECT APRIL Administration Cefepime HCl 1 gm in 100 mls @ 200 mls/hr 07/07/22 09:00 07/12/22 01:42 Cefepime/Ns 1 Gm/100 Ml IV 200 mls/hr Q8H APRIL Administration Protocol Daptomycin 500 mg/ Sodium 100 mls @ 200 mls/hr 07/10/22 18:00 07/11/22 17:59 Chloride IV 200 mls/hr Q24H APRIL Administration Protocol Metronidazole 500 mg in 100 mls @ 100 mls/hr 07/12/22 12:00 07/12/22 12:20 Flagyl 500 Mg/100 Ml IV 100 mls/hr Q8H APRIL Administration Protocol Cefepime HCl 1 gm in 100 mls @ 200 mls/hr 07/12/22 13:00 Cefepime/Ns 1 Gm/100 Ml IV Q8H [facility] Protocol Insulin Human Isoph/Insulin Regular 25 unit 07/07/22 19:16 07/12/22 08:03 Insulin Nph/Regular 70/30 Inj SUB-Q Not Given BIDDIAB [facility] Insulin Human Regular 5 units 07/07/22 22:00 07/12/22 12:08 Insulin Regular, Human 100 Units/1 Ml SUB-Q Not Given ACHS [facility] Insulin Human Regular 0 units 07/08/22 00:00 07/12/22 12:23 Insulin Regular, Human 100 Units/1 Ml SUB-Q Not Given Q6H [facility] Protocol Metoclopramide HCl 10 mg 07/09/22 17:34 07/09/22 22:50 Metoclopramide 10 Mg/2 Ml Inj IV 10 mg Q6H PRN Administration Nausea And Vomiting Metoprolol Tartrate 100 mg 07/10/22 11:00 07/12/22 08:59 Metoprolol Tartrate 100 Mg Tab PO 100 mg BID APRIL Administration Morphine Sulfate 2 mg 07/07/22 08:30 07/11/22 21:14 Morphine 4 Mg/1 Ml Inj IV 2 mg Q4H PRN Administration Pain , Severe (7-10) Nifedipine 30 mg 07/08/22 10:00 07/12/22 08:59 Nifedipine Xl 30 Mg Tab PO 30 mg QDAY APRIL Administration Ondansetron HCl 4 mg 07/07/22 08:30 Ondansetron 4 Mg/2 Ml Inj IV Q8H PRN Nausea And Vomiting Oxycodone/Acetaminophen 1 tab 07/07/22 08:30 07/10/22 21:49 Oxycodone /Acetaminophen 5-325mg Tab PO 1 tab Q6H PRN Administration Pain, Moderate (4-6) Povidone Iodine 1 applic 07/07/22 15:00 07/12/22 09:03 Povidone-Iodine Ointment 28.35 Gm TP Not Given DAILY APRIL Sodium Chloride 10 ml 07/07/22 10:00 07/12/22 08:59 Sodium Chloride 0.9% 10 Ml Flush Syringe IV 10 ml BID APRIL Administration Sodium Chloride 10 ml 07/07/22 08:30 Sodium Chloride 0.9% 10 Ml Flush Syringe IV PRN PRN LINE FLUSH
[2022-07-12] MEDS ORDERED: LIDOCAINE MPF (2%) 20 MG/1 ML VIAL 5 ML ONE (13:14)
[2022-07-12] MEDS ORDERED: propofoL 200 MG/20 ML VIAL IV ONE (13:15)
[2022-07-12] MEDS ORDERED: MIDAZOLAM 2 MG/2 ML INJ ONE (13:15)
[2022-07-12] MEDS ORDERED: fentaNYL 100 MCG/2 ML INJ ONE (13:15)
[2022-07-12] MEDS ORDERED: HYDROmorphone 0.5 MG/0.5 ML INJ IV PRN (13:51)
--- NOTE | 2022-07-12 13:51 | Anesthesia Day of Surgery ---
Anesthesia Day of Surgery - Day of Surgery Patient Examined: Yes Patient H&P Reviewed: Yes Patient is NPO: Yes
[2022-07-12] MEDS ORDERED: LACTATED RINGERS 1,000 ML ONE (13:55)
[2022-07-12] MEDS ORDERED: ONDANSETRON 4 MG/2 ML INJ ONE (14:27)
[2022-07-12] MEDS ORDERED: LACTATED RINGERS 1,000 ML IV SCH (14:45)
[2022-07-12] MEDS ORDERED: MIDAZOLAM 2 MG/2 ML INJ IV NR (14:54)
[2022-07-12] MEDS ORDERED: SODIUM CHLORIDE 0.9% IRR 1,500 ML BOTTLE IR ONE (15:50)
[2022-07-12] MEDS ORDERED: SODIUM HYPOCHLORITE, DAKIN'S FULL STRENGTH (0.5%) 473 ML TOPICAL SOLN ONE (15:53)
[2022-07-12] MEDS ORDERED: SODIUM HYPOCHLORITE, DAKIN'S 1/2 STRENGTH (0.25%) 473 ML TOPICAL SOLN IR ONE (15:54)
--- NOTE | 2022-07-12 17:09 | Operative Report ---
Operative Report Operative Report: Procedure date: 07/12/2022 Preop diagnosis: Osteomyelitis and extensive soft tissue infection forefoot left side Postop diagnosis: Same Procedure: Transmit amputation of second third fourth and fifth toes Surgeon: Dr. Fajardo [place] [employer] Operator: Dr. Greene Estimated blood loss minimal. Specimen: Necrotic left foot second third fourth and fifth toes Findings: This is a 67-year-old -[place] gentleman with diabetes and peripheral vascular disease. He is with an extensive soft tissue necrosis of the left forefoot. Air and abscess collections between the metatarsals are noted. Changes consistent with osteomyelitis also noted on MRI of the second third fourth and fifth toes. Patient is taken to the OR under general LMA anesthesia timeouts completed consent is reviewed and put laced on the chart. The left foot is then prepped with Betadine draped in a sterile fashion. An incision of the skin along the necrotic necrosis line on the dorsum and palmar aspect of the of the foot is then made. Scalpel was used to take the incision sharply down to the level of the bone. Periosteal elevator is used to elevate the soft tissue and periosteum off of the metatarsal heads. A oscillating saw was then used to transect the metatarsal heads. Condition room necrotic tissue was debrided from the plantar and dorsal aspects. An additional pocket of abscess infection is noted between the third and fourth metatarsals. This is irrigated with copious months of Dakin's solution full-strength. Hemostasis is good and is maintained with electrocautery. Loose approximation of the skin flaps is done down with a 2-0 Vicryl suture for the deep subcu tissue not particular leg there. The skin closure is then completed with 2-0 nylon suture interrupted. 1/4 inch [place] is placed to the deep space and tied to itself. Sterile dressing is placed over this patient tolerated seizure well.
[2022-07-12] MEDS: MORPHINE 4 MG/1 ML INJ IV PRN (18:13)
[2022-07-12] MEDS: SODIUM CHLORIDE 0.9% 1000 ML 1,000 ML IV SCH (18:13)
[2022-07-12] MEDS: oxyCODONE /ACETAMINOPHEN 5-325MG TAB PO PRN (19:23)
[2022-07-13] MEDS: INSULIN REGULAR, HUMAN 100 UNITS/1 ML SUB-Q SCH ×10 (00:01→23:47)
[2022-07-13] MEDS: CEFEPIME/NS 1 GM/100 ML 1 GM/100 ML BAG IV SCH ×4 (00:09→21:27)
[2022-07-13] MEDS: MORPHINE 4 MG/1 ML INJ IV PRN ×2 (03:32→12:29)
[2022-07-13] MEDS: HEPARIN 5,000 UNIT/1 ML VIAL SUB-Q SCH ×3 (06:10→21:13)
[2022-07-13] MEDS: metroNIDAZOLE/NS 500 MG/100 ML 500 MG/100 ML BAG IV SCH ×3 (06:26→20:48)
--- NOTE | 2022-07-13 08:38 | Progress Note ---
Assessment and Plan Cultures: 07/07/2022 blood culture: No growth 07/10/2022 left third toe surgical culture: In process. Gram stain appears mixed with GPC in pairs, rare GNR. 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 WBC elevated. S/p revascularization on 07/09/2022, followed by toe amputation 07/10/2022. Noted to have necrotic tissue. MRI with abscess between the third and fourth toe also extensive bony destruction of the third fourth fifth and even the second toe. S/p TMA of second through fifth toes on 07/12/2022 #Thrombocytopenia: ?acute #JACQUI: Improved. Renally adjust antibiotics as needed. #Peripheral vascular disease, history of RLE arterial bypass, prior right TMA. S/p revascularization on 07/09/2022. #Diabetes mellitus type 2, uncontrolled Recs: -Continue IV cefepime + Daptomycin + Flagyl. Avoiding linezolid due to thrombocytopenia. -CK continues to downtrend, okay to continue IV daptomycin. Recheck on Saturday -Follow-up surgical culture to help decide final abx plan Ivett Campbell MD, FACP, [facility] O: [phone] F: [phone] C: [phone] Subjective Date of service: 07/13/22 Principal diagnosis: PVD with critical limb Interval history: No fever. Went to the OR yesterday and underwent transmetatarsal amputation of the second through fifth toes. Objective - Exam Narrative Exam: Physical Exam: Constitutional: Alert, cooperative. No acute distress Head, Ears, Nose: Normocephalic, atraumatic. External ears, nose normal Eyes: Conjunctivae/corneas clear. No icterus. No ptosis. Neck: Supple, no meningeal signs Cardiovascular: S1, S2 + Respiratory: Good air entry, clear to auscultation bilaterally GI: Soft, non-tender; bowel sounds normal. No peritoneal signs Musculoskeletal: Right TMA well-healed, left foot dressing + Skin: No rash or abscess Hem/Lymphatic: No palpable cervical or supraclavicular nodes. No lymphangitis Psych: Mood ok. Affect normal Neurological: Awake, alert, oriented. No gross abnormality - Constitutional Vitals: Vital Signs Temp Pulse Resp BP Pulse Ox 97.4 F L 111 H 17 141/58 94 07/13/22 03:10 07/13/22 04:30 07/13/22 03:32 07/13/22 03:10 07/13/22 03:10 Temperature -Last 24 Hours Temperature 97.4 F Temperature 99.9 F Temperature 99.0 F Temperature 98.6 F Temperature 97.9 F Temperature 100.1 F Temperature 98.7 F - Labs CBC & Chem 7: 07/11/22 06:04 07/11/22 06:04 Labs: Abnormal lab results 07/12/22 07/12/22 07/12/22 Range/Units 04:51 07:53 11:09 POC Glucose 189 H 242 H 269 H (70-105) mg/dL 07/12/22 07/12/22 07/12/22 Range/Units 14:04 17:11 17:50 POC Glucose 285 H 301 H 299 H (70-105) mg/dL 07/12/22 Range/Units 21:18 POC Glucose 331 H (70-105) mg/dL
[2022-07-13] MEDS: INSULIN NPH/REGULAR 70/30 INJ SUB-Q SCH ×3 (09:22→17:50)
[2022-07-13] MEDS: CLOPIDOGREL 75 MG TAB PO SCH (09:23)
[2022-07-13] MEDS: NIFEdipine XL 30 MG TAB PO SCH (09:23)
[2022-07-13] MEDS: CILOSTAZOL 100 MG TAB PO SCH ×2 (09:23→21:12)
[2022-07-13] MEDS: METOPROLOL TARTRATE 100 MG TAB PO SCH ×2 (09:23→22:55)
[2022-07-13] MEDS: POVIDONE-IODINE OINTMENT 28.35 GM TP SCH (09:24)
--- NOTE | 2022-07-13 09:40 | Progress Note ---
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 S/p revascularization on 07/09/2022, followed by toe amputation . Noted to have necrotic tissue. MRI with abscess between the third and fourth toe also extensive bony destruction of the third fourth fifth and even the second toe. S/p TMA of second through fifth toes on 07/12/2022 Insulin dependent type II diabetes mellitus with hyperglycemiaimproving Worsened by diabetic foot infection - hemoglobin A1c: 6.5 - home regimen: Unknown - current regimen: NPH 25 units twice daily + moderate SSI +8 units regular insulin with meals - blood glucose goal 140-180 while inpatient - continue to monitor Pseudohyponatremiaresolved JACQUI on likely CKD stage IIIresolved Status post aggressive IV fluid resuscitation Renally dose meds and avoid nephrotoxic drugs. Monitor BMP Hypertension - home medications: Unknown - current medications: Started nifedipine 30 mg daily - SBP goal <160 and DBP goal <90 while inpatient - continue to monitor Iron deficiency anemia anemia of chronic disease Hemoglobin 8.2 Iron 16, TIBC 133, ferritin 2880. Transfuse if hemoglobin <7 Acute thrombocytopenia status post transfusion of 1 platelet on 07/08/2022 Patient endorses being aware but not having etiology determined by other clinicians. -Consult hematology Moderate protein caloric malnutrition Albumin 3.6 Will initiate dietary supplementation once hyperglycemia is under control. Disposition [facility] History Interval history: No new issues overnight Hospitalist Physical - Constitutional Vitals: Temp Pulse Resp BP Pulse Ox 98.7 F 119 H 18 174/56 98 07/13/22 08:10 07/13/22 08:10 07/13/22 08:10 07/13/22 08:10 07/13/22 08:10 General appearance: Present: no acute distress, well-nourished, malodorous (Malodorous wet gangrene of left foot with ulceration of third digit) - EENT Eyes: Present: PERRL, EOM intact ENT: hearing intact, clear oral mucosa, dentition normal - Neck Neck: Present: supple, normal ROM - Respiratory Respiratory effort: normal Respiratory: bilateral: CTA - Cardiovascular Rhythm: regular Heart Sounds: Present: S1 & S2. Absent: gallop, rub - Extremities Extremities: no ischemia, No edema, Full ROM - Abdominal General gastrointestinal: soft, non-tender, non-distended, normal bowel sounds - Integumentary Integumentary: Present: clear, warm, dry - Neurologic Neurologic: CNII-XII intact, moves all extremities Results - Labs CBC & Chem 7: 07/11/22 06:04 07/11/22 06:04 Labs: Laboratory Last Values WBC 27.9 K/mm3 (4.5-11.0) H 07/11/22 06:04 RBC 2.48 M/mm3 (3.65-5.03) L 07/11/22 06:04 Hgb 7.9 gm/dl (11.8-15.2) L 07/11/22 06:04 Hct 24.7 % (35.5-45.6) L 07/11/22 06:04 MCV 100 fl (84-94) H 07/11/22 06:04 MCH 32 pg (28-32) 07/11/22 06:04 MCHC 32 % (32-34) 07/11/22 06:04 RDW 13.3 % (13.2-15.2) 07/11/22 06:04 Plt Count 51 K/mm3 (140-440) L 07/11/22 06:04 Lymph % (Auto) 16.2 % (13.4-35.0) 07/09/22 Unknown [place] % (Auto) 11.9 % (0.0-7.3) H 07/09/22 Unknown Eos % (Auto) 0.7 % (0.0-4.3) 07/09/22 Unknown Baso % (Auto) 0.5 % (0.0-1.8) 07/09/22 Unknown Lymph # (Auto) 2.9 K/mm3 (1.2-5.4) 07/09/22 Unknown [place] # (Auto) 2.1 K/mm3 (0.0-0.8) H 07/09/22 Unknown Eos # (Auto) 0.1 K/mm3 (0.0-0.4) 07/09/22 Unknown Baso # (Auto) 0.1 K/mm3 (0.0-0.1) 07/09/22 Unknown Add Manual Diff Complete 07/11/22 06:04 Total Counted 100 07/11/22 06:04 Seg Neutrophils % 70.7 % (40.0-70.0) H 07/09/22 Unknown Seg Neuts % (Manual) 82.0 % (40.0-70.0) H 07/11/22 06:04 Band Neutrophils % 0 % 07/11/22 06:04 Lymphocytes % (Manual) 8.0 % (13.4-35.0) L 07/11/22 06:04 Reactive Lymphs % (Man) 0 % 07/11/22 06:04 Monocytes % (Manual) 10.0 % (0.0-7.3) H 07/11/22 06:04 Eosinophils % (Manual) 0 % (0.0-4.3) 07/11/22 06:04 Basophils % (Manual) 0 % (0.0-1.8) 07/11/22 06:04 Metamyelocytes % 0 % 07/11/22 06:04 Myelocytes % 0 % 07/11/22 06:04 Promyelocytes % 0 % 07/11/22 06:04 Blast Cells % 0 % 07/11/22 06:04 Nucleated RBC % Not Reportable 07/11/22 06:04 Seg Neutrophils # 12.6 K/mm3 (1.8-7.7) H 07/09/22 Unknown Seg Neutrophils # Man 22.9 K/mm3 (1.8-7.7) H 07/11/22 06:04 Band Neutrophils # 0.0 K/mm3 07/11/22 06:04 Lymphocytes # (Manual) 2.2 K/mm3 (1.2-5.4) 07/11/22 06:04 Abs React Lymphs (Man) 0.0 K/mm3 07/11/22 06:04 Monocytes # (Manual) 2.8 K/mm3 (0.0-0.8) H 07/11/22 06:04 Eosinophils # (Manual) 0.0 K/mm3 (0.0-0.4) 07/11/22 06:04 Basophils # (Manual) 0.0 K/mm3 (0.0-0.1) 07/11/22 06:04 Metamyelocytes # 0.0 K/mm3 07/11/22 06:04 Myelocytes # 0.0 K/mm3 07/11/22 06:04 Promyelocytes # 0.0 K/mm3 07/11/22 06:04 Blast Cells # 0.0 K/mm3 07/11/22 06:04 WBC Morphology Not Reportable 07/11/22 06:04 Hypersegmented Neuts Not Reportable 07/11/22 06:04 Hyposegmented Neuts Not Reportable 07/11/22 06:04 Hypogranular Neuts Not Reportable 07/11/22 06:04 Smudge Cells Not Reportable 07/11/22 06:04 Toxic Granulation Not Reportable 07/11/22 06:04 Toxic Vacuolation Not Reportable 07/11/22 06:04 Dohle Bodies Not Reportable 07/11/22 06:04 Pelger-Huet Anomaly Not Reportable 07/11/22 06:04 Lulu Rods Not Reportable 07/11/22 06:04 Platelet Estimate Consistent w auto 07/11/22 06:04 Clumped Platelets Not Reportable 07/11/22 06:04 Plt Clumps, EDTA Not Reportable 07/11/22 06:04 Large Platelets Not Reportable 07/11/22 06:04 Giant Platelets Not Reportable 07/11/22 06:04 Platelet Satelliting Not Reportable 07/11/22 06:04 Plt Morphology Comment Not Reportable 07/11/22 06:04 RBC Morphology Not Reportable 07/11/22 06:04 Dimorphic RBCs Not Reportable 07/11/22 06:04 Polychromasia Not Reportable 07/11/22 06:04 Hypochromasia 1+ 07/11/22 06:04 Poikilocytosis Not Reportable 07/11/22 06:04 Anisocytosis Not Reportable 07/11/22 06:04 Microcytosis Not Reportable 07/11/22 06:04 Macrocytosis Not Reportable 07/11/22 06:04 Spherocytes Not Reportable 07/11/22 06:04 Pappenheimer Bodies Not Reportable 07/11/22 06:04 Sickle Cells Not Reportable 07/11/22 06:04 Target Cells Not Reportable 07/11/22 06:04 Tear Drop Cells Not Reportable 07/11/22 06:04 Ovalocytes Not Reportable 07/11/22 06:04 Helmet Cells Not Reportable 07/11/22 06:04 [place] Bodies Not Reportable 07/11/22 06:04 [place] Rings Not Reportable 07/11/22 06:04 Merry Cells Not Reportable 07/11/22 06:04 Bite Cells Not Reportable 07/11/22 06:04 Crenated Cell Not Reportable 07/11/22 06:04 Elliptocytes Not Reportable 07/11/22 06:04 Acanthocytes (Spur) Not Reportable 07/11/22 06:04 Rouleaux Not Reportable 07/11/22 06:04 Hemoglobin C Crystals Not Reportable 07/11/22 06:04 Schistocytes Not Reportable 07/11/22 06:04 Malaria parasites Not Reportable 07/11/22 06:04 Chintan Bodies Not Reportable 07/11/22 06:04 Hem Pathologist Commnt No 07/11/22 06:04 PT 14.5 Sec. (12.2-14.9) 07/09/22 Unknown INR 0.99 (0.87-1.13) 07/09/22 Unknown Sodium 141 mmol/L (137-145) 07/11/22 06:04 Potassium 4.4 mmol/L (3.6-5.0) 07/11/22 06:04 Chloride 100.8 mmol/L (98-107) 07/11/22 06:04 Carbon Dioxide 23 mmol/L (22-30) 07/11/22 06:04 Anion Gap 22 mmol/L 07/11/22 06:04 BUN 13 mg/dL (9-20) 07/11/22 06:04 Creatinine 0.9 mg/dL (0.8-1.3) 07/11/22 06:04 Estimated GFR > 60 ml/min 07/11/22 06:04 BUN/Creatinine Ratio 14 % 07/11/22 06:04 Glucose 64 mg/dL (75-100) L 07/11/22 06:04 POC Glucose 158 mg/dL (70-105) H 07/13/22 08:10 Hemoglobin A1c 6.5 % (4-6) H 07/07/22 08:41 Lactic Acid 1.50 mmol/L (0.7-2.0) 07/07/22 02:26 Calcium 8.3 mg/dL (8.4-10.2) L 07/11/22 06:04 Iron 16 ug/dL (49-181) L 07/08/22 05:35 TIBC 133 mcg/dL (250-450) L 07/08/22 05:35 Ferritin 2888.0 ng/mL (30.0-300.0) H 07/08/22 05:35 Total Bilirubin 0.70 mg/dL (0.1-1.2) 07/07/22 02:26 AST 41 units/L (5-40) H 07/07/22 02:26 ALT 28 units/L (7-56) 07/07/22 02:26 Alkaline Phosphatase 129 units/L (35-129) 07/07/22 02:26 Total Creatine Kinase 304 units/L (55-170) H 07/12/22 05:15 Total Protein 6.9 g/dL (6.3-8.2) 07/07/22 02:26 Albumin 3.6 g/dL (3.9-5) L 07/07/22 02:26 Albumin/Globulin Ratio 1.1 % 07/07/22 02:26 Triglycerides 114 mg/dL (2-149) 07/07/22 08:41 Cholesterol 116 mg/dL (50-199) 07/07/22 08:41 LDL Cholesterol Direct 46 mg/dL (50-130) L 07/07/22 08:41 HDL Cholesterol 37 mg/dL (40-59) L 07/07/22 08:41 Cholesterol/HDL Ratio 3.13 % 07/07/22 08:41 Blood Type O POSITIVE 07/08/22 Unknown Microbiology: Microbiology 07/10/22 15:32 Toe - Left Third Surgical Culture - Preliminary [place]/IV: Voiding Method Urinal Active Medications - Current Medications Current Medications: Generic Name Dose Route Start Last Admin Trade Name Freq PRN Reason Stop Dose Admin Acetaminophen 650 mg 07/07/22 08:30 07/09/22 01:31 Acetaminophen 325 Mg Tab PO 650 mg Q4H PRN Administration Pain MILD(1-3)/Fever >100.5/DAS Atorvastatin Calcium 40 mg 07/10/22 11:00 07/13/22 09:23 Atorvastatin 40 Mg Tab PO 40 mg DAILY APRIL Administration Cilostazol 100 mg 07/09/22 12:00 07/13/22 09:23 Cilostazol 100 Mg Tab PO 100 mg BID APRIL Administration Clopidogrel Bisulfate 75 mg 07/10/22 10:00 07/13/22 09:23 Clopidogrel 75 Mg Tab PO 75 mg QDAY APRIL Administration Dextrose 50 ml 07/07/22 08:35 Dextrose 50% In Water (25gm) 50 Ml Syringe IV Q30MIN PRN Hypoglycemia Protocol Heparin Sodium (Porcine) 5,000 unit 07/07/22 14:00 07/13/22 06:10 Heparin 5,000 Unit/1 Ml Vial SUB-Q 5,000 unit Q8HR APRIL Administration Hydromorphone HCl 0.5 mg 07/12/22 13:51 Hydromorphone 0.5 Mg/0.5 Ml Inj IV Q10MIN PRN Pain , Severe (7-10) Sodium Chloride 1,000 mls @ 100 mls/hr 07/07/22 05:30 07/12/22 18:13 Nacl 0.9% 1000 Ml IV 100 mls/hr DIRECT APRIL Administration Daptomycin 500 mg/ Sodium 100 mls @ 200 mls/hr 07/10/22 18:00 07/12/22 18:09 Chloride IV 200 mls/hr Q24H APRIL Administration Protocol Metronidazole 500 mg in 100 mls @ 100 mls/hr 07/12/22 12:00 07/13/22 06:26 Flagyl 500 Mg/100 Ml IV 100 mls/hr Q8H APRIL Administration Protocol Cefepime HCl 1 gm in 100 mls @ 200 mls/hr 07/12/22 14:00 07/13/22 06:19 Cefepime/Ns 1 Gm/100 Ml IV 200 mls/hr Q8H APRIL Administration Protocol Insulin Human Isoph/Insulin Regular 25 unit 07/07/22 19:16 07/13/22 09:22 Insulin Nph/Regular 70/30 Inj SUB-Q 25 unit BIDDIAB APRIL Administration Insulin Human Regular 5 units 07/07/22 22:00 07/13/22 08:22 Insulin Regular, Human 100 Units/1 Ml SUB-Q 5 units ACHS APRIL Administration Insulin Human Regular 0 units 07/08/22 00:00 07/13/22 07:03 Insulin Regular, Human 100 Units/1 Ml SUB-Q Not Given Q6H APRIL Protocol Metoclopramide HCl 10 mg 07/09/22 17:34 07/09/22 22:50 Metoclopramide 10 Mg/2 Ml Inj IV 10 mg Q6H PRN Administration Nausea And Vomiting Metoprolol Tartrate 100 mg 07/10/22 11:00 07/13/22 09:23 Metoprolol Tartrate 100 Mg Tab PO 100 mg BID APRIL Administration Morphine Sulfate 2 mg 07/07/22 08:30 07/13/22 03:32 Morphine 4 Mg/1 Ml Inj IV 2 mg Q4H PRN Administration Pain , Severe (7-10) Nifedipine 30 mg 07/08/22 10:00 07/13/22 09:23 Nifedipine Xl 30 Mg Tab PO 30 mg QDAY APRIL Administration Ondansetron HCl 4 mg 07/07/22 08:30 Ondansetron 4 Mg/2 Ml Inj IV Q8H PRN Nausea And Vomiting Oxycodone/Acetaminophen 1 tab 07/07/22 08:30 07/12/22 19:23 Oxycodone /Acetaminophen 5-325mg Tab PO 1 tab Q6H PRN Administration Pain, Moderate (4-6) Povidone Iodine 1 applic 07/07/22 15:00 07/13/22 09:24 Povidone-Iodine Ointment 28.35 Gm TP Not Given DAILY APRIL Sodium Chloride 10 ml 07/07/22 10:00 07/13/22 09:23 Sodium Chloride 0.9% 10 Ml Flush Syringe IV 10 ml BID APRIL Administration Sodium Chloride 10 ml 07/07/22 08:30 Sodium Chloride 0.9% 10 Ml Flush Syringe IV PRN PRN LINE FLUSH Nutrition/Malnutrition Assess - Dietary Evaluation Nutrition/Malnutrition Findings: Nutrition Notes Start: 07/08/22 11:33 Freq: Status: Active Protocol: Document 07/12/22 13:45 CM (Rec: 07/12/22 14:16 CM [email or web address]) Co-Sign 07/12/22 13:45 WW Nutrition Notes Initial or Follow up Assessment Current Diagnosis Diabetes,Hypertension Other Pertinent Diagnosis PVD s/p RLE bypass, thrombocytopenia Current Diet NPO Labs/Tests 07/12: Glu 64 Pertinent Medications Atorvastatin Others reviewed Height 5 ft 8 in Weight 72 kg Usual Body Weight 75 kg [place] Body Weight (kg) 70.00 BMI 24.1 Intake Prior to Admission Good Weight change and time frame No wt loss [employer]GER per malnutrition screening tool. 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 Weight Status Appropriate Subjective/Other Information RD follow-up per protocol. Diet %: 50% D 07/07, 100% D , 0% B 07/12 per ADL notes. Pt reported a poor appetite since admission, difficulty chewing/swallowing (without aspiration), mild abdominal pain while eating, and average consumption of 25%/meal. Spoke w/ RN regarding dysphagia/masticatory difficulty - monitoring. Last BM reported 2 days ago per pt. Nutrition-focused physical assessment performed indicating moderate muscle wasting of the calves - significant for mild malnutrition. Pt bedscale revealed pt is 78. 2kg. 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 Etiology Predicted undernutrition As Evidenced by Signs and Symptoms Moderate (Calves) / mild ( [place]) muscle wasting. Is patient on ventilator? No Is Patient Ambulatory and/or Out of Bed No REE-([facility]-confined to bed) 1757.160 Kcal/Kg value to use for calculation 27 Approximate Energy Requirements Using 1944 kcal/Kg Calculation Used for Recommendations Kcal/kg Additional Notes 1.2-1.5g/kg ABW; 86-108g PRO q day Fluid needs: 30mL/kg or per MD . Nutrition Intervention Change Diet Order: Recommend diet to advance when medically feasible. Add Supplement/Snack (indicate name/kcal Glucerna BID (Chocolate) /protein ) Provides kCal: 440 Provides Protein (gm) 20 Goal #1 Diet to advance within 24- 48hrs. Follow-Up By: 07/13/22 Additional Comments Monitor diet advancement and wt status.
--- NOTE | 2022-07-13 10:33 | Hem/Onc Consultation ---
History of Present Illness - Reason for Consult Consult date: 07/13/22 Thrombocytopenia - History of Present Illness Heme Consult Note CPT 55708 Dx Thrombocytopenia This is a 67yo male who presented to [facility] ED with worsening left foot infection. Past medical history of diabetes, CKD, prior bypass of the RLE 10+ years ago, and stenting of the LLE from outside facility many years ago. The patient states he has had an ulcer of the third toe of his left foot for the last 1 month. He regularly sees a prison teacher who referred him to vascular surgeon. The patient has undergone vascular work-up including ultrasound and diagnostic angiogram. He was being scheduled for a revascularization procedure. The patient was also started on doxycycline and instructed to apply Betadine to the wound daily for wound care. The patient states that over the last 2 to 3 days his ulcer became rapidly worse and became infected. He is noted a stronger odor from the area and more drainage. There is mild swelling of his foot. In the emergency room work-up included lab work and a x-ray of the left foot. Patient was noted to have a leukocytosis greater than 20 and blood sugar greater than 500. X-ray revealed possible osteomyelitis. S/p revascularization on 07/09/2022, followed by toe amputation 07/10/2022. Noted to have necrotic tissue. MRI with abscess between the third and fourth toe also extensive bony destruction of the third fourth fifth and even the second toe. S/p TMA of second through fifth toes on 07/12/2022. Hematology was consulted for evaluation of thrombocytopenia. DATA REVIEWED BELOW IMP: Thrombocytopenia secondary to sepsis, diabetic foot infection, osteomyelitis --reports chronic low platelets, likely due to liver dysfunction Macrocytic anemia secondary to liver dysfunction and sepsis --noted with iron deficiency, 12% sat --possible GI etiology or recent bleed PLAN: Monitor CBC Transfuse 1 dose of plts whenever plts <20 Transfuse 1 unit pRBC whenever HCT <23 B12 level Liver U/S IV Ferrlicet 125mg while inpatient IV antibx Consider GI eval Case D/w Dr. Kike Méndez. Laboratory Last Values WBC 27.9 K/mm3 (4.5-11.0) H 07/11/22 06:04 Hgb 7.9 gm/dl (11.8-15.2) L 07/11/22 06:04 Hct 24.7 % (35.5-45.6) L 07/11/22 06:04 MCV 100 fl (84-94) H 07/11/22 06:04 Plt Count 51 K/mm3 (140-440) L 07/11/22 06:04 [place] % (Auto) 11.9 % (0.0-7.3) H 07/09/22 Unknown [place] # (Auto) 2.1 K/mm3 (0.0-0.8) H 07/09/22 Unknown Seg Neutrophils % 70.7 % (40.0-70.0) H 07/09/22 Unknown Seg Neuts % (Manual) 82.0 % (40.0-70.0) H 07/11/22 06:04 Lymphocytes % (Manual) 8.0 % (13.4-35.0) L 07/11/22 06:04 Monocytes % (Manual) 10.0 % (0.0-7.3) H 07/11/22 06:04 Seg Neutrophils # 12.6 K/mm3 (1.8-7.7) H 07/09/22 Unknown Seg Neutrophils # Man 22.9 K/mm3 (1.8-7.7) H 07/11/22 06:04 Monocytes # (Manual) 2.8 K/mm3 (0.0-0.8) H 07/11/22 06:04 PT 14.5 Sec. (12.2-14.9) 07/09/22 Unknown INR 0.99 (0.87-1.13) 07/09/22 Unknown Creatinine 0.9 mg/dL (0.8-1.3) 07/11/22 06:04 Iron 16 ug/dL (49-181) L 07/08/22 05:35 TIBC 133 mcg/dL (250-450) L 07/08/22 05:35 Ferritin 2888.0 ng/mL (30.0-300.0) H 07/08/22 05:35 Total Bilirubin 0.70 mg/dL (0.1-1.2) 07/07/22 02:26 AST 41 units/L (5-40) H 07/07/22 02:26 ALT 28 units/L (7-56) 07/07/22 02:26 Alkaline Phosphatase 129 units/L (35-129) 09/10/22 02:26 Total Creatine Kinase 304 units/L (55-170) H 07/12/22 05:15 1 Blood Type O POSITIVE 07/08/22 Unknown Past History Past Medical History: diabetes, PVD (s/p RLE bypass 10+ years ago, occluded (pop-dp) ; s/p LLE SFA/pop stenting at outside facility years ago), renal failure (CKD) Past Surgical History: Other (PVD surgery; transmetatarsal amputation of right foot) Social history: no significant social history Family history: no significant family history Medications and Allergies Allergies Allergy/AdvReac Type Severity Reaction Status Date / Time No Known Allergies Allergy Verified 07/10/22 13:17 Home Medications Medication Instructions Recorded Confirmed Last Taken Type Tamsulosin [Flomax] 0.4 mg PO QDAY 07/07/22 07/10/22 Unknown History traZODone [Desyrel] 100 mg PO QHS 07/07/22 07/10/22 Unknown History AtorvaSTATin [Lipitor] 40 mg PO QHS 07/10/22 07/10/22 Unknown History Chlorthalidone [Thalitone] 25 mg PO QDAY 07/10/22 07/10/22 Unknown History Insulin Glargine,Hum.rec.anlog 60 units SQ QDAY 07/10/22 07/10/22 Unknown History [Lantus Solostar] Lisinopril [Zestril TAB] 30 mg PO QDAY 07/10/22 07/10/22 Unknown History Lispro Insulin [HumaLOG] 10 units SQ TIDWM 07/10/22 07/10/22 Unknown History Metoprolol [Lopressor] 100 mg PO BID 07/10/22 07/10/22 Unknown History Multivitamin 1 each PO QDAY 07/10/22 07/10/22 Unknown History Sertraline [Zoloft] 100 mg PO QDAY 07/10/22 07/10/22 Unknown History Timolol Maleate/Pf [Timolol 1 drop OU BID 07/10/22 07/10/22 Unknown History Maleate 0.5% Eye Drop] cilostazoL [Pletal] 100 mg PO BID 07/10/22 07/10/22 Unknown History Active Meds: Active Medications Acetaminophen (Acetaminophen 325 Mg Tab) 650 mg PO Q4H PRN PRN Reason: Pain MILD(1-3)/Fever >100.5/DAS Last Admin: 07/09/22 01:31 Dose: 650 mg Atorvastatin Calcium (Atorvastatin 40 Mg Tab) 40 mg PO DAILY [facility] Last Admin: 07/13/22 09:23 Dose: 40 mg Cilostazol (Cilostazol 100 Mg Tab) 100 mg PO BID [facility] Last Admin: 07/13/22 09:23 Dose: 100 mg Clopidogrel Bisulfate (Clopidogrel 75 Mg Tab) 75 mg PO QDAY [facility] Last Admin: 07/13/22 09:23 Dose: 75 mg Dextrose (Dextrose 50% In Water (25gm) 50 Ml Syringe) 50 ml IV Q30MIN PRN; Protocol PRN Reason: Hypoglycemia Heparin Sodium (Porcine) (Heparin 5,000 Unit/1 Ml Vial) 5,000 unit SUB-Q Q8HR [facility] Last Admin: 07/13/22 06:10 Dose: 5,000 unit Hydromorphone HCl (Hydromorphone 0.5 Mg/0.5 Ml Inj) 0.5 mg IV Q10MIN PRN PRN Reason: Pain , Severe (7-10) Sodium Chloride (Nacl 0.9% 1000 Ml) 1,000 mls @ 100 mls/hr IV DIRECT [facility] Last Admin: 07/12/22 18:13 Dose: 100 mls/hr Daptomycin 500 mg/ Sodium (Chloride) 100 mls @ 200 mls/hr IV Q24H [facility]; Protocol Last Admin: 07/12/22 18:09 Dose: 200 mls/hr Metronidazole (Flagyl 500 Mg/100 Ml) 500 mg in 100 mls @ 100 mls/hr IV Q8H [facility]; Protocol Last Admin: 07/13/22 06:26 Dose: 100 mls/hr Cefepime HCl (Cefepime/Ns 1 Gm/100 Ml) 1 gm in 100 mls @ 200 mls/hr IV Q8H [facility]; Protocol Last Admin: 07/13/22 06:19 Dose: 200 mls/hr Insulin Human Isoph/Insulin Regular (Insulin Nph/Regular 70/30 Inj) 25 unit SUB-Q BIDDIAB [facility] Last Admin: 07/13/22 09:22 Dose: 25 unit Insulin Human Regular (Insulin Regular, Human 100 Units/1 Ml) 5 units SUB-Q ACHS [facility] Last Admin: 07/13/22 08:22 Dose: 5 units Insulin Human Regular (Insulin Regular, Human 100 Units/1 Ml) 0 units SUB-Q Q6H [facility]; Protocol Last Admin: 07/13/22 07:03 Dose: Not Given Metoclopramide HCl (Metoclopramide 10 Mg/2 Ml Inj) 10 mg IV Q6H PRN PRN Reason: Nausea And Vomiting Last Admin: 07/09/22 22:50 Dose: 10 mg Metoprolol Tartrate (Metoprolol Tartrate 100 Mg Tab) 100 mg PO BID [facility] Last Admin: 07/13/22 09:23 Dose: 100 mg Morphine Sulfate (Morphine 4 Mg/1 Ml Inj) 2 mg IV Q4H PRN PRN Reason: Pain , Severe (7-10) Last Admin: 07/13/22 03:32 Dose: 2 mg Nifedipine (Nifedipine Xl 30 Mg Tab) 30 mg PO QDAY [facility] Last Admin: 07/13/22 09:23 Dose: 30 mg Ondansetron HCl (Ondansetron 4 Mg/2 Ml Inj) 4 mg IV Q8H PRN PRN Reason: Nausea And Vomiting Oxycodone/Acetaminophen (Oxycodone /Acetaminophen 5-325mg Tab) 1 tab PO Q6H PRN PRN Reason: Pain, Moderate (4-6) Last Admin: 07/12/22 19:23 Dose: 1 tab Povidone Iodine (Povidone-Iodine Ointment 28.35 Gm) 1 applic TP DAILY [facility] Last Admin: 07/13/22 09:24 Dose: Not Given Sodium Chloride (Sodium Chloride 0.9% 10 Ml Flush Syringe) 10 ml IV BID [facility] Last Admin: 07/13/22 09:23 Dose: 10 ml Sodium Chloride (Sodium Chloride 0.9% 10 Ml Flush Syringe) 10 ml IV PRN PRN PRN Reason: LINE FLUSH Exam - Constitutional Vitals: Last Vital Signs Temp 98.7 F 07/13/22 08:10 Pulse 119 H 07/13/22 08:10 Resp 18 07/13/22 08:10 BP 174/56 07/13/22 08:10 Pulse Ox 98 07/13/22 08:10 Results - Labs lab Results: Laboratory Results - last 24 hr 07/12/22 07/12/22 07/12/22 04:51 07:53 11:09 POC Glucose 189 H 242 H 269 H 09/07/12/22 07/12/22 14:04 17:11 17:50 POC Glucose 285 H 301 H 299 H 07/12/22 07/13/22 07/13/22 21:18 07:02 08:10 POC Glucose 331 H 134 H 158 H
--- NOTE | 2022-07-13 11:32 | Post Anesthesia Evaluation ---
- Post Anesthesia Evaluation Patient Participated: Yes Airway Patent: Yes Stable Respiratory Function: Yes Nausea/Vomiting: No Temp > 96.8F: Yes Pain Manageable: Yes Adequeate Hydration: Yes Anesthesia Complications: No Block Receding Appropriately: Not Applicable Patient on Ventilator: No
[2022-07-13] MEDS: SODIUM CHLORIDE 0.9% 1000 ML 1,000 ML IV SCH (12:29)
--- NOTE | 2022-07-13 17:16 | Ultrasound Report ---
ULTRASOUND ABDOMEN, COMPLETE INDICATION / CLINICAL INFORMATION: Evaluate for cirrhosis. COMPARISON: None available. FINDINGS: PANCREAS: No significant abnormality. ABDOMINAL AORTA: Mild/moderate atherosclerosis without aneurysmal dilation. IVC: No significant abnormality. LIVER: Mildly heterogeneous echogenicity. Normal hepatopedal blood flow in the main portal vein. GALLBLADDER: Mildly distended with layering stones. No wall thickening or pericholecystic fluid. BILE DUCTS: No significant abnormality. Common bile duct measures 6 mm. KIDNEYS: Right: There is a 2.3 x 2.1 x 2.9 cm hypoechoic structure within the inferior pole of the ri ght kidney, likely representing a simple cyst. Additional smaller hypoechoic focus demonstrates poste rior acoustic enhancement and measures 1.4 x 1.3 x 1.6 cm Left: No significant abnormality. SPLEEN: No significant abnormality. FREE FLUID: None. ADDITIONAL FINDINGS: None. IMPRESSION: 1. The liver is mildly heterogeneous in echogenicity, which can be seen in the setting of chronic hep atocellular disease. 2. Cholelithiasis within a mildly distended gallbladder without additional signs of cholecystitis. Signer Name: Ivan Delgadillo MD Signed: 07/13/2022 5:12 PM Workstation Name: [email or web address]
[2022-07-13] MEDS: ONDANSETRON 4 MG/2 ML INJ IV PRN (21:27)
[2022-07-13] MEDS: ACETAMINOPHEN 325 MG TAB PO PRN (23:47)
[2022-07-14] MEDS: MORPHINE 4 MG/1 ML INJ IV PRN ×2 (01:53→20:35)
[2022-07-14] MEDS: SODIUM CHLORIDE 0.9% 1000 ML 1,000 ML IV SCH ×2 (04:07→20:19)
[2022-07-14] MEDS: metroNIDAZOLE/NS 500 MG/100 ML 500 MG/100 ML BAG IV SCH ×3 (04:07→20:15)
[2022-07-14] MEDS: HEPARIN 5,000 UNIT/1 ML VIAL SUB-Q SCH ×2 (05:57→14:32)
[2022-07-14] MEDS: CEFEPIME/NS 1 GM/100 ML 1 GM/100 ML BAG IV SCH ×3 (05:57→23:16)
[2022-07-14] MEDS: INSULIN REGULAR, HUMAN 100 UNITS/1 ML SUB-Q SCH ×9 (06:19→22:00)
[2022-07-14] MEDS: oxyCODONE /ACETAMINOPHEN 5-325MG TAB PO PRN ×2 (06:20→23:19)
[2022-07-14 08:42] LABS: Hemoglobin 6.7 gm/dl (11.8-15.2); Mean Corpuscular HGB Conc 32 % (32-34); Mean Corpuscular Volume 100 fl (84-94); Red Blood Count 2.11 M/mm3 (3.65-5.03); Red Cell Distribution Width 13.5 % (13.2-15.2)
[2022-07-14 08:46] LABS: Platelet Count 34 K/mm3 (140-440)
[2022-07-14 08:51] LABS: BUN/Creatinine Ratio 17; Blood Urea Nitrogen 15 mg/dL (9-20); Calcium 7.5 mg/dL (8.4-10.2); Hemolysis Index 0
--- NOTE | 2022-07-14 09:51 | Progress Note ---
Assessment and Plan Postop day #2 status post transmetatarsal amputation of toes 2 through 5. Patient with elevated white count this morning 28,000 potassium also is a little low at 2.9. Intraoperative wound cultures remain pending. Patient with minimal foot pain but complaining abdominal discomfort. He has lost his appetite. There may be some postprandial symptoms. Ultrasound of the right upper quadrant is reviewed showing gallstones but no active signs of cholecystitis. begin bid soaks in dakins soluiton. If abdo sx persist will check hida scan for biliary colic and chronic cholecystitis. Replace Potassium. Subjective Date of service: 07/14/22 Narrative: Postop day #2 status post transmetatarsal amputation of toes 2 through 5. Patient with elevated white count this morning 28,000 potassium also is a little low at 2.9. Intraoperative wound cultures remain pending. Patient with minimal foot pain but complaining abdominal discomfort. He has lost his appetite. There may be some postprandial symptoms. Ultrasound of the right upper quadrant is reviewed showing gallstones but no active signs of cholecystitis. Objective Vital Signs - 12hr 07/13/22 07/13/22 07/13/22 22:00 22:55 23:11 Temperature 100.2 F H Pulse Rate 126 H 97 H Respiratory 17 18 Rate Respiratory 17 Rate [Left Foot ] Blood Pressure 162/60 129/56 O2 Sat by Pulse 92 88 Oximetry 07/13/22 07/14/22 07/14/22 23:47 00:00 00:47 Temperature Pulse Rate 120 H Respiratory 17 17 Rate Respiratory Rate [Left Foot ] Blood Pressure O2 Sat by Pulse Oximetry 07/14/22 07/14/22 07/14/22 01:53 02:23 03:23 Temperature 99.3 F Pulse Rate 63 Respiratory 18 17 18 Rate Respiratory Rate [Left Foot ] Blood Pressure 131/58 O2 Sat by Pulse 90 Oximetry 07/14/22 07/14/22 07/14/22 04:00 04:47 06:20 Temperature Pulse Rate 94 H 89 Respiratory 18 Rate Respiratory Rate [Left Foot ] Blood Pressure O2 Sat by Pulse Oximetry 07/14/22 07:20 Temperature Pulse Rate Respiratory 17 Rate Respiratory Rate [Left Foot ] Blood Pressure O2 Sat by Pulse Oximetry - Labs 07/14/22 07:58 07/14/22 07:58 Diabetes panel 07/14/22 Range/Units 07:58 Sodium 136 L (137-145) mmol/L Potassium 2.9 L* D (3.6-5.0) mmol/L Chloride 98.8 (98-107) mmol/L Carbon Dioxide 24 (22-30) mmol/L BUN 15 (9-20) mg/dL Creatinine 0.9 (0.8-1.3) mg/dL Glucose 217 H (75-100) mg/dL Calcium 7.5 L (8.4-10.2) mg/dL Calcium panel 07/14/22 Range/Units 07:58 Calcium 7.5 L (8.4-10.2) mg/dL Pituitary panel 07/14/22 Range/Units 07:58 Sodium 136 L (137-145) mmol/L Potassium 2.9 L* D (3.6-5.0) mmol/L Chloride 98.8 (98-107) mmol/L Carbon Dioxide 24 (22-30) mmol/L BUN 15 (9-20) mg/dL Creatinine 0.9 (0.8-1.3) mg/dL Glucose 217 H (75-100) mg/dL Calcium 7.5 L (8.4-10.2) mg/dL Adrenal panel 07/14/22 Range/Units 07:58 Sodium 136 L (137-145) mmol/L Potassium 2.9 L* D (3.6-5.0) mmol/L Chloride 98.8 (98-107) mmol/L Carbon Dioxide 24 (22-30) mmol/L BUN 15 (9-20) mg/dL Creatinine 0.9 (0.8-1.3) mg/dL Glucose 217 H (75-100) mg/dL Calcium 7.5 L (8.4-10.2) mg/dL
--- NOTE | 2022-07-14 10:15 | Progress Note ---
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 S/p revascularization on 07/09/2022, followed by toe amputation . Noted to have necrotic tissue. MRI with abscess between the third and fourth toe also extensive bony destruction of the third fourth fifth and even the second toe. S/p TMA of second through fifth toes on 07/12/2022 Continue IV cefepime + Daptomycin + Flagyl. Avoiding linezolid due to thromb ocytopenia. -ID to follow-up surgical culture to help decide final abx plan, patient may receive IV antibiotics at the [facility] Diarrhea Check C. difficile Hypokalemia Etiology likely secondary to diarrhea, check magnesium Replete potassium insulin dependent type II diabetes mellitus with hyperglycemiaimproving Worsened by diabetic foot infection - hemoglobin A1c: 6.5 - home regimen: Unknown - current regimen: NPH 25 units twice daily + moderate SSI +8 units regular insulin with meals - blood glucose goal 140-180 while inpatient - continue to monitor Pseudohyponatremiaresolved JACQUI on likely CKD stage IIIresolved Status post aggressive IV fluid resuscitation Renally dose meds and avoid nephrotoxic drugs. Monitor BMP Hypertension - home medications: Unknown - current medications: Started nifedipine 30 mg daily - SBP goal <160 and DBP goal <90 while inpatient - continue to monitor Iron deficiency anemia anemia of chronic disease Hemoglobin 8.2 Iron 16, TIBC 133, ferritin 2880. Transfuse if hemoglobin <7 Acute thrombocytopenia status post transfusion of 1 platelet on 07/08/2022 Patient endorses being aware but not having etiology determined by other clinicians. -Consult hematology Moderate protein caloric malnutrition Albumin 3.6 Will initiate dietary supplementation once hyperglycemia is under control. Disposition Case management reports placement at a [facility]. Also, patient may receive IV antibiotics at the [facility] per case management. History Interval history: No new issues overnight Hospitalist Physical - Constitutional Vitals: Temp Pulse Resp BP Pulse Ox 99.3 F 89 17 131/58 90 07/14/22 03:23 07/14/22 04:47 07/14/22 07:20 07/14/22 03:23 07/14/22 03:23 General appearance: Present: no acute distress, well-nourished, malodorous (Malodorous wet gangrene of left foot with ulceration of third digit) - EENT Eyes: Present: PERRL, EOM intact ENT: hearing intact, clear oral mucosa, dentition normal - Neck Neck: Present: supple, normal ROM - Respiratory Respiratory effort: normal Respiratory: bilateral: CTA - Cardiovascular Rhythm: regular Heart Sounds: Present: S1 & S2. Absent: gallop, rub - Extremities Extremities: no ischemia, No edema, Full ROM - Abdominal General gastrointestinal: soft, non-tender, non-distended, normal bowel sounds - Integumentary Integumentary: Present: clear, warm, dry - Neurologic Neurologic: CNII-XII intact, moves all extremities Results - Labs CBC & Chem 7: 07/14/22 07:58 07/14/22 07:58 Labs: Laboratory Last Values WBC 29.4 K/mm3 (4.5-11.0) H 07/14/22 07:58 RBC 2.11 M/mm3 (3.65-5.03) L 07/14/22 07:58 Hgb 6.7 gm/dl (11.8-15.2) L 07/14/22 07:58 Hct 21.0 % (35.5-45.6) L 07/14/22 07:58 MCV 100 fl (84-94) H 07/14/22 07:58 MCH 32 pg (28-32) 07/14/22 07:58 MCHC 32 % (32-34) 07/14/22 07:58 RDW 13.5 % (13.2-15.2) 07/14/22 07:58 Plt Count 34 K/mm3 (140-440) L 07/14/22 07:58 Lymph % (Auto) 16.2 % (13.4-35.0) 07/09/22 Unknown Wirt % (Auto) 11.9 % (0.0-7.3) H 07/09/22 Unknown Eos % (Auto) 0.7 % (0.0-4.3) 07/09/22 Unknown Baso % (Auto) 0.5 % (0.0-1.8) 07/09/22 Unknown Lymph # (Auto) 2.9 K/mm3 (1.2-5.4) 07/09/22 Unknown Wirt # (Auto) 2.1 K/mm3 (0.0-0.8) H 07/09/22 Unknown Eos # (Auto) 0.1 K/mm3 (0.0-0.4) 07/09/22 Unknown Baso # (Auto) 0.1 K/mm3 (0.0-0.1) 07/09/22 Unknown Add Manual Diff Complete 07/11/22 06:04 Total Counted 100 07/11/22 06:04 Seg Neutrophils % 70.7 % (40.0-70.0) H 07/09/22 Unknown Seg Neuts % (Manual) 82.0 % (40.0-70.0) H 07/11/22 06:04 Band Neutrophils % 0 % 07/11/22 06:04 Lymphocytes % (Manual) 8.0 % (13.4-35.0) L 07/11/22 06:04 Reactive Lymphs % (Man) 0 % 07/11/22 06:04 Monocytes % (Manual) 10.0 % (0.0-7.3) H 07/11/22 06:04 Eosinophils % (Manual) 0 % (0.0-4.3) 07/11/22 06:04 Basophils % (Manual) 0 % (0.0-1.8) 07/11/22 06:04 Metamyelocytes % 0 % 07/11/22 06:04 Myelocytes % 0 % 07/11/22 06:04 Promyelocytes % 0 % 07/11/22 06:04 Blast Cells % 0 % 07/11/22 06:04 Nucleated RBC % Not Reportable 07/11/22 06:04 Seg Neutrophils # 12.6 K/mm3 (1.8-7.7) H 07/09/22 Unknown Seg Neutrophils # Man 22.9 K/mm3 (1.8-7.7) H 07/11/22 06:04 Band Neutrophils # 0.0 K/mm3 07/11/22 06:04 Lymphocytes # (Manual) 2.2 K/mm3 (1.2-5.4) 07/11/22 06:04 Abs React Lymphs (Man) 0.0 K/mm3 07/11/22 06:04 Monocytes # (Manual) 2.8 K/mm3 (0.0-0.8) H 07/11/22 06:04 Eosinophils # (Manual) 0.0 K/mm3 (0.0-0.4) 07/11/22 06:04 Basophils # (Manual) 0.0 K/mm3 (0.0-0.1) 07/11/22 06:04 Metamyelocytes # 0.0 K/mm3 07/11/22 06:04 Myelocytes # 0.0 K/mm3 07/11/22 06:04 Promyelocytes # 0.0 K/mm3 07/11/22 06:04 Blast Cells # 0.0 K/mm3 07/11/22 06:04 WBC Morphology Not Reportable 07/11/22 06:04 Hypersegmented Neuts Not Reportable 07/11/22 06:04 Hyposegmented Neuts Not Reportable 07/11/22 06:04 Hypogranular Neuts Not Reportable 07/11/22 06:04 Smudge Cells Not Reportable 07/11/22 06:04 Toxic Granulation Not Reportable 07/11/22 06:04 Toxic Vacuolation Not Reportable 07/11/22 06:04 Dohle Bodies Not Reportable 07/11/22 06:04 Pelger-Huet Anomaly Not Reportable 07/11/22 06:04 Lulu Rods Not Reportable 07/11/22 06:04 Platelet Estimate Consistent w auto 07/11/22 06:04 Clumped Platelets Not Reportable 07/11/22 06:04 Plt Clumps, EDTA Not Reportable 07/11/22 06:04 Large Platelets Not Reportable 07/11/22 06:04 Giant Platelets Not Reportable 07/11/22 06:04 Platelet Satelliting Not Reportable 07/11/22 06:04 Plt Morphology Comment Not Reportable 07/11/22 06:04 RBC Morphology Not Reportable 07/11/22 06:04 Dimorphic RBCs Not Reportable 07/11/22 06:04 Polychromasia Not Reportable 07/11/22 06:04 Hypochromasia 1+ 07/11/22 06:04 Poikilocytosis Not Reportable 07/11/22 06:04 Anisocytosis Not Reportable 07/11/22 06:04 Microcytosis Not Reportable 07/11/22 06:04 Macrocytosis Not Reportable 07/11/22 06:04 Spherocytes Not Reportable 07/11/22 06:04 Pappenheimer Bodies Not Reportable 07/11/22 06:04 Sickle Cells Not Reportable 07/11/22 06:04 Target Cells Not Reportable 07/11/22 06:04 Tear Drop Cells Not Reportable 07/11/22 06:04 Ovalocytes Not Reportable 07/11/22 06:04 Helmet Cells Not Reportable 07/11/22 06:04 [place] Bodies Not Reportable 07/11/22 06:04 [place] Rings Not Reportable 07/11/22 06:04 [place] Cells Not Reportable 07/11/22 06:04 Bite Cells Not Reportable 07/11/22 06:04 Crenated Cell Not Reportable 07/11/22 06:04 Elliptocytes Not Reportable 07/11/22 06:04 Acanthocytes (Spur) Not Reportable 07/11/22 06:04 Rouleaux Not Reportable 07/11/22 06:04 Hemoglobin C Crystals Not Reportable 07/11/22 06:04 Schistocytes Not Reportable 07/11/22 06:04 Malaria parasites Not Reportable 07/11/22 06:04 Chintan Bodies Not Reportable 07/11/22 06:04 Hem Pathologist Commnt No 07/11/22 06:04 PT 14.5 Sec. (12.2-14.9) 07/09/22 Unknown INR 0.99 (0.87-1.13) 07/09/22 Unknown Sodium 136 mmol/L (137-145) L 07/14/22 07:58 Potassium 2.9 mmol/L (3.6-5.0) L* D 07/14/22 07:58 Chloride 98.8 mmol/L (98-107) 07/14/22 07:58 Carbon Dioxide 24 mmol/L (22-30) 07/14/22 07:58 Anion Gap 16 mmol/L 07/14/22 07:58 BUN 15 mg/dL (9-20) 07/14/22 07:58 Creatinine 0.9 mg/dL (0.8-1.3) 07/14/22 07:58 Estimated GFR > 60 ml/min 07/14/22 07:58 BUN/Creatinine Ratio 17 % 07/14/22 07:58 Glucose 217 mg/dL (75-100) H 07/14/22 07:58 POC Glucose 175 mg/dL (70-105) H 07/14/22 06:01 Hemoglobin A1c 6.5 % (4-6) H 07/07/22 08:41 Lactic Acid 1.50 mmol/L (0.7-2.0) 07/07/22 02:26 Calcium 7.5 mg/dL (8.4-10.2) L 07/14/22 07:58 Iron 16 ug/dL (49-181) L 07/08/22 05:35 TIBC 133 mcg/dL (250-450) L 07/08/22 05:35 Ferritin 2888.0 ng/mL (30.0-300.0) H 07/08/22 05:35 Total Bilirubin 0.70 mg/dL (0.1-1.2) 07/07/22 02:26 AST 41 units/L (5-40) H 07/07/22 02:26 ALT 28 units/L (7-56) 07/07/22 02:26 Alkaline Phosphatase 129 units/L (35-129) 07/07/22 02:26 Total Creatine Kinase 95 units/L (55-170) 07/14/22 07:58 Total Protein 6.9 g/dL (6.3-8.2) 07/07/22 02:26 Albumin 3.6 g/dL (3.9-5) L 07/07/22 02:26 Albumin/Globulin Ratio 1.1 % 07/07/22 02:26 Triglycerides 114 mg/dL (2-149) 07/07/22 08:41 Cholesterol 116 mg/dL (50-199) 07/07/22 08:41 LDL Cholesterol Direct 46 mg/dL (50-130) L 07/07/22 08:41 HDL Cholesterol 37 mg/dL (40-59) L 07/07/22 08:41 Cholesterol/HDL Ratio 3.13 % 07/07/22 08:41 Blood Type O POSITIVE 07/08/22 Unknown [place]/IV: Voiding Method Condom Catheter Active Medications - Current Medications Current Medications: Generic Name Dose Route Start Last Admin Trade Name Freq PRN Reason Stop Dose Admin Acetaminophen 650 mg 07/07/22 08:30 07/13/22 23:47 Acetaminophen 325 Mg Tab PO 650 mg Q4H PRN Administration Pain MILD(1-3)/Fever >100.5/DAS Atorvastatin Calcium 40 mg 07/10/22 11:00 07/13/22 09:23 Atorvastatin 40 Mg Tab PO 40 mg DAILY APRIL Administration Cilostazol 100 mg 07/09/22 12:00 07/13/22 21:12 Cilostazol 100 Mg Tab PO 100 mg BID APRIL Administration Clopidogrel Bisulfate 75 mg 07/10/22 10:00 07/13/22 09:23 Clopidogrel 75 Mg Tab PO 75 mg QDAY APRIL Administration Dextrose 50 ml 07/07/22 08:35 Dextrose 50% In Water (25gm) 50 Ml Syringe IV Q30MIN PRN Hypoglycemia Protocol Heparin Sodium (Porcine) 5,000 unit 07/07/22 14:00 07/14/22 05:57 Heparin 5,000 Unit/1 Ml Vial SUB-Q 5,000 unit Q8HR APRIL Administration Hydromorphone HCl 0.5 mg 07/12/22 13:51 Hydromorphone 0.5 Mg/0.5 Ml Inj IV Q10MIN PRN Pain , Severe (7-10) Sodium Chloride 1,000 mls @ 100 mls/hr 07/07/22 05:30 07/14/22 04:07 Nacl 0.9% 1000 Ml IV 100 mls/hr DIRECT APRIL Administration Daptomycin 500 mg/ Sodium 100 mls @ 200 mls/hr 07/10/22 18:00 07/13/22 17:42 Chloride IV 200 mls/hr Q24H APRIL Administration Protocol Metronidazole 500 mg in 100 mls @ 100 mls/hr 07/12/22 12:00 07/14/22 04:07 Flagyl 500 Mg/100 Ml IV 100 mls/hr Q8H APRIL Administration Protocol Cefepime HCl 1 gm in 100 mls @ 200 mls/hr 07/12/22 14:00 07/14/22 05:57 Cefepime/Ns 1 Gm/100 Ml IV 200 mls/hr Q8H APRIL Administration Protocol Insulin Human Isoph/Insulin Regular 25 unit 07/07/22 19:16 07/13/22 17:50 Insulin Nph/Regular 70/30 Inj SUB-Q Not Given BIDDIAB APRIL Insulin Human Regular 5 units 07/07/22 22:00 07/13/22 21:11 Insulin Regular, Human 100 Units/1 Ml SUB-Q 5 units ACHS APRIL Administration Insulin Human Regular 0 units 07/14/22 07:30 Insulin Regular, Human 100 Units/1 Ml SUB-Q ACHS [facility] Protocol Metoclopramide HCl 10 mg 07/09/22 17:34 07/09/22 22:50 Metoclopramide 10 Mg/2 Ml Inj IV 10 mg Q6H PRN Administration Nausea And Vomiting Metoprolol Tartrate 100 mg 07/10/22 11:00 07/13/22 22:55 Metoprolol Tartrate 100 Mg Tab PO 100 mg BID APRIL Administration Morphine Sulfate 2 mg 07/07/22 08:30 07/14/22 01:53 Morphine 4 Mg/1 Ml Inj IV 2 mg Q4H PRN Administration Pain , Severe (7-10) Nifedipine 30 mg 07/08/22 10:00 07/13/22 09:23 Nifedipine Xl 30 Mg Tab PO 30 mg QDAY APRIL Administration Ondansetron HCl 4 mg 07/07/22 08:30 07/13/22 21:27 Ondansetron 4 Mg/2 Ml Inj IV 4 mg Q8H PRN Administration Nausea And Vomiting Oxycodone/Acetaminophen 1 tab 07/07/22 08:30 07/14/22 06:20 Oxycodone /Acetaminophen 5-325mg Tab PO 1 tab Q6H PRN Administration Pain, Moderate (4-6) Sodium Chloride 10 ml 07/07/22 10:00 07/13/22 21:13 Sodium Chloride 0.9% 10 Ml Flush Syringe IV 10 ml BID APRIL Administration Sodium Chloride 10 ml 07/07/22 08:30 Sodium Chloride 0.9% 10 Ml Flush Syringe IV PRN PRN LINE FLUSH Sodium Hypochlorite 1 applic 07/14/22 10:00 Sodium Hypochlorite, Dakin's 1/2 Strength (0.25%) 473 Ml Topical Soln TP BID [facility] Nutrition/Malnutrition Assess - Dietary Evaluation Nutrition/Malnutrition Findings: Nutrition Notes Start: 07/08/22 11:33 Freq: Status: Active Protocol: Document 07/13/22 13:47 CM (Rec: 07/13/22 13:56 CM [id number]) Co-Sign 07/13/22 13:47 WW Nutrition Notes Initial or Follow up Brief Note Current Diagnosis Diabetes,Hypertension Other Pertinent Diagnosis PVD s/p RLE bypass, thrombocytopenia Current Diet Cardiac Diet + Glucerna BID Labs/Tests 9/16: Glu 158 Pertinent Medications 07/13: Atorvastatin Humulin 70/30 Humulin R Height 5 ft 8 in Weight 70.1 kg Usual Body Weight 75 kg [place] Body Weight (kg) 70.00 BMI 23.5 Weight change and time frame 2% wt loss in 1 day - will monitor. Weight Status Appropriate Subjective/Other Information RD follow-up per protocol. Pt advanced to cardiac diet and Glucerna BID ordered. 100% of dinner consumed 07/12. New wt added today. Percent of energy/protein needs met: Cardiac Diet provides 2230kcal / 85g PRO q day - 113% Kcal / 99% AA before nutrition supplements. GI Symptoms None #1 Nutrition Diagnosis Malnutrition Diagnosis Progress(for reassessment Continues documentation) Is patient on ventilator? No Is Patient Ambulatory and/or Out of Bed No REE-([place]-confined to bed) 1734.384 Kcal/Kg value to use for calculation 28 Approximate Energy Requirements Using 1963 kcal/Kg Calculation Used for Recommendations Kcal/kg Additional Notes 1.2-1.5g/kg ABW; 86-108g PRO q day Fluid needs: 30mL/kg or per MD . Nutrition Intervention Change Diet Order: Continue current diet order or per MARKETING ENGINEER recommendations. Add Supplement/Snack (indicate name/kcal Glucerna BID (Chocolate) /protein ) Provides kCal: 440 Provides Protein (gm) 20 Goal #1 Pt to consume >75% of estimated energy/protein needs through current diet order and nutrition supplements Goal #2 Pt to maintain current wt status within 2.5% throughout LOS. Follow-Up By: 07/20/22 Additional Comments Monitor % PO intake, diet tolerance, and wt status.
[2022-07-14] MEDS: CILOSTAZOL 100 MG TAB PO SCH ×2 (10:23→23:18)
[2022-07-14] MEDS: INSULIN NPH/REGULAR 70/30 INJ SUB-Q SCH ×2 (10:23→17:57)
[2022-07-14] MEDS: METOPROLOL TARTRATE 100 MG TAB PO SCH ×2 (10:23→23:17)
[2022-07-14] MEDS: NIFEdipine XL 30 MG TAB PO SCH (10:23)
[2022-07-14] MEDS: CLOPIDOGREL 75 MG TAB PO SCH (10:23)
[2022-07-14] MEDS: POVIDONE-IODINE OINTMENT 28.35 GM TP SCH (10:44)
[2022-07-14] MEDS ORDERED: POTASSIUM CHLORIDE ER 20 MEQ TAB PO ONE ×2 (11:00→15:00)
[2022-07-14 12:07] LABS: Basophils % (Manual) 0 % (0.0-1.8); Eosinophils % (Manual) 0 % (0.0-4.3); Total Cells Counted 100
[2022-07-14 12:08] LABS: Hypochromasia Few; Platelet Clumps 1+; Target Cells Few
[2022-07-14] MEDS: SODIUM HYPOCHLORITE, DAKIN'S 1/2 STRENGTH (0.25%) 473 ML TOPICAL SOLN TP SCH ×2 (12:38→23:39)
[2022-07-14] MEDS: ACETAMINOPHEN 325 MG TAB PO PRN (20:15)
[2022-07-14] MEDS: ONDANSETRON 4 MG/2 ML INJ IV PRN (20:16)
--- NOTE | 2022-07-15 03:43 | XRay Report ---
CHEST 1 VIEW INDICATION / CLINICAL INFORMATION: fever and oxygen saturation low. COMPARISON: 07/07/2022 FINDINGS: SUPPORT DEVICES: None. HEART / MEDIASTINUM: No significant abnormality. LUNGS / PLEURA: Mild interstitial prominence has developed bilaterally with appearance most suggestiv e of interstitial pulmonary edema. Trace bilateral pleural effusions are most likely present as well. No focal area of consolidation noted. No pneumothorax. ADDITIONAL FINDINGS: No significant additional findings. IMPRESSION: 1. Findings most compatible with interval development of mild interstitial pulmonary edema and trace bilateral pleural effusions. Signer Name: Susan Jaffe MD Signed: 07/15/2022 3:39 AM Workstation Name: [id number]
[2022-07-15] MEDS: metroNIDAZOLE/NS 500 MG/100 ML 500 MG/100 ML BAG IV SCH ×3 (04:24→19:24)
[2022-07-15] MEDS: CEFEPIME/NS 1 GM/100 ML 1 GM/100 ML BAG IV SCH ×3 (06:05→22:11)
--- NOTE | 2022-07-15 08:10 | Progress Note ---
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 S/p revascularization on 07/09/2022, followed by toe amputation . Noted to have necrotic tissue. MRI with abscess between the third and fourth toe also extensive bony destruction of the third fourth fifth and even the second toe. S/p TMA of second through fifth toes on 07/12/2022 Continue IV cefepime + Daptomycin + Flagyl. Avoiding linezolid due to thromb ocytopenia. -ID to follow-up surgical culture to help decide final abx plan, patient may receive IV antibiotics at the residential -Patient with fever of 101.5. Diarrhea Check C. difficile Hypokalemia Etiology likely secondary to diarrhea, check magnesium Replete potassium insulin dependent type II diabetes mellitus with hyperglycemiaimproving Worsened by diabetic foot infection - hemoglobin A1c: 6.5 - home regimen: Unknown - current regimen: NPH 25 units twice daily + moderate SSI +8 units regular insulin with meals - blood glucose goal 140-180 while inpatient - continue to monitor Pseudohyponatremiaresolved JACQUI on likely CKD stage IIIresolved Status post aggressive IV fluid resuscitation Renally dose meds and avoid nephrotoxic drugs. Monitor BMP Hypertension - home medications: Unknown - current medications: Started nifedipine 30 mg daily - SBP goal <160 and DBP goal <90 while inpatient - continue to monitor Iron deficiency anemia anemia of chronic disease Hemoglobin 6.7 We will transfuse 1 unit PRBCs Acute thrombocytopenia status post transfusion of 1 platelet on 07/08/2022 Patient endorses being aware but not having etiology determined by other clinicians. -Consult hematology Moderate protein caloric malnutrition Albumin 3.6 Will initiate dietary supplementation once hyperglycemia is under control. Disposition Case management reports placement at a residential. Also, patient may receive IV antibiotics at the residential per case management. History Interval history: No new issues overnight Hospitalist Physical - Constitutional Vitals: Temp Pulse Resp BP Pulse Ox 97.7 F 86 19 144/52 97 07/15/22 03:33 07/15/22 03:33 07/15/22 03:33 07/15/22 03:33 07/15/22 03:33 General appearance: Present: no acute distress, well-nourished, malodorous (Malodorous wet gangrene of left foot with ulceration of third digit) - EENT Eyes: Present: PERRL, EOM intact ENT: hearing intact, clear oral mucosa, dentition normal - Neck Neck: Present: supple, normal ROM - Respiratory Respiratory effort: normal Respiratory: bilateral: CTA - Cardiovascular Rhythm: regular Heart Sounds: Present: S1 & S2. Absent: gallop, rub - Extremities Extremities: no ischemia, No edema, Full ROM - Abdominal General gastrointestinal: soft, non-tender, non-distended, normal bowel sounds - Integumentary Integumentary: Present: clear, warm, dry - Neurologic Neurologic: CNII-XII intact, moves all extremities Results - Labs CBC & Chem 7: 07/14/22 07:58 07/14/22 07:58 Labs: Laboratory Last Values WBC 29.4 K/mm3 (4.5-11.0) H 07/14/22 07:58 RBC 2.11 M/mm3 (3.65-5.03) L 07/14/22 07:58 Hgb 6.7 gm/dl (11.8-15.2) L 07/14/22 07:58 Hct 21.0 % (35.5-45.6) L 07/14/22 07:58 MCV 100 fl (84-94) H 07/14/22 07:58 MCH 32 pg (28-32) 07/14/22 07:58 MCHC 32 % (32-34) 07/14/22 07:58 RDW 13.5 % (13.2-15.2) 07/14/22 07:58 Plt Count 34 K/mm3 (140-440) L 07/14/22 07:58 Lymph % (Auto) 16.2 % (13.4-35.0) 07/09/22 Unknown [place] % (Auto) 11.9 % (0.0-7.3) H 07/09/22 Unknown Eos % (Auto) 0.7 % (0.0-4.3) 07/09/22 Unknown Baso % (Auto) 0.5 % (0.0-1.8) 07/09/22 Unknown Lymph # (Auto) 2.9 K/mm3 (1.2-5.4) 07/09/22 Unknown [place]ount # (Auto) 2.1 K/mm3 (0.0-0.8) H 07/09/22 Unknown Eos # (Auto) 0.1 K/mm3 (0.0-0.4) 07/09/22 Unknown Baso # (Auto) 0.1 K/mm3 (0.0-0.1) 07/09/22 Unknown Add Manual Diff Complete 07/14/22 07:58 Total Counted 100 07/14/22 07:58 Seg Neutrophils % 70.7 % (40.0-70.0) H 07/09/22 Unknown Seg Neuts % (Manual) 86.0 % (40.0-70.0) H 07/14/22 07:58 Band Neutrophils % 0 % 07/14/22 07:58 Lymphocytes % (Manual) 4.0 % (13.4-35.0) L 07/14/22 07:58 Reactive Lymphs % (Man) 0 % 07/14/22 07:58 Monocytes % (Manual) 10.0 % (0.0-7.3) H 07/14/22 07:58 Eosinophils % (Manual) 0 % (0.0-4.3) 07/14/22 07:58 Basophils % (Manual) 0 % (0.0-1.8) 07/14/22 07:58 Metamyelocytes % 0 % 07/14/22 07:58 Myelocytes % 0 % 07/14/22 07:58 Promyelocytes % 0 % 07/14/22 07:58 Blast Cells % 0 % 07/14/22 07:58 Nucleated RBC % Not Reportable 07/14/22 07:58 Seg Neutrophils # 12.6 K/mm3 (1.8-7.7) H 07/09/22 Unknown Seg Neutrophils # Man 25.3 K/mm3 (1.8-7.7) H 07/14/22 07:58 Band Neutrophils # 0.0 K/mm3 07/14/22 07:58 Lymphocytes # (Manual) 1.2 K/mm3 (1.2-5.4) 07/14/22 07:58 Abs React Lymphs (Man) 0.0 K/mm3 07/14/22 07:58 Monocytes # (Manual) 2.9 K/mm3 (0.0-0.8) H 07/14/22 07:58 Eosinophils # (Manual) 0.0 K/mm3 (0.0-0.4) 07/14/22 07:58 Basophils # (Manual) 0.0 K/mm3 (0.0-0.1) 07/14/22 07:58 Metamyelocytes # 0.0 K/mm3 07/14/22 07:58 Myelocytes # 0.0 K/mm3 07/14/22 07:58 Promyelocytes # 0.0 K/mm3 07/14/22 07:58 Blast Cells # 0.0 K/mm3 07/14/22 07:58 WBC Morphology Not Reportable 07/14/22 07:58 WBC Morphology TNR 07/14/22 07:58 Hypersegmented Neuts Not Reportable 07/14/22 07:58 Hyposegmented Neuts Not Reportable 07/14/22 07:58 Hypogranular Neuts Not Reportable 07/14/22 07:58 Smudge Cells Not Reportable 07/14/22 07:58 Toxic Granulation Not Reportable 07/14/22 07:58 Toxic Vacuolation Not Reportable 07/14/22 07:58 Dohle Bodies Not Reportable 07/14/22 07:58 Pelger-Huet Anomaly Not Reportable 07/14/22 07:58 Lulu Rods Not Reportable 07/14/22 07:58 Platelet Estimate Appears normal 07/14/22 07:58 Clumped Platelets 1+ 07/14/22 07:58 Plt Clumps, EDTA Not Reportable 07/14/22 07:58 Large Platelets Not Reportable 07/14/22 07:58 Giant Platelets Not Reportable 07/14/22 07:58 Platelet Satelliting Not Reportable 07/14/22 07:58 Plt Morphology Comment Not Reportable 07/14/22 07:58 RBC Morphology Not Reportable 07/14/22 07:58 Dimorphic RBCs Not Reportable 07/14/22 07:58 Polychromasia Few 07/14/22 07:58 Hypochromasia Few 07/14/22 07:58 Poikilocytosis Not Reportable 07/14/22 07:58 Anisocytosis Not Reportable 07/14/22 07:58 Microcytosis Not Reportable 07/14/22 07:58 Macrocytosis Not Reportable 07/14/22 07:58 Spherocytes Not Reportable 07/14/22 07:58 Pappenheimer Bodies Not Reportable 07/14/22 07:58 Sickle Cells Not Reportable 07/14/22 07:58 Target Cells Few 07/14/22 07:58 Tear Drop Cells Not Reportable 07/14/22 07:58 Ovalocytes Not Reportable 07/14/22 07:58 Helmet Cells Not Reportable 07/14/22 07:58 [place] Bodies Not Reportable 07/14/22 07:58 [place] Rings Not Reportable 07/14/22 07:58 [place] Cells Not Reportable 07/14/22 07:58 Bite Cells Not Reportable 07/14/22 07:58 Crenated Cell Not Reportable 07/14/22 07:58 Elliptocytes Not Reportable 07/14/22 07:58 Acanthocytes (Spur) Not Reportable 07/14/22 07:58 Rouleaux Not Reportable 07/14/22 07:58 Hemoglobin C Crystals Not Reportable 07/14/22 07:58 Schistocytes Not Reportable 07/14/22 07:58 Malaria parasites Not Reportable 07/14/22 07:58 Chintan Bodies Not Reportable 07/14/22 07:58 Hem Pathologist Commnt No 07/14/22 07:58 PT 14.5 Sec. (12.2-14.9) 07/09/22 Unknown INR 0.99 (0.87-1.13) 07/09/22 Unknown Sodium 136 mmol/L (137-145) L 07/14/22 07:58 Potassium 2.9 mmol/L (3.6-5.0) L* D 07/14/22 07:58 Chloride 98.8 mmol/L (98-107) 07/14/22 07:58 Carbon Dioxide 24 mmol/L (22-30) 07/14/22 07:58 Anion Gap 16 mmol/L 07/14/22 07:58 BUN 15 mg/dL (9-20) 07/14/22 07:58 Creatinine 0.9 mg/dL (0.8-1.3) 07/14/22 07:58 Estimated GFR > 60 ml/min 07/14/22 07:58 BUN/Creatinine Ratio 17 % 07/14/22 07:58 Glucose 217 mg/dL (75-100) H 07/14/22 07:58 POC Glucose 159 mg/dL (70-105) H 07/14/22 20:32 Hemoglobin A1c 6.5 % (4-6) H 07/07/22 08:41 Lactic Acid 1.50 mmol/L (0.7-2.0) 07/07/22 02:26 Calcium 7.5 mg/dL (8.4-10.2) L 07/14/22 07:58 Magnesium 1.80 mg/dL (1.7-2.3) 07/14/22 10:44 Iron 16 ug/dL (49-181) L 07/08/22 05:35 TIBC 133 mcg/dL (250-450) L 07/08/22 05:35 Ferritin 2888.0 ng/mL (30.0-300.0) H 07/08/22 05:35 Total Bilirubin 0.70 mg/dL (0.1-1.2) 07/07/22 02:26 AST 41 units/L (5-40) H 07/07/22 02:26 ALT 28 units/L (7-56) 07/07/22 02:26 Alkaline Phosphatase 129 units/L (35-129) 07/07/22 02:26 Total Creatine Kinase 95 units/L (55-170) 07/14/22 07:58 Total Protein 6.9 g/dL (6.3-8.2) 07/07/22 02:26 Albumin 3.6 g/dL (3.9-5) L 07/07/22 02:26 Albumin/Globulin Ratio 1.1 % 07/07/22 02:26 Triglycerides 114 mg/dL (2-149) 07/07/22 08:41 Cholesterol 116 mg/dL (50-199) 07/07/22 08:41 LDL Cholesterol Direct 46 mg/dL (50-130) L 07/07/22 08:41 HDL Cholesterol 37 mg/dL (40-59) L 07/07/22 08:41 Cholesterol/HDL Ratio 3.13 % 07/07/22 08:41 Vitamin B12 > 2000 pg/mL (211-911) H 07/14/22 07:58 Blood Type O POSITIVE 07/08/22 Unknown Microbiology: Microbiology 07/10/22 15:33 Toe - Left Third Anaerobic Culture - Final 07/10/22 15:32 Toe - Left Third Surgical Culture - Final [place]/IV: Voiding Method Condom Catheter Active Medications - Current Medications Current Medications: Generic Name Dose Route Start Last Admin Trade Name Freq PRN Reason Stop Dose Admin Acetaminophen 650 mg 07/07/22 08:30 07/14/22 20:15 Acetaminophen 325 Mg Tab PO 650 mg Q4H PRN Administration Pain MILD(1-3)/Fever >100.5/DAS Atorvastatin Calcium 40 mg 07/10/22 11:00 07/14/22 10:23 Atorvastatin 40 Mg Tab PO 40 mg DAILY APRIL Administration Cilostazol 100 mg 07/09/22 12:00 07/14/22 23:18 Cilostazol 100 Mg Tab PO 100 mg BID APRIL Administration Clopidogrel Bisulfate 75 mg 07/10/22 10:00 07/14/22 10:23 Clopidogrel 75 Mg Tab PO 75 mg QDAY APRIL Administration Dextrose 50 ml 07/07/22 08:35 Dextrose 50% In Water (25gm) 50 Ml Syringe IV Q30MIN PRN Hypoglycemia Protocol Sodium Chloride 1,000 mls @ 100 mls/hr 07/07/22 05:30 07/14/22 20:19 Nacl 0.9% 1000 Ml IV 100 mls/hr DIRECT APRIL Administration Daptomycin 500 mg/ Sodium 100 mls @ 200 mls/hr 07/10/22 18:00 07/14/22 17:57 Chloride IV 200 mls/hr Q24H APRIL Administration Protocol Metronidazole 500 mg in 100 mls @ 100 mls/hr 07/12/22 12:00 07/15/22 04:24 Flagyl 500 Mg/100 Ml IV 100 mls/hr Q8H APRIL Administration Protocol Cefepime HCl 1 gm in 100 mls @ 200 mls/hr 07/12/22 14:00 07/15/22 06:05 Cefepime/Ns 1 Gm/100 Ml IV 200 mls/hr Q8H APRIL Administration Protocol Insulin Human Isoph/Insulin Regular 25 unit 07/07/22 19:16 07/14/22 17:57 Insulin Nph/Regular 70/30 Inj SUB-Q 25 unit BIDDIAB APRIL Administration Insulin Human Regular 5 units 07/07/22 22:00 07/14/22 22:00 Insulin Regular, Human 100 Units/1 Ml [facility] Regular 0 units 07/14/22 07:30 07/14/22 22:00 Insulin Regular, Human 100 Units/1 Ml SUB-Q Not Given [facility] Protocol Metoclopramide HCl 10 mg 07/09/22 17:34 07/09/22 22:50 Metoclopramide 10 Mg/2 Ml Inj IV 10 mg Q6H PRN Administration Nausea And Vomiting Metoprolol Tartrate 100 mg 07/10/22 11:00 07/14/22 23:17 Metoprolol Tartrate 100 Mg Tab PO 100 mg BID APRIL Administration Morphine Sulfate 2 mg 07/07/22 08:30 07/14/22 20:35 Morphine 4 Mg/1 Ml Inj IV 2 mg Q4H PRN Administration Pain , Severe (7-10) Nifedipine 30 mg 07/08/22 10:00 07/14/22 10:23 Nifedipine Xl 30 Mg Tab PO 30 mg QDAY APRIL Administration Ondansetron HCl 4 mg 07/07/22 08:30 07/14/22 20:16 Ondansetron 4 Mg/2 Ml Inj IV 4 mg Q8H PRN Administration Nausea And Vomiting Oxycodone/Acetaminophen 1 tab 07/07/22 08:30 07/14/22 23:19 Oxycodone /Acetaminophen 5-325mg Tab PO 1 tab Q6H PRN Administration Pain, Moderate (4-6) Sodium Chloride 10 ml 07/07/22 10:00 07/14/22 23:18 Sodium Chloride 0.9% 10 Ml Flush Syringe IV 10 ml BID APRIL Administration Sodium Chloride 10 ml 07/07/22 08:30 Sodium Chloride 0.9% 10 Ml Flush Syringe IV PRN PRN LINE FLUSH Sodium Hypochlorite 1 applic 07/14/22 10:00 07/14/22 23:39 Sodium Hypochlorite, Dakin's 1/2 Strength (0.25%) 473 Ml Topical Soln TP 1 dose BID APRIL Administration Nutrition/Malnutrition Assess - Dietary Evaluation Nutrition/Malnutrition Findings: Nutrition Notes Start: 07/08/22 11:33 Freq: Status: Active Protocol: Document 07/13/22 13:47 CM (Rec: 07/13/22 13:56 CM [id number]) Co-Sign 07/13/22 13:47 WW Nutrition Notes Initial or Follow up Brief Note Current Diagnosis Diabetes,Hypertension Other Pertinent Diagnosis PVD s/p RLE bypass, thrombocytopenia Current Diet Cardiac Diet + Glucerna BID Labs/Tests 07/13: Glu 158 Pertinent Medications 07/13: Atorvastatin Humulin 70/30 Humulin R Height 5 ft 8 in Weight 70.1 kg Usual Body Weight 75 kg [place] Body Weight (kg) 70.00 BMI 23.5 Weight change and time frame 2% wt loss in 1 day - will monitor. Weight Status Appropriate Subjective/Other Information RD follow-up per protocol. Pt advanced to cardiac diet and Glucerna BID ordered. 100% of dinner consumed 07/12. New wt added today. Percent of energy/protein needs met: Cardiac Diet provides 2230kcal / 85g PRO q day - 113% Kcal / 99% AA before nutrition supplements. GI Symptoms None #1 Nutrition Diagnosis Malnutrition Diagnosis Progress(for reassessment Continues documentation) Is patient on ventilator? No Is Patient Ambulatory and/or Out of Bed No [facility] 1734.384 Kcal/Kg value to use for calculation 28 Approximate Energy Requirements Using 1963 kcal/Kg Calculation Used for Recommendations Kcal/kg Additional Notes 1.2-1.5g/kg ABW; 86-108g PRO q day Fluid needs: 30mL/kg or per MD . Nutrition Intervention Change Diet Order: Continue current diet order or per TRANSPORT CONDUCTOR recommendations. Add Supplement/Snack (indicate name/kcal Glucerna BID (Chocolate) /protein ) Provides kCal: 440 Provides Protein (gm) 20 Goal #1 Pt to consume >75% of estimated energy/protein needs through current diet order and nutrition supplements Goal #2 Pt to maintain current wt status within 2.5% throughout LOS. Follow-Up By: 07/20/22 Additional Comments Monitor % PO intake, diet tolerance, and wt status.
[2022-07-15] MEDS: INSULIN REGULAR, HUMAN 100 UNITS/1 ML SUB-Q SCH ×8 (09:47→22:04)
[2022-07-15] MEDS: oxyCODONE /ACETAMINOPHEN 5-325MG TAB PO PRN (09:49)
[2022-07-15] MEDS: INSULIN NPH/REGULAR 70/30 INJ SUB-Q SCH ×2 (09:49→16:39)
[2022-07-15] MEDS: CILOSTAZOL 100 MG TAB PO SCH ×2 (09:50→21:59)
[2022-07-15] MEDS: SODIUM HYPOCHLORITE, DAKIN'S 1/2 STRENGTH (0.25%) 473 ML TOPICAL SOLN TP SCH (09:50)
[2022-07-15] MEDS: NIFEdipine XL 30 MG TAB PO SCH (09:50)
[2022-07-15] MEDS: CLOPIDOGREL 75 MG TAB PO SCH (09:50)
[2022-07-15] MEDS: METOPROLOL TARTRATE 100 MG TAB PO SCH ×2 (09:50→22:05)
[2022-07-15] MEDS ORDERED: SODIUM CHLORIDE 0.9% 500 ML 500 ML IV NR (10:00)
[2022-07-15 12:18] LABS: ABG Base Excess 1.6 mmol/L (-2.0-3.0); ABG HCO3 24.4 mmol/L (20.0-26.0); ABG Methemoglobin 0.4 % (0.0-1.5); ABG Oxygen Saturation 98.7 % (95.0-99.0); ABG PH 7.528 pH Units (7.350-7.450)
[2022-07-15] MEDS: SODIUM CHLORIDE 0.9% 1000 ML 1,000 ML IV SCH (12:47)
[2022-07-15] MEDS: DEXTROSE 50% IN WATER (25GM) 50 ML SYRINGE IV PRN (16:13)
[2022-07-15 17:08] LABS: BUN/Creatinine Ratio 12; Blood Urea Nitrogen 12 mg/dL (9-20); Calcium 7.2 mg/dL (8.4-10.2); Hemolysis Index 0
[2022-07-15] MEDS: ONDANSETRON 4 MG/2 ML INJ IV PRN (19:18)
[2022-07-15] MEDS: ACETAMINOPHEN 325 MG TAB PO PRN (20:37)
[2022-07-15] MEDS: METOCLOPRAMIDE 10 MG/2 ML INJ IV PRN (20:54)
[2022-07-15] MEDS: MORPHINE 4 MG/1 ML INJ IV PRN (21:53)
[2022-07-15] MEDS ORDERED: SODIUM CHLORIDE 0.9% 500 ML 500 ML IV ONE (23:30)
[2022-07-16] MEDS: SODIUM HYPOCHLORITE, DAKIN'S 1/2 STRENGTH (0.25%) 473 ML TOPICAL SOLN TP SCH ×2 (02:04→22:34)
[2022-07-16] MEDS: metroNIDAZOLE/NS 500 MG/100 ML 500 MG/100 ML BAG IV SCH ×3 (03:40→21:15)
[2022-07-16] MEDS: CEFEPIME/NS 1 GM/100 ML 1 GM/100 ML BAG IV SCH ×3 (05:15→22:34)
[2022-07-16] MEDS: INSULIN REGULAR, HUMAN 100 UNITS/1 ML SUB-Q SCH ×5 (09:34→22:33)
[2022-07-16] MEDS: NIFEdipine XL 30 MG TAB PO SCH (09:35)
[2022-07-16] MEDS: CILOSTAZOL 100 MG TAB PO SCH ×2 (09:35→21:15)
[2022-07-16] MEDS: oxyCODONE /ACETAMINOPHEN 5-325MG TAB PO PRN ×2 (09:35→16:24)
[2022-07-16] MEDS: CLOPIDOGREL 75 MG TAB PO SCH (09:35)
[2022-07-16] MEDS: METOPROLOL TARTRATE 100 MG TAB PO SCH ×2 (09:36→21:15)
--- NOTE | 2022-07-16 09:39 | Progress Note ---
Assessment and Plan Assessment and plan: Acute hypoxic respiratory failure Patient had desaturation on 07/15 in the mid 80s Chest x-ray revealed mild interstitial pulmonary edema Will check echocardiogram wet gangrene of left third distal phalanx and middle phalanx Diabetic foot infection with abscess of left third digit Osteomyelitis of left foot Peripheral arterial disease of bilateral lower extremities WBC elevated. S/p revascularization on 07/09/2022, followed by toe amputation 07/10/2022. Noted to have necrotic tissue. MRI with abscess between the third and fourth toe also extensive bony destruction of the third fourth fifth and even the second toe. S/p TMA of second through fifth toes on 07/12/2022 Continue IV cefepime + Daptomycin + Flagyl. Avoiding linezolid due to thrombocytopenia. -ID to follow-up surgical culture to help decide final abx plan, patient may receive IV antibiotics at the [facility] -Patient with fever of 101.5. Diarrhea Check C. difficile Hypokalemia Etiology likely secondary to diarrhea, check magnesium Replete potassium insulin dependent type II diabetes mellitus with hyperglycemiaimproving Worsened by diabetic foot infection - hemoglobin A1c: 6.5 - home regimen: Unknown - current regimen: NPH 25 units twice daily + moderate SSI +8 units regular insulin with meals - blood glucose goal 140-180 while inpatient - continue to monitor Pseudohyponatremiaresolved JACQUI on likely CKD stage IIIresolved Status post aggressive IV fluid resuscitation Renally dose meds and avoid nephrotoxic drugs. Monitor BMP Hypertension - home medications: Unknown - current medications: Started nifedipine 30 mg daily - SBP goal <160 and DBP goal <90 while inpatient - continue to monitor Iron deficiency anemia anemia of chronic disease Hemoglobin 6.7 We will transfuse 1 unit PRBCs Acute thrombocytopenia status post transfusion of 1 platelet on 07/08/2022 Patient endorses being aware but not having etiology determined by other clinicians. -Consult hematology Moderate protein caloric malnutrition Albumin 3.6 Will initiate dietary supplementation once hyperglycemia is under control. Disposition Case management reports placement at a [facility]. Also, patient may receive IV antibiotics at the [facility] per case management. History Interval history: No new issues overnight Hospitalist Physical - Constitutional Vitals: Temp Pulse Resp BP Pulse Ox 99.7 F H 115 H 18 153/57 91 07/16/22 07:36 07/16/22 07:36 07/16/22 07:36 07/16/22 07:36 07/16/22 07:36 General appearance: Present: no acute distress, well-nourished, malodorous (Malodorous wet gangrene of left foot with ulceration of third digit) - EENT Eyes: Present: PERRL, EOM intact ENT: hearing intact, clear oral mucosa, dentition normal - Neck Neck: Present: supple, normal ROM - Respiratory Respiratory effort: normal Respiratory: bilateral: CTA - Cardiovascular Rhythm: regular Heart Sounds: Present: S1 & S2. Absent: gallop, rub - Extremities Extremities: no ischemia, No edema, Full ROM - Abdominal General gastrointestinal: soft, non-tender, non-distended, normal bowel sounds - Integumentary Integumentary: Present: clear, warm, dry - Neurologic Neurologic: CNII-XII intact, moves all extremities Results - Labs CBC & Chem 7: 07/14/22 07:58 07/15/22 08:22 Labs: Laboratory Last Values WBC 29.4 K/mm3 (4.5-11.0) H 07/14/22 07:58 RBC 2.11 M/mm3 (3.65-5.03) L 07/14/22 07:58 Hgb 6.7 gm/dl (11.8-15.2) L 07/14/22 07:58 Hct 21.0 % (35.5-45.6) L 07/14/22 07:58 MCV 100 fl (84-94) H 07/14/22 07:58 MCH 32 pg (28-32) 07/14/22 07:58 MCHC 32 % (32-34) 07/14/22 07:58 RDW 13.5 % (13.2-15.2) 07/14/22 07:58 Plt Count 34 K/mm3 (140-440) L 07/14/22 07:58 Lymph % (Auto) 16.2 % (13.4-35.0) 07/09/22 Unknown [place] % (Auto) 11.9 % (0.0-7.3) H 07/09/22 Unknown Eos % (Auto) 0.7 % (0.0-4.3) 07/09/22 Unknown Baso % (Auto) 0.5 % (0.0-1.8) 07/09/22 Unknown Lymph # (Auto) 2.9 K/mm3 (1.2-5.4) 07/09/22 Unknown [place] # (Auto) 2.1 K/mm3 (0.0-0.8) H 07/09/22 Unknown Eos # (Auto) 0.1 K/mm3 (0.0-0.4) 07/09/22 Unknown Baso # (Auto) 0.1 K/mm3 (0.0-0.1) 07/09/22 Unknown Add Manual Diff Complete 07/14/22 07:58 Total Counted 100 07/14/22 07:58 Seg Neutrophils % 70.7 % (40.0-70.0) H 07/09/22 Unknown Seg Neuts % (Manual) 86.0 % (40.0-70.0) H 07/14/22 07:58 Band Neutrophils % 0 % 07/14/22 07:58 Lymphocytes % (Manual) 4.0 % (13.4-35.0) L 07/14/22 07:58 Reactive Lymphs % (Man) 0 % 07/14/22 07:58 Monocytes % (Manual) 10.0 % (0.0-7.3) H 07/14/22 07:58 Eosinophils % (Manual) 0 % (0.0-4.3) 07/14/22 07:58 Basophils % (Manual) 0 % (0.0-1.8) 07/14/22 07:58 Metamyelocytes % 0 % 07/14/22 07:58 Myelocytes % 0 % 07/14/22 07:58 Promyelocytes % 0 % 07/14/22 07:58 Blast Cells % 0 % 07/14/22 07:58 Nucleated RBC % Not Reportable 07/14/22 07:58 Seg Neutrophils # 12.6 K/mm3 (1.8-7.7) H 07/09/22 Unknown Seg Neutrophils # Man 25.3 K/mm3 (1.8-7.7) H 07/14/22 07:58 Band Neutrophils # 0.0 K/mm3 07/14/22 07:58 Lymphocytes # (Manual) 1.2 K/mm3 (1.2-5.4) 07/14/22 07:58 Abs React Lymphs (Man) 0.0 K/mm3 07/14/22 07:58 Monocytes # (Manual) 2.9 K/mm3 (0.0-0.8) H 07/14/22 07:58 Eosinophils # (Manual) 0.0 K/mm3 (0.0-0.4) 07/14/22 07:58 Basophils # (Manual) 0.0 K/mm3 (0.0-0.1) 07/14/22 07:58 Metamyelocytes # 0.0 K/mm3 07/14/22 07:58 Myelocytes # 0.0 K/mm3 07/14/22 07:58 Promyelocytes # 0.0 K/mm3 07/14/22 07:58 Blast Cells # 0.0 K/mm3 07/14/22 07:58 WBC Morphology Not Reportable 07/14/22 07:58 WBC Morphology TNR 07/14/22 07:58 Hypersegmented Neuts Not Reportable 07/14/22 07:58 Hyposegmented Neuts Not Reportable 07/14/22 07:58 Hypogranular Neuts Not Reportable 07/14/22 07:58 Smudge Cells Not Reportable 07/14/22 07:58 Toxic Granulation Not Reportable 07/14/22 07:58 Toxic Vacuolation Not Reportable 07/14/22 07:58 Dohle Bodies Not Reportable 07/14/22 07:58 Pelger-Huet Anomaly Not Reportable 07/14/22 07:58 Lulu Rods Not Reportable 07/14/22 07:58 Platelet Estimate Appears normal 07/14/22 07:58 Clumped Platelets 1+ 07/14/22 07:58 Plt Clumps, EDTA Not Reportable 07/14/22 07:58 Large Platelets Not Reportable 07/14/22 07:58 Giant Platelets Not Reportable 07/14/22 07:58 Platelet Satelliting Not Reportable 07/14/22 07:58 Plt Morphology Comment Not Reportable 07/14/22 07:58 RBC Morphology Not Reportable 07/14/22 07:58 Dimorphic RBCs Not Reportable 07/14/22 07:58 Polychromasia Few 07/14/22 07:58 Hypochromasia Few 07/14/22 07:58 Poikilocytosis Not Reportable 07/14/22 07:58 Anisocytosis Not Reportable 07/14/22 07:58 Microcytosis Not Reportable 07/14/22 07:58 Macrocytosis Not Reportable 07/14/22 07:58 Spherocytes Not Reportable 07/14/22 07:58 Pappenheimer Bodies Not Reportable 07/14/22 07:58 Sickle Cells Not Reportable 07/14/22 07:58 Target Cells Few 07/14/22 07:58 Tear Drop Cells Not Reportable 07/14/22 07:58 Ovalocytes Not Reportable 07/14/22 07:58 Helmet Cells Not Reportable 07/14/22 07:58 Capps-Clarks Bodies Not Reportable 07/14/22 07:58 [place] Rings Not Reportable 07/14/22 07:58 Merry Cells Not Reportable 07/14/22 07:58 Bite Cells Not Reportable 07/14/22 07:58 Crenated Cell Not Reportable 07/14/22 07:58 Elliptocytes Not Reportable 07/14/22 07:58 Acanthocytes (Spur) Not Reportable 07/14/22 07:58 Rouleaux Not Reportable 07/14/22 07:58 Hemoglobin C Crystals Not Reportable 07/14/22 07:58 Schistocytes Not Reportable 07/14/22 07:58 Malaria parasites Not Reportable 07/14/22 07:58 Chintan Bodies Not Reportable 07/14/22 07:58 Hem Pathologist Commnt No 07/14/22 07:58 PT 14.5 Sec. (12.2-14.9) 07/09/22 Unknown INR 0.99 (0.87-1.13) 07/09/22 Unknown ABG pH 7.528 pH Units (7.350-7.450) H 07/15/22 11:56 ABG pCO2 30.0 mm Hg 07/15/22 11:56 ABG pO2 125.0 mm Hg (80.0-90.0) H 07/15/22 11:56 ABG HCO3 24.4 mmol/L (20.0-26.0) 07/15/22 11:56 ABG O2 Saturation 98.7 % (95.0-99.0) 07/15/22 11:56 ABG O2 Content 9.7 (0.0-44) 07/15/22 11:56 ABG Base Excess 1.6 mmol/L (-2.0-3.0) 07/15/22 11:56 ABG Hemoglobin 6.9 gm/dl (14.0-18.0) L 07/15/22 11:56 ABG Carboxyhemoglobin 1.6 % (0.0-5.0) 07/15/22 11:56 ABG Methemoglobin 0.4 % (0.0-1.5) 07/15/22 11:56 Oxyhemoglobin 96.6 % (95.0-99.0) 07/15/22 11:56 FiO2 60 % 07/15/22 11:56 Sodium 141 mmol/L (137-145) 07/15/22 08:22 Potassium 3.5 mmol/L (3.6-5.0) L D 07/15/22 08:22 Chloride 103.1 mmol/L (98-107) 07/15/22 08:22 Carbon Dioxide 24 mmol/L (22-30) 07/15/22 08:22 Anion Gap 17 mmol/L 07/15/22 08:22 BUN 12 mg/dL (9-20) 07/15/22 08:22 Creatinine 1.0 mg/dL (0.8-1.3) 07/15/22 08:22 Estimated GFR > 60 ml/min 07/15/22 08:22 BUN/Creatinine Ratio 12 % 07/15/22 08:22 Glucose 30 mg/dL (75-100) L* 07/15/22 08:22 POC Glucose 188 mg/dL (70-105) H 07/15/22 20:44 Hemoglobin A1c 6.5 % (4-6) H 07/07/22 08:41 Lactic Acid 1.50 mmol/L (0.7-2.0) 07/07/22 02:26 Calcium 7.2 mg/dL (8.4-10.2) L 07/15/22 08:22 Magnesium 1.80 mg/dL (1.7-2.3) 07/14/22 10:44 Iron 16 ug/dL (49-181) L 07/08/22 05:35 TIBC 133 mcg/dL (250-450) L 07/08/22 05:35 Ferritin 2888.0 ng/mL (30.0-300.0) H 07/08/22 05:35 Total Bilirubin 0.70 mg/dL (0.1-1.2) 07/07/22 02:26 AST 41 units/L (5-40) H 07/07/22 02:26 ALT 28 units/L (7-56) 07/07/22 02:26 Alkaline Phosphatase 129 units/L (35-129) 07/07/22 02:26 Total Creatine Kinase 95 units/L (55-170) 07/14/22 07:58 Total Protein 6.9 g/dL (6.3-8.2) 07/07/22 02:26 Albumin 3.6 g/dL (3.9-5) L 07/07/22 02:26 Albumin/Globulin Ratio 1.1 % 07/07/22 02:26 Triglycerides 114 mg/dL (2-149) 07/07/22 08:41 Cholesterol 116 mg/dL (50-199) 07/07/22 08:41 LDL Cholesterol Direct 46 mg/dL (50-130) L 07/07/22 08:41 HDL Cholesterol 37 mg/dL (40-59) L 07/07/22 08:41 Cholesterol/HDL Ratio 3.13 % 07/07/22 08:41 Vitamin B12 > 2000 pg/mL (211-911) H 07/14/22 07:58 Blood Type O POSITIVE 07/15/22 16:19 Antibody Screen Negative 07/15/22 16:19 Crossmatch See Detail 07/15/22 16:19 Microbiology: Microbiology 07/15/22 11:34 Peripheral/Venous Blood Culture - Preliminary Culture in Progress 07/15/22 11:34 Peripheral/Venous Blood Culture - Preliminary Culture in Progress [place]/IV: Voiding Method Condom Catheter Active Medications - Current Medications Current Medications: Generic Name Dose Route Start Last Admin Trade Name Freq PRN Reason Stop Dose Admin Acetaminophen 650 mg 07/07/22 08:30 07/15/22 20:37 Acetaminophen 325 Mg Tab PO 650 mg Q4H PRN Administration Pain MILD(1-3)/Fever >100.5/DAS Atorvastatin Calcium 40 mg 07/10/22 11:00 07/15/22 09:50 Atorvastatin 40 Mg Tab PO 40 mg DAILY APRIL Administration Cilostazol 100 mg 07/09/22 12:00 07/15/22 21:59 Cilostazol 100 Mg Tab PO 100 mg BID APRIL Administration Clopidogrel Bisulfate 75 mg 07/10/22 10:00 07/15/22 09:50 Clopidogrel 75 Mg Tab PO 75 mg QDAY APRIL Administration Dextrose 50 ml 07/07/22 08:35 07/15/22 16:13 Dextrose 50% In Water (25gm) 50 Ml Syringe IV 25 ml Q30MIN PRN Administration Hypoglycemia Protocol Sodium Chloride 1,000 mls @ 100 mls/hr 07/07/22 05:30 07/15/22 12:47 Nacl 0.9% 1000 Ml IV 100 mls/hr DIRECT APRIL Administration Daptomycin 500 mg/ Sodium 100 mls @ 200 mls/hr 07/10/22 18:00 07/15/22 17:28 Chloride IV 200 mls/hr Q24H APRIL Administration Protocol Metronidazole 500 mg in 100 mls @ 100 mls/hr 07/12/22 12:00 07/16/22 03:40 Flagyl 500 Mg/100 Ml IV 100 mls/hr Q8H APRIL Administration Protocol Cefepime HCl 1 gm in 100 mls @ 200 mls/hr 07/12/22 14:00 07/16/22 05:15 Cefepime/Ns 1 Gm/100 Ml IV 200 mls/hr Q8H APRIL Administration Protocol Insulin Human Isoph/Insulin Regular 25 unit 07/07/22 19:16 07/15/22 16:39 Insulin Nph/Regular 70/30 Inj SUB-Q Not Given BIDDIAB [facility] Insulin Human Regular 5 units 07/07/22 22:00 07/15/22 22:03 Insulin Regular, Human 100 Units/1 Ml SUB-Q Not Given ACHS [facility] Insulin Human Regular 0 units 07/14/22 07:30 07/15/22 22:04 Insulin Regular, Human 100 Units/1 Ml SUB-Q Not Given ACHS [facility] Protocol Metoclopramide HCl 10 mg 07/09/22 17:34 07/15/22 20:54 Metoclopramide 10 Mg/2 Ml Inj IV 10 mg Q6H PRN Administration Nausea And Vomiting Metoprolol Tartrate 100 mg 07/10/22 11:00 07/15/22 22:05 Metoprolol Tartrate 100 Mg Tab PO 100 mg BID APRIL Administration Morphine Sulfate 2 mg 07/07/22 08:30 07/15/22 21:53 Morphine 4 Mg/1 Ml Inj IV 2 mg Q4H PRN Administration Pain , Severe (7-10) Nifedipine 30 mg 07/08/22 10:00 07/15/22 09:50 Nifedipine Xl 30 Mg Tab PO 30 mg QDAY APRIL Administration Ondansetron HCl 4 mg 07/07/22 08:30 07/15/22 19:18 Ondansetron 4 Mg/2 Ml Inj IV 4 mg Q8H PRN Administration Nausea And Vomiting Oxycodone/Acetaminophen 1 tab 07/07/22 08:30 07/15/22 09:49 Oxycodone /Acetaminophen 5-325mg Tab PO 1 tab Q6H PRN Administration Pain, Moderate (4-6) Sodium Chloride 10 ml 07/07/22 10:00 07/15/22 22:06 Sodium Chloride 0.9% 10 Ml Flush Syringe IV Not Given BID APRIL Sodium Chloride 10 ml 07/07/22 08:30 Sodium Chloride 0.9% 10 Ml Flush Syringe IV PRN PRN LINE FLUSH Sodium Hypochlorite 1 applic 07/14/22 10:00 07/16/22 02:04 Sodium Hypochlorite, Dakin's 1/2 Strength (0.25%) 473 Ml Topical Soln TP 1 dose BID APRIL Administration Nutrition/Malnutrition Assess - Dietary Evaluation Nutrition/Malnutrition Findings: Nutrition Notes Start: 07/08/22 11:33 Freq: Status: Active Protocol: Document 07/13/22 13:47 CM (Rec: 07/13/22 13:56 CM [id number]) Co-Sign 07/13/22 13:47 WW Nutrition Notes Initial or Follow up Brief Note Current Diagnosis Diabetes,Hypertension Other Pertinent Diagnosis PVD s/p RLE bypass, thrombocytopenia Current Diet Cardiac Diet + Glucerna BID Labs/Tests 07/13: Glu 158 Pertinent Medications 07/13: Atorvastatin Humulin 70/30 Humulin R Height 5 ft 8 in Weight 70.1 kg Usual Body Weight 75 kg [place] Body Weight (kg) 70.00 BMI 23.5 Weight change and time frame 2% wt loss in 1 day - will monitor. Weight Status Appropriate Subjective/Other Information RD follow-up per protocol. Pt advanced to cardiac diet and Glucerna BID ordered. 100% of dinner consumed 07/12. New wt added today. Percent of energy/protein needs met: Cardiac Diet provides 2230kcal / 85g PRO q day - 113% Kcal / 99% AA before nutrition supplements. GI Symptoms None #1 Nutrition Diagnosis Malnutrition Diagnosis Progress(for reassessment Continues documentation) Is patient on ventilator? No Is Patient Ambulatory and/or Out of Bed No REE-([facility]-confined to bed) 1734.384 Kcal/Kg value to use for calculation 28 Approximate Energy Requirements Using 1963 kcal/Kg Calculation Used for Recommendations Kcal/kg Additional Notes 1.2-1.5g/kg ABW; 86-108g PRO q day Fluid needs: 30mL/kg or per MD . Nutrition Intervention Change Diet Order: Continue current diet order or per MA[facility] FISHER recommendations. Add Supplement/Snack (indicate name/kcal Glucerna BID (Chocolate) /protein ) Provides kCal: 440 Provides Protein (gm) 20 Goal #1 Pt to consume >75% of estimated energy/protein needs through current diet order and nutrition supplements Goal #2 Pt to maintain current wt status within 2.5% throughout LOS. Follow-Up By: 07/20/22 Additional Comments Monitor % PO intake, diet tolerance, and wt status.
--- NOTE | 2022-07-16 10:09 | Progress Note ---
Assessment and Plan Postop day #4 status post transmetatarsal amputation of toes 2 through 5. Patient with elevated white count this morning 28,000 potassium also is a little low at 2.9. Intraoperative wound cultures remain pending. Patient with minimal foot pain but complaining abdominal discomfort. He has lost his appetite. There may be some postprandial symptoms. Ultrasound of the right upper quadrant is reviewed showing gallstones but no active signs of cholecystitis. Continue bid soaks in dakins soluiton. If abdo sx persist will check hida scan for biliary colic and chronic cholecystitis. Replace Potassium. Subjective Date of service: 07/16/22 Narrative: Patient with minimal complaints from the amputation of his toes. He is complaining primarily of abdominal pain at this time. The pain appears to be after solids. He is able to tolerate liquids. He has also complaining of diarrhea he had 5 episodes yesterday. 2 specimens have been sent to the lab for C. difficile toxin assay no reports have returned as yet. In addition his last white count was elevated on 07/14/2022 at 29,000. Repeat white count is pending today. Objective Vital Signs - 12hr 07/15/22 07/15/22 07/16/22 22:05 22:36 02:45 Temperature 99.5 F 99 F Pulse Rate 126 H 126 H 97 H Respiratory 20 20 Rate Blood Pressure 130/50 146/51 Blood Pressure 95/56 [Left] O2 Sat by Pulse 99 94 Oximetry 07/16/22 07/16/22 03:30 07:36 Temperature 99.7 F H Pulse Rate 115 H Respiratory 18 Rate Blood Pressure 153/57 Blood Pressure [Left] O2 Sat by Pulse 94 91 Oximetry - Labs 07/14/22 07:58 07/15/22 08:22 Diabetes panel 07/15/22 Range/Units 08:22 Sodium 141 (137-145) mmol/L Potassium 3.5 L D (3.6-5.0) mmol/L Chloride 103.1 (98-107) mmol/L Carbon Dioxide 24 (22-30) mmol/L BUN 12 (9-20) mg/dL Creatinine 1.0 (0.8-1.3) mg/dL Glucose 30 L* (75-100) mg/dL Calcium 7.2 L (8.4-10.2) mg/dL Calcium panel 07/15/22 Range/Units 08:22 Calcium 7.2 L (8.4-10.2) mg/dL Pituitary panel 07/15/22 Range/Units 08:22 Sodium 141 (137-145) mmol/L Potassium 3.5 L D (3.6-5.0) mmol/L Chloride 103.1 (98-107) mmol/L Carbon Dioxide 24 (22-30) mmol/L BUN 12 (9-20) mg/dL Creatinine 1.0 (0.8-1.3) mg/dL Glucose 30 L* (75-100) mg/dL Calcium 7.2 L (8.4-10.2) mg/dL Adrenal panel 07/15/22 Range/Units 08:22 Sodium 141 (137-145) mmol/L Potassium 3.5 L D (3.6-5.0) mmol/L Chloride 103.1 (98-107) mmol/L Carbon Dioxide 24 (22-30) mmol/L BUN 12 (9-20) mg/dL Creatinine 1.0 (0.8-1.3) mg/dL Glucose 30 L* (75-100) mg/dL Calcium 7.2 L (8.4-10.2) mg/dL
[2022-07-16 11:53] LABS: Hematocrit 25.1 % (35.5-45.6); Hemoglobin 7.8 gm/dl (11.8-15.2); Mean Corpuscular HGB Conc 31 % (32-34); Mean Corpuscular Volume 97 fl (84-94); Red Blood Count 2.58 M/mm3 (3.65-5.03); Red Cell Distribution Width 16.8 % (13.2-15.2)
[2022-07-16 12:06] LABS: BUN/Creatinine Ratio 15; Blood Urea Nitrogen 19 mg/dL (9-20); Calcium 7.3 mg/dL (8.4-10.2); Hemolysis Index 5
[2022-07-16] MEDS: INSULIN NPH/REGULAR 70/30 INJ SUB-Q SCH ×3 (13:56→16:27)
[2022-07-16] MEDS: SODIUM CHLORIDE 0.9% 1000 ML 1,000 ML IV SCH (13:57)
[2022-07-16 17:12] LABS: Basophils # (Auto) 0.2 K/mm3 (0.0-0.1); Eosinophils % (Auto) 0.1 % (0.0-4.3); Monocytes # (Auto) 1.8 K/mm3 (0.0-0.8); Monocytes % (Auto) 5.9 % (0.0-7.3)
--- NOTE | 2022-07-16 17:35 | Progress Note ---
Assessment and Plan Cultures: 07/07/2022 blood culture: No growth 07/10/2022 left third toe surgical culture: In process. Gram stain appears mixed with GPC in pairs, rare GNR. 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 WBC elevated. S/p revascularization on 07/09/2022, followed by toe amputation 07/10/2022. Noted to have necrotic tissue. MRI with abscess between the third and fourth toe also extensive bony destruction of the third fourth fifth and even the second toe. S/p TMA of second through fifth toes on 07/12/2022 #Thrombocytopenia: ?acute #JACQUI: Improved. Renally adjust antibiotics as needed. #Peripheral vascular disease, history of RLE arterial bypass, prior right TMA. S/p revascularization on 07/09/2022. #Diabetes mellitus type 2, uncontrolled Recs: -Continue IV cefepime + Daptomycin + Flagyl. Avoiding linezolid due to thrombocytopenia. -CK continues to downtrend, okay to continue IV daptomycin. Recheck on Saturday -Surgical cultures are negative, white count remains elevated. -Follow up C diff PCR - could explain leukocytosis. Amelia Fajardo MD [facility] ([facility] O: [phone] F: [phone] Subjective Date of service: 07/16/22 Principal diagnosis: PVD with critical limb Interval history: Afebrile over the past few days, white count remains elevated at 33 cultures remain negative. Imaging personally reviewed: Chest x-ray: Interstitial pulmonary edema Objective - Exam Narrative Exam: Physical Exam: Constitutional: Alert, cooperative. No acute distress Head, Ears, Nose: Normocephalic, atraumatic. Eyes: Conjunctivae/corneas clear. No icterus. No ptosis. Neck: Supple, no meningeal signs Cardiovascular: S1, S2 + Respiratory: Good air entry, clear to auscultation bilaterally GI: Soft, non-tender; bowel sounds normal. No peritoneal signs Musculoskeletal: Right TMA well-healed, left foot dressing + Skin: No rash or abscess Hem/Lymphatic: No palpable cervical or supraclavicular nodes. No lymphangitis Psych: Mood ok. Affect normal Neurological: Awake, alert, oriented. No gross abnormality - Constitutional Vitals: Vital Signs Temp Pulse Resp BP Pulse Ox 98.8 F 102 H 20 142/51 87 07/16/22 11:37 07/16/22 11:37 07/16/22 11:37 07/16/22 11:37 07/16/22 15:20 Temperature -Last 24 Hours Temperature 98.8 F Temperature 99.7 F Temperature 99 F Temperature 99.5 F Temperature 99.8 F - Labs CBC & Chem 7: 07/16/22 08:31 07/16/22 08:31 Labs: Abnormal lab results 07/15/22 07/15/22 07/16/22 Range/Units 16:19 20:44 07:37 WBC (4.5-11.0) K/mm3 RBC (3.65-5.03) M/mm3 Hgb (11.8-15.2) gm/dl Hct (35.5-45.6) % MCV (84-94) fl MCHC (32-34) % RDW (13.2-15.2) % [place] # (Auto) (0.0-0.8) K/mm3 Baso # (Auto) (0.0-0.1) K/mm3 Seg Neutrophils % (40.0-70.0) % Seg Neutrophils # (1.8-7.7) K/mm3 Sodium (137-145) mmol/L Carbon Dioxide (22-30) mmol/L Glucose (75-100) mg/dL POC Glucose 188 H 283 H (70-105) mg/dL Calcium (8.4-10.2) mg/dL NT-Pro-B Natriuret Pep (0-900) pg/mL Crossmatch See Detail 07/16/22 07/16/22 07/16/22 Range/Units 08:31 08:31 09:50 WBC 33.1 H (4.5-11.0) K/mm3 RBC 2.58 L (3.65-5.03) M/mm3 Hgb 7.8 L (11.8-15.2) gm/dl Hct 25.1 L (35.5-45.6) % MCV 97 H (84-94) fl MCHC 31 L (32-34) % RDW 16.8 H (13.2-15.2) % [place] # (Auto) 1.8 H (0.0-0.8) K/mm3 Baso # (Auto) 0.2 H (0.0-0.1) K/mm3 Seg Neutrophils % 89.3 H (40.0-70.0) % Seg Neutrophils # 28.0 H (1.8-7.7) K/mm3 Sodium 136 L (137-145) mmol/L Carbon Dioxide 19 L (22-30) mmol/L Glucose 374 H (75-100) mg/dL POC Glucose (70-105) mg/dL Calcium 7.3 L (8.4-10.2) mg/dL NT-Pro-B Natriuret Pep 3313 H (0-900) pg/mL Crossmatch 07/16/22 07/16/22 Range/Units 11:31 16:13 WBC (4.5-11.0) K/mm3 RBC (3.65-5.03) M/mm3 Hgb (11.8-15.2) gm/dl Hct (35.5-45.6) % MCV (84-94) fl MCHC (32-34) % RDW (13.2-15.2) % [place] # (Auto) (0.0-0.8) K/mm3 Baso # (Auto) (0.0-0.1) K/mm3 Seg Neutrophils % (40.0-70.0) % Seg Neutrophils # (1.8-7.7) K/mm3 Sodium (137-145) mmol/L Carbon Dioxide (22-30) mmol/L Glucose (75-100) mg/dL POC Glucose 310 H 229 H (70-105) mg/dL Calcium (8.4-10.2) mg/dL NT-Pro-B Natriuret Pep (0-900) pg/mL Crossmatch
[2022-07-16 18:25] LABS: Basophils % (Auto) 0.4 % (0.0-1.8); Lymphocytes # (Auto) 1.1 K/mm3 (1.2-5.4); Platelet Count 14 K/mm3 (140-440)
[2022-07-17] MEDS ORDERED: PHENOL 1.4% 177 ML BOTTLE MM PRN (01:14)
[2022-07-17] MEDS: metroNIDAZOLE/NS 500 MG/100 ML 500 MG/100 ML BAG IV SCH ×3 (04:07→20:12)
[2022-07-17] MEDS: CEFEPIME/NS 1 GM/100 ML 1 GM/100 ML BAG IV SCH ×3 (05:57→22:12)
[2022-07-17] MEDS: SODIUM HYPOCHLORITE, DAKIN'S 1/2 STRENGTH (0.25%) 473 ML TOPICAL SOLN TP SCH ×3 (08:26→22:12)
[2022-07-17] MEDS: INSULIN REGULAR, HUMAN 100 UNITS/1 ML SUB-Q SCH ×4 (08:30→21:48)
[2022-07-17] MEDS ORDERED: FUROSEMIDE 40 MG/4 ML INJ IV STA (09:38)
[2022-07-17] MEDS: CLOPIDOGREL 75 MG TAB PO SCH (10:49)
[2022-07-17] MEDS: INSULIN NPH/REGULAR 70/30 INJ SUB-Q SCH ×2 (10:49→16:23)
[2022-07-17] MEDS: CILOSTAZOL 100 MG TAB PO SCH ×2 (10:49→22:11)
--- NOTE | 2022-07-17 10:49 | Consultation ---
History of Present Illness Consult date: 07/17/22 Requesting physician: JIMBO BECERRIL History of present illness: 67 y/o male transferred from the floor on this am with acute respiratory failure and altered mental status. Patient is more awake now so will try bipap therapy. Admitted several days ago secondary to gangrene. Had toes amputated and was on the floor on abx therapy. Subsequently developed acute respiratory failure and bilateral alveolar infiltrates concerning for pulmonary edema. Past History Past Medical History: diabetes, PVD (s/p RLE bypass 10+ years ago, occluded (pop-dp) ; s/p LLE SFA/pop stenting at outside facility years ago), renal failure (CKD) Past Surgical History: Other (PVD surgery; transmetatarsal amputation of right foot) Social history: no significant social history Family history: no significant family history Medications and Allergies Allergies Allergy/AdvReac Type Severity Reaction Status Date / Time No Known Allergies Allergy Verified 07/10/22 13:17 Home Medications Medication Instructions Recorded Confirmed Last Taken Type Tamsulosin [Flomax] 0.4 mg PO QDAY 07/07/22 07/10/22 Unknown History traZODone [Desyrel] 100 mg PO QHS 07/07/22 07/10/22 Unknown History AtorvaSTATin [Lipitor] 40 mg PO QHS 07/10/22 07/10/22 Unknown History Chlorthalidone [Thalitone] 25 mg PO QDAY 07/10/22 07/10/22 Unknown History Insulin Glargine,Hum.rec.anlog 60 units SQ QDAY 07/10/22 07/10/22 Unknown History [Lantus Solostar] Lisinopril [Zestril TAB] 30 mg PO QDAY 07/10/22 07/10/22 Unknown History Lispro Insulin [HumaLOG] 10 units SQ TIDWM 07/10/22 07/10/22 Unknown History Metoprolol [Lopressor] 100 mg PO BID 07/10/22 07/10/22 Unknown History Multivitamin 1 each PO QDAY 07/10/22 07/10/22 Unknown History Sertraline [Zoloft] 100 mg PO QDAY 07/10/22 07/10/22 Unknown History Timolol Maleate/Pf [Timolol 1 drop OU BID 07/10/22 07/10/22 Unknown History Maleate 0.5% Eye Drop] cilostazoL [Pletal] 100 mg PO BID 07/10/22 07/10/22 Unknown History Active Meds: Active Medications Acetaminophen (Acetaminophen 325 Mg Tab) 650 mg PO Q4H PRN PRN Reason: Pain MILD(1-3)/Fever >100.5/DAS Last Admin: 07/15/22 20:37 Dose: 650 mg Atorvastatin Calcium (Atorvastatin 40 Mg Tab) 40 mg PO DAILY APRIL Last Admin: 07/16/22 09:35 Dose: 40 mg Cilostazol (Cilostazol 100 Mg Tab) 100 mg PO BID APRIL Last Admin: 07/16/22 21:15 Dose: 100 mg Clopidogrel Bisulfate (Clopidogrel 75 Mg Tab) 75 mg PO QDAY APRIL Last Admin: 07/16/22 09:35 Dose: 75 mg Dextrose (Dextrose 50% In Water (25gm) 50 Ml Syringe) 50 ml IV Q30MIN PRN; Protocol PRN Reason: Hypoglycemia Last Admin: 07/15/22 16:13 Dose: 25 ml Sodium Chloride (Nacl 0.9% 1000 Ml) 1,000 mls @ 100 mls/hr IV DIRECT APRIL Last Admin: 07/16/22 13:57 Dose: 100 mls/hr Daptomycin 500 mg/ Sodium (Chloride) 100 mls @ 200 mls/hr IV Q24H APRIL; Protocol Last Admin: 07/16/22 21:15 Dose: 200 mls/hr Metronidazole (Flagyl 500 Mg/100 Ml) 500 mg in 100 mls @ 100 mls/hr IV Q8H APRIL; Protocol Last Admin: 07/17/22 04:07 Dose: 100 mls/hr Cefepime HCl (Cefepime/Ns 1 Gm/100 Ml) 1 gm in 100 mls @ 200 mls/hr IV Q8H APRIL; Protocol Last Admin: 07/17/22 05:57 Dose: 200 mls/hr Insulin Human Isoph/Insulin Regular (Insulin Nph/Regular 70/30 Inj) 18 unit SUB-Q BIDDIAB APRIL Last Admin: 07/16/22 16:27 Dose: Not Given Insulin Human Regular (Insulin Regular, Human 100 Units/1 Ml) 0 units SUB-Q ACHS APRIL; Protocol Last Admin: 07/17/22 08:30 Dose: Not Given Metoclopramide HCl (Metoclopramide 10 Mg/2 Ml Inj) 10 mg IV Q6H PRN PRN Reason: Nausea And Vomiting Last Admin: 07/15/22 20:54 Dose: 10 mg Metoprolol Tartrate (Metoprolol Tartrate 100 Mg Tab) 100 mg PO BID [facility] Last Admin: 07/16/22 21:15 Dose: 100 mg Metoprolol Tartrate (Metoprolol Tartrate 5 Mg/5 Ml Inj) 5 mg IV Q6HR [facility] Metoprolol Tartrate (Metoprolol Tartrate 5 Mg/5 Ml Inj) 2.5 mg IV ONCE ONE Stop: 07/17/22 10:48 Morphine Sulfate (Morphine 4 Mg/1 Ml Inj) 2 mg IV Q4H PRN PRN Reason: Pain , Severe (7-10) Last Admin: 07/15/22 21:53 Dose: 2 mg Nifedipine (Nifedipine Xl 30 Mg Tab) 30 mg PO QDAY [facility] Last Admin: 07/16/22 09:35 Dose: 30 mg Ondansetron HCl (Ondansetron 4 Mg/2 Ml Inj) 4 mg IV Q8H PRN PRN Reason: Nausea And Vomiting Last Admin: 07/15/22 19:18 Dose: 4 mg Oxycodone/Acetaminophen (Oxycodone /Acetaminophen 5-325mg Tab) 1 tab PO Q6H PRN PRN Reason: Pain, Moderate (4-6) Last Admin: 07/16/22 16:24 Dose: 1 tab Phenol (Phenol 1.4% 177 Ml Bottle) 1 spray MM PRN PRN PRN Reason: Sore Throat Last Admin: 07/17/22 01:43 Dose: 1 spray Sodium Chloride (Sodium Chloride 0.9% 10 Ml Flush Syringe) 10 ml IV BID [facility] Last Admin: 07/17/22 08:26 Dose: Not Given Sodium Chloride (Sodium Chloride 0.9% 10 Ml Flush Syringe) 10 ml IV PRN PRN PRN Reason: LINE FLUSH Sodium Hypochlorite (Sodium Hypochlorite, [place]'s 1/2 Strength (0.25%) 473 Ml Topical Soln) 1 applic TP BID [facility] Last Admin: 07/17/22 08:26 Dose: Not Given Physical Examination Vital signs: Vital Signs Temp Pulse Resp BP Pulse Ox 99.0 F 109 H 16 124/49 99 07/06/22 21:14 07/06/22 21:14 07/06/22 21:14 07/06/22 21:14 07/06/22 21:14 Results - Laboratory Findings CBC and BMP: 07/18/22 08:07 07/18/22 08:07 ABG ABG pH 7.528 pH Units (7.350-7.450) H 07/15/22 11:56 ABG pCO2 30.0 mm Hg 07/15/22 11:56 ABG pO2 125.0 mm Hg (80.0-90.0) H 07/15/22 11:56 ABG O2 Saturation 98.7 % (95.0-99.0) 07/15/22 11:56 PT/INR, D-dimer PT 14.5 Sec. (12.2-14.9) 07/09/22 Unknown INR 0.99 (0.87-1.13) 07/09/22 Unknown Abnormal lab findings: Abnormal Labs 07/07/22 07/07/22 07/07/22 02:26 02:26 08:41 WBC 27.0 H RBC 2.52 L Hgb 8.2 L Hct 25.5 L MCV 101 H MCH 33 H MCHC RDW 13.1 L Plt Count 31 L [place] % (Auto) Lymph # (Auto) [place] # (Auto) Baso # (Auto) Seg Neutrophils % Seg Neuts % (Manual) 88.0 H Lymphocytes % (Manual) 7.0 L Monocytes % (Manual) Seg Neutrophils # Seg Neutrophils # Man 23.8 H Monocytes # (Manual) ABG pH ABG pO2 ABG Hemoglobin Sodium 129 L Potassium Chloride 91.5 L Carbon Dioxide 16 L BUN 57 H Creatinine 1.7 H Glucose 509 H* POC Glucose Hemoglobin A1c 6.5 H Calcium Iron TIBC Ferritin AST 41 H Total Creatine Kinase NT-Pro-B Natriuret Pep Albumin 3.6 L LDL Cholesterol Direct HDL Cholesterol Vitamin B12 Crossmatch 07/07/22 07/07/22 07/07/22 08:41 09:19 11:22 WBC RBC Hgb Hct MCV MCH MCHC RDW Plt Count [place] % (Auto) Lymph # (Auto) [place] # (Auto) Baso # (Auto) Seg Neutrophils % Seg Neuts % (Manual) Lymphocytes % (Manual) Monocytes % (Manual) Seg Neutrophils # Seg Neutrophils # Man Monocytes # (Manual) ABG pH ABG pO2 ABG Hemoglobin Sodium Potassium Chloride Carbon Dioxide BUN Creatinine Glucose POC Glucose 394 H 343 H Hemoglobin A1c Calcium Iron TIBC Ferritin AST Total Creatine Kinase NT-Pro-B Natriuret Pep Albumin LDL Cholesterol Direct 46 L HDL Cholesterol 37 L Vitamin B12 Crossmatch 07/07/22 07/07/22 07/07/22 15:52 17:44 18:16 WBC RBC Hgb Hct MCV MCH MCHC RDW Plt Count [place] % (Auto) Lymph # (Auto) [place] # (Auto) Baso # (Auto) Seg Neutrophils % Seg Neuts % (Manual) Lymphocytes % (Manual) Monocytes % (Manual) Seg Neutrophils # Seg Neutrophils # Man Monocytes # (Manual) ABG pH ABG pO2 ABG Hemoglobin Sodium Potassium Chloride Carbon Dioxide BUN Creatinine Glucose POC Glucose 515 H 558 H 464 H Hemoglobin A1c Calcium Iron TIBC Ferritin AST Total Creatine Kinase NT-Pro-B Natriuret Pep Albumin LDL Cholesterol Direct HDL Cholesterol Vitamin B12 Crossmatch 07/07/22 07/08/22 07/08/22 20:35 05:35 05:35 WBC 21.2 H RBC 2.49 L Hgb 7.9 L Hct 25.3 L MCV 102 H MCH MCHC 31 L RDW 13.1 L Plt Count 27 L [place] % (Auto) Lymph # (Auto) [place] # (Auto) Baso # (Auto) Seg Neutrophils % Seg Neuts % (Manual) 81.5 H Lymphocytes % (Manual) 12.0 L Monocytes % (Manual) Seg Neutrophils # Seg Neutrophils # Man 17.3 H Monocytes # (Manual) 1.0 H ABG pH ABG pO2 ABG Hemoglobin Sodium 134 L Potassium Chloride Carbon Dioxide 21 L BUN 29 H Creatinine Glucose 179 H POC Glucose 359 H Hemoglobin A1c Calcium Iron 16 L TIBC 133 L Ferritin AST Total Creatine Kinase NT-Pro-B Natriuret Pep Albumin LDL Cholesterol Direct HDL Cholesterol Vitamin B12 Crossmatch 07/08/22 07/08/22 07/08/22 05:35 05:50 07:39 WBC RBC Hgb Hct MCV MCH MCHC RDW Plt Count [place] % (Auto) Lymph # (Auto) [place] # (Auto) Baso # (Auto) Seg Neutrophils % Seg Neuts % (Manual) Lymphocytes % (Manual) Monocytes % (Manual) Seg Neutrophils # Seg Neutrophils # Man Monocytes # (Manual) ABG pH ABG pO2 ABG Hemoglobin Sodium Potassium Chloride Carbon Dioxide BUN Creatinine Glucose POC Glucose 164 H 180 H Hemoglobin A1c Calcium Iron TIBC Ferritin 2888.0 H AST Total Creatine Kinase NT-Pro-B Natriuret Pep Albumin LDL Cholesterol Direct HDL Cholesterol Vitamin B12 Crossmatch 07/08/22 07/08/22 07/09/22 11:39 16:33 06:01 WBC RBC Hgb Hct MCV MCH MCHC RDW Plt Count [place] % (Auto) Lymph # (Auto) [place] # (Auto) Baso # (Auto) Seg Neutrophils % Seg Neuts % (Manual) Lymphocytes % (Manual) Monocytes % (Manual) Seg Neutrophils # Seg Neutrophils # Man Monocytes # (Manual) ABG pH ABG pO2 ABG Hemoglobin Sodium Potassium Chloride Carbon Dioxide BUN Creatinine Glucose POC Glucose 202 H 182 H 150 H Hemoglobin A1c Calcium Iron TIBC Ferritin AST Total Creatine Kinase NT-Pro-B Natriuret Pep Albumin LDL Cholesterol Direct HDL Cholesterol Vitamin B12 Crossmatch 07/09/22 07/09/22 07/09/22 08:50 12:09 13:02 WBC 22.5 H RBC 2.70 L Hgb 8.8 L Hct 27.2 L MCV 101 H MCH 33 H MCHC RDW Plt Count 44 L [place] % (Auto) Lymph # (Auto) [place] # (Auto) Baso # (Auto) Seg Neutrophils % Seg Neuts % (Manual) 77.0 H Lymphocytes % (Manual) 11.0 L Monocytes % (Manual) 12.0 H Seg Neutrophils # Seg Neutrophils # Man 17.3 H Monocytes # (Manual) 2.7 H ABG pH ABG pO2 ABG Hemoglobin Sodium Potassium Chloride Carbon Dioxide BUN Creatinine Glucose POC Glucose 191 H 228 H Hemoglobin A1c Calcium Iron TIBC Ferritin AST Total Creatine Kinase NT-Pro-B Natriuret Pep Albumin LDL Cholesterol Direct HDL Cholesterol Vitamin B12 Crossmatch 07/09/22 07/09/22 07/09/22 20:41 Unknown Unknown WBC 17.9 H RBC 2.71 L Hgb 8.6 L Hct 27.3 L MCV 101 H MCH MCHC 31 L RDW 13.1 L Plt Count 47 L [place] % (Auto) 11.9 H Lymph # (Auto) [place] # (Auto) 2.1 H Baso # (Auto) Seg Neutrophils % 70.7 H Seg Neuts % (Manual) Lymphocytes % (Manual) Monocytes % (Manual) Seg Neutrophils # 12.6 H Seg Neutrophils # Man Monocytes # (Manual) ABG pH ABG pO2 ABG Hemoglobin Sodium 136 L Potassium Chloride Carbon Dioxide BUN Creatinine Glucose 174 H POC Glucose 380 H Hemoglobin A1c Calcium Iron TIBC Ferritin AST Total Creatine Kinase NT-Pro-B Natriuret Pep Albumin LDL Cholesterol Direct HDL Cholesterol Vitamin B12 Crossmatch 07/10/22 07/10/22 07/10/22 05:10 05:10 05:49 WBC 25.0 H RBC 2.51 L Hgb 8.1 L Hct 24.9 L MCV 99 H MCH MCHC RDW Plt Count 41 L [place] % (Auto) Lymph # (Auto) [place] # (Auto) Baso # (Auto) Seg Neutrophils % Seg Neuts % (Manual) 91.0 H Lymphocytes % (Manual) 6.0 L Monocytes % (Manual) Seg Neutrophils # Seg Neutrophils # Man 22.8 H Monocytes # (Manual) ABG pH ABG pO2 ABG Hemoglobin Sodium Potassium Chloride Carbon Dioxide BUN Creatinine Glucose 197 H POC Glucose 230 H Hemoglobin A1c Calcium Iron TIBC Ferritin AST Total Creatine Kinase 816 H NT-Pro-B Natriuret Pep Albumin LDL Cholesterol Direct HDL Cholesterol Vitamin B12 Crossmatch 07/10/22 07/10/22 07/10/22 15:31 15:33 17:52 WBC RBC Hgb Hct MCV MCH MCHC RDW Plt Count [place] % (Auto) Lymph # (Auto) [place] # (Auto) Baso # (Auto) Seg Neutrophils % Seg Neuts % (Manual) Lymphocytes % (Manual) Monocytes % (Manual) Seg Neutrophils # Seg Neutrophils # Man Monocytes # (Manual) ABG pH ABG pO2 ABG Hemoglobin Sodium Potassium Chloride Carbon Dioxide BUN Creatinine Glucose POC Glucose 319 H 335 H 334 H Hemoglobin A1c Calcium Iron TIBC Ferritin AST Total Creatine Kinase NT-Pro-B Natriuret Pep Albumin LDL Cholesterol Direct HDL Cholesterol Vitamin B12 Crossmatch 07/10/22 07/11/22 07/11/22 20:20 06:04 06:04 WBC 27.9 H RBC 2.48 L Hgb 7.9 L Hct 24.7 L MCV 100 H MCH MCHC RDW Plt Count 51 L [place] % (Auto) Lymph # (Auto) [place] # (Auto) Baso # (Auto) Seg Neutrophils % Seg Neuts % (Manual) 82.0 H Lymphocytes % (Manual) 8.0 L Monocytes % (Manual) 10.0 H Seg Neutrophils # Seg Neutrophils # Man 22.9 H Monocytes # (Manual) 2.8 H ABG pH ABG pO2 ABG Hemoglobin Sodium Potassium Chloride Carbon Dioxide BUN Creatinine Glucose 64 L POC Glucose 250 H Hemoglobin A1c Calcium 8.3 L Iron TIBC Ferritin AST Total Creatine Kinase 483 H NT-Pro-B Natriuret Pep Albumin LDL Cholesterol Direct HDL Cholesterol Vitamin B12 Crossmatch 07/11/22 07/11/22 07/11/22 08:35 13:06 16:00 WBC RBC Hgb Hct MCV MCH MCHC RDW Plt Count [place] % (Auto) Lymph # (Auto) [place] # (Auto) Baso # (Auto) Seg Neutrophils % Seg Neuts % (Manual) Lymphocytes % (Manual) Monocytes % (Manual) Seg Neutrophils # Seg Neutrophils # Man Monocytes # (Manual) ABG pH ABG pO2 ABG Hemoglobin Sodium Potassium Chloride Carbon Dioxide BUN Creatinine Glucose POC Glucose 111 H 220 H 107 H Hemoglobin A1c Calcium Iron TIBC Ferritin AST Total Creatine Kinase NT-Pro-B Natriuret Pep Albumin LDL Cholesterol Direct HDL Cholesterol Vitamin B12 Crossmatch 07/11/22 07/12/22 07/12/22 22:37 04:51 05:15 WBC RBC Hgb Hct MCV MCH MCHC RDW Plt Count [place] % (Auto) Lymph # (Auto) [place] # (Auto) Baso # (Auto) Seg Neutrophils % Seg Neuts % (Manual) Lymphocytes % (Manual) Monocytes % (Manual) Seg Neutrophils # Seg Neutrophils # Man Monocytes # (Manual) ABG pH ABG pO2 ABG Hemoglobin Sodium Potassium Chloride Carbon Dioxide BUN Creatinine Glucose POC Glucose 109 H 189 H Hemoglobin A1c Calcium Iron TIBC Ferritin AST Total Creatine Kinase 304 H NT-Pro-B Natriuret Pep Albumin LDL Cholesterol Direct HDL Cholesterol Vitamin B12 Crossmatch 07/12/22 07/12/22 07/12/22 07:53 11:09 14:04 WBC RBC Hgb Hct MCV MCH MCHC RDW Plt Count [place] % (Auto) Lymph # (Auto) [place] # (Auto) Baso # (Auto) Seg Neutrophils % Seg Neuts % (Manual) Lymphocytes % (Manual) Monocytes % (Manual) Seg Neutrophils # Seg Neutrophils # Man Monocytes # (Manual) ABG pH ABG pO2 ABG Hemoglobin Sodium Potassium Chloride Carbon Dioxide BUN Creatinine Glucose POC Glucose 242 H 269 H 285 H Hemoglobin A1c Calcium Iron TIBC Ferritin AST Total Creatine Kinase NT-Pro-B Natriuret Pep Albumin LDL Cholesterol Direct HDL Cholesterol Vitamin B12 Crossmatch 07/12/22 07/12/22 07/12/22 17:11 17:50 21:18 WBC RBC Hgb Hct MCV MCH MCHC RDW Plt Count [place] % (Auto) Lymph # (Auto) [place] # (Auto) Baso # (Auto) Seg Neutrophils % Seg Neuts % (Manual) Lymphocytes % (Manual) Monocytes % (Manual) Seg Neutrophils # Seg Neutrophils # Man Monocytes # (Manual) ABG pH ABG pO2 ABG Hemoglobin Sodium Potassium Chloride Carbon Dioxide BUN Creatinine Glucose POC Glucose 301 H 299 H 331 H Hemoglobin A1c Calcium Iron TIBC Ferritin AST Total Creatine Kinase NT-Pro-B Natriuret Pep Albumin LDL Cholesterol Direct HDL Cholesterol Vitamin B12 Crossmatch 07/13/22 07/13/22 07/13/22 07:02 08:10 11:37 WBC RBC Hgb Hct MCV MCH MCHC RDW Plt Count [place] % (Auto) Lymph # (Auto) [place] # (Auto) Baso # (Auto) Seg Neutrophils % Seg Neuts % (Manual) Lymphocytes % (Manual) Monocytes % (Manual) Seg Neutrophils # Seg Neutrophils # Man Monocytes # (Manual) ABG pH ABG pO2 ABG Hemoglobin Sodium Potassium Chloride Carbon Dioxide BUN Creatinine Glucose POC Glucose 134 H 158 H 226 H Hemoglobin A1c Calcium Iron TIBC Ferritin AST Total Creatine Kinase NT-Pro-B Natriuret Pep Albumin LDL Cholesterol Direct HDL Cholesterol Vitamin B12 Crossmatch 07/13/22 07/13/22 07/13/22 17:12 20:17 23:34 WBC RBC Hgb Hct MCV MCH MCHC RDW Plt Count [place] % (Auto) Lymph # (Auto) [place] # (Auto) Baso # (Auto) Seg Neutrophils % Seg Neuts % (Manual) Lymphocytes % (Manual) Monocytes % (Manual) Seg Neutrophils # Seg Neutrophils # Man Monocytes # (Manual) ABG pH ABG pO2 ABG Hemoglobin Sodium Potassium Chloride Carbon Dioxide BUN Creatinine Glucose POC Glucose 122 H 235 H 283 H Hemoglobin A1c Calcium Iron TIBC Ferritin AST Total Creatine Kinase NT-Pro-B Natriuret Pep Albumin LDL Cholesterol Direct HDL Cholesterol Vitamin B12 Crossmatch 07/14/22 07/14/22 07/14/22 06:01 07:58 07:58 WBC 29.4 H RBC 2.11 L Hgb 6.7 L Hct 21.0 L MCV 100 H MCH MCHC RDW Plt Count 34 L [place] % (Auto) Lymph # (Auto) [place] # (Auto) Baso # (Auto) Seg Neutrophils % Seg Neuts % (Manual) 86.0 H Lymphocytes % (Manual) 4.0 L Monocytes % (Manual) 10.0 H Seg Neutrophils # Seg Neutrophils # Man 25.3 H Monocytes # (Manual) 2.9 H ABG pH ABG pO2 ABG Hemoglobin Sodium Potassium Chloride Carbon Dioxide BUN Creatinine Glucose POC Glucose 175 H Hemoglobin A1c Calcium Iron TIBC Ferritin AST Total Creatine Kinase NT-Pro-B Natriuret Pep Albumin LDL Cholesterol Direct HDL Cholesterol Vitamin B12 > 2000 H Crossmatch 07/14/22 07/14/22 07/14/22 07:58 08:11 10:51 WBC RBC Hgb Hct MCV MCH MCHC RDW Plt Count [place] % (Auto) Lymph # (Auto) [place] # (Auto) Baso # (Auto) Seg Neutrophils % Seg Neuts % (Manual) Lymphocytes % (Manual) Monocytes % (Manual) Seg Neutrophils # Seg Neutrophils # Man Monocytes # (Manual) ABG pH ABG pO2 ABG Hemoglobin Sodium 136 L Potassium 2.9 L* D Chloride Carbon Dioxide BUN Creatinine Glucose 217 H POC Glucose 218 H 222 H Hemoglobin A1c Calcium 7.5 L Iron TIBC Ferritin AST Total Creatine Kinase NT-Pro-B Natriuret Pep Albumin LDL Cholesterol Direct HDL Cholesterol Vitamin B12 Crossmatch 07/14/22 07/14/22 07/15/22 15:25 20:32 08:22 WBC RBC Hgb Hct MCV MCH MCHC RDW Plt Count [place] % (Auto) Lymph # (Auto) [place] # (Auto) Baso # (Auto) Seg Neutrophils % Seg Neuts % (Manual) Lymphocytes % (Manual) Monocytes % (Manual) Seg Neutrophils # Seg Neutrophils # Man Monocytes # (Manual) ABG pH ABG pO2 ABG Hemoglobin Sodium Potassium 3.5 L D Chloride Carbon Dioxide BUN Creatinine Glucose 30 L* POC Glucose 174 H 159 H Hemoglobin A1c Calcium 7.2 L Iron TIBC Ferritin AST Total Creatine Kinase NT-Pro-B Natriuret Pep Albumin LDL Cholesterol Direct HDL Cholesterol Vitamin B12 Crossmatch 07/15/22 07/15/22 07/15/22 11:23 11:56 16:00 WBC RBC Hgb Hct MCV MCH MCHC RDW Plt Count [place] % (Auto) Lymph # (Auto) [place] # (Auto) Baso # (Auto) Seg Neutrophils % Seg Neuts % (Manual) Lymphocytes % (Manual) Monocytes % (Manual) Seg Neutrophils # Seg Neutrophils # Man Monocytes # (Manual) ABG pH 7.528 H ABG pO2 125.0 H ABG Hemoglobin 6.9 L Sodium Potassium Chloride Carbon Dioxide BUN Creatinine Glucose POC Glucose 117 H 43 L Hemoglobin A1c Calcium Iron TIBC Ferritin AST Total Creatine Kinase NT-Pro-B Natriuret Pep Albumin LDL Cholesterol Direct HDL Cholesterol Vitamin B12 Crossmatch 07/15/22 07/15/22 07/15/22 16:19 16:54 20:44 WBC RBC Hgb Hct MCV MCH MCHC RDW Plt Count [place] % (Auto) Lymph # (Auto) [place] # (Auto) Baso # (Auto) Seg Neutrophils % Seg Neuts % (Manual) Lymphocytes % (Manual) Monocytes % (Manual) Seg Neutrophils # Seg Neutrophils # Man Monocytes # (Manual) ABG pH ABG pO2 ABG Hemoglobin Sodium Potassium Chloride Carbon Dioxide BUN Creatinine Glucose POC Glucose 150 H 188 H Hemoglobin A1c Calcium Iron TIBC Ferritin AST Total Creatine Kinase NT-Pro-B Natriuret Pep Albumin LDL Cholesterol Direct HDL Cholesterol Vitamin B12 Crossmatch See Detail 07/16/22 07/16/22 07/16/22 07:37 08:31 08:31 WBC 33.1 H RBC 2.58 L Hgb 7.8 L Hct 25.1 L MCV 97 H MCH MCHC 31 L RDW 16.8 H Plt Count 14 L* [place] % (Auto) Lymph # (Auto) 1.1 L [place] # (Auto) 1.8 H Baso # (Auto) 0.2 H Seg Neutrophils % 89.3 H Seg Neuts % (Manual) Lymphocytes % (Manual) Monocytes % (Manual) Seg Neutrophils # 28.0 H Seg Neutrophils # Man Monocytes # (Manual) ABG pH ABG pO2 ABG Hemoglobin Sodium 136 L Potassium Chloride Carbon Dioxide 19 L BUN Creatinine Glucose 374 H POC Glucose 283 H Hemoglobin A1c Calcium 7.3 L Iron TIBC Ferritin AST Total Creatine Kinase NT-Pro-B Natriuret Pep Albumin LDL Cholesterol Direct HDL Cholesterol Vitamin B12 Crossmatch 07/16/22 07/16/22 07/16/22 09:50 11:31 16:13 WBC RBC Hgb Hct MCV MCH MCHC RDW Plt Count [place] % (Auto) Lymph # (Auto) [place] # (Auto) Baso # (Auto) Seg Neutrophils % Seg Neuts % (Manual) Lymphocytes % (Manual) Monocytes % (Manual) Seg Neutrophils # Seg Neutrophils # Man Monocytes # (Manual) ABG pH ABG pO2 ABG Hemoglobin Sodium Potassium Chloride Carbon Dioxide BUN Creatinine Glucose POC Glucose 310 H 229 H Hemoglobin A1c Calcium Iron TIBC Ferritin AST Total Creatine Kinase NT-Pro-B Natriuret Pep 3313 H Albumin LDL Cholesterol Direct HDL Cholesterol Vitamin B12 Crossmatch 07/16/22 07/17/22 21:50 08:24 WBC RBC Hgb Hct MCV MCH MCHC RDW Plt Count [place] % (Auto) Lymph # (Auto) [place] # (Auto) Baso # (Auto) Seg Neutrophils % Seg Neuts % (Manual) Lymphocytes % (Manual) Monocytes % (Manual) Seg Neutrophils # Seg Neutrophils # Man Monocytes # (Manual) ABG pH ABG pO2 ABG Hemoglobin Sodium Potassium Chloride Carbon Dioxide BUN Creatinine Glucose POC Glucose 181 H 200 H Hemoglobin A1c Calcium Iron TIBC Ferritin AST Total Creatine Kinase NT-Pro-B Natriuret Pep Albumin LDL Cholesterol Direct HDL Cholesterol Vitamin B12 Crossmatch - Diagnostic Findings Chest x-ray: image reviewed Assessment and Plan 67 y/o male with gangrene of foot, osteomyelitis s/p amputation now with acute respiratory failure concern for volume overload 1. Agree with trial of lasix 2. Given that mental state has improved, will hold on intubation for now and attempt PPV with bipap 3. Per patient has severe anxiety, but want to wait given his recent improvement in mental state 4. Abx per ID 5. PRognosis is guarded. CCT 31 minutes.
[2022-07-17] MEDS: METOPROLOL TARTRATE 100 MG TAB PO SCH (10:50)
[2022-07-17] MEDS: NIFEdipine XL 30 MG TAB PO SCH (10:50)
[2022-07-17] MEDS ORDERED: METOPROLOL TARTRATE 5 MG/5 ML INJ IV ONE (11:00)
[2022-07-17] MEDS: METOPROLOL TARTRATE 5 MG/5 ML INJ IV SCH ×2 (11:04→17:58)
[2022-07-17] MEDS: MORPHINE 4 MG/1 ML INJ IV PRN (11:04)
--- NOTE | 2022-07-17 11:17 | Progress Note ---
Assessment and Plan Cultures: 07/07/2022 blood culture: No growth 07/10/2022 left third toe surgical culture: In process. Gram stain appears mixed with GPC in pairs, rare GNR. 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 WBC elevated. S/p revascularization on 07/09/2022, followed by toe amputation 07/10/2022. Noted to have necrotic tissue. MRI with abscess between the third and fourth toe also extensive bony destruction of the third fourth fifth and even the second toe. S/p TMA of second through fifth toes on 07/12/2022 #Thrombocytopenia: ?acute #JACQUI: Improved. Renally adjust antibiotics as needed. #Peripheral vascular disease, history of RLE arterial bypass, prior right TMA. S/p revascularization on 07/09/2022. #Diabetes mellitus type 2, uncontrolled Recs: -Continue IV cefepime + Daptomycin + Flagyl. Avoiding linezolid due to thrombocytopenia. -CK continues to downtrend, okay to continue IV daptomycin. -Surgical cultures are negative, white count remains elevated. -Follow up C diff PCR - could explain leukocytosis. Amelia Fajardo MD [facility] O: [phone] F: [phone] Subjective Date of service: 07/17/22 Principal diagnosis: PVD with critical limb Interval history: Afebrile overnight, no acute change. Cultures all remain negative. Imaging personally viewed: Echo: No evidence of vegetations Objective - Exam Narrative Exam: Physical Exam: Constitutional: Alert, cooperative. No acute distress Head, Ears, Nose: Normocephalic, atraumatic. Eyes: Conjunctivae/corneas clear. No icterus. No ptosis. Neck: Supple, no meningeal signs Cardiovascular: S1, S2 + Respiratory: Good air entry, clear to auscultation bilaterally GI: Soft, non-tender; bowel sounds normal. No peritoneal signs Musculoskeletal: Right TMA well-healed, left foot dressing + Skin: No rash or abscess Hem/Lymphatic: No palpable cervical or supraclavicular nodes. No lymphangitis Psych: Mood ok. Affect normal Neurological: Awake, alert, oriented. No gross abnormality - Constitutional Vitals: Vital Signs Temp Pulse Resp BP Pulse Ox 98.1 F 108 H 22 133/55 100 07/17/22 06:15 07/17/22 11:11 07/17/22 11:11 07/17/22 11:11 07/17/22 11:11 Temperature -Last 24 Hours Temperature 98.1 F Temperature 100.1 F Temperature 99.2 F Temperature 98.4 F Temperature 98.8 F - Labs CBC & Chem 7: 07/16/22 08:31 07/16/22 08:31 Labs: Abnormal lab results 07/16/22 07/16/22 07/16/22 Range/Units 08:31 08:31 09:50 WBC 33.1 H (4.5-11.0) K/mm3 RBC 2.58 L (3.65-5.03) M/mm3 Hgb 7.8 L (11.8-15.2) gm/dl Hct 25.1 L (35.5-45.6) % MCV 97 H (84-94) fl MCHC 31 L (32-34) % RDW 16.8 H (13.2-15.2) % Plt Count 14 L* (140-440) K/mm3 Lymph # (Auto) 1.1 L (1.2-5.4) K/mm3 Ponce # (Auto) 1.8 H (0.0-0.8) K/mm3 Baso # (Auto) 0.2 H (0.0-0.1) K/mm3 Seg Neutrophils % 89.3 H (40.0-70.0) % Seg Neutrophils # 28.0 H (1.8-7.7) K/mm3 Sodium 136 L (137-145) mmol/L Carbon Dioxide 19 L (22-30) mmol/L Glucose 374 H (75-100) mg/dL POC Glucose (70-105) mg/dL Calcium 7.3 L (8.4-10.2) mg/dL NT-Pro-B Natriuret Pep 3313 H (0-900) pg/mL 07/16/22 07/16/22 07/16/22 Range/Units 11:31 16:13 21:50 WBC (4.5-11.0) K/mm3 RBC (3.65-5.03) M/mm3 Hgb (11.8-15.2) gm/dl Hct (35.5-45.6) % MCV (84-94) fl MCHC (32-34) % RDW (13.2-15.2) % Plt Count (140-440) K/mm3 Lymph # (Auto) (1.2-5.4) K/mm3 Ponce # (Auto) (0.0-0.8) K/mm3 Baso # (Auto) (0.0-0.1) K/mm3 Seg Neutrophils % (40.0-70.0) % Seg Neutrophils # (1.8-7.7) K/mm3 Sodium (137-145) mmol/L Carbon Dioxide (22-30) mmol/L Glucose (75-100) mg/dL POC Glucose 310 H 229 H 181 H (70-105) mg/dL Calcium (8.4-10.2) mg/dL NT-Pro-B Natriuret Pep (0-900) pg/mL 07/17/22 Range/Units 08:24 WBC (4.5-11.0) K/mm3 RBC (3.65-5.03) M/mm3 Hgb (11.8-15.2) gm/dl Hct (35.5-45.6) % MCV (84-94) fl MCHC (32-34) % RDW (13.2-15.2) % Plt Count (140-440) K/mm3 Lymph # (Auto) (1.2-5.4) K/mm3 Ponce # (Auto) (0.0-0.8) K/mm3 Baso # (Auto) (0.0-0.1) K/mm3 Seg Neutrophils % (40.0-70.0) % Seg Neutrophils # (1.8-7.7) K/mm3 Sodium (137-145) mmol/L Carbon Dioxide (22-30) mmol/L Glucose (75-100) mg/dL POC Glucose 200 H (70-105) mg/dL Calcium (8.4-10.2) mg/dL NT-Pro-B Natriuret Pep (0-900) pg/mL
--- NOTE | 2022-07-17 12:16 | Progress Note ---
Assessment and Plan t sp transmet amp of 2,3,4,5 toes. he has minimalpain from this. Pt transferred to icu this am for managemnt of pulm edema. He is on BiPap at this time. Dakins solution soaks have been postponed with clinical change and transfer to the icu. Pt denies any foot pain. He also notes nofurther abdo pain or diarrhea. C diff toxin assay sent 2 days ago is still pending. Pt wbc ct was 33.000 this am. Drain in the foot was removed. Begin bid wound irrigations with normal saline. Subjective Date of service: 07/17/22 Patient Reports: Positive: feels better Narrative: Pt sp transmet amp of 2,3,4,5 toes. he has minimalpain from this. Pt transferred to icu this am for managemnt of pulm edema. He is on BiPap at this time. Dakins solution soaks have been postponed with clinical change and transfer to the icu. Pt denies any foot pain. He also notes nofurther abdo pain or diarrhea. C diff toxin assay sent 2 days ago is still pending. Pt wbc ct was 33.000 this am. Drain in the foot was removed. Begin bid wound irrigations with normal saline. Objective Vital Signs - 12hr 07/17/22 07/17/22 07/17/22 01:13 02:19 04:00 Temperature 100.1 F H Pulse Rate 103 H 103 H Respiratory 22 Rate Blood Pressure Blood Pressure 135/52 [Left] O2 Sat by Pulse 96 98 Oximetry 07/17/22 07/17/22 07/17/22 06:15 06:30 09:56 Temperature 98.1 F Pulse Rate 20 L 120 H 122 H Respiratory 20 Rate Blood Pressure Blood Pressure 125/49 [Left] O2 Sat by Pulse 97 Oximetry 07/17/22 07/17/22 07/17/22 10:00 10:10 10:11 Temperature Pulse Rate 124 H 126 H 125 H Respiratory 31 H 28 H 35 H Rate Blood Pressure 147/53 151/54 151/54 Blood Pressure [Left] O2 Sat by Pulse 91 100 99 Oximetry 07/17/22 07/17/22 07/17/22 10:21 10:30 10:41 Temperature Pulse Rate 125 H 122 H Respiratory 29 H 20 Rate Blood Pressure 148/61 148/61 Blood Pressure [Left] O2 Sat by Pulse 98 100 91 Oximetry 07/17/22 07/17/22 07/17/22 10:50 10:51 11:00 Temperature Pulse Rate 122 H 121 H 122 H Respiratory 24 25 H Rate Blood Pressure 148/61 148/61 133/55 Blood Pressure [Left] O2 Sat by Pulse 100 100 Oximetry 07/17/22 07/17/22 07/17/22 11:03 11:04 11:11 Temperature Pulse Rate 122 H 122 H 108 H Respiratory 22 Rate Blood Pressure 133/55 133/55 133/55 Blood Pressure [Left] O2 Sat by Pulse 100 Oximetry 07/17/22 12:08 Temperature Pulse Rate 113 H Respiratory 33 H Rate Blood Pressure 132/54 Blood Pressure [Left] O2 Sat by Pulse 100 Oximetry - Labs 07/16/22 08:31 07/16/22 08:31
--- NOTE | 2022-07-17 13:03 | Progress Note ---
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 S/p revascularization on 07/09/2022, followed by toe amputation 07/10/2022. Noted to have necrotic tissue. MRI with abscess between the third and fourth toe also extensive bony destruction of the third fourth fifth and even the second toe. S/p TMA of second through fifth toes on 07/12/2022 Continue IV cefepime + Daptomycin + Flagyl. Avoiding linezolid due to thrombocytopenia. Diarrhea ; improved Hypokalemia ; Replenish with potassium chloride IV Follow electrolytes insulin dependent type II diabetes mellitus with hyperglycemiaimproving Worsened by diabetic foot infection - hemoglobin A1c: 6.5 - home regimen: Unknown Accu-Chek, sliding scale coverage, long-acting insulin 70/30 - blood glucose goal 140-180 while inpatient - continue to monitor and adjust the dose as needed Pseudohyponatremiaresolved JACQUI on likely CKD stage IIIresolved Mild elevation of creatinine; 1.5 today[07/17/2022] IV fluids Monitor renal function avoid nephrotoxins Renal dosing of medications Renally dose meds and avoid nephrotoxic drugs. Monitor BMP Hypertension/moderate control Continue current antihypertensives And as needed medications - current medications: Started nifedipine 30 mg daily - SBP goal <160 and DBP goal <90 while inpatient - continue to monitor Iron deficiency anemia anemia of chronic disease Hemoglobin 6.7 Received 1 unit of PRBC Monitor H&H transfuse additional PRBC as needed Most recent hemoglobin 7.8[07/16/2022] Acute thrombocytopenia status post transfusion of total 3 units of platelets Today platelets are 30 [improved from 14-30] Patient endorses being aware but not having etiology determined by other clinicians. Hematology following Moderate protein caloric malnutrition Albumin 3.6 Will initiate dietary supplementation once hyperglycemia is under control. DVT prophylaxis ; SCDs/no pharmacologic anticoagulation due to thrombocytopenia --Full code ; Disposition: Patient is transferred to ICU Discharge planning: Case management reports placement at a skilled nursing. When medically stable. As patient has acute respiratory failure on BiPAP and transferred to ICU. Disposition depends on clinical course We will closely monitor the patient and adjust the management as needed Consultants evaluation recommendations noted and appreciated Family discussion I discussed in detail with patient's ?aunt and patient's ?brother when they were visiting ICU Patient's condition, change of status, tests and reports, consultants recommendation Treatment plan, prognosis. They had many questions I answered all of them, and agreed with treatment plan. Critical care time 62 minutes; The high probability of a clinically significant, sudden or life threatening deterioration of the [Multi] system(s) required my full and direct attention, intervention and personal management. The aggregate critical care time was [62] minutes. This time is in addition to time spent performing reported procedures but includes the following: [x] Data Review and interpretation [x] Patient assessment and monitoring of vital signs [x] Documentation [x] Medication orders and management History Interval history: 67-year-old male patient was admitted with lower extremity gangrene of the toes evaluated by vascular/surgeon underwent toe amputation, Patient was hypoxic requiring supplemental oxygen 15 L/high flow, BiPAP as needed suddenly went into acute respiratory failure, and unresponsiveness, code met was called, Upon responding to code met, patient was severely hypoxemic on BiPAP respiratory therapist recommended intubation and ventilatory support On auscultation bilateral basal crackles, advised 40 mg of IV Lasix x1 dose. I discussed with charge nurse of ICU and pulmonary critical Dr. Castillo To transfer the patient to ICU for possible intubation and further management. I also requested critical care consult. On arrival to ICU, patient was more alert, slightly improved, intubation held and pulmonary critical recommended BiPAP Set of labs, chest x-ray, EKG and ABG was requested. Hospitalist Physical - Constitutional Vitals: Temp Pulse Resp BP Pulse Ox 98.1 F 113 H 33 H 132/54 100 07/17/22 06:15 07/17/22 12:08 07/17/22 12:08 07/17/22 12:08 07/17/22 12:08 General appearance: Present: mild distress, well-nourished, other (On BiPAP) - EENT Eyes: Present: PERRL, EOM intact - Neck Neck: Present: supple, normal ROM - Respiratory Respiratory effort: normal Respiratory: bilateral: diminished, rales, negative: rhonchi, wheezing - Cardiovascular Rhythm: regular Heart Sounds: Present: S1 & S2 - Extremities Extremities: No edema, abnormal (TMA right 2,3,4,5 toes, dressing in place) - Abdominal General gastrointestinal: soft, non-tender, non-distended, normal bowel sounds - Integumentary Integumentary: Present: clear, warm - Psychiatric Psychiatric: other (Minimally communicative in distress) - Neurologic Neurologic: other (Unresponsive, confused) Results - Labs CBC & Chem 7: 07/17/22 15:03 07/17/22 15:03 Labs: Laboratory Last Values WBC 33.1 K/mm3 (4.5-11.0) H 07/16/22 08:31 RBC 2.58 M/mm3 (3.65-5.03) L 07/16/22 08:31 Hgb 7.8 gm/dl (11.8-15.2) L 07/16/22 08:31 Hct 25.1 % (35.5-45.6) L 07/16/22 08:31 MCV 97 fl (84-94) H 07/16/22 08:31 MCH 30 pg (28-32) 07/16/22 08:31 MCHC 31 % (32-34) L 07/16/22 08:31 RDW 16.8 % (13.2-15.2) H 07/16/22 08:31 Plt Count 14 K/mm3 (140-440) L* 07/16/22 08:31 Lymph % (Auto) 16.2 % (13.4-35.0) 07/09/22 Unknown [place] % (Auto) 5.9 % (0.0-7.3) 07/16/22 08:31 Eos % (Auto) 0.1 % (0.0-4.3) 07/16/22 08:31 Baso % (Auto) 0.4 % (0.0-1.8) 07/16/22 08:31 Lymph # (Auto) 1.1 K/mm3 (1.2-5.4) L 07/16/22 08:31 [place] # (Auto) 1.8 K/mm3 (0.0-0.8) H 07/16/22 08:31 Eos # (Auto) 0.0 K/mm3 (0.0-0.4) 07/16/22 08:31 Baso # (Auto) 0.2 K/mm3 (0.0-0.1) H 07/16/22 08:31 Add Manual Diff Complete 07/14/22 07:58 Total Counted 100 07/14/22 07:58 Seg Neutrophils % 89.3 % (40.0-70.0) H 07/16/22 08:31 Seg Neuts % (Manual) 86.0 % (40.0-70.0) H 07/14/22 07:58 Band Neutrophils % 0 % 07/14/22 07:58 Lymphocytes % (Manual) 4.0 % (13.4-35.0) L 07/14/22 07:58 Reactive Lymphs % (Man) 0 % 07/14/22 07:58 Monocytes % (Manual) 10.0 % (0.0-7.3) H 07/14/22 07:58 Eosinophils % (Manual) 0 % (0.0-4.3) 07/14/22 07:58 Basophils % (Manual) 0 % (0.0-1.8) 07/14/22 07:58 Metamyelocytes % 0 % 07/14/22 07:58 Myelocytes % 0 % 07/14/22 07:58 Promyelocytes % 0 % 07/14/22 07:58 Blast Cells % 0 % 07/14/22 07:58 Nucleated RBC % Not Reportable 07/14/22 07:58 Seg Neutrophils # 28.0 K/mm3 (1.8-7.7) H 07/16/22 08:31 Seg Neutrophils # Man 25.3 K/mm3 (1.8-7.7) H 07/14/22 07:58 Band Neutrophils # 0.0 K/mm3 07/14/22 07:58 Lymphocytes # (Manual) 1.2 K/mm3 (1.2-5.4) 07/14/22 07:58 Abs React Lymphs (Man) 0.0 K/mm3 07/14/22 07:58 Monocytes # (Manual) 2.9 K/mm3 (0.0-0.8) H 07/14/22 07:58 Eosinophils # (Manual) 0.0 K/mm3 (0.0-0.4) 07/14/22 07:58 Basophils # (Manual) 0.0 K/mm3 (0.0-0.1) 07/14/22 07:58 Metamyelocytes # 0.0 K/mm3 07/14/22 07:58 Myelocytes # 0.0 K/mm3 07/14/22 07:58 Promyelocytes # 0.0 K/mm3 07/14/22 07:58 Blast Cells # 0.0 K/mm3 07/14/22 07:58 WBC Morphology Not Reportable 07/14/22 07:58 WBC Morphology TNR 07/14/22 07:58 Hypersegmented Neuts Not Reportable 07/14/22 07:58 Hyposegmented Neuts Not Reportable 07/14/22 07:58 Hypogranular Neuts Not Reportable 07/14/22 07:58 Smudge Cells Not Reportable 07/14/22 07:58 Toxic Granulation Not Reportable 07/14/22 07:58 Toxic Vacuolation Not Reportable 07/14/22 07:58 Dohle Bodies Not Reportable 07/14/22 07:58 Pelger-Huet Anomaly Not Reportable 07/14/22 07:58 Lulu Rods Not Reportable 07/14/22 07:58 Platelet Estimate Appears normal 07/14/22 07:58 Clumped Platelets 1+ 07/14/22 07:58 Plt Clumps, EDTA Not Reportable 07/14/22 07:58 Large Platelets Not Reportable 07/14/22 07:58 Giant Platelets Not Reportable 07/14/22 07:58 Platelet Satelliting Not Reportable 07/14/22 07:58 Plt Morphology Comment Not Reportable 07/14/22 07:58 RBC Morphology Not Reportable 07/14/22 07:58 Dimorphic RBCs Not Reportable 07/14/22 07:58 Polychromasia Few 07/14/22 07:58 Hypochromasia Few 07/14/22 07:58 Poikilocytosis Not Reportable 07/14/22 07:58 Anisocytosis Not Reportable 07/14/22 07:58 Microcytosis Not Reportable 07/14/22 07:58 Macrocytosis Not Reportable 07/14/22 07:58 Spherocytes Not Reportable 07/14/22 07:58 Pappenheimer Bodies Not Reportable 07/14/22 07:58 Sickle Cells Not Reportable 07/14/22 07:58 Target Cells Few 07/14/22 07:58 Tear Drop Cells Not Reportable 07/14/22 07:58 Ovalocytes Not Reportable 07/14/22 07:58 Helmet Cells Not Reportable 07/14/22 07:58 [place] Bodies Not Reportable 07/14/22 07:58 [place] Rings Not Reportable 07/14/22 07:58 Kevin Cells Not Reportable 07/14/22 07:58 Bite Cells Not Reportable 07/14/22 07:58 Crenated Cell Not Reportable 07/14/22 07:58 Elliptocytes Not Reportable 07/14/22 07:58 Acanthocytes (Spur) Not Reportable 07/14/22 07:58 Rouleaux Not Reportable 07/14/22 07:58 Hemoglobin C Crystals Not Reportable 07/14/22 07:58 Schistocytes Not Reportable 07/14/22 07:58 Malaria parasites Not Reportable 07/14/22 07:58 Chintan Bodies Not Reportable 07/14/22 07:58 Hem Pathologist Commnt No 07/14/22 07:58 PT 14.5 Sec. (12.2-14.9) 07/09/22 Unknown INR 0.99 (0.87-1.13) 07/09/22 Unknown ABG pH 7.528 pH Units (7.350-7.450) H 07/15/22 11:56 ABG pCO2 30.0 mm Hg 07/15/22 11:56 ABG pO2 125.0 mm Hg (80.0-90.0) H 07/15/22 11:56 ABG HCO3 24.4 mmol/L (20.0-26.0) 07/15/22 11:56 ABG O2 Saturation 98.7 % (95.0-99.0) 07/15/22 11:56 ABG O2 Content 9.7 (0.0-44) 07/15/22 11:56 ABG Base Excess 1.6 mmol/L (-2.0-3.0) 07/15/22 11:56 ABG Hemoglobin 6.9 gm/dl (14.0-18.0) L 07/15/22 11:56 ABG Carboxyhemoglobin 1.6 % (0.0-5.0) 07/15/22 11:56 ABG Methemoglobin 0.4 % (0.0-1.5) 07/15/22 11:56 Oxyhemoglobin 96.6 % (95.0-99.0) 07/15/22 11:56 FiO2 60 % 07/15/22 11:56 Sodium 136 mmol/L (137-145) L 07/16/22 08:31 Potassium 3.8 mmol/L (3.6-5.0) 07/16/22 08:31 Chloride 98.7 mmol/L (98-107) 07/16/22 08:31 Carbon Dioxide 19 mmol/L (22-30) L 07/16/22 08:31 Anion Gap 22 mmol/L 07/16/22 08:31 BUN 19 mg/dL (9-20) 07/16/22 08:31 Creatinine 1.3 mg/dL (0.8-1.3) 07/16/22 08:31 Estimated GFR > 60 ml/min 07/16/22 08:31 BUN/Creatinine Ratio 15 % 07/16/22 08:31 Glucose 374 mg/dL (75-100) H 07/16/22 08:31 POC Glucose 200 mg/dL (70-105) H 07/17/22 08:24 Hemoglobin A1c 6.5 % (4-6) H 07/07/22 08:41 Lactic Acid 1.50 mmol/L (0.7-2.0) 07/07/22 02:26 Calcium 7.3 mg/dL (8.4-10.2) L 07/16/22 08:31 Magnesium 1.80 mg/dL (1.7-2.3) 07/14/22 10:44 Iron 16 ug/dL (49-181) L 07/08/22 05:35 TIBC 133 mcg/dL (250-450) L 07/08/22 05:35 Ferritin 2888.0 ng/mL (30.0-300.0) H 07/08/22 05:35 Total Bilirubin 0.70 mg/dL (0.1-1.2) 07/07/22 02:26 AST 41 units/L (5-40) H 07/07/22 02:26 ALT 28 units/L (7-56) 07/07/22 02:26 Alkaline Phosphatase 129 units/L (35-129) 07/07/22 02:26 Total Creatine Kinase 95 units/L (55-170) 07/14/22 07:58 NT-Pro-B Natriuret Pep 3313 pg/mL (0-900) H 07/16/22 09:50 Total Protein 6.9 g/dL (6.3-8.2) 07/07/22 02:26 Albumin 3.6 g/dL (3.9-5) L 07/07/22 02:26 Albumin/Globulin Ratio 1.1 % 07/07/22 02:26 Triglycerides 114 mg/dL (2-149) 07/07/22 08:41 Cholesterol 116 mg/dL (50-199) 07/07/22 08:41 LDL Cholesterol Direct 46 mg/dL (50-130) L 07/07/22 08:41 HDL Cholesterol 37 mg/dL (40-59) L 07/07/22 08:41 Cholesterol/HDL Ratio 3.13 % 07/07/22 08:41 Vitamin B12 > 2000 pg/mL (211-911) H 07/14/22 07:58 Blood Type O POSITIVE 07/15/22 16:19 Antibody Screen Negative 07/15/22 16:19 Crossmatch See Detail 07/15/22 16:19 Microbiology: Microbiology 07/15/22 11:34 Peripheral/Venous Blood Culture - Preliminary NO GROWTH AFTER 24 HOURS 07/15/22 11:34 Peripheral/Venous Blood Culture - Preliminary NO GROWTH AFTER 24 HOURS [place]/IV: Voiding Method Condom Catheter Active Medications - Current Medications Current Medications: Generic Name Dose Route Start Last Admin Trade Name Freq PRN Reason Stop Dose Admin Acetaminophen 650 mg 07/07/22 08:30 07/15/22 20:37 Acetaminophen 325 Mg Tab PO 650 mg Q4H PRN Administration Pain MILD(1-3)/Fever >100.5/DAS Atorvastatin Calcium 40 mg 07/10/22 11:00 07/17/22 10:49 Atorvastatin 40 Mg Tab PO Not Given DAILY APRIL Cilostazol 100 mg 07/09/22 12:00 07/17/22 10:49 Cilostazol 100 Mg Tab PO Not Given BID APRIL Clopidogrel Bisulfate 75 mg 07/10/22 10:00 07/17/22 10:49 Clopidogrel 75 Mg Tab PO Not Given QDAY [facility] Dextrose 50 ml 07/07/22 08:35 07/15/22 16:13 Dextrose 50% In Water (25gm) 50 Ml Syringe IV 25 ml Q30MIN PRN Administration Hypoglycemia Protocol Sodium Chloride 1,000 mls @ 100 mls/hr 07/07/22 05:30 07/17/22 11:11 Nacl 0.9% 1000 Ml IV Infused DIRECT APRIL Infusion Daptomycin 500 mg/ Sodium 100 mls @ 200 mls/hr 07/10/22 18:00 07/16/22 21:15 Chloride IV 200 mls/hr Q24H APRIL Administration Protocol Metronidazole 500 mg in 100 mls @ 100 mls/hr 07/12/22 12:00 07/17/22 11:09 Flagyl 500 Mg/100 Ml IV 100 mls/hr Q8H APRIL Administration Protocol Cefepime HCl 1 gm in 100 mls @ 200 mls/hr 07/12/22 14:00 07/17/22 05:57 Cefepime/Ns 1 Gm/100 Ml IV 200 mls/hr Q8H APRIL Administration Protocol Insulin Human Isoph/Insulin Regular 18 unit 07/16/22 11:00 07/17/22 10:49 Insulin Nph/Regular 70/30 Inj SUB-Q Not Given BIDDIAB [facility] Insulin Human Regular 0 units 07/14/22 07:30 07/17/22 08:30 Insulin Regular, Human 100 Units/1 Ml SUB-Q Not Given ACHS [facility] Protocol Metoclopramide HCl 10 mg 07/09/22 17:34 07/15/22 20:54 Metoclopramide 10 Mg/2 Ml Inj IV 10 mg Q6H PRN Administration Nausea And Vomiting Metoprolol Tartrate 5 mg 07/17/22 12:00 07/17/22 11:04 Metoprolol Tartrate 5 Mg/5 Ml Inj IV 5 mg Q6HR APRIL Administration Morphine Sulfate 2 mg 07/07/22 08:30 07/17/22 11:04 Morphine 4 Mg/1 Ml Inj IV 2 mg Q4H PRN Administration Pain , Severe (7-10) Nifedipine 30 mg 07/08/22 10:00 07/17/22 10:50 Nifedipine Xl 30 Mg Tab PO Not Given QDAY APRIL Ondansetron HCl 4 mg 07/07/22 08:30 07/15/22 19:18 Ondansetron 4 Mg/2 Ml Inj IV 4 mg Q8H PRN Administration Nausea And Vomiting Oxycodone/Acetaminophen 1 tab 07/07/22 08:30 07/16/22 16:24 Oxycodone /Acetaminophen 5-325mg Tab PO 1 tab Q6H PRN Administration Pain, Moderate (4-6) Phenol 1 spray 07/17/22 01:14 07/17/22 01:43 Phenol 1.4% 177 Ml Bottle MM 1 spray PRN PRN Administration Sore Throat Sodium Chloride 10 ml 07/07/22 10:00 07/17/22 11:06 Sodium Chloride 0.9% 10 Ml Flush Syringe IV 10 ml BID APRIL Administration Sodium Chloride 10 ml 07/07/22 08:30 Sodium Chloride 0.9% 10 Ml Flush Syringe IV PRN PRN LINE FLUSH Sodium Hypochlorite 1 applic 07/14/22 10:00 07/17/22 11:10 Sodium Hypochlorite, Dakin's 1/2 Strength (0.25%) 473 Ml Topical Soln TP 1 dose BID APRIL Administration Nutrition/Malnutrition Assess - Dietary Evaluation Nutrition/Malnutrition Findings: Nutrition Notes Start: 07/08/22 11:33 Freq: Status: Active Protocol: Document 07/13/22 13:47 CM (Rec: 07/13/22 13:56 CM [id number]) Co-Sign 07/13/22 13:47 WW Nutrition Notes Initial or Follow up Brief Note Current Diagnosis Diabetes,Hypertension Other Pertinent Diagnosis PVD s/p RLE bypass, thrombocytopenia Current Diet Cardiac Diet + Glucerna BID Labs/Tests 07/13: Glu 158 Pertinent Medications 07/13: Atorvastatin Humulin 70/30 Humulin R Height 5 ft 8 in Weight 70.1 kg Usual Body Weight 75 kg Star Body Weight (kg) 70.00 BMI 23.5 Weight change and time frame 2% wt loss in 1 day - will monitor. Weight Status Appropriate Subjective/Other Information RD follow-up per protocol. Pt advanced to cardiac diet and Glucerna BID ordered. 100% of dinner consumed 07/12. New wt added today. Percent of energy/protein needs met: Cardiac Diet provides 2230kcal / 85g PRO q day - 113% Kcal / 99% AA before nutrition supplements. GI Symptoms None #1 Nutrition Diagnosis Malnutrition Diagnosis Progress(for reassessment Continues documentation) Is patient on ventilator? No Is Patient Ambulatory and/or Out of Bed No REE-([place]scar[facility]-confined to bed) 1734.384 Kcal/Kg value to use for calculation 28 Approximate Energy Requirements Using 1963 kcal/Kg Calculation Used for Recommendations Kcal/kg Additional Notes 1.2-1.5g/kg ABW; 86-108g PRO q day Fluid needs: 30mL/kg or per MD . Nutrition Intervention Change Diet Order: Continue current diet order or per TECHNICAL ADMINISTRATOR recommendations. Add Supplement/Snack (indicate name/kcal Glucerna BID (Chocolate) /protein ) Provides kCal: 440 Provides Protein (gm) 20 Goal #1 Pt to consume >75% of estimated energy/protein needs through current diet order and nutrition supplements Goal #2 Pt to maintain current wt status within 2.5% throughout LOS. Follow-Up By: 07/20/22 Additional Comments Monitor % PO intake, diet tolerance, and wt status.
--- NOTE | 2022-07-17 14:39 | XRay Report ---
CHEST 1 VIEW 07/17/2022 1:33 PM INDICATION / CLINICAL INFORMATION: Respiratory failure. COMPARISON: 07/15/2022 FINDINGS: SUPPORT DEVICES: None. HEART / MEDIASTINUM: No significant abnormality. LUNGS / PLEURA: Worsening bilateral mixed interstitial and alveolar infiltrates, which may represent progression of pulmonary edema versus multifocal pneumonia. Clinical correlation is needed. No signif icant pleural effusion. No pneumothorax. ADDITIONAL FINDINGS: None IMPRESSION: 1. Worsening bilateral mixed interstitial and alveolar infiltrates, which may represent progression o f pulmonary edema versus multifocal pneumonia. Clinical correlation is needed. Signer Name: Jose Segal MD Signed: 07/17/2022 2:35 PM Workstation Name: [email or web address]
[2022-07-17] MEDS ORDERED: LORazepam 2 MG/ML VIAL IV NR (15:40)
[2022-07-17 15:46] LABS: Albumin 2.3 g/dL (3.9-5); Calcium 7.4 mg/dL (8.4-10.2)
[2022-07-17 16:16] LABS: Hematocrit 22.4 % (35.5-45.6); Hemoglobin 7.1 gm/dl (11.8-15.2); Mean Corpuscular HGB Conc 32 % (32-34); Mean Corpuscular Volume 97 fl (84-94); Platelet Count 30 K/mm3 (140-440); Red Blood Count 2.32 M/mm3 (3.65-5.03); Red Cell Distribution Width 17.3 % (13.2-15.2)
[2022-07-17] MEDS: POTASSIUM CHLORIDE 10 MEQ 10 MEQ/100 ML BAG IV SCH ×4 (17:58→21:20)
[2022-07-17] MEDS: FUROSEMIDE 40 MG/4 ML INJ IV SCH (17:58)
[2022-07-17 18:09] LABS: Total Cells Counted 100
[2022-07-17 18:10] LABS: Band Neutrophils # (Manual) 0.4 K/mm3; Basophils % (Manual) 0 % (0.0-1.8); Eosinophils % (Manual) 0 % (0.0-4.3); Hypochromasia Few; Target Cells Few
[2022-07-17 18:11] LABS: Platelet Clumps 3+
[2022-07-17 18:14] LABS: Heparin-Induced Platelet Antib Negative (Negative); Unfractionated Heparin Negative (Negative)
[2022-07-18] MEDS: METOPROLOL TARTRATE 5 MG/5 ML INJ IV SCH ×4 (00:10→18:39)
[2022-07-18] MEDS: metroNIDAZOLE/NS 500 MG/100 ML 500 MG/100 ML BAG IV SCH (04:40)
[2022-07-18] MEDS: FUROSEMIDE 40 MG/4 ML INJ IV SCH (05:35)
[2022-07-18] MEDS: CEFEPIME/NS 1 GM/100 ML 1 GM/100 ML BAG IV SCH (06:00)
[2022-07-18] MEDS ORDERED: INSULIN NPH/REGULAR 70/30 INJ SUB-Q SCH (07:46)
[2022-07-18] MEDS: INSULIN REGULAR, HUMAN 100 UNITS/1 ML SUB-Q SCH ×4 (08:00→22:41)
[2022-07-18 08:21] LABS: Hematocrit 22.7 % (35.5-45.6); Hemoglobin 7.5 gm/dl (11.8-15.2); Mean Corpuscular HGB Conc 33 % (32-34); Mean Corpuscular Volume 94 fl (84-94); Red Blood Count 2.41 M/mm3 (3.65-5.03); Red Cell Distribution Width 17.3 % (13.2-15.2)
[2022-07-18 08:39] LABS: ABG HCO3 22.9 mmol/L (20.0-26.0); ABG Methemoglobin 0.6 % (0.0-1.5); ABG Oxygen Saturation 78.6 % (95.0-99.0); ABG PCO2 34.1 mm Hg; ABG PH 7.445 pH Units (7.350-7.450); ABG PO2 46.4 mm Hg (80.0-90.0)
[2022-07-18 08:42] LABS: Calcium 7.5 mg/dL (8.4-10.2)
[2022-07-18] MEDS ORDERED: SUCCINYLCHOLINE CHLORIDE 200 MG/10 ML INJ MDV ONE (09:08)
[2022-07-18] MEDS ORDERED: ETOMIDATE 20 MG/10 ML INJ IV ONE ×2 (09:08→09:19)
[2022-07-18] MEDS ORDERED: SUCCINYLCHOLINE CHLORIDE 200 MG/10 ML INJ MDV IV ONE (09:19)
--- NOTE | 2022-07-18 09:22 | Event Note ---
Date: 07/18/22 (Intubation) Requested to intubate patient 0912 Etomidate 20mg + Elizabeth 100mg Glidescope X 1 attempt. Thick secretions suctioned from OP 8.0 OETT easily passed. +BBS/CO2 VSS Done by Ronni Mcclain
[2022-07-18] MEDS ORDERED: LIP THERAPY VASELINE TP PRN (09:59)
[2022-07-18] MEDS ORDERED: MINERAL OIL/PETROLATUM, WHITE OPHTH OINT 3.5 GM OU PRN (09:59)
[2022-07-18] MEDS ORDERED: fentaNYL 100 MCG/2 ML INJ IV PRN (10:36)
[2022-07-18] MEDS: fentaNYL DRIP Premix 1,000 MCG/100 ML BAG IV SCH (10:38)
[2022-07-18 10:40] LABS: Platelet Count 22 K/mm3 (140-440)
--- NOTE | 2022-07-18 10:40 | XRay Report ---
ABDOMEN 1 VIEW(S) INDICATION / CLINICAL INFORMATION: ngt placement. COMPARISON: None available. FINDINGS: TUBES / LINES: Nasogastric tube tip and side-port are in the mid to distal stomach. BOWEL GAS PATTERN: No significant abnormality. FREE AIR / EXTRALUMINAL GAS: None seen. ADDITIONAL FINDINGS: No significant additional findings. IMPRESSION: 1. NG tube in satisfactory position. Signer Name: Niko Dash MD Signed: 07/18/2022 10:36 AM Workstation Name: [email or web address]
[2022-07-18 10:44] LABS: Basophils % (Auto) 0.8 % (0.0-1.8); Eosinophils # (Auto) 0.1 K/mm3 (0.0-0.4); Eosinophils % (Auto) 0.2 % (0.0-4.3); Lymphocytes # (Auto) 2.6 K/mm3 (1.2-5.4); Lymphocytes % (Auto) 8.6 % (13.4-35.0); Monocytes # (Auto) 0.8 K/mm3 (0.0-0.8); Monocytes % (Auto) 2.8 % (0.0-7.3)
[2022-07-18 10:45] LABS: Basophils # (Auto) 0.2 K/mm3 (0.0-0.1)
--- NOTE | 2022-07-18 10:48 | XRay Report ---
CHEST 1 VIEW 07/18/2022 9:59 AM INDICATION / CLINICAL INFORMATION: sob. COMPARISON: One view of the chest from 07/17/2022. FINDINGS: SUPPORT DEVICES: There has been interval placement of an ET tube with the tip located 4 cm above the alex. An esophagogastric tube has been placed with the most distal visualized portion projecting ov er the gastric fundus. HEART / MEDIASTINUM: Stable. LUNGS / PLEURA: There are increased bilateral airspace opacities. No significant pleural effusion. No pneumothorax. ADDITIONAL FINDINGS: No significant additional findings. IMPRESSION: 1. Interval worsening of bilateral airspace disease. 2. ET and esophagogastric tubes as above. Signer Name: Jarrett Wood MD Signed: 07/18/2022 10:44 AM Workstation Name: [email or web address]
--- NOTE | 2022-07-18 10:58 | Progress Note ---
Assessment and Plan Cultures: 07/07/2022 blood culture: No growth 07/10/2022 left third toe surgical culture: In process. Gram stain appears mixed with GPC in pairs, rare GNR. 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 WBC elevated. S/p revascularization on 07/09/2022, followed by toe amputation 07/10/2022. Noted to have necrotic tissue. MRI with abscess between the third and fourth toe also extensive bony destruction of the third fourth fifth and even the second toe. S/p TMA of second through fifth toes on 07/12/2022 #Thrombocytopenia: ?acute #JACQUI: Improved. Renally adjust antibiotics as needed. #Peripheral vascular disease, history of RLE arterial bypass, prior right TMA. S/p revascularization on 07/09/2022. #Diabetes mellitus type 2, uncontrolled Recs: -Continue Daptomycin + Flagyl. Avoiding linezolid due to thrombocytopenia. -Change cefepime to meropenem -CK continues to downtrend, okay to continue IV daptomycin. -Surgical cultures are negative, white count remains elevated. -Follow up C diff PCR - could explain leukocytosis. Amelia Fajardo MD [facility] ([facility] O: [phone] F: [phone] Subjective Date of service: 07/18/22 Principal diagnosis: PVD with critical limb Interval history: Febrile overnight to 100.8, remains tachycardic. White count remains elevated to 30.3. All cultures remain negative so far. Intubated overnight. Imaging personally reviewed: Chest x-ray: Interval worsening of bilateral airspace disease Objective - Exam Narrative Exam: Physical Exam: Constitutional: Alert, cooperative. No acute distress Head, Ears, Nose: Normocephalic, atraumatic. Eyes: Conjunctivae/corneas clear. No icterus. No ptosis. Neck: Supple, no meningeal signs Cardiovascular: S1, S2 + Respiratory: Good air entry, clear to auscultation bilaterally GI: Soft, non-tender; bowel sounds normal. No peritoneal signs Musculoskeletal: Right TMA well-healed, left foot dressing + Skin: No rash or abscess Hem/Lymphatic: No palpable cervical or supraclavicular nodes. No lymphangitis Psych: Mood ok. Affect normal Neurological: Awake, alert, oriented. No gross abnormality - Constitutional Vitals: Vital Signs Temp Pulse Resp BP Pulse Ox 100.6 F H 122 H 36 H 99/54 93 07/18/22 03:35 07/18/22 08:30 07/18/22 08:30 07/18/22 08:30 07/18/22 09:24 Temperature -Last 24 Hours Temperature 100.6 F Temperature 100.8 F Temperature 98.7 F Temperature 98.2 F - Labs CBC & Chem 7: 07/18/22 08:07 07/18/22 08:07 Labs: Abnormal lab results 07/17/22 07/17/22 07/17/22 Range/Units 09:33 12:02 15:03 WBC 35.1 H (4.5-11.0) K/mm3 RBC 2.32 L (3.65-5.03) M/mm3 Hgb 7.1 L (11.8-15.2) gm/dl Hct 22.4 L (35.5-45.6) % MCV 97 H (84-94) fl RDW 17.3 H (13.2-15.2) % Plt Count 30 L D (140-440) K/mm3 Lymph % (Auto) (13.4-35.0) % Baso # (Auto) (0.0-0.1) K/mm3 Seg Neutrophils % (40.0-70.0) % Seg Neuts % (Manual) 92.0 H (40.0-70.0) % Lymphocytes % (Manual) 2.0 L (13.4-35.0) % Nucleated RBC % 2.0 H (0.0-0.9) % Seg Neutrophils # (1.8-7.7) K/mm3 Seg Neutrophils # Man 32.3 H (1.8-7.7) K/mm3 Lymphocytes # (Manual) 0.7 L (1.2-5.4) K/mm3 Monocytes # (Manual) 1.1 H (0.0-0.8) K/mm3 ABG pO2 (80.0-90.0) mm Hg ABG O2 Saturation (95.0-99.0) % ABG Hemoglobin (14.0-18.0) gm/dl Oxyhemoglobin (95.0-99.0) % Potassium (3.6-5.0) mmol/L Carbon Dioxide (22-30) mmol/L BUN (9-20) mg/dL Creatinine (0.8-1.3) mg/dL Glucose (75-100) mg/dL POC Glucose 230 H 325 H (70-105) mg/dL Calcium (8.4-10.2) mg/dL Alkaline Phosphatase (35-129) units/L Total Protein (6.3-8.2) g/dL Albumin (3.9-5) g/dL 07/17/22 07/17/22 07/17/22 Range/Units 15:03 16:20 21:23 WBC (4.5-11.0) K/mm3 RBC (3.65-5.03) M/mm3 Hgb (11.8-15.2) gm/dl Hct (35.5-45.6) % MCV (84-94) fl RDW (13.2-15.2) % Plt Count (140-440) K/mm3 Lymph % (Auto) (13.4-35.0) % Baso # (Auto) (0.0-0.1) K/mm3 Seg Neutrophils % (40.0-70.0) % Seg Neuts % (Manual) (40.0-70.0) % Lymphocytes % (Manual) (13.4-35.0) % Nucleated RBC % (0.0-0.9) % Seg Neutrophils # (1.8-7.7) K/mm3 Seg Neutrophils # Man (1.8-7.7) K/mm3 Lymphocytes # (Manual) (1.2-5.4) K/mm3 Monocytes # (Manual) (0.0-0.8) K/mm3 ABG pO2 (80.0-90.0) mm Hg ABG O2 Saturation (95.0-99.0) % ABG Hemoglobin (14.0-18.0) gm/dl Oxyhemoglobin (95.0-99.0) % Potassium 3.2 L (3.6-5.0) mmol/L Carbon Dioxide 20 L (22-30) mmol/L BUN 30 H (9-20) mg/dL Creatinine 1.5 H (0.8-1.3) mg/dL Glucose 377 H (75-100) mg/dL POC Glucose 356 H 305 H (70-105) mg/dL Calcium 7.4 L (8.4-10.2) mg/dL Alkaline Phosphatase 180 H (35-129) units/L Total Protein 5.3 L (6.3-8.2) g/dL Albumin 2.3 L (3.9-5) g/dL 07/18/22 07/18/22 07/18/22 Range/Units 08:07 08:07 08:20 WBC 30.3 H (4.5-11.0) K/mm3 RBC 2.41 L (3.65-5.03) M/mm3 Hgb 7.5 L (11.8-15.2) gm/dl Hct 22.7 L (35.5-45.6) % MCV (84-94) fl RDW 17.3 H (13.2-15.2) % Plt Count 22 L (140-440) K/mm3 Lymph % (Auto) 8.6 L (13.4-35.0) % Baso # (Auto) 0.2 H (0.0-0.1) K/mm3 Seg Neutrophils % 87.6 H (40.0-70.0) % Seg Neuts % (Manual) (40.0-70.0) % Lymphocytes % (Manual) (13.4-35.0) % Nucleated RBC % (0.0-0.9) % Seg Neutrophils # 26.5 H (1.8-7.7) K/mm3 Seg Neutrophils # Man (1.8-7.7) K/mm3 Lymphocytes # (Manual) (1.2-5.4) K/mm3 Monocytes # (Manual) (0.0-0.8) K/mm3 ABG pO2 46.4 L (80.0-90.0) mm Hg ABG O2 Saturation 78.6 L (95.0-99.0) % ABG Hemoglobin 7.7 L (14.0-18.0) gm/dl Oxyhemoglobin 76.7 L (95.0-99.0) % Potassium 3.1 L (3.6-5.0) mmol/L Carbon Dioxide (22-30) mmol/L BUN 35 H (9-20) mg/dL Creatinine 1.7 H (0.8-1.3) mg/dL Glucose 165 H (75-100) mg/dL POC Glucose (70-105) mg/dL Calcium 7.5 L (8.4-10.2) mg/dL Alkaline Phosphatase 191 H (35-129) units/L Total Protein 5.3 L (6.3-8.2) g/dL Albumin 2.0 L (3.9-5) g/dL
[2022-07-18] MEDS: CILOSTAZOL 100 MG TAB PO SCH ×2 (11:25→22:27)
[2022-07-18] MEDS: CLOPIDOGREL 75 MG TAB PO SCH (11:25)
[2022-07-18 11:31] LABS: ABG Base Excess -6.9 mmol/L (-2.0-3.0); ABG HCO3 19.5 mmol/L (20.0-26.0); ABG Methemoglobin 0.7 % (0.0-1.5); ABG Oxygen Saturation 78.1 % (95.0-99.0); ABG PCO2 43.5 mm Hg; ABG PH 7.27 pH Units (7.350-7.450); ABG PO2 54.4 mm Hg (80.0-90.0)
[2022-07-18] MEDS: SENNOSIDES/DOCUSATE SODIUM 8.6/50 MG TAB FEEDTUBE SCH ×2 (11:34→22:27)
[2022-07-18] MEDS: SODIUM HYPOCHLORITE, DAKIN'S 1/2 STRENGTH (0.25%) 473 ML TOPICAL SOLN TP SCH ×2 (11:35→22:27)
[2022-07-18] MEDS ORDERED: SODIUM CHLORIDE 0.9% 1000 ML 1,000 ML ONE (11:50)
[2022-07-18] MEDS ORDERED: SODIUM CHLORIDE 0.9% 1000 ML IV SOLN IV PRN (11:50)
--- NOTE | 2022-07-18 12:59 | Procedure Note ---
Date of procedure: 07/18/22 Pre-op diagnosis: acute hypoxic resp failure, gangrene s/p amputation Post-op diagnosis: same Procedure: Chris test completed. Ulnar pulse intact. right radial louise inserted using sterile technique. Area prepped with chlorhexidine and the site was infiltrated with 1ml 1% lidocaine. Arterial line was placed using ultrasound; catheter advanced without difficulty. Line was sutured, biopatch not available and tegaderm dressing applied. RN asked to place arm board Arterial waveform observed on bedside monitor. Line flushed and zeroed. Pt tolerated procedure well. VS remained stable throughout procedure. (time spent placing line not included in daily critical care time) CCT: 60 mins Anesthesia: none Surgeon: CARLOS CORNELL Condition: critical
[2022-07-18] MEDS: VANCOMYCIN 250 MG/10 ML ORAL LIQD FEEDTUBE SCH ×2 (13:49→18:42)
[2022-07-18 13:55] LABS: ABG Base Excess -6.2 mmol/L (-2.0-3.0); ABG HCO3 19.8 mmol/L (20.0-26.0); ABG Methemoglobin 0.5 % (0.0-1.5); ABG Oxygen Saturation 95.8 % (95.0-99.0); ABG PH 7.292 pH Units (7.350-7.450); ABG PO2 80.6 mm Hg (80.0-90.0)
[2022-07-18] MEDS: MEROPENEM/NS 1 GRAM/100 ML 1 GRAM/100 ML BAG IV SCH ×2 (14:00→20:45)
--- NOTE | 2022-07-18 14:28 | Progress Note ---
Assessment and Plan 67 y/o male with gangrene of foot, osteomyelitis s/p amputation now with acute respiratory failure concern for volume overload 07/18/22: Stop lasix. Had some difficulty with hypoxemia post intubation. Has responded to pEEP and repeat ABG is acceptable. Will wean for sats >88% and or PaO2>55. Art line placed. Sedation. Guarded prognosis. 1. Agree with trial of lasix 2. Given that mental state has improved, will hold on intubation for now and attempt PPV with bipap 3. Per patient has severe anxiety, but want to wait given his recent improvement in mental state 4. Abx per ID 5. Prognosis is guarded. CCT 31 minutes. Subjective Date of service: 07/18/22 Principal diagnosis: PVD with critical limb Interval history: Called by RT this am secondary to patient being on Continuous bipap at 100%. No ABG done last night or this am but also no order for one. Hypoxic on 100% so decision made to intubate. CXR is worse today but has had increased BUN and Cr and urine output did slow down. Objective Vital Signs - 12hr 07/18/22 07/18/22 07/18/22 02:30 03:00 03:30 Temperature Pulse Rate 125 H 129 H 127 H Pulse Rate [ From Monitor] Respiratory 32 H 37 H 37 H Rate Blood Pressure 156/51 153/56 153/51 O2 Sat by Pulse 94 91 93 Oximetry 07/18/22 07/18/22 07/18/22 03:35 04:00 04:30 Temperature 100.6 F H Pulse Rate 131 H 129 H Pulse Rate [ 131 H From Monitor] Respiratory 37 H 23 Rate Blood Pressure 159/52 142/55 O2 Sat by Pulse 90 90 Oximetry 07/18/22 07/18/22 07/18/22 04:55 05:00 05:30 Temperature Pulse Rate 126 H 128 H 129 H Pulse Rate [ From Monitor] Respiratory 36 H 32 H 28 H Rate Blood Pressure 136/48 144/55 O2 Sat by Pulse 93 90 89 Oximetry 07/18/22 07/18/22 07/18/22 06:00 06:05 06:30 Temperature Pulse Rate 133 H 133 H 119 H Pulse Rate [ From Monitor] Respiratory 35 H 38 H Rate Blood Pressure 149/56 149/56 143/53 O2 Sat by Pulse 93 87 Oximetry 09/07/18/22 07/18/22 07:00 07:30 08:00 Temperature Pulse Rate 124 H 125 H 127 H Pulse Rate [ From Monitor] Respiratory 36 H 39 H 37 H Rate Blood Pressure 143/53 110/87 110/87 O2 Sat by Pulse 86 88 89 Oximetry 07/18/22 07/18/22 07/18/22 08:18 08:30 09:00 Temperature Pulse Rate 122 H 122 H 124 H Pulse Rate [ From Monitor] Respiratory 45 H 36 H 38 H Rate Blood Pressure 141/41 99/54 99/54 O2 Sat by Pulse 88 88 87 Oximetry 07/18/22 07/18/22 07/18/22 09:24 09:30 10:00 Temperature Pulse Rate 115 H 106 H Pulse Rate [ From Monitor] Respiratory 32 H 19 Rate Blood Pressure 119/49 133/43 O2 Sat by Pulse 93 89 81 L Oximetry 07/18/22 07/18/22 07/18/22 10:30 11:00 11:30 Temperature Pulse Rate 113 H 106 H 111 H Pulse Rate [ From Monitor] Respiratory 24 27 H 27 H Rate Blood Pressure 129/40 106/40 96/38 O2 Sat by Pulse 85 71 L 92 Oximetry 07/18/22 07/18/22 07/18/22 12:00 12:30 12:33 Temperature Pulse Rate 110 H 113 H 111 H Pulse Rate [ From Monitor] Respiratory 30 H 30 H Rate Blood Pressure 107/38 104/46 104/46 O2 Sat by Pulse 92 95 95 Oximetry CBC and BMP: 07/18/22 08:07 07/18/22 08:07 ABG, PT/INR, D-dimer: ABG ABG pH 7.292 pH Units (7.350-7.450) L 07/18/22 13:30 ABG pCO2 42.0 mm Hg 07/18/22 13:30 ABG pO2 80.6 mm Hg (80.0-90.0) 07/18/22 13:30 ABG O2 Saturation 95.8 % (95.0-99.0) 07/18/22 13:30 PT/INR, D-dimer PT 14.5 Sec. (12.2-14.9) 07/09/22 Unknown INR 0.99 (0.87-1.13) 07/09/22 Unknown Abnormal lab findings: Abnormal Labs 07/07/22 07/07/22 07/07/22 02:26 02:26 08:41 WBC 27.0 H RBC 2.52 L Hgb 8.2 L Hct 25.5 L MCV 101 H MCH 33 H MCHC RDW 13.1 L Plt Count 31 L Lymph % (Auto) Gregory % (Auto) Lymph # (Auto) Gregory # (Auto) Baso # (Auto) Seg Neutrophils % Seg Neuts % (Manual) 88.0 H Lymphocytes % (Manual) 7.0 L Monocytes % (Manual) Nucleated RBC % Seg Neutrophils # Seg Neutrophils # Man 23.8 H Lymphocytes # (Manual) Monocytes # (Manual) ABG pH ABG pO2 ABG HCO3 ABG O2 Saturation ABG Base Excess ABG Hemoglobin Oxyhemoglobin Sodium 129 L Potassium Chloride 91.5 L Carbon Dioxide 16 L BUN 57 H Creatinine 1.7 H Glucose 509 H* POC Glucose Hemoglobin A1c 6.5 H Calcium Iron TIBC Ferritin AST 41 H Alkaline Phosphatase Total Creatine Kinase NT-Pro-B Natriuret Pep Total Protein Albumin 3.6 L LDL Cholesterol Direct HDL Cholesterol Vitamin B12 Crossmatch 07/07/22 07/07/22 07/07/22 08:41 09:19 11:22 WBC RBC Hgb Hct MCV MCH MCHC RDW Plt Count Lymph % (Auto) Gregory % (Auto) Lymph # (Auto) Gregory # (Auto) Baso # (Auto) Seg Neutrophils % Seg Neuts % (Manual) Lymphocytes % (Manual) Monocytes % (Manual) Nucleated RBC % Seg Neutrophils # Seg Neutrophils # Man Lymphocytes # (Manual) Monocytes # (Manual) ABG pH ABG pO2 ABG HCO3 ABG O2 Saturation ABG Base Excess ABG Hemoglobin Oxyhemoglobin Sodium Potassium Chloride Carbon Dioxide BUN Creatinine Glucose POC Glucose 394 H 343 H Hemoglobin A1c Calcium Iron TIBC Ferritin AST Alkaline Phosphatase Total Creatine Kinase NT-Pro-B Natriuret Pep Total Protein Albumin LDL Cholesterol Direct 46 L HDL Cholesterol 37 L Vitamin B12 Crossmatch 07/07/22 07/07/22 07/07/22 15:52 17:44 18:16 WBC RBC Hgb Hct MCV MCH MCHC RDW Plt Count Lymph % (Auto) Gregory % (Auto) Lymph # (Auto) Gregory # (Auto) Baso # (Auto) Seg Neutrophils % Seg Neuts % (Manual) Lymphocytes % (Manual) Monocytes % (Manual) Nucleated RBC % Seg Neutrophils # Seg Neutrophils # Man Lymphocytes # (Manual) Monocytes # (Manual) ABG pH ABG pO2 ABG HCO3 ABG O2 Saturation ABG Base Excess ABG Hemoglobin Oxyhemoglobin Sodium Potassium Chloride Carbon Dioxide BUN Creatinine Glucose POC Glucose 515 H 558 H 464 H Hemoglobin A1c Calcium Iron TIBC Ferritin AST Alkaline Phosphatase Total Creatine Kinase NT-Pro-B Natriuret Pep Total Protein Albumin LDL Cholesterol Direct HDL Cholesterol Vitamin B12 Crossmatch 07/07/22 07/08/22 07/08/22 20:35 05:35 05:35 WBC 21.2 H RBC 2.49 L Hgb 7.9 L Hct 25.3 L MCV 102 H MCH MCHC 31 L RDW 13.1 L Plt Count 27 L Lymph % (Auto) Gregory % (Auto) Lymph # (Auto) Gregory # (Auto) Baso # (Auto) Seg Neutrophils % Seg Neuts % (Manual) 81.5 H Lymphocytes % (Manual) 12.0 L Monocytes % (Manual) Nucleated RBC % Seg Neutrophils # Seg Neutrophils # Man 17.3 H Lymphocytes # (Manual) Monocytes # (Manual) 1.0 H ABG pH ABG pO2 ABG HCO3 ABG O2 Saturation ABG Base Excess ABG Hemoglobin Oxyhemoglobin Sodium 134 L Potassium Chloride Carbon Dioxide 21 L BUN 29 H Creatinine Glucose 179 H POC Glucose 359 H Hemoglobin A1c Calcium Iron 16 L TIBC 133 L Ferritin AST Alkaline Phosphatase Total Creatine Kinase NT-Pro-B Natriuret Pep Total Protein Albumin LDL Cholesterol Direct HDL Cholesterol Vitamin B12 Crossmatch 07/08/22 07/08/22 07/08/22 05:35 05:50 07:39 WBC RBC Hgb Hct MCV MCH MCHC RDW Plt Count Lymph % (Auto) Gregory % (Auto) Lymph # (Auto) Gregory # (Auto) Baso # (Auto) Seg Neutrophils % Seg Neuts % (Manual) Lymphocytes % (Manual) Monocytes % (Manual) Nucleated RBC % Seg Neutrophils # Seg Neutrophils # Man Lymphocytes # (Manual) Monocytes # (Manual) ABG pH ABG pO2 ABG HCO3 ABG O2 Saturation ABG Base Excess ABG Hemoglobin Oxyhemoglobin Sodium Potassium Chloride Carbon Dioxide BUN Creatinine Glucose POC Glucose 164 H 180 H Hemoglobin A1c Calcium Iron TIBC Ferritin 2888.0 H AST Alkaline Phosphatase Total Creatine Kinase NT-Pro-B Natriuret Pep Total Protein Albumin LDL Cholesterol Direct HDL Cholesterol Vitamin B12 Crossmatch 07/08/22 07/08/22 07/09/22 11:39 16:33 06:01 WBC RBC Hgb Hct MCV MCH MCHC RDW Plt Count Lymph % (Auto) Gregory % (Auto) Lymph # (Auto) Gregory # (Auto) Baso # (Auto) Seg Neutrophils % Seg Neuts % (Manual) Lymphocytes % (Manual) Monocytes % (Manual) Nucleated RBC % Seg Neutrophils # Seg Neutrophils # Man Lymphocytes # (Manual) Monocytes # (Manual) ABG pH ABG pO2 ABG HCO3 ABG O2 Saturation ABG Base Excess ABG Hemoglobin Oxyhemoglobin Sodium Potassium Chloride Carbon Dioxide BUN Creatinine Glucose POC Glucose 202 H 182 H 150 H Hemoglobin A1c Calcium Iron TIBC Ferritin AST Alkaline Phosphatase Total Creatine Kinase NT-Pro-B Natriuret Pep Total Protein Albumin LDL Cholesterol Direct HDL Cholesterol Vitamin B12 Crossmatch 07/09/22 07/09/22 07/09/22 08:50 12:09 13:02 WBC 22.5 H RBC 2.70 L Hgb 8.8 L Hct 27.2 L MCV 101 H MCH 33 H MCHC RDW Plt Count 44 L Lymph % (Auto) Gregory % (Auto) Lymph # (Auto) Gregory # (Auto) Baso # (Auto) Seg Neutrophils % Seg Neuts % (Manual) 77.0 H Lymphocytes % (Manual) 11.0 L Monocytes % (Manual) 12.0 H Nucleated RBC % Seg Neutrophils # Seg Neutrophils # Man 17.3 H Lymphocytes # (Manual) Monocytes # (Manual) 2.7 H ABG pH ABG pO2 ABG HCO3 ABG O2 Saturation ABG Base Excess ABG Hemoglobin Oxyhemoglobin Sodium Potassium Chloride Carbon Dioxide BUN Creatinine Glucose POC Glucose 191 H 228 H Hemoglobin A1c Calcium Iron TIBC Ferritin AST Alkaline Phosphatase Total Creatine Kinase NT-Pro-B Natriuret Pep Total Protein Albumin LDL Cholesterol Direct HDL Cholesterol Vitamin B12 Crossmatch 07/09/22 07/09/22 07/09/22 20:41 Unknown Unknown WBC 17.9 H RBC 2.71 L Hgb 8.6 L Hct 27.3 L MCV 101 H MCH MCHC 31 L RDW 13.1 L Plt Count 47 L Lymph % (Auto) Gregory % (Auto) 11.9 H Lymph # (Auto) Gregory # (Auto) 2.1 H Baso # (Auto) Seg Neutrophils % 70.7 H Seg Neuts % (Manual) Lymphocytes % (Manual) Monocytes % (Manual) Nucleated RBC % Seg Neutrophils # 12.6 H Seg Neutrophils # Man Lymphocytes # (Manual) Monocytes # (Manual) ABG pH ABG pO2 ABG HCO3 ABG O2 Saturation ABG Base Excess ABG Hemoglobin Oxyhemoglobin Sodium 136 L Potassium Chloride Carbon Dioxide BUN Creatinine Glucose 174 H POC Glucose 380 H Hemoglobin A1c Calcium Iron TIBC Ferritin AST Alkaline Phosphatase Total Creatine Kinase NT-Pro-B Natriuret Pep Total Protein Albumin LDL Cholesterol Direct HDL Cholesterol Vitamin B12 Crossmatch 07/10/22 07/10/22 07/10/22 05:10 05:10 05:49 WBC 25.0 H RBC 2.51 L Hgb 8.1 L Hct 24.9 L MCV 99 H MCH MCHC RDW Plt Count 41 L Lymph % (Auto) Gregory % (Auto) Lymph # (Auto) Gregory # (Auto) Baso # (Auto) Seg Neutrophils % Seg Neuts % (Manual) 91.0 H Lymphocytes % (Manual) 6.0 L Monocytes % (Manual) Nucleated RBC % Seg Neutrophils # Seg Neutrophils # Man 22.8 H Lymphocytes # (Manual) Monocytes # (Manual) ABG pH ABG pO2 ABG HCO3 ABG O2 Saturation ABG Base Excess ABG Hemoglobin Oxyhemoglobin Sodium Potassium Chloride Carbon Dioxide BUN Creatinine Glucose 197 H POC Glucose 230 H Hemoglobin A1c Calcium Iron TIBC Ferritin AST Alkaline Phosphatase Total Creatine Kinase 816 H NT-Pro-B Natriuret Pep Total Protein Albumin LDL Cholesterol Direct HDL Cholesterol Vitamin B12 Crossmatch 07/10/22 07/10/22 07/10/22 15:31 15:33 17:52 WBC RBC Hgb Hct MCV MCH MCHC RDW Plt Count Lymph % (Auto) Gregory % (Auto) Lymph # (Auto) Gregory # (Auto) Baso # (Auto) Seg Neutrophils % Seg Neuts % (Manual) Lymphocytes % (Manual) Monocytes % (Manual) Nucleated RBC % Seg Neutrophils # Seg Neutrophils # Man Lymphocytes # (Manual) Monocytes # (Manual) ABG pH ABG pO2 ABG HCO3 ABG O2 Saturation ABG Base Excess ABG Hemoglobin Oxyhemoglobin Sodium Potassium Chloride Carbon Dioxide BUN Creatinine Glucose POC Glucose 319 H 335 H 334 H Hemoglobin A1c Calcium Iron TIBC Ferritin AST Alkaline Phosphatase Total Creatine Kinase NT-Pro-B Natriuret Pep Total Protein Albumin LDL Cholesterol Direct HDL Cholesterol Vitamin B12 Crossmatch 0907/11/22 07/11/22 20:20 06:04 06:04 WBC 27.9 H RBC 2.48 L Hgb 7.9 L Hct 24.7 L MCV 100 H MCH MCHC RDW Plt Count 51 L Lymph % (Auto) Gregory % (Auto) Lymph # (Auto) Gregory # (Auto) Baso # (Auto) Seg Neutrophils % Seg Neuts % (Manual) 82.0 H Lymphocytes % (Manual) 8.0 L Monocytes % (Manual) 10.0 H Nucleated RBC % Seg Neutrophils # Seg Neutrophils # Man 22.9 H Lymphocytes # (Manual) Monocytes # (Manual) 2.8 H ABG pH ABG pO2 ABG HCO3 ABG O2 Saturation ABG Base Excess ABG Hemoglobin Oxyhemoglobin Sodium Potassium Chloride Carbon Dioxide BUN Creatinine Glucose 64 L POC Glucose 250 H Hemoglobin A1c Calcium 8.3 L Iron TIBC Ferritin AST Alkaline Phosphatase Total Creatine Kinase 483 H NT-Pro-B Natriuret Pep Total Protein Albumin LDL Cholesterol Direct HDL Cholesterol Vitamin B12 Crossmatch 07/11/22 07/11/22 07/11/22 08:35 13:06 16:00 WBC RBC Hgb Hct MCV MCH MCHC RDW Plt Count Lymph % (Auto) Gregory % (Auto) Lymph # (Auto) Gregory # (Auto) Baso # (Auto) Seg Neutrophils % Seg Neuts % (Manual) Lymphocytes % (Manual) Monocytes % (Manual) Nucleated RBC % Seg Neutrophils # Seg Neutrophils # Man Lymphocytes # (Manual) Monocytes # (Manual) ABG pH ABG pO2 ABG HCO3 ABG O2 Saturation ABG Base Excess ABG Hemoglobin Oxyhemoglobin Sodium Potassium Chloride Carbon Dioxide BUN Creatinine Glucose POC Glucose 111 H 220 H 107 H Hemoglobin A1c Calcium Iron TIBC Ferritin AST Alkaline Phosphatase Total Creatine Kinase NT-Pro-B Natriuret Pep Total Protein Albumin LDL Cholesterol Direct HDL Cholesterol Vitamin B12 Crossmatch 07/11/22 07/12/22 07/12/22 22:37 04:51 05:15 WBC RBC Hgb Hct MCV MCH MCHC RDW Plt Count Lymph % (Auto) Gregory % (Auto) Lymph # (Auto) Gregory # (Auto) Baso # (Auto) Seg Neutrophils % Seg Neuts % (Manual) Lymphocytes % (Manual) Monocytes % (Manual) Nucleated RBC % Seg Neutrophils # Seg Neutrophils # Man Lymphocytes # (Manual) Monocytes # (Manual) ABG pH ABG pO2 ABG HCO3 ABG O2 Saturation ABG Base Excess ABG Hemoglobin Oxyhemoglobin Sodium Potassium Chloride Carbon Dioxide BUN Creatinine Glucose POC Glucose 109 H 189 H Hemoglobin A1c Calcium Iron TIBC Ferritin AST Alkaline Phosphatase Total Creatine Kinase 304 H NT-Pro-B Natriuret Pep Total Protein Albumin LDL Cholesterol Direct HDL Cholesterol Vitamin B12 Crossmatch 07/12/22 07/12/22 07/12/22 07:53 11:09 14:04 WBC RBC Hgb Hct MCV MCH MCHC RDW Plt Count Lymph % (Auto) Gregory % (Auto) Lymph # (Auto) Gregory # (Auto) Baso # (Auto) Seg Neutrophils % Seg Neuts % (Manual) Lymphocytes % (Manual) Monocytes % (Manual) Nucleated RBC % Seg Neutrophils # Seg Neutrophils # Man Lymphocytes # (Manual) Monocytes # (Manual) ABG pH ABG pO2 ABG HCO3 ABG O2 Saturation ABG Base Excess ABG Hemoglobin Oxyhemoglobin Sodium Potassium Chloride Carbon Dioxide BUN Creatinine Glucose POC Glucose 242 H 269 H 285 H Hemoglobin A1c Calcium Iron TIBC Ferritin AST Alkaline Phosphatase Total Creatine Kinase NT-Pro-B Natriuret Pep Total Protein Albumin LDL Cholesterol Direct HDL Cholesterol Vitamin B12 Crossmatch 07/12/22 07/12/22 07/12/22 17:11 17:50 21:18 WBC RBC Hgb Hct MCV MCH MCHC RDW Plt Count Lymph % (Auto) Gregory % (Auto) Lymph # (Auto) Gregory # (Auto) Baso # (Auto) Seg Neutrophils % Seg Neuts % (Manual) Lymphocytes % (Manual) Monocytes % (Manual) Nucleated RBC % Seg Neutrophils # Seg Neutrophils # Man Lymphocytes # (Manual) Monocytes # (Manual) ABG pH ABG pO2 ABG HCO3 ABG O2 Saturation ABG Base Excess ABG Hemoglobin Oxyhemoglobin Sodium Potassium Chloride Carbon Dioxide BUN Creatinine Glucose POC Glucose 301 H 299 H 331 H Hemoglobin A1c Calcium Iron TIBC Ferritin AST Alkaline Phosphatase Total Creatine Kinase NT-Pro-B Natriuret Pep Total Protein Albumin LDL Cholesterol Direct HDL Cholesterol Vitamin B12 Crossmatch 07/13/22 07/13/22 07/13/22 07:02 08:10 11:37 WBC RBC Hgb Hct MCV MCH MCHC RDW Plt Count Lymph % (Auto) Gregory % (Auto) Lymph # (Auto) Gregory # (Auto) Baso # (Auto) Seg Neutrophils % Seg Neuts % (Manual) Lymphocytes % (Manual) Monocytes % (Manual) Nucleated RBC % Seg Neutrophils # Seg Neutrophils # Man Lymphocytes # (Manual) Monocytes # (Manual) ABG pH ABG pO2 ABG HCO3 ABG O2 Saturation ABG Base Excess ABG Hemoglobin Oxyhemoglobin Sodium Potassium Chloride Carbon Dioxide BUN Creatinine Glucose POC Glucose 134 H 158 H 226 H Hemoglobin A1c Calcium Iron TIBC Ferritin AST Alkaline Phosphatase Total Creatine Kinase NT-Pro-B Natriuret Pep Total Protein Albumin LDL Cholesterol Direct HDL Cholesterol Vitamin B12 Crossmatch 07/13/22 07/13/22 07/13/22 17:12 20:17 23:34 WBC RBC Hgb Hct MCV MCH MCHC RDW Plt Count Lymph % (Auto) Gregory % (Auto) Lymph # (Auto) Gregory # (Auto) Baso # (Auto) Seg Neutrophils % Seg Neuts % (Manual) Lymphocytes % (Manual) Monocytes % (Manual) Nucleated RBC % Seg Neutrophils # Seg Neutrophils # Man Lymphocytes # (Manual) Monocytes # (Manual) ABG pH ABG pO2 ABG HCO3 ABG O2 Saturation ABG Base Excess ABG Hemoglobin Oxyhemoglobin Sodium Potassium Chloride Carbon Dioxide BUN Creatinine Glucose POC Glucose 122 H 235 H 283 H Hemoglobin A1c Calcium Iron TIBC Ferritin AST Alkaline Phosphatase Total Creatine Kinase NT-Pro-B Natriuret Pep Total Protein Albumin LDL Cholesterol Direct HDL Cholesterol Vitamin B12 Crossmatch 07/14/22 07/14/22 07/14/22 06:01 07:58 07:58 WBC 29.4 H RBC 2.11 L Hgb 6.7 L Hct 21.0 L MCV 100 H MCH MCHC RDW Plt Count 34 L Lymph % (Auto) Gregory % (Auto) Lymph # (Auto) Gregory # (Auto) Baso # (Auto) Seg Neutrophils % Seg Neuts % (Manual) 86.0 H Lymphocytes % (Manual) 4.0 L Monocytes % (Manual) 10.0 H Nucleated RBC % Seg Neutrophils # Seg Neutrophils # Man 25.3 H Lymphocytes # (Manual) Monocytes # (Manual) 2.9 H ABG pH ABG pO2 ABG HCO3 ABG O2 Saturation ABG Base Excess ABG Hemoglobin Oxyhemoglobin Sodium Potassium Chloride Carbon Dioxide BUN Creatinine Glucose POC Glucose 175 H Hemoglobin A1c Calcium Iron TIBC Ferritin AST Alkaline Phosphatase Total Creatine Kinase NT-Pro-B Natriuret Pep Total Protein Albumin LDL Cholesterol Direct HDL Cholesterol Vitamin B12 > 2000 H Crossmatch 09/07/14/22 07/14/22 07:58 08:11 10:51 WBC RBC Hgb Hct MCV MCH MCHC RDW Plt Count Lymph % (Auto) Gregory % (Auto) Lymph # (Auto) Gregory # (Auto) Baso # (Auto) Seg Neutrophils % Seg Neuts % (Manual) Lymphocytes % (Manual) Monocytes % (Manual) Nucleated RBC % Seg Neutrophils # Seg Neutrophils # Man Lymphocytes # (Manual) Monocytes # (Manual) ABG pH ABG pO2 ABG HCO3 ABG O2 Saturation ABG Base Excess ABG Hemoglobin Oxyhemoglobin Sodium 136 L Potassium 2.9 L* D Chloride Carbon Dioxide BUN Creatinine Glucose 217 H POC Glucose 218 H 222 H Hemoglobin A1c Calcium 7.5 L Iron TIBC Ferritin AST Alkaline Phosphatase Total Creatine Kinase NT-Pro-B Natriuret Pep Total Protein Albumin LDL Cholesterol Direct HDL Cholesterol Vitamin B12 Crossmatch 07/14/22 07/14/22 07/15/22 15:25 20:32 08:22 WBC RBC Hgb Hct MCV MCH MCHC RDW Plt Count Lymph % (Auto) Gregory % (Auto) Lymph # (Auto) Gregory # (Auto) Baso # (Auto) Seg Neutrophils % Seg Neuts % (Manual) Lymphocytes % (Manual) Monocytes % (Manual) Nucleated RBC % Seg Neutrophils # Seg Neutrophils # Man Lymphocytes # (Manual) Monocytes # (Manual) ABG pH ABG pO2 ABG HCO3 ABG O2 Saturation ABG Base Excess ABG Hemoglobin Oxyhemoglobin Sodium Potassium 3.5 L D Chloride Carbon Dioxide BUN Creatinine Glucose 30 L* POC Glucose 174 H 159 H Hemoglobin A1c Calcium 7.2 L Iron TIBC Ferritin AST Alkaline Phosphatase Total Creatine Kinase NT-Pro-B Natriuret Pep Total Protein Albumin LDL Cholesterol Direct HDL Cholesterol Vitamin B12 Crossmatch 07/15/22 07/15/22 07/15/22 11:23 11:56 16:00 WBC RBC Hgb Hct MCV MCH MCHC RDW Plt Count Lymph % (Auto) Gregory % (Auto) Lymph # (Auto) Gregory # (Auto) Baso # (Auto) Seg Neutrophils % Seg Neuts % (Manual) Lymphocytes % (Manual) Monocytes % (Manual) Nucleated RBC % Seg Neutrophils # Seg Neutrophils # Man Lymphocytes # (Manual) Monocytes # (Manual) ABG pH 7.528 H ABG pO2 125.0 H ABG HCO3 ABG O2 Saturation ABG Base Excess ABG Hemoglobin 6.9 L Oxyhemoglobin Sodium Potassium Chloride Carbon Dioxide BUN Creatinine Glucose POC Glucose 117 H 43 L Hemoglobin A1c Calcium Iron TIBC Ferritin AST Alkaline Phosphatase Total Creatine Kinase NT-Pro-B Natriuret Pep Total Protein Albumin LDL Cholesterol Direct HDL Cholesterol Vitamin B12 Crossmatch 07/15/22 07/15/22 07/15/22 16:19 16:54 20:44 WBC RBC Hgb Hct MCV MCH MCHC RDW Plt Count Lymph % (Auto) Gregory % (Auto) Lymph # (Auto) Gregory # (Auto) Baso # (Auto) Seg Neutrophils % Seg Neuts % (Manual) Lymphocytes % (Manual) Monocytes % (Manual) Nucleated RBC % Seg Neutrophils # Seg Neutrophils # Man Lymphocytes # (Manual) Monocytes # (Manual) ABG pH ABG pO2 ABG HCO3 ABG O2 Saturation ABG Base Excess ABG Hemoglobin Oxyhemoglobin Sodium Potassium Chloride Carbon Dioxide BUN Creatinine Glucose POC Glucose 150 H 188 H Hemoglobin A1c Calcium Iron TIBC Ferritin AST Alkaline Phosphatase Total Creatine Kinase NT-Pro-B Natriuret Pep Total Protein Albumin LDL Cholesterol Direct HDL Cholesterol Vitamin B12 Crossmatch See Detail 07/16/22 07/16/22 07/16/22 07:37 08:31 08:31 WBC 33.1 H RBC 2.58 L Hgb 7.8 L Hct 25.1 L MCV 97 H MCH MCHC 31 L RDW 16.8 H Plt Count 14 L* Lymph % (Auto) Gregory % (Auto) Lymph # (Auto) 1.1 L Gregory # (Auto) 1.8 H Baso # (Auto) 0.2 H Seg Neutrophils % 89.3 H Seg Neuts % (Manual) Lymphocytes % (Manual) Monocytes % (Manual) Nucleated RBC % Seg Neutrophils # 28.0 H Seg Neutrophils # Man Lymphocytes # (Manual) Monocytes # (Manual) ABG pH ABG pO2 ABG HCO3 ABG O2 Saturation ABG Base Excess ABG Hemoglobin Oxyhemoglobin Sodium 136 L Potassium Chloride Carbon Dioxide 19 L BUN Creatinine Glucose 374 H POC Glucose 283 H Hemoglobin A1c Calcium 7.3 L Iron TIBC Ferritin AST Alkaline Phosphatase Total Creatine Kinase NT-Pro-B Natriuret Pep Total Protein Albumin LDL Cholesterol Direct HDL Cholesterol Vitamin B12 Crossmatch 07/16/22 07/16/22 07/16/22 09:50 11:31 16:13 WBC RBC Hgb Hct MCV MCH MCHC RDW Plt Count Lymph % (Auto) Gregory % (Auto) Lymph # (Auto) Gregory # (Auto) Baso # (Auto) Seg Neutrophils % Seg Neuts % (Manual) Lymphocytes % (Manual) Monocytes % (Manual) Nucleated RBC % Seg Neutrophils # Seg Neutrophils # Man Lymphocytes # (Manual) Monocytes # (Manual) ABG pH ABG pO2 ABG HCO3 ABG O2 Saturation ABG Base Excess ABG Hemoglobin Oxyhemoglobin Sodium Potassium Chloride Carbon Dioxide BUN Creatinine Glucose POC Glucose 310 H 229 H Hemoglobin A1c Calcium Iron TIBC Ferritin AST Alkaline Phosphatase Total Creatine Kinase NT-Pro-B Natriuret Pep 3313 H Total Protein Albumin LDL Cholesterol Direct HDL Cholesterol Vitamin B12 Crossmatch 07/16/22 07/17/22 07/17/22 21:50 08:24 09:33 WBC RBC Hgb Hct MCV MCH MCHC RDW Plt Count Lymph % (Auto) Gregory % (Auto) Lymph # (Auto) Gregory # (Auto) Baso # (Auto) Seg Neutrophils % Seg Neuts % (Manual) Lymphocytes % (Manual) Monocytes % (Manual) Nucleated RBC % Seg Neutrophils # Seg Neutrophils # Man Lymphocytes # (Manual) Monocytes # (Manual) ABG pH ABG pO2 ABG HCO3 ABG O2 Saturation ABG Base Excess ABG Hemoglobin Oxyhemoglobin Sodium Potassium Chloride Carbon Dioxide BUN Creatinine Glucose POC Glucose 181 H 200 H 230 H Hemoglobin A1c Calcium Iron TIBC Ferritin AST Alkaline Phosphatase Total Creatine Kinase NT-Pro-B Natriuret Pep Total Protein Albumin LDL Cholesterol Direct HDL Cholesterol Vitamin B12 Crossmatch 07/17/22 07/17/22 07/17/22 12:02 15:03 15:03 WBC 35.1 H RBC 2.32 L Hgb 7.1 L Hct 22.4 L MCV 97 H MCH MCHC RDW 17.3 H Plt Count 30 L D Lymph % (Auto) Gregory % (Auto) Lymph # (Auto) Gregory # (Auto) Baso # (Auto) Seg Neutrophils % Seg Neuts % (Manual) 92.0 H Lymphocytes % (Manual) 2.0 L Monocytes % (Manual) Nucleated RBC % 2.0 H Seg Neutrophils # Seg Neutrophils # Man 32.3 H Lymphocytes # (Manual) 0.7 L Monocytes # (Manual) 1.1 H ABG pH ABG pO2 ABG HCO3 ABG O2 Saturation ABG Base Excess ABG Hemoglobin Oxyhemoglobin Sodium Potassium 3.2 L Chloride Carbon Dioxide 20 L BUN 30 H Creatinine 1.5 H Glucose 377 H POC Glucose 325 H Hemoglobin A1c Calcium 7.4 L Iron TIBC Ferritin AST Alkaline Phosphatase 180 H Total Creatine Kinase NT-Pro-B Natriuret Pep Total Protein 5.3 L Albumin 2.3 L LDL Cholesterol Direct HDL Cholesterol Vitamin B12 Crossmatch 07/17/22 07/17/22 07/18/22 16:20 21:23 08:07 WBC 30.3 H RBC 2.41 L Hgb 7.5 L Hct 22.7 L MCV MCH MCHC RDW 17.3 H Plt Count 22 L Lymph % (Auto) 8.6 L Gregory % (Auto) Lymph # (Auto) Gregory # (Auto) Baso # (Auto) 0.2 H Seg Neutrophils % 87.6 H Seg Neuts % (Manual) Lymphocytes % (Manual) Monocytes % (Manual) Nucleated RBC % Seg Neutrophils # 26.5 H Seg Neutrophils # Man Lymphocytes # (Manual) Monocytes # (Manual) ABG pH ABG pO2 ABG HCO3 ABG O2 Saturation ABG Base Excess ABG Hemoglobin Oxyhemoglobin Sodium Potassium Chloride Carbon Dioxide BUN Creatinine Glucose POC Glucose 356 H 305 H Hemoglobin A1c Calcium Iron TIBC Ferritin AST Alkaline Phosphatase Total Creatine Kinase NT-Pro-B Natriuret Pep Total Protein Albumin LDL Cholesterol Direct HDL Cholesterol Vitamin B12 Crossmatch 07/18/22 07/18/22 07/18/22 08:07 08:20 11:10 WBC RBC Hgb Hct MCV MCH MCHC RDW Plt Count Lymph % (Auto) Gregory % (Auto) Lymph # (Auto) Gregory # (Auto) Baso # (Auto) Seg Neutrophils % Seg Neuts % (Manual) Lymphocytes % (Manual) Monocytes % (Manual) Nucleated RBC % Seg Neutrophils # Seg Neutrophils # Man Lymphocytes # (Manual) Monocytes # (Manual) ABG pH 7.270 L ABG pO2 46.4 L 54.4 L ABG HCO3 19.5 L ABG O2 Saturation 78.6 L 78.1 L ABG Base Excess -6.9 L ABG Hemoglobin 7.7 L 7.6 L Oxyhemoglobin 76.7 L 76.3 L Sodium Potassium 3.1 L Chloride Carbon Dioxide BUN 35 H Creatinine 1.7 H Glucose 165 H POC Glucose Hemoglobin A1c Calcium 7.5 L Iron TIBC Ferritin AST Alkaline Phosphatase 191 H Total Creatine Kinase NT-Pro-B Natriuret Pep Total Protein 5.3 L Albumin 2.0 L LDL Cholesterol Direct HDL Cholesterol Vitamin B12 Crossmatch 07/18/22 07/18/22 11:12 13:30 WBC RBC Hgb Hct MCV MCH MCHC RDW Plt Count Lymph % (Auto) Gregory % (Auto) Lymph # (Auto) Gregory # (Auto) Baso # (Auto) Seg Neutrophils % Seg Neuts % (Manual) Lymphocytes % (Manual) Monocytes % (Manual) Nucleated RBC % Seg Neutrophils # Seg Neutrophils # Man Lymphocytes # (Manual) Monocytes # (Manual) ABG pH 7.292 L ABG pO2 ABG HCO3 19.8 L ABG O2 Saturation ABG Base Excess -6.2 L ABG Hemoglobin 7.0 L Oxyhemoglobin 93.8 L Sodium Potassium Chloride Carbon Dioxide BUN Creatinine Glucose POC Glucose 193 H Hemoglobin A1c Calcium Iron TIBC Ferritin AST Alkaline Phosphatase Total Creatine Kinase NT-Pro-B Natriuret Pep Total Protein Albumin LDL Cholesterol Direct HDL Cholesterol Vitamin B12 Crossmatch
[2022-07-18] MEDS ORDERED: LACTATED RINGERS 1,000 ML IV ONE (14:45)
[2022-07-18] MEDS ORDERED: NOREPINEPHRINE IV SCH (15:00)
[2022-07-18] MEDS ORDERED: SODIUM CHLORIDE 0.9% IV SCH (15:00)
[2022-07-18] MEDS: NORepinephrine/NS 8 MG-250 ML 8 MG/250 ML INFUS..BTL IV SCH (15:05)
--- NOTE | 2022-07-18 16:35 | Progress Note ---
Assessment and Plan Assessment and plan: This is a 67-year-old male with DM, PVD s/p right lower extremity bypass for occluded popliteal to dorsalis pedis, s/p stents metatarsal rotation of the right foot, s/p left lower extremity SFA/popliteal stenting, CKD admitted with osteomyelitis and gangrene of his foot, acute on chronic kidney injury, now with acute hypoxic respiratory failure. Neuro: Acute metabolic encephalopathy -Sedated with fentanyl and propofol -RASS goal 0 to -1 -Reorientation as needed -Maintain sleep-wake cycle -As needed analgesia -Bilateral wrist restraints for safety Cardiac: Hypotension, h/o hypertension, CAD -Cardiology consulted, appreciate recommendations -Blood pressure monitoring via A-line -Vasopressor support with Levophed -MAP goal greater than 65 -Echocardiogram shows EF of 55 to 60%, RVSP 37 mmHg -Lipitor Vascular: PVD s/p revascularization followed by amputation -s/p revascularization on 07/09/2022, followed by toe amputation 07/10/2022, MRI with abscess between the third and fourth toe also extensive bony destruction of the third fourth fifth and even the second toe. S/p TMA of second through fifth toes on 07/12/2022 -General surgery, vascular surgery consulted, appreciate recommendations -Wound care per nursing -Plavix, Pletal Respiratory: Acute hypoxemic respiratory failure -[facility] consulted, appreciate recommendations -S/p BiPAP -Intubated on 07/18 with a 8.00 ETT at 20 at the lips -Current vent settings: Assist-control, tidal volume 350 PEEP 18, rate 30, FiO2 100% -See RT notes for titration -A.m. ABG and CXR noted -VAP bundle -SPO2 monitoring GI: Moderate protein calorie malnutrition -24 hours -368 mL -PPI -NTR consulted for tube feedings -BR: Senokot S : Acute on possible chronic kidney disease -Monitor intake and output -Renally dose medications -Avoid nephrotoxic medications -DC Lasix -Trend BMP ID: Sepsis secondary to osteomyelitis of left foot, wet gangrene of the left third distal and middle phalanx, diabetic foot infection with abscess of left third digit, r/o c diff -Infectious disease consulted, appreciate recommendations -MRI with abscess between the third and fourth toe also extensive bony destruction of the third fourth fifth and even the second toe. -Antibiotic therapy with Daptomycin, Meropenem, Flagyl, PO Vanco -Contact precautions -Cdiff PCR pending -f/u blood culture, surgical culture -Monitor WBC and temperature curve Endo: h/o DM -Hemoglobin A1c 6.5 -Avoid hypoglycemia -SSI -Accu-Cheks q. 6 -Long-acting insulin, titrate as needed Heme: Microcytic anemia secondary to liver dysfunction and sepsis, thrombocytopenia secondary to sepsis/diabetic foot infection/osteomyelitis, Leukocytosis -Hematology/oncology consulted, appreciate recommendations -Transfuse platelets whenever platelets less than 20, transfuse 1 unit PRBC whenever hematocrit less than 23 -HIT negative -S/p 1 unit PRBC and 3 units of platelets -IV Ferrlicet while inpatient -Trend CBC -Transfuse hemoglobin less than 7 -SCDs to BLE while in bed The high probability of a clinically significant, sudden or life threatening deterioration of the [multi] system(s) required my full and direct attention, intervention and personal management. The aggregate critical care time was [60] minutes. This time is in addition to time spent performing reported procedures but includes the following: [x] Data Review and interpretation [x] Patient assessment and monitoring of vital signs [x] Documentation [x] Medication orders and management Disposition Plan: icu Total Time Spent with Patient (Minutes): 60 History Interval history: This is a 67-year-old male with DM, PVD s/p right lower extremity bypass for occluded popliteal to dorsalis pedis, s/p transmetatarsal amputation of right foot, s/p left lower extremity SFA/popliteal stenting, CKD who presented to emergency department on 07/07 with complaints of infected diabetic foot. Recommend the emergency department revealed white gangrene of left third distal phalanx and middle phalanx, diabetic foot infection with ulceration of the left third digit, osteomyelitis of left foot, hyperglycemia, pseudohyponatremia, metabolic acidosis, leukocytosis, thrombocytopenia and acute kidney injury. P atient was admitted to the hospitalist service with consults to vascular and general surgery. ICU course to date: 07/17: Patient was hypoxic requiring supplemental oxygen 15 L/high flow, BiPAP as needed suddenly went into acute respiratory failure, and unresponsiveness, code met was called, Upon responding to code met, patient was severely hypoxemic on BiPAP respiratory therapist recommended intubation and ventilatory support. On auscultation bilateral basal crackles, advised 40 mg of IV Lasix x1 dose. I discussed with charge nurse of ICU and pulmonary critical Dr. Castillo. To transfer the patient to ICU for possible intubation and further management. I also requested critical care consult.. On arrival to ICU, patient was more alert, slightly improved, intubation held and pulmonary critical recommended BiPAP, Set of labs, chest x-ray, EKG and ABG was requested. 07/18: This morning patient was responsive and ABG was ran which showed hypoxemia and patient was intubated. Patient also received A-line. Due to multiple antibiotics and potential need for vasopressors PICC team was consulted. Patient was hypotensive for which 1 L bolus was given with minimal response and patient was ultimately placed on vasopressors. Family updated by nurse practitioner and case management. Hospitalist Physical - Constitutional Vitals: Temp Pulse Resp BP Pulse Ox 100.6 F H 109 H 22 89/42 100 07/18/22 03:35 07/18/22 15:30 07/18/22 15:30 07/18/22 15:30 07/18/22 15:30 General appearance: Present: mild distress, well-nourished, other (On BiPAP) - EENT Eyes: Present: PERRL, EOM intact ENT: dentition normal - Neck Neck: Present: normal ROM - Respiratory Respiratory effort: labored Respiratory: bilateral: diminished - Cardiovascular Rhythm: regular Heart Sounds: Present: S1 & S2. Absent: systolic murmur, diastolic murmur - Extremities Extremities: no ischemia, No edema, normal temperature, normal color Peripheral Pulses: abnormal - Peripheral pulses dorsalis pedis Pulse Strength: 1+ (Doppler) posterial tibial Pulse Strength: 1+ (Doppler) - Abdominal General gastrointestinal: soft, non-tender, normal bowel sounds - Integumentary Integumentary: Present: warm, dry - Psychiatric Psychiatric: other - Neurologic Neurologic: other (responds to painful stimuli, PERRL, intact cough/gag) - Allied Health Allied health notes reviewed: nursing, RT, social work Results - Labs CBC & Chem 7: 07/18/22 08:07 07/18/22 08:07 Labs: Laboratory Last Values WBC 30.3 K/mm3 (4.5-11.0) H 07/18/22 08:07 RBC 2.41 M/mm3 (3.65-5.03) L 07/18/22 08:07 Hgb 7.5 gm/dl (11.8-15.2) L 07/18/22 08:07 Hct 22.7 % (35.5-45.6) L 07/18/22 08:07 MCV 94 fl (84-94) 07/18/22 08:07 MCH 31 pg (28-32) 07/18/22 08:07 MCHC 33 % (32-34) 07/18/22 08:07 RDW 17.3 % (13.2-15.2) H 07/18/22 08:07 Plt Count 22 K/mm3 (140-440) L 07/18/22 08:07 Lymph % (Auto) 8.6 % (13.4-35.0) L 07/18/22 08:07 [place] % (Auto) 2.8 % (0.0-7.3) 07/18/22 08:07 Eos % (Auto) 0.2 % (0.0-4.3) 07/18/22 08:07 Baso % (Auto) 0.8 % (0.0-1.8) 07/18/22 08:07 Lymph # (Auto) 2.6 K/mm3 (1.2-5.4) 07/18/22 08:07 [place] # (Auto) 0.8 K/mm3 (0.0-0.8) 07/18/22 08:07 Eos # (Auto) 0.1 K/mm3 (0.0-0.4) 07/18/22 08:07 Baso # (Auto) 0.2 K/mm3 (0.0-0.1) H 07/18/22 08:07 Add Manual Diff Complete 07/18/22 08:07 Total Counted Cancelled 07/18/22 08:07 Seg Neutrophils % 87.6 % (40.0-70.0) H 07/18/22 08:07 Seg Neuts % (Manual) Cancelled 07/18/22 08:07 Band Neutrophils % Cancelled 07/18/22 08:07 Lymphocytes % (Manual) Cancelled 07/18/22 08:07 Reactive Lymphs % (Man) Cancelled 07/18/22 08:07 Monocytes % (Manual) Cancelled 07/18/22 08:07 Eosinophils % (Manual) Cancelled 07/18/22 08:07 Basophils % (Manual) Cancelled 07/18/22 08:07 Metamyelocytes % Cancelled 07/18/22 08:07 Myelocytes % Cancelled 07/18/22 08:07 Promyelocytes % Cancelled 07/18/22 08:07 Blast Cells % Cancelled 07/18/22 08:07 Nucleated RBC % Cancelled 07/18/22 08:07 Seg Neutrophils # 26.5 K/mm3 (1.8-7.7) H 07/18/22 08:07 Seg Neutrophils # Man Cancelled 07/18/22 08:07 Band Neutrophils # Cancelled 07/18/22 08:07 Lymphocytes # (Manual) Cancelled 07/18/22 08:07 Abs React Lymphs (Man) Cancelled 07/18/22 08:07 Monocytes # (Manual) Cancelled 07/18/22 08:07 Eosinophils # (Manual) Cancelled 07/18/22 08:07 Basophils # (Manual) Cancelled 07/18/22 08:07 Metamyelocytes # Cancelled 07/18/22 08:07 Myelocytes # Cancelled 07/18/22 08:07 Promyelocytes # Cancelled 07/18/22 08:07 Blast Cells # Cancelled 07/18/22 08:07 WBC Morphology Cancelled 07/18/22 08:07 Hypersegmented Neuts Cancelled 07/18/22 08:07 Hyposegmented Neuts Cancelled 07/18/22 08:07 Hypogranular Neuts Cancelled 07/18/22 08:07 Hypersegmented Polys Cancelled 07/18/22 08:07 Smudge Cells Cancelled 07/18/22 08:07 Toxic Granulation Cancelled 07/18/22 08:07 Toxic Vacuolation Cancelled 07/18/22 08:07 Dohle Bodies Cancelled 07/18/22 08:07 Pelger-Huet Anomaly Cancelled 07/18/22 08:07 Lulu Rods Cancelled 07/18/22 08:07 Platelet Estimate Cancelled 07/18/22 08:07 Clumped Platelets Cancelled 07/18/22 08:07 Plt Clumps, EDTA Cancelled 07/18/22 08:07 Large Platelets Cancelled 07/18/22 08:07 Giant Platelets Cancelled 07/18/22 08:07 Platelet Satelliting Cancelled 07/18/22 08:07 Plt Morphology Comment Cancelled 07/18/22 08:07 RBC Morphology Cancelled 07/18/22 08:07 Dimorphic RBCs Cancelled 07/18/22 08:07 Polychromasia Cancelled 07/18/22 08:07 Hypochromasia Cancelled 07/18/22 08:07 Poikilocytosis Cancelled 07/18/22 08:07 Basophilic Stippling Cancelled 07/18/22 08:07 Anisocytosis Cancelled 07/18/22 08:07 Microcytosis Cancelled 07/18/22 08:07 Macrocytosis Cancelled 07/18/22 08:07 Spherocytes Cancelled 07/18/22 08:07 Pappenheimer Bodies Cancelled 07/18/22 08:07 Sickle Cells Cancelled 07/18/22 08:07 Target Cells Cancelled 07/18/22 08:07 Tear Drop Cells Cancelled 07/18/22 08:07 Ovalocytes Cancelled 07/18/22 08:07 Stomatocytes Cancelled 07/18/22 08:07 Helmet Cells Cancelled 07/18/22 08:07 [place] Bodies Cancelled 07/18/22 08:07 Commerce Rings Cancelled 07/18/22 08:07 Merry Cells Cancelled 07/18/22 08:07 Bite Cells Cancelled 07/18/22 08:07 Crenated Cell Cancelled 07/18/22 08:07 Elliptocytes Cancelled 07/18/22 08:07 Acanthocytes (Spur) Cancelled 07/18/22 08:07 Rouleaux Cancelled 07/18/22 08:07 Hemoglobin C Crystals Cancelled 07/18/22 08:07 Schistocytes Cancelled 07/18/22 08:07 Malaria parasites Cancelled 07/18/22 08:07 Chintan Bodies Cancelled 07/18/22 08:07 Hem Pathologist Commnt Cancelled 07/18/22 08:07 PT 14.5 Sec. (12.2-14.9) 07/09/22 Unknown INR 0.99 (0.87-1.13) 07/09/22 Unknown Heparin Anti-Xa, Unfract Negative (Negative) 07/14/22 17:05 ABG pH 7.292 pH Units (7.350-7.450) L 07/18/22 13:30 ABG pCO2 42.0 mm Hg 07/18/22 13:30 ABG pO2 80.6 mm Hg (80.0-90.0) 07/18/22 13:30 ABG HCO3 19.8 mmol/L (20.0-26.0) L 07/18/22 13:30 ABG O2 Saturation 95.8 % (95.0-99.0) 07/18/22 13:30 ABG O2 Content 9.4 (0.0-44) 07/18/22 13:30 ABG Base Excess -6.2 mmol/L (-2.0-3.0) L 07/18/22 13:30 ABG Hemoglobin 7.0 gm/dl (14.0-18.0) L 07/18/22 13:30 ABG Carboxyhemoglobin 1.6 % (0.0-5.0) 07/18/22 13:30 ABG Methemoglobin 0.5 % (0.0-1.5) 07/18/22 13:30 Oxyhemoglobin 93.8 % (95.0-99.0) L 07/18/22 13:30 FiO2 100 % 07/18/22 13:30 Sodium 144 mmol/L (137-145) 07/18/22 08:07 Potassium 3.1 mmol/L (3.6-5.0) L 07/18/22 08:07 Chloride 105.6 mmol/L (98-107) 07/18/22 08:07 Carbon Dioxide 23 mmol/L (22-30) 07/18/22 08:07 Anion Gap 19 mmol/L 07/18/22 08:07 BUN 35 mg/dL (9-20) H 07/18/22 08:07 Creatinine 1.7 mg/dL (0.8-1.3) H 07/18/22 08:07 Estimated GFR 49 ml/min 07/18/22 08:07 BUN/Creatinine Ratio 21 % 07/18/22 08:07 Glucose 165 mg/dL (75-100) H 07/18/22 08:07 POC Glucose 193 mg/dL (70-105) H 07/18/22 11:12 Hemoglobin A1c 6.5 % (4-6) H 07/07/22 08:41 Lactic Acid 1.50 mmol/L (0.7-2.0) 07/07/22 02:26 Calcium 7.5 mg/dL (8.4-10.2) L 07/18/22 08:07 Phosphorus 3.50 mg/dL (2.5-4.5) 07/18/22 08:07 Magnesium 2.00 mg/dL (1.7-2.3) 07/18/22 08:07 Iron 16 ug/dL (49-181) L 07/08/22 05:35 TIBC 133 mcg/dL (250-450) L 07/08/22 05:35 Ferritin 2888.0 ng/mL (30.0-300.0) H 07/08/22 05:35 Total Bilirubin 1.10 mg/dL (0.1-1.2) 07/18/22 08:07 AST 38 units/L (5-40) 07/18/22 08:07 ALT 30 units/L (7-56) 07/18/22 08:07 Alkaline Phosphatase 191 units/L (35-129) H 07/18/22 08:07 Total Creatine Kinase 95 units/L (55-170) 07/14/22 07:58 NT-Pro-B Natriuret Pep 3313 pg/mL (0-900) H 07/16/22 09:50 Total Protein 5.3 g/dL (6.3-8.2) L 07/18/22 08:07 Albumin 2.0 g/dL (3.9-5) L 07/18/22 08:07 Albumin/Globulin Ratio 0.6 % 07/18/22 08:07 Triglycerides 114 mg/dL (2-149) 07/07/22 08:41 Cholesterol 116 mg/dL (50-199) 07/07/22 08:41 LDL Cholesterol Direct 46 mg/dL (50-130) L 07/07/22 08:41 HDL Cholesterol 37 mg/dL (40-59) L 07/07/22 08:41 Cholesterol/HDL Ratio 3.13 % 07/07/22 08:41 Vitamin B12 > 2000 pg/mL (211-911) H 07/14/22 07:58 Heparin-induced Plt Ab Negative (Negative) 07/14/22 17:05 UF Heparin High Dose 3 % Release 07/14/22 17:05 AYUSH UFH Low Dose 0.1 2 % Release 07/14/22 17:05 AYUSH UFH Low Dose 0.5 3 % Release 07/14/22 17:05 SARS-CoV-2 (PCR) Negative (Negative) 07/18/22 09:38 Blood Type O POSITIVE 07/15/22 16:19 Antibody Screen Negative 07/15/22 16:19 Crossmatch See Detail 07/15/22 16:19 Microbiology: Microbiology 07/15/22 11:34 Peripheral/Venous Blood Culture - Preliminary NO GROWTH AFTER 72 HOURS 07/15/22 11:34 Peripheral/Venous Blood Culture - Preliminary NO GROWTH AFTER 72 HOURS Villareal/IV: Voiding Method Condom Catheter Active Medications - Current Medications Current Medications: Generic Name Dose Route Start Last Admin Trade Name Freq PRN Reason Stop Dose Admin Acetaminophen 650 mg 07/07/22 08:30 07/15/22 20:37 Acetaminophen 325 Mg Tab PO 650 mg Q4H PRN Administration Pain MILD(1-3)/Fever >100.5/DAS Atorvastatin Calcium 40 mg 07/10/22 11:00 07/18/22 11:25 Atorvastatin 40 Mg Tab PO 40 mg DAILY APRIL Administration Cilostazol 100 mg 07/09/22 12:00 07/18/22 11:25 Cilostazol 100 Mg Tab PO 100 mg BID APRIL Administration Clopidogrel Bisulfate 75 mg 07/10/22 10:00 07/18/22 11:25 Clopidogrel 75 Mg Tab PO 75 mg QDAY APRIL Administration Dextrose 50 ml 07/07/22 08:35 07/15/22 16:13 Dextrose 50% In Water (25gm) 50 Ml Syringe IV 25 ml Q30MIN PRN Administration Hypoglycemia Protocol Famotidine 20 mg 07/18/22 22:00 Famotidine 20 Mg Tab FEEDTUBE QHS APRIL Fentanyl 50 mcg 07/18/22 10:36 07/18/22 10:42 Fentanyl 100 Mcg/2 Ml Inj IV 50 mcg Q2HR PRN Administration Pain , Severe (7-10) Hydrophilic Ointment 1 applic 07/18/22 09:59 Lip Therapy Vaseline TP Q2HR PRN Dry Lips Daptomycin 500 mg/ Sodium 100 mls @ 200 mls/hr 07/10/22 18:00 07/17/22 17:58 Chloride IV 200 mls/hr Q24H APRIL Administration Protocol Fentanyl Citrate 1,000 mcg in 100 mls @ 2.5 mls/hr 07/18/22 10:00 07/18/22 15:08 Fentanyl Drip Premix IV 25 mcg/hr TITR APRIL 2.5 mls/hr Titration Protocol 25 MCG/HR Propofol 1,000 mg in 100 mls @ 2.454 mls/hr 07/18/22 10:00 07/18/22 15:05 Diprivan 10 Mg/Ml IV 15 mcg/kg/min TITR APRIL 7.362 mls/hr Titration Protocol 5 MCG/KG/MIN Meropenem/Sodium Chloride 1 gram in 100 mls @ 100 mls/hr 07/18/22 12:00 07/18/22 14:00 Merrem/Ns 1 Gram/100 Ml IV 100 mls/hr Q8H [facility] Administration Protocol NORepinephrine/NS 8 MG-250 ML 8 mg in 250 mls @ 15.338 mls/hr 07/18/22 16:00 Norepinephrine/Ns 8 Mg-250 Ml (Double Conc) IV TITRATE [facility] Protocol 0.1 MCG/KG/MIN Insulin Glargine 20 units 07/18/22 22:00 Insulin Glargine 100 Units/Ml SUB-Q QHS [facility] Insulin Human Regular 0 units 07/14/22 07:30 07/18/22 11:34 Insulin Regular, Human 100 Units/1 Ml SUB-Q 2 units ACHS [facility] Administration Protocol Metoclopramide HCl 10 mg 07/09/22 17:34 07/15/22 20:54 Metoclopramide 10 Mg/2 Ml Inj IV 10 mg Q6H PRN Administration Nausea And Vomiting Metoprolol Tartrate 5 mg 07/17/22 12:00 07/18/22 06:05 Metoprolol Tartrate 5 Mg/5 Ml Inj IV 5 mg Q6HR [facility] Administration Multi-Ingred Cream/Lotion/Oil/Oint 1 applic 07/18/22 09:59 Mineral Oil/Petrolatum, White Ophth Oint 3.5 Gm OU Q4HR PRN Dry Eye(s) Ondansetron HCl 4 mg 07/07/22 08:30 07/15/22 19:18 Ondansetron 4 Mg/2 Ml Inj IV 4 mg Q8H PRN Administration Nausea And Vomiting Phenol 1 spray 07/17/22 01:14 07/17/22 01:43 Phenol 1.4% 177 Ml Bottle MM 1 spray PRN PRN Administration Sore Throat Senna/Docusate Sodium 1 tab 07/18/22 11:00 07/18/22 11:34 Sennosides/Docusate Sodium 8.6/50 Mg Tab FEEDTUBE 1 tab BID APRIL Administration Sodium Chloride 10 ml 07/07/22 10:00 07/18/22 11:34 Sodium Chloride 0.9% 10 Ml Flush Syringe IV 10 ml BID APRIL Administration Sodium Chloride 10 ml 07/07/22 08:30 Sodium Chloride 0.9% 10 Ml Flush Syringe IV PRN PRN LINE FLUSH Sodium Chloride 5 ml 07/18/22 11:50 Sodium Chloride 0.9% 1000 Ml Iv Soln IV PRN PRN ART-LINE FLUSH Sodium Hypochlorite 1 applic 07/14/22 10:00 07/18/22 11:35 Sodium Hypochlorite, Dakin's 1/2 Strength (0.25%) 473 Ml Topical Soln TP 1 applicatio BID APRIL Administration Vancomycin HCl 125 mg 07/18/22 12:00 Vancomycin 250 Mg/10 Ml Oral Liqd FEEDTUBE Q6HR [facility] Protocol Nutrition/Malnutrition Assess - Dietary Evaluation Nutrition/Malnutrition Findings: Nutrition Notes Start: 07/08/22 11:33 Freq: Status: Active Protocol: Document 07/18/22 10:16 SHANNON (Rec: 07/18/22 11:10 SHANNON [id number]) Nutrition Notes Initial or Follow up Reassessment Current Diagnosis Acute Kidney Injury,CKD(stage I-IV),Diabetes,Sepsis, Hypertension,Respiratory Failure,Malnutrition Other Pertinent Diagnosis PVD, PAD, s/p L-Toes Amputation, Pulmonary Edema, Anemia, Thrombocytopenia. Current Diet TF-Nepro w/CARBSTEADY @ 40 ml/ hr (from L 07/18). Labs/Tests 07/18: K 3.1, BUN 35, Crea 1.7 , Glu 165, Ca 7.5. Pertinent Medications 07/18: Humulin R 6U, others nutritionally unremarkable. Height 5 ft 8 in Weight 81.8 kg Magnet Body Weight (kg) 70.00 BMI 27.4 Weight change and time frame Discrepancy of 11.7 Kg body weight gain in 1 week reported . Weight Status Overweight Subjective/Other Information RD consult for write/manage TF assessment. Pt currently on NPO. No reports available of Pt's PO intake of meals prior to intubatioin. Pt is on Mechanical Ventilation since 07/18, O2 saturation @ 93%, according to [facility] Vent notes. I will prescribe TF to provide Pt with energy/protein needs during LOS. Pt has missing teeth, but has dentures, according to Physical Assessment History notes. Pt continues to present diarrhea, and has been isolated due to C-Diff infection, according to Progress notes. Pt is s/p R-Foot transmetatarsal amputee poa, according to Progress notes. Pt underwent transmetatarsal amputation of second to fifth toes of his left foot on 07/12 , according to Operative Report notes. Pt shows LFoot surgical wound as sign of concern for skin risk at the time, according to Physical Assessment History notes. Percent of energy/protein needs met: Prescribed TF-Nepro w/ CARBSTEADY @ 40 ml/hr provides for energy/protein needs (1, 745 Kcal/79 g) during LOS, 93% Kcal; 100% AA. Burn Absent Trauma Absent GI Symptoms Diarrhea,Other Food Allergy No Skin Integrity/Comment L-Foot surgical wound. Current % PO Other Minimum of two criteria No Fluid Accumulation Mild (non-severe) Protein-Calorie Malnutrition N\A #1 Nutrition Diagnosis Inadequate oral intake Comments: Nutrition Diagnosis Change for precision. Etiology Pt is on Mechanical Ventilation. As Evidenced by Signs and Symptoms Pt currently on NPO. Is patient on ventilator? Yes Is Patient Ambulatory and/or Out of Bed No REE-([facility]-confined to bed) [phone] Calculation Used for Recommendations [facility] Additional Notes Protein: 0.8-1.2 g/Kg ABW; 66- 98 g/day. Fluids: 1 ml/Kcal, or as per MD. Nutrition Intervention Change Diet Order: Discontinued. Nutrition Support: Start TF-Nepro w/CARBSTEADY @ 40 ml/hr. Flush: 200 ml water Q 4 hr, or as per MD. Kcal 1,745 Protein (gm) 79 Carbohydrates (gm) 156 Fat (gm) 93 Fluid (mL) 705 Fiber (gm) 12 % RDI: 93% Kcal; 100% AA. Add Supplement/Snack (indicate name/kcal Discontinued. /protein ) Goal #1 Provide at least 75% of energy /protein needs through Enteral Feeding during LOS. Goal #2 Adjust the dietary intervention to better serve Pt's energy/protein needs and clinical conditions during LOS . Follow-Up By: 07/20/22 Additional Comments Start monitoring TF tolerance, Ventilation status, and BM.
[2022-07-18] MEDS: FAMOTIDINE 20 MG TAB FEEDTUBE SCH (22:27)
[2022-07-18] MEDS: INSULIN GLARGINE 100 UNITS/ML SUB-Q SCH (22:41)
[2022-07-19] MEDS: VANCOMYCIN 250 MG/10 ML ORAL LIQD FEEDTUBE SCH ×4 (00:30→18:45)
[2022-07-19] MEDS: NORepinephrine/NS 8 MG-250 ML 8 MG/250 ML INFUS..BTL IV SCH ×7 (01:40→22:24)
[2022-07-19] MEDS: VASOPRESSIN 20 UNIT in SODIUM CHLORIDE 0.9% 100 ML IV SCH ×3 (03:30→23:33)
[2022-07-19] MEDS: MEROPENEM/NS 1 GRAM/100 ML 1 GRAM/100 ML BAG IV SCH (03:52)
[2022-07-19 04:12] LABS: ABG Base Excess -7.7 mmol/L (-2.0-3.0); ABG HCO3 19.7 mmol/L (20.0-26.0); ABG Methemoglobin 0.6 % (0.0-1.5); ABG Oxygen Saturation 97.5 % (95.0-99.0); ABG PCO2 51.8 mm Hg; ABG PO2 115.9 mm Hg (80.0-90.0)
[2022-07-19 04:30] LABS: ABG PH 7.198 pH Units (7.350-7.450)
--- NOTE | 2022-07-19 04:36 | XRay Report ---
CHEST 1 VIEW INDICATION / CLINICAL INFORMATION: follow up respiratory failure. COMPARISON: 07/18/2022 FINDINGS: SUPPORT DEVICES: Stable, satisfactory device positioning. HEART / MEDIASTINUM: No significant abnormality. LUNGS / PLEURA: There is extensive bilateral pulmonary opacities. Bilateral pulmonary opacities appea r slightly worse compared to the last chest radiograph. No pneumothorax. ADDITIONAL FINDINGS: No significant additional findings. IMPRESSION: 1. Slight interval worsening of diffuse bilateral pulmonary opacities. Signer Name: Susan Jaffe MD Signed: 07/19/2022 4:32 AM Workstation Name: [id number]
[2022-07-19 05:23] LABS: Hematocrit 21.2 % (35.5-45.6); Hemoglobin 6.5 gm/dl (11.8-15.2); Mean Corpuscular HGB Conc 30 % (32-34); Mean Corpuscular Volume 99 fl (84-94); Red Blood Count 2.16 M/mm3 (3.65-5.03); Red Cell Distribution Width 17.8 % (13.2-15.2)
[2022-07-19 05:32] LABS: Platelet Count 44 K/mm3 (140-440)
[2022-07-19 05:46] LABS: Calcium 7.5 mg/dL (8.4-10.2)
[2022-07-19] MEDS: METOPROLOL TARTRATE 5 MG/5 ML INJ IV SCH ×4 (06:05→18:45)
[2022-07-19] MEDS ORDERED: IPRATROPIUM/ALBUTEROL SULFATE 3 ML AMPUL.NEB IH ONE (07:24)
[2022-07-19] MEDS: fentaNYL DRIP Premix 1,000 MCG/100 ML BAG IV SCH (07:31)
[2022-07-19] MEDS ORDERED: SODIUM CHLORIDE 0.9% 500 ML 500 ML IV SCH ×2 (08:00→17:52)
--- NOTE | 2022-07-19 08:47 | Consultation ---
History of Present Illness - Reason for Consult Consult date: 07/19/22 acute renal failure, metabolic acidosis - History of Present Illness This is a 67-year-old male with DM, PVD s/p right lower extremity bypass for occluded popliteal to dorsalis pedis, s/p stents metatarsal rotation of the r ight foot, s/p left lower extremity SFA/popliteal stenting, CKD admitted with osteomyelitis and gangrene of his foot, acute on chronic kidney injury, now with acute hypoxic respiratory failure. Nephrology consulted for JACQUI, acidosis- noted to have hypotension, worsening respiratory status and brought to ICU 07/18, now intubated and sedated Past History Past Medical History: diabetes, PVD (s/p RLE bypass 10+ years ago, occluded (pop-dp) ; s/p LLE SFA/pop stenting at outside facility years ago), renal failure (CKD) Past Surgical History: Other (PVD surgery; transmetatarsal amputation of right foot) Social history: no significant social history Family history: no significant family history Medications and Allergies Allergies Allergy/AdvReac Type Severity Reaction Status Date / Time No Known Allergies Allergy Verified 07/10/22 13:17 Home Medications Medication Instructions Recorded Confirmed Last Taken Type Tamsulosin [Flomax] 0.4 mg PO QDAY 07/07/22 07/10/22 Unknown History traZODone [Desyrel] 100 mg PO QHS 07/07/22 07/10/22 Unknown History AtorvaSTATin [Lipitor] 40 mg PO QHS 07/10/22 07/10/22 Unknown History Chlorthalidone [Thalitone] 25 mg PO QDAY 07/10/22 07/10/22 Unknown History Insulin Glargine,Hum.rec.anlog 60 units SQ QDAY 07/10/22 07/10/22 Unknown History [Lantus Solostar] Lisinopril [Zestril TAB] 30 mg PO QDAY 07/10/22 07/10/22 Unknown History Lispro Insulin [HumaLOG] 10 units SQ TIDWM 07/10/22 07/10/22 Unknown History Metoprolol [Lopressor] 100 mg PO BID 07/10/22 07/10/22 Unknown History Multivitamin 1 each PO QDAY 07/10/22 07/10/22 Unknown History Sertraline [Zoloft] 100 mg PO QDAY 07/10/22 07/10/22 Unknown History Timolol Maleate/Pf [Timolol 1 drop OU BID 07/10/22 07/10/22 Unknown History Maleate 0.5% Eye Drop] cilostazoL [Pletal] 100 mg PO BID 07/10/22 07/10/22 Unknown History Active Meds: Active Medications Acetaminophen (Acetaminophen 325 Mg Tab) 650 mg PO Q4H PRN PRN Reason: Pain MILD(1-3)/Fever >100.5/DAS Last Admin: 07/15/22 20:37 Dose: 650 mg Atorvastatin Calcium (Atorvastatin 40 Mg Tab) 40 mg PO DAILY [facility] Last Admin: 07/18/22 11:25 Dose: 40 mg Cilostazol (Cilostazol 100 Mg Tab) 100 mg PO BID [facility] Last Admin: 07/18/22 22:27 Dose: 100 mg Clopidogrel Bisulfate (Clopidogrel 75 Mg Tab) 75 mg PO QDAY [facility] Last Admin: 07/18/22 11:25 Dose: 75 mg Dextrose (Dextrose 50% In Water (25gm) 50 Ml Syringe) 50 ml IV Q30MIN PRN; Protocol PRN Reason: Hypoglycemia Last Admin: 07/15/22 16:13 Dose: 25 ml Famotidine (Famotidine 20 Mg Tab) 20 mg FEEDTUBE QHS [facility] Last Admin: 07/18/22 22:27 Dose: 20 mg Fentanyl (Fentanyl 100 Mcg/2 Ml Inj) 50 mcg IV Q2HR PRN PRN Reason: Pain , Severe (7-10) Last Admin: 07/18/22 10:42 Dose: 50 mcg Hydrophilic Ointment (Lip Therapy Vaseline) 1 applic TP Q2HR PRN PRN Reason: Dry Lips Fentanyl Citrate (Fentanyl Drip Premix) 1,000 mcg in 100 mls @ 2.5 mls/hr IV TITR [facility]; Protocol Last Admin: 07/19/22 07:31 Dose: 30 mcg/hr, 3 mls/hr Propofol (Diprivan 10 Mg/Ml) 1,000 mg in 100 mls @ 2.454 mls/hr IV TITR [facility]; Protocol Last Titration: 07/19/22 03:00 Dose: 5 mcg/kg/min, 2.454 mls/hr NORepinephrine/NS 8 MG-250 ML (Norepinephrine/Ns 8 Mg-250 Ml (Double Conc)) 8 mg in 250 mls @ 15.338 mls/hr IV TITRATE [facility]; Protocol Last Titration: 07/19/22 07:35 Dose: 0.43 mcg/kg/min, 65.951 mls/hr Vasopressin 20 unit/ Sodium (Chloride) 101 mls @ 9.09 mls/hr IV TITR [facility]; Protocol Last Admin: 07/19/22 03:30 Dose: 0.03 units/min, 9.09 mls/hr Sodium Chloride (Nacl 0.9% 500 Ml) 500 mls @ 0 mls/hr IV ONCE@0800 [facility] Stop: 07/19/22 19:00 Meropenem/Sodium Chloride (Merrem/Ns 1 Gram/100 Ml) 1 gram in 100 mls @ 100 mls/hr IV Q12H [facility]; Protocol Daptomycin 500 mg/ Sodium (Chloride) 100 mls @ 200 mls/hr IV Q48H [facility]; Protocol Insulin Glargine (Insulin Glargine 100 Units/Ml) 20 units SUB-Q QHS [facility] Last Admin: 07/18/22 22:41 Dose: 20 units Insulin Human Regular (Insulin Regular, Human 100 Units/1 Ml) 0 units SUB-Q ACHS [facility]; Protocol Last Admin: 07/18/22 22:41 Dose: 4 units Metoclopramide HCl (Metoclopramide 10 Mg/2 Ml Inj) 5 mg IV Q6H PRN PRN Reason: Nausea And Vomiting Metoprolol Tartrate (Metoprolol Tartrate 5 Mg/5 Ml Inj) 5 mg IV Q6HR [facility] Last Admin: 07/19/22 06:05 Dose: Not Given Multi-Ingred Cream/Lotion/Oil/Oint (Mineral Oil/Petrolatum, White Ophth Oint 3.5 Gm) 1 applic OU Q4HR PRN PRN Reason: Dry Eye(s) Ondansetron HCl (Ondansetron 4 Mg/2 Ml Inj) 4 mg IV Q8H PRN PRN Reason: Nausea And Vomiting Last Admin: 07/15/22 19:18 Dose: 4 mg Phenol (Phenol 1.4% 177 Ml Bottle) 1 spray MM PRN PRN PRN Reason: Sore Throat Last Admin: 07/17/22 01:43 Dose: 1 spray Senna/Docusate Sodium (Sennosides/Docusate Sodium 8.6/50 Mg Tab) 1 tab FEEDTUBE BID [facility] Last Admin: 07/18/22 22:27 Dose: 1 tab Sodium Chloride (Sodium Chloride 0.9% 10 Ml Flush Syringe) 10 ml IV BID [facility] Last Admin: 07/18/22 22:27 Dose: 10 ml Sodium Chloride (Sodium Chloride 0.9% 10 Ml Flush Syringe) 10 ml IV PRN PRN PRN Reason: LINE FLUSH Sodium Chloride (Sodium Chloride 0.9% 1000 Ml Iv Soln) 5 ml IV PRN PRN PRN Reason: ART-LINE FLUSH Sodium Hypochlorite (Sodium Hypochlorite, Dakin's 1/2 Strength (0.25%) 473 Ml Topical Soln) 1 applic TP BID [facility] Last Admin: 07/18/22 22:27 Dose: 1 applicatio Vancomycin HCl (Vancomycin 250 Mg/10 Ml Oral Liqd) 125 mg FEEDTUBE Q6HR [facility]; Protocol Last Admin: 07/19/22 06:06 Dose: 125 mg Review of Systems ROS unobtainable: due to endotracheal tube, due to mental status Exam - Vital Signs Vital signs: Vital Signs Temp Pulse Resp BP Pulse Ox 99.0 F 109 H 16 124/49 99 07/06/22 21:14 07/06/22 21:14 07/06/22 21:14 07/06/22 21:14 07/06/22 21:14 - Physical Exam Narrative exam: General appearance: Present: mild distress, intubated, sedated - EENT Eyes: Present: PERRL, EOM intact ENT: dentition normal - Neck Neck: Present: normal ROM - Respiratory Respiratory effort: labored Respiratory: bilateral: diminished - Cardiovascular Rhythm: regular Heart Sounds: Present: S1 & S2. - Extremities Extremities: no ischemia, No edema, normal temperature, normal color - Abdominal General gastrointestinal: soft, non-tender, normal bowel sounds - Integumentary Integumentary: Present: warm, dry - Psychiatric Psychiatric: other - Neurologic Neurologic: other (responds to painful stimuli, PERRL, intact cough/gag) Results - Lab Results 07/19/22 05:00 07/19/22 05:00 Most recent lab results ABG pH 7.198 pH Units (7.350-7.450) L* 07/19/22 03:35 ABG pCO2 51.8 mm Hg 07/19/22 03:35 ABG pO2 115.9 mm Hg (80.0-90.0) H 07/19/22 03:35 ABG HCO3 19.7 mmol/L (20.0-26.0) L 07/19/22 03:35 ABG O2 Saturation 97.5 % (95.0-99.0) 07/19/22 03:35 Calcium 7.5 mg/dL (8.4-10.2) L 07/19/22 05:00 Phosphorus 7.90 mg/dL (2.5-4.5) H D 07/19/22 05:00 Magnesium 2.40 mg/dL (1.7-2.3) H 07/19/22 05:00 Assessment and Plan # Acute Kidney Injury: suspect JACQUI in setting of tubular injury, worsening anemia, hypotension. Would consider hemolytic uremic syndrome/TTP as well. Creatinine 0.9->1.7->2.7 this AM, concerning trend. - start IV HCO3 repletion; avoid diuretics for now - check for markers of hemolysis; note prior hematology input regarding anemia/thrombocytopenia - continue aggressive ICU support, including vasopressors prn - check urine studies as able, check serologies although less likely glomerular injury - check CK (on daptomycin) - renal imaging WNL - strict Is/Os - avoid nephrotoxins - renally dose medications - no immediate need for renal replacement therapy, however at high risk given clinical trends- would plan for vascath placement tomorrow if renal indices continue to worsen as anticipate would need in next 24-48 hours; will reevaluate patient this afternoon and in AM # Hypotension: agree with vasopressor support # Acute Hypoxemic Respiratory Failure/ARDS: appreciate ICU team # Osteomyelitis of foot, Gangrene, peripheral vascular disease: note ID, vascular input # Diabetes: per primary # Anemia, Thrombocytopenia: consider hemolysis, HIT negative
[2022-07-19] MEDS ORDERED: METOCLOPRAMIDE 10 MG/2 ML INJ IV PRN (09:00)
[2022-07-19] MEDS: SENNOSIDES/DOCUSATE SODIUM 8.6/50 MG TAB FEEDTUBE SCH ×2 (09:19→22:50)
[2022-07-19] MEDS: CLOPIDOGREL 75 MG TAB PO SCH (09:19)
[2022-07-19] MEDS: CILOSTAZOL 100 MG TAB PO SCH ×2 (09:19→22:50)
[2022-07-19] MEDS: SODIUM HYPOCHLORITE, DAKIN'S 1/2 STRENGTH (0.25%) 473 ML TOPICAL SOLN TP SCH ×2 (09:21→22:00)
[2022-07-19] MEDS: INSULIN REGULAR, HUMAN 100 UNITS/1 ML SUB-Q SCH ×4 (09:25→22:00)
--- NOTE | 2022-07-19 09:31 | Progress Note ---
Assessment and Plan 67 y/o male with gangrene of foot, osteomyelitis s/p amputation now with acute respiratory failure concern for volume overload 07/19/22: Renal has already been consulted so will defer to them. Was considering starting patient on bicarb. Will wean FiO2 but keep PEEP where it is. Abx for osteo. Picc placed yesterday and hopeful that midline has been removed. Overall prognosis is guarded 07/18/22: Stop lasix. Had some difficulty with hypoxemia post intubation. Has responded to pEEP and repeat ABG is acceptable. Will wean for sats >88% and or PaO2>55. Art line placed. Sedation. Guarded prognosis. 1. Agree with trial of lasix 2. Given that mental state has improved, will hold on intubation for now and attempt PPV with bipap 3. Per patient has severe anxiety, but want to wait given his recent improvement in mental state 4. Abx per ID 5. Prognosis is guarded. CCT 31 minutes. Subjective Date of service: 07/19/22 Principal diagnosis: PVD with critical limb Interval history: Worsening metabolic acidosis and renal function. Oxygenation is improved. CXR is slightly worse per rads read but appears stable to me. Objective Vital Signs - 12hr 07/18/22 07/18/22 07/18/22 21:30 22:00 22:30 Pulse Rate 120 H 118 H 118 H Pulse Rate [ From Monitor] Respiratory 23 24 23 Rate Blood Pressure 111/43 107/41 111/43 O2 Sat by Pulse 99 100 99 Oximetry 07/18/22 07/18/22 07/18/22 23:00 23:06 23:30 Pulse Rate 117 H 117 H 118 H Pulse Rate [ From Monitor] Respiratory 25 H 22 23 Rate Blood Pressure 101/41 101/41 101/41 O2 Sat by Pulse 100 100 100 Oximetry 07/18/22 07/19/22 07/19/22 23:37 00:00 00:30 Pulse Rate 116 H 117 H 115 H Pulse Rate [ 116 H From Monitor] Respiratory 28 H 22 Rate Blood Pressure 88/33 115/40 115/40 O2 Sat by Pulse 100 100 100 Oximetry 07/19/22 07/19/22 07/19/22 01:00 01:30 01:46 Pulse Rate 114 H 114 H 119 H Pulse Rate [ From Monitor] Respiratory 22 22 22 Rate Blood Pressure 101/39 101/39 O2 Sat by Pulse 100 100 100 Oximetry 07/19/22 07/19/22 07/19/22 02:00 02:16 02:30 Pulse Rate 113 H 112 H 111 H Pulse Rate [ From Monitor] Respiratory 22 24 27 H Rate Blood Pressure 97/40 97/40 97/40 O2 Sat by Pulse 100 100 100 Oximetry 07/19/22 07/19/22 07/19/22 02:46 03:00 03:16 Pulse Rate 111 H 111 H 109 H Pulse Rate [ From Monitor] Respiratory 25 H 22 25 H Rate Blood Pressure 97/40 95/38 95/38 O2 Sat by Pulse 100 100 100 Oximetry 07/19/22 07/19/22 07/19/22 03:30 03:46 04:00 Pulse Rate 109 H 110 H 115 H Pulse Rate [ 115 H From Monitor] Respiratory 24 26 H 26 H Rate Blood Pressure 95/38 95/38 115/45 O2 Sat by Pulse 95 100 97 Oximetry 07/19/22 07/19/22 07/19/22 04:07 04:16 04:30 Pulse Rate 116 H 117 H 116 H Pulse Rate [ From Monitor] Respiratory 22 25 H Rate Blood Pressure 110/43 115/45 115/45 O2 Sat by Pulse 92 92 93 Oximetry 07/19/22 07/19/22 07/19/22 04:45 05:00 05:16 Pulse Rate 116 H 114 H 110 H Pulse Rate [ From Monitor] Respiratory 23 28 H 16 Rate Blood Pressure 115/45 103/41 115/45 O2 Sat by Pulse 93 92 85 Oximetry 07/19/22 07/19/22 07/19/22 05:30 05:46 06:00 Pulse Rate 109 H 108 H 107 H Pulse Rate [ From Monitor] Respiratory 20 24 28 H Rate Blood Pressure 115/45 115/45 102/38 O2 Sat by Pulse 95 Oximetry 07/19/22 07/19/22 06:16 07:48 Pulse Rate 107 H 102 H Pulse Rate [ From Monitor] Respiratory 22 Rate Blood Pressure 103/41 108/39 O2 Sat by Pulse 95 Oximetry CBC and BMP: 07/19/22 05:00 07/19/22 05:00 ABG, PT/INR, D-dimer: ABG ABG pH 7.198 pH Units (7.350-7.450) L* 07/19/22 03:35 ABG pCO2 51.8 mm Hg 07/19/22 03:35 ABG pO2 115.9 mm Hg (80.0-90.0) H 07/19/22 03:35 ABG O2 Saturation 97.5 % (95.0-99.0) 07/19/22 03:35 PT/INR, D-dimer PT 14.5 Sec. (12.2-14.9) 07/09/22 Unknown INR 0.99 (0.87-1.13) 07/09/22 Unknown Abnormal lab findings: Abnormal Labs 07/07/22 07/07/22 07/07/22 02:26 02:26 08:41 WBC 27.0 H RBC 2.52 L Hgb 8.2 L Hct 25.5 L MCV 101 H MCH 33 H MCHC RDW 13.1 L Plt Count 31 L Lymph % (Auto) [place] % (Auto) Lymph # (Auto) [place] # (Auto) Baso # (Auto) Seg Neutrophils % Seg Neuts % (Manual) 88.0 H Lymphocytes % (Manual) 7.0 L Monocytes % (Manual) Nucleated RBC % Seg Neutrophils # Seg Neutrophils # Man 23.8 H Lymphocytes # (Manual) Monocytes # (Manual) ABG pH ABG pO2 ABG HCO3 ABG O2 Saturation ABG Base Excess ABG Hemoglobin Oxyhemoglobin Sodium 129 L Potassium Chloride 91.5 L Carbon Dioxide 16 L BUN 57 H Creatinine 1.7 H Glucose 509 H* POC Glucose Hemoglobin A1c 6.5 H Calcium Phosphorus Magnesium Iron TIBC Ferritin AST 41 H Alkaline Phosphatase Total Creatine Kinase NT-Pro-B Natriuret Pep Total Protein Albumin 3.6 L LDL Cholesterol Direct HDL Cholesterol Vitamin B12 Crossmatch 07/07/22 07/07/22 07/07/22 08:41 09:19 11:22 WBC RBC Hgb Hct MCV MCH MCHC RDW Plt Count Lymph % (Auto) [place] % (Auto) Lymph # (Auto) [place] # (Auto) Baso # (Auto) Seg Neutrophils % Seg Neuts % (Manual) Lymphocytes % (Manual) Monocytes % (Manual) Nucleated RBC % Seg Neutrophils # Seg Neutrophils # Man Lymphocytes # (Manual) Monocytes # (Manual) ABG pH ABG pO2 ABG HCO3 ABG O2 Saturation ABG Base Excess ABG Hemoglobin Oxyhemoglobin Sodium Potassium Chloride Carbon Dioxide BUN Creatinine Glucose POC Glucose 394 H 343 H Hemoglobin A1c Calcium Phosphorus Magnesium Iron TIBC Ferritin AST Alkaline Phosphatase Total Creatine Kinase NT-Pro-B Natriuret Pep Total Protein Albumin LDL Cholesterol Direct 46 L HDL Cholesterol 37 L Vitamin B12 Crossmatch 07/07/22 07/07/22 07/07/22 15:52 17:44 18:16 WBC RBC Hgb Hct MCV MCH MCHC RDW Plt Count Lymph % (Auto) [place] % (Auto) Lymph # (Auto) [place] # (Auto) Baso # (Auto) Seg Neutrophils % Seg Neuts % (Manual) Lymphocytes % (Manual) Monocytes % (Manual) Nucleated RBC % Seg Neutrophils # Seg Neutrophils # Man Lymphocytes # (Manual) Monocytes # (Manual) ABG pH ABG pO2 ABG HCO3 ABG O2 Saturation ABG Base Excess ABG Hemoglobin Oxyhemoglobin Sodium Potassium Chloride Carbon Dioxide BUN Creatinine Glucose POC Glucose 515 H 558 H 464 H Hemoglobin A1c Calcium Phosphorus Magnesium Iron TIBC Ferritin AST Alkaline Phosphatase Total Creatine Kinase NT-Pro-B Natriuret Pep Total Protein Albumin LDL Cholesterol Direct HDL Cholesterol Vitamin B12 Crossmatch 07/07/22 07/08/22 07/08/22 20:35 05:35 05:35 WBC 21.2 H RBC 2.49 L Hgb 7.9 L Hct 25.3 L MCV 102 H MCH MCHC 31 L RDW 13.1 L Plt Count 27 L Lymph % (Auto) [place] % (Auto) Lymph # (Auto) [place] # (Auto) Baso # (Auto) Seg Neutrophils % Seg Neuts % (Manual) 81.5 H Lymphocytes % (Manual) 12.0 L Monocytes % (Manual) Nucleated RBC % Seg Neutrophils # Seg Neutrophils # Man 17.3 H Lymphocytes # (Manual) Monocytes # (Manual) 1.0 H ABG pH ABG pO2 ABG HCO3 ABG O2 Saturation ABG Base Excess ABG Hemoglobin Oxyhemoglobin Sodium 134 L Potassium Chloride Carbon Dioxide 21 L BUN 29 H Creatinine Glucose 179 H POC Glucose 359 H Hemoglobin A1c Calcium Phosphorus Magnesium Iron 16 L TIBC 133 L Ferritin AST Alkaline Phosphatase Total Creatine Kinase NT-Pro-B Natriuret Pep Total Protein Albumin LDL Cholesterol Direct HDL Cholesterol Vitamin B12 Crossmatch 07/08/22 07/08/22 07/08/22 05:35 05:50 07:39 WBC RBC Hgb Hct MCV MCH MCHC RDW Plt Count Lymph % (Auto) [place] % (Auto) Lymph # (Auto) [place] # (Auto) Baso # (Auto) Seg Neutrophils % Seg Neuts % (Manual) Lymphocytes % (Manual) Monocytes % (Manual) Nucleated RBC % Seg Neutrophils # Seg Neutrophils # Man Lymphocytes # (Manual) Monocytes # (Manual) ABG pH ABG pO2 ABG HCO3 ABG O2 Saturation ABG Base Excess ABG Hemoglobin Oxyhemoglobin Sodium Potassium Chloride Carbon Dioxide BUN Creatinine Glucose POC Glucose 164 H 180 H Hemoglobin A1c Calcium Phosphorus Magnesium Iron TIBC Ferritin 2888.0 H AST Alkaline Phosphatase Total Creatine Kinase NT-Pro-B Natriuret Pep Total Protein Albumin LDL Cholesterol Direct HDL Cholesterol Vitamin B12 Crossmatch 07/08/22 07/08/22 07/09/22 11:39 16:33 06:01 WBC RBC Hgb Hct MCV MCH MCHC RDW Plt Count Lymph % (Auto) [place] % (Auto) Lymph # (Auto) [place] # (Auto) Baso # (Auto) Seg Neutrophils % Seg Neuts % (Manual) Lymphocytes % (Manual) Monocytes % (Manual) Nucleated RBC % Seg Neutrophils # Seg Neutrophils # Man Lymphocytes # (Manual) Monocytes # (Manual) ABG pH ABG pO2 ABG HCO3 ABG O2 Saturation ABG Base Excess ABG Hemoglobin Oxyhemoglobin Sodium Potassium Chloride Carbon Dioxide BUN Creatinine Glucose POC Glucose 202 H 182 H 150 H Hemoglobin A1c Calcium Phosphorus Magnesium Iron TIBC Ferritin AST Alkaline Phosphatase Total Creatine Kinase NT-Pro-B Natriuret Pep Total Protein Albumin LDL Cholesterol Direct HDL Cholesterol Vitamin B12 Crossmatch 07/09/22 07/09/22 07/09/22 08:50 12:09 13:02 WBC 22.5 H RBC 2.70 L Hgb 8.8 L Hct 27.2 L MCV 101 H MCH 33 H MCHC RDW Plt Count 44 L Lymph % (Auto) [place] % (Auto) Lymph # (Auto) [place] # (Auto) Baso # (Auto) Seg Neutrophils % Seg Neuts % (Manual) 77.0 H Lymphocytes % (Manual) 11.0 L Monocytes % (Manual) 12.0 H Nucleated RBC % Seg Neutrophils # Seg Neutrophils # Man 17.3 H Lymphocytes # (Manual) Monocytes # (Manual) 2.7 H ABG pH ABG pO2 ABG HCO3 ABG O2 Saturation ABG Base Excess ABG Hemoglobin Oxyhemoglobin Sodium Potassium Chloride Carbon Dioxide BUN Creatinine Glucose POC Glucose 191 H 228 H Hemoglobin A1c Calcium Phosphorus Magnesium Iron TIBC Ferritin AST Alkaline Phosphatase Total Creatine Kinase NT-Pro-B Natriuret Pep Total Protein Albumin LDL Cholesterol Direct HDL Cholesterol Vitamin B12 Crossmatch 07/09/22 07/09/22 07/09/22 20:41 Unknown Unknown WBC 17.9 H RBC 2.71 L Hgb 8.6 L Hct 27.3 L MCV 101 H MCH MCHC 31 L RDW 13.1 L Plt Count 47 L Lymph % (Auto) [place] % (Auto) 11.9 H Lymph # (Auto) [place] # (Auto) 2.1 H Baso # (Auto) Seg Neutrophils % 70.7 H Seg Neuts % (Manual) Lymphocytes % (Manual) Monocytes % (Manual) Nucleated RBC % Seg Neutrophils # 12.6 H Seg Neutrophils # Man Lymphocytes # (Manual) Monocytes # (Manual) ABG pH ABG pO2 ABG HCO3 ABG O2 Saturation ABG Base Excess ABG Hemoglobin Oxyhemoglobin Sodium 136 L Potassium Chloride Carbon Dioxide BUN Creatinine Glucose 174 H POC Glucose 380 H Hemoglobin A1c Calcium Phosphorus Magnesium Iron TIBC Ferritin AST Alkaline Phosphatase Total Creatine Kinase NT-Pro-B Natriuret Pep Total Protein Albumin LDL Cholesterol Direct HDL Cholesterol Vitamin B12 Crossmatch 07/10/22 07/10/22 07/10/22 05:10 05:10 05:49 WBC 25.0 H RBC 2.51 L Hgb 8.1 L Hct 24.9 L MCV 99 H MCH MCHC RDW Plt Count 41 L Lymph % (Auto) [place] % (Auto) Lymph # (Auto) [place] # (Auto) Baso # (Auto) Seg Neutrophils % Seg Neuts % (Manual) 91.0 H Lymphocytes % (Manual) 6.0 L Monocytes % (Manual) Nucleated RBC % Seg Neutrophils # Seg Neutrophils # Man 22.8 H Lymphocytes # (Manual) Monocytes # (Manual) ABG pH ABG pO2 ABG HCO3 ABG O2 Saturation ABG Base Excess ABG Hemoglobin Oxyhemoglobin Sodium Potassium Chloride Carbon Dioxide BUN Creatinine Glucose 197 H POC Glucose 230 H Hemoglobin A1c Calcium Phosphorus Magnesium Iron TIBC Ferritin AST Alkaline Phosphatase Total Creatine Kinase 816 H NT-Pro-B Natriuret Pep Total Protein Albumin LDL Cholesterol Direct HDL Cholesterol Vitamin B12 Crossmatch 07/10/22 07/10/22 07/10/22 15:31 15:33 17:52 WBC RBC Hgb Hct MCV MCH MCHC RDW Plt Count Lymph % (Auto) [place] % (Auto) Lymph # (Auto) [place] # (Auto) Baso # (Auto) Seg Neutrophils % Seg Neuts % (Manual) Lymphocytes % (Manual) Monocytes % (Manual) Nucleated RBC % Seg Neutrophils # Seg Neutrophils # Man Lymphocytes # (Manual) Monocytes # (Manual) ABG pH ABG pO2 ABG HCO3 ABG O2 Saturation ABG Base Excess ABG Hemoglobin Oxyhemoglobin Sodium Potassium Chloride Carbon Dioxide BUN Creatinine Glucose POC Glucose 319 H 335 H 334 H Hemoglobin A1c Calcium Phosphorus Magnesium Iron TIBC Ferritin AST Alkaline Phosphatase Total Creatine Kinase NT-Pro-B Natriuret Pep Total Protein Albumin LDL Cholesterol Direct HDL Cholesterol Vitamin B12 Crossmatch 07/10/22 07/11/22 07/11/22 20:20 06:04 06:04 WBC 27.9 H RBC 2.48 L Hgb 7.9 L Hct 24.7 L MCV 100 H MCH MCHC RDW Plt Count 51 L Lymph % (Auto) [place] % (Auto) Lymph # (Auto) [place] # (Auto) Baso # (Auto) Seg Neutrophils % Seg Neuts % (Manual) 82.0 H Lymphocytes % (Manual) 8.0 L Monocytes % (Manual) 10.0 H Nucleated RBC % Seg Neutrophils # Seg Neutrophils # Man 22.9 H Lymphocytes # (Manual) Monocytes # (Manual) 2.8 H ABG pH ABG pO2 ABG HCO3 ABG O2 Saturation ABG Base Excess ABG Hemoglobin Oxyhemoglobin Sodium Potassium Chloride Carbon Dioxide BUN Creatinine Glucose 64 L POC Glucose 250 H Hemoglobin A1c Calcium 8.3 L Phosphorus Magnesium Iron TIBC Ferritin AST Alkaline Phosphatase Total Creatine Kinase 483 H NT-Pro-B Natriuret Pep Total Protein Albumin LDL Cholesterol Direct HDL Cholesterol Vitamin B12 Crossmatch 07/11/22 07/11/22 07/11/22 08:35 13:06 16:00 WBC RBC Hgb Hct MCV MCH MCHC RDW Plt Count Lymph % (Auto) [place] % (Auto) Lymph # (Auto) [place] # (Auto) Baso # (Auto) Seg Neutrophils % Seg Neuts % (Manual) Lymphocytes % (Manual) Monocytes % (Manual) Nucleated RBC % Seg Neutrophils # Seg Neutrophils # Man Lymphocytes # (Manual) Monocytes # (Manual) ABG pH ABG pO2 ABG HCO3 ABG O2 Saturation ABG Base Excess ABG Hemoglobin Oxyhemoglobin Sodium Potassium Chloride Carbon Dioxide BUN Creatinine Glucose POC Glucose 111 H 220 H 107 H Hemoglobin A1c Calcium Phosphorus Magnesium Iron TIBC Ferritin AST Alkaline Phosphatase Total Creatine Kinase NT-Pro-B Natriuret Pep Total Protein Albumin LDL Cholesterol Direct HDL Cholesterol Vitamin B12 Crossmatch 07/11/22 07/12/22 07/12/22 22:37 04:51 05:15 WBC RBC Hgb Hct MCV MCH MCHC RDW Plt Count Lymph % (Auto) [place] % (Auto) Lymph # (Auto) [place] # (Auto) Baso # (Auto) Seg Neutrophils % Seg Neuts % (Manual) Lymphocytes % (Manual) Monocytes % (Manual) Nucleated RBC % Seg Neutrophils # Seg Neutrophils # Man Lymphocytes # (Manual) Monocytes # (Manual) ABG pH ABG pO2 ABG HCO3 ABG O2 Saturation ABG Base Excess ABG Hemoglobin Oxyhemoglobin Sodium Potassium Chloride Carbon Dioxide BUN Creatinine Glucose POC Glucose 109 H 189 H Hemoglobin A1c Calcium Phosphorus Magnesium Iron TIBC Ferritin AST Alkaline Phosphatase Total Creatine Kinase 304 H NT-Pro-B Natriuret Pep Total Protein Albumin LDL Cholesterol Direct HDL Cholesterol Vitamin B12 Crossmatch 07/12/22 07/12/22 07/12/22 07:53 11:09 14:04 WBC RBC Hgb Hct MCV MCH MCHC RDW Plt Count Lymph % (Auto) [place] % (Auto) Lymph # (Auto) [place] # (Auto) Baso # (Auto) Seg Neutrophils % Seg Neuts % (Manual) Lymphocytes % (Manual) Monocytes % (Manual) Nucleated RBC % Seg Neutrophils # Seg Neutrophils # Man Lymphocytes # (Manual) Monocytes # (Manual) ABG pH ABG pO2 ABG HCO3 ABG O2 Saturation ABG Base Excess ABG Hemoglobin Oxyhemoglobin Sodium Potassium Chloride Carbon Dioxide BUN Creatinine Glucose POC Glucose 242 H 269 H 285 H Hemoglobin A1c Calcium Phosphorus Magnesium Iron TIBC Ferritin AST Alkaline Phosphatase Total Creatine Kinase NT-Pro-B Natriuret Pep Total Protein Albumin LDL Cholesterol Direct HDL Cholesterol Vitamin B12 Crossmatch 07/12/22 07/12/22 07/12/22 17:11 17:50 21:18 WBC RBC Hgb Hct MCV MCH MCHC RDW Plt Count Lymph % (Auto) [place] % (Auto) Lymph # (Auto) [place] # (Auto) Baso # (Auto) Seg Neutrophils % Seg Neuts % (Manual) Lymphocytes % (Manual) Monocytes % (Manual) Nucleated RBC % Seg Neutrophils # Seg Neutrophils # Man Lymphocytes # (Manual) Monocytes # (Manual) ABG pH ABG pO2 ABG HCO3 ABG O2 Saturation ABG Base Excess ABG Hemoglobin Oxyhemoglobin Sodium Potassium Chloride Carbon Dioxide BUN Creatinine Glucose POC Glucose 301 H 299 H 331 H Hemoglobin A1c Calcium Phosphorus Magnesium Iron TIBC Ferritin AST Alkaline Phosphatase Total Creatine Kinase NT-Pro-B Natriuret Pep Total Protein Albumin LDL Cholesterol Direct HDL Cholesterol Vitamin B12 Crossmatch 07/13/22 07/13/22 07/13/22 07:02 08:10 11:37 WBC RBC Hgb Hct MCV MCH MCHC RDW Plt Count Lymph % (Auto) [place] % (Auto) Lymph # (Auto) [place] # (Auto) Baso # (Auto) Seg Neutrophils % Seg Neuts % (Manual) Lymphocytes % (Manual) Monocytes % (Manual) Nucleated RBC % Seg Neutrophils # Seg Neutrophils # Man Lymphocytes # (Manual) Monocytes # (Manual) ABG pH ABG pO2 ABG HCO3 ABG O2 Saturation ABG Base Excess ABG Hemoglobin Oxyhemoglobin Sodium Potassium Chloride Carbon Dioxide BUN Creatinine Glucose POC Glucose 134 H 158 H 226 H Hemoglobin A1c Calcium Phosphorus Magnesium Iron TIBC Ferritin AST Alkaline Phosphatase Total Creatine Kinase NT-Pro-B Natriuret Pep Total Protein Albumin LDL Cholesterol Direct HDL Cholesterol Vitamin B12 Crossmatch 07/13/22 07/13/22 07/13/22 17:12 20:17 23:34 WBC RBC Hgb Hct MCV MCH MCHC RDW Plt Count Lymph % (Auto) [place] % (Auto) Lymph # (Auto) [place] # (Auto) Baso # (Auto) Seg Neutrophils % Seg Neuts % (Manual) Lymphocytes % (Manual) Monocytes % (Manual) Nucleated RBC % Seg Neutrophils # Seg Neutrophils # Man Lymphocytes # (Manual) Monocytes # (Manual) ABG pH ABG pO2 ABG HCO3 ABG O2 Saturation ABG Base Excess ABG Hemoglobin Oxyhemoglobin Sodium Potassium Chloride Carbon Dioxide BUN Creatinine Glucose POC Glucose 122 H 235 H 283 H Hemoglobin A1c Calcium Phosphorus Magnesium Iron TIBC Ferritin AST Alkaline Phosphatase Total Creatine Kinase NT-Pro-B Natriuret Pep Total Protein Albumin LDL Cholesterol Direct HDL Cholesterol Vitamin B12 Crossmatch 07/14/22 07/14/22 07/14/22 06:01 07:58 07:58 WBC 29.4 H RBC 2.11 L Hgb 6.7 L Hct 21.0 L MCV 100 H MCH MCHC RDW Plt Count 34 L Lymph % (Auto) [place] % (Auto) Lymph # (Auto) [place] # (Auto) Baso # (Auto) Seg Neutrophils % Seg Neuts % (Manual) 86.0 H Lymphocytes % (Manual) 4.0 L Monocytes % (Manual) 10.0 H Nucleated RBC % Seg Neutrophils # Seg Neutrophils # Man 25.3 H Lymphocytes # (Manual) Monocytes # (Manual) 2.9 H ABG pH ABG pO2 ABG HCO3 ABG O2 Saturation ABG Base Excess ABG Hemoglobin Oxyhemoglobin Sodium Potassium Chloride Carbon Dioxide BUN Creatinine Glucose POC Glucose 175 H Hemoglobin A1c Calcium Phosphorus Magnesium Iron TIBC Ferritin AST Alkaline Phosphatase Total Creatine Kinase NT-Pro-B Natriuret Pep Total Protein Albumin LDL Cholesterol Direct HDL Cholesterol Vitamin B12 > 2000 H Crossmatch 07/14/22 07/14/22 07/14/22 07:58 08:11 10:51 WBC RBC Hgb Hct MCV MCH MCHC RDW Plt Count Lymph % (Auto) [place] % (Auto) Lymph # (Auto) [place] # (Auto) Baso # (Auto) Seg Neutrophils % Seg Neuts % (Manual) Lymphocytes % (Manual) Monocytes % (Manual) Nucleated RBC % Seg Neutrophils # Seg Neutrophils # Man Lymphocytes # (Manual) Monocytes # (Manual) ABG pH ABG pO2 ABG HCO3 ABG O2 Saturation ABG Base Excess ABG Hemoglobin Oxyhemoglobin Sodium 136 L Potassium 2.9 L* D Chloride Carbon Dioxide BUN Creatinine Glucose 217 H POC Glucose 218 H 222 H Hemoglobin A1c Calcium 7.5 L Phosphorus Magnesium Iron TIBC Ferritin AST Alkaline Phosphatase Total Creatine Kinase NT-Pro-B Natriuret Pep Total Protein Albumin LDL Cholesterol Direct HDL Cholesterol Vitamin B12 Crossmatch 07/14/22 07/14/22 07/15/22 15:25 20:32 08:22 WBC RBC Hgb Hct MCV MCH MCHC RDW Plt Count Lymph % (Auto) [place] % (Auto) Lymph # (Auto) [place] # (Auto) Baso # (Auto) Seg Neutrophils % Seg Neuts % (Manual) Lymphocytes % (Manual) Monocytes % (Manual) Nucleated RBC % Seg Neutrophils # Seg Neutrophils # Man Lymphocytes # (Manual) Monocytes # (Manual) ABG pH ABG pO2 ABG HCO3 ABG O2 Saturation ABG Base Excess ABG Hemoglobin Oxyhemoglobin Sodium Potassium 3.5 L D Chloride Carbon Dioxide BUN Creatinine Glucose 30 L* POC Glucose 174 H 159 H Hemoglobin A1c Calcium 7.2 L Phosphorus Magnesium Iron TIBC Ferritin AST Alkaline Phosphatase Total Creatine Kinase NT-Pro-B Natriuret Pep Total Protein Albumin LDL Cholesterol Direct HDL Cholesterol Vitamin B12 Crossmatch 07/15/22 07/15/22 07/15/22 11:23 11:56 16:00 WBC RBC Hgb Hct MCV MCH MCHC RDW Plt Count Lymph % (Auto) [place] % (Auto) Lymph # (Auto) [place] # (Auto) Baso # (Auto) Seg Neutrophils % Seg Neuts % (Manual) Lymphocytes % (Manual) Monocytes % (Manual) Nucleated RBC % Seg Neutrophils # Seg Neutrophils # Man Lymphocytes # (Manual) Monocytes # (Manual) ABG pH 7.528 H ABG pO2 125.0 H ABG HCO3 ABG O2 Saturation ABG Base Excess ABG Hemoglobin 6.9 L Oxyhemoglobin Sodium Potassium Chloride Carbon Dioxide BUN Creatinine Glucose POC Glucose 117 H 43 L Hemoglobin A1c Calcium Phosphorus Magnesium Iron TIBC Ferritin AST Alkaline Phosphatase Total Creatine Kinase NT-Pro-B Natriuret Pep Total Protein Albumin LDL Cholesterol Direct HDL Cholesterol Vitamin B12 Crossmatch 07/15/22 07/15/22 07/15/22 16:19 16:54 20:44 WBC RBC Hgb Hct MCV MCH MCHC RDW Plt Count Lymph % (Auto) [place] % (Auto) Lymph # (Auto) [place] # (Auto) Baso # (Auto) Seg Neutrophils % Seg Neuts % (Manual) Lymphocytes % (Manual) Monocytes % (Manual) Nucleated RBC % Seg Neutrophils # Seg Neutrophils # Man Lymphocytes # (Manual) Monocytes # (Manual) ABG pH ABG pO2 ABG HCO3 ABG O2 Saturation ABG Base Excess ABG Hemoglobin Oxyhemoglobin Sodium Potassium Chloride Carbon Dioxide BUN Creatinine Glucose POC Glucose 150 H 188 H Hemoglobin A1c Calcium Phosphorus Magnesium Iron TIBC Ferritin AST Alkaline Phosphatase Total Creatine Kinase NT-Pro-B Natriuret Pep Total Protein Albumin LDL Cholesterol Direct HDL Cholesterol Vitamin B12 Crossmatch See Detail 07/16/22 07/16/22 07/16/22 07:37 08:31 08:31 WBC 33.1 H RBC 2.58 L Hgb 7.8 L Hct 25.1 L MCV 97 H MCH MCHC 31 L RDW 16.8 H Plt Count 14 L* Lymph % (Auto) [place] % (Auto) Lymph # (Auto) 1.1 L [place] # (Auto) 1.8 H Baso # (Auto) 0.2 H Seg Neutrophils % 89.3 H Seg Neuts % (Manual) Lymphocytes % (Manual) Monocytes % (Manual) Nucleated RBC % Seg Neutrophils # 28.0 H Seg Neutrophils # Man Lymphocytes # (Manual) Monocytes # (Manual) ABG pH ABG pO2 ABG HCO3 ABG O2 Saturation ABG Base Excess ABG Hemoglobin Oxyhemoglobin Sodium 136 L Potassium Chloride Carbon Dioxide 19 L BUN Creatinine Glucose 374 H POC Glucose 283 H Hemoglobin A1c Calcium 7.3 L Phosphorus Magnesium Iron TIBC Ferritin AST Alkaline Phosphatase Total Creatine Kinase NT-Pro-B Natriuret Pep Total Protein Albumin LDL Cholesterol Direct HDL Cholesterol Vitamin B12 Crossmatch 07/16/22 07/16/22 07/16/22 09:50 11:31 16:13 WBC RBC Hgb Hct MCV MCH MCHC RDW Plt Count Lymph % (Auto) [place] % (Auto) Lymph # (Auto) [place] # (Auto) Baso # (Auto) Seg Neutrophils % Seg Neuts % (Manual) Lymphocytes % (Manual) Monocytes % (Manual) Nucleated RBC % Seg Neutrophils # Seg Neutrophils # Man Lymphocytes # (Manual) Monocytes # (Manual) ABG pH ABG pO2 ABG HCO3 ABG O2 Saturation ABG Base Excess ABG Hemoglobin Oxyhemoglobin Sodium Potassium Chloride Carbon Dioxide BUN Creatinine Glucose POC Glucose 310 H 229 H Hemoglobin A1c Calcium Phosphorus Magnesium Iron TIBC Ferritin AST Alkaline Phosphatase Total Creatine Kinase NT-Pro-B Natriuret Pep 3313 H Total Protein Albumin LDL Cholesterol Direct HDL Cholesterol Vitamin B12 Crossmatch 07/16/22 07/17/22 07/17/22 21:50 08:24 09:33 WBC RBC Hgb Hct MCV MCH MCHC RDW Plt Count Lymph % (Auto) [place] % (Auto) Lymph # (Auto) [place] # (Auto) Baso # (Auto) Seg Neutrophils % Seg Neuts % (Manual) Lymphocytes % (Manual) Monocytes % (Manual) Nucleated RBC % Seg Neutrophils # Seg Neutrophils # Man Lymphocytes # (Manual) Monocytes # (Manual) ABG pH ABG pO2 ABG HCO3 ABG O2 Saturation ABG Base Excess ABG Hemoglobin Oxyhemoglobin Sodium Potassium Chloride Carbon Dioxide BUN Creatinine Glucose POC Glucose 181 H 200 H 230 H Hemoglobin A1c Calcium Phosphorus Magnesium Iron TIBC Ferritin AST Alkaline Phosphatase Total Creatine Kinase NT-Pro-B Natriuret Pep Total Protein Albumin LDL Cholesterol Direct HDL Cholesterol Vitamin B12 Crossmatch 07/17/22 07/17/2222 12:02 15:03 15:03 WBC 35.1 H RBC 2.32 L Hgb 7.1 L Hct 22.4 L MCV 97 H MCH MCHC RDW 17.3 H Plt Count 30 L D Lymph % (Auto) [place] % (Auto) Lymph # (Auto) [place] # (Auto) Baso # (Auto) Seg Neutrophils % Seg Neuts % (Manual) 92.0 H Lymphocytes % (Manual) 2.0 L Monocytes % (Manual) Nucleated RBC % 2.0 H Seg Neutrophils # Seg Neutrophils # Man 32.3 H Lymphocytes # (Manual) 0.7 L Monocytes # (Manual) 1.1 H ABG pH ABG pO2 ABG HCO3 ABG O2 Saturation ABG Base Excess ABG Hemoglobin Oxyhemoglobin Sodium Potassium 3.2 L Chloride Carbon Dioxide 20 L BUN 30 H Creatinine 1.5 H Glucose 377 H POC Glucose 325 H Hemoglobin A1c Calcium 7.4 L Phosphorus Magnesium Iron TIBC Ferritin AST Alkaline Phosphatase 180 H Total Creatine Kinase NT-Pro-B Natriuret Pep Total Protein 5.3 L Albumin 2.3 L LDL Cholesterol Direct HDL Cholesterol Vitamin B12 Crossmatch 07/17/22 07/17/22 07/18/22 16:20 21:23 08:07 WBC 30.3 H RBC 2.41 L Hgb 7.5 L Hct 22.7 L MCV MCH MCHC RDW 17.3 H Plt Count 22 L Lymph % (Auto) 8.6 L [place] % (Auto) Lymph # (Auto) [place] # (Auto) Baso # (Auto) 0.2 H Seg Neutrophils % 87.6 H Seg Neuts % (Manual) Lymphocytes % (Manual) Monocytes % (Manual) Nucleated RBC % Seg Neutrophils # 26.5 H Seg Neutrophils # Man Lymphocytes # (Manual) Monocytes # (Manual) ABG pH ABG pO2 ABG HCO3 ABG O2 Saturation ABG Base Excess ABG Hemoglobin Oxyhemoglobin Sodium Potassium Chloride Carbon Dioxide BUN Creatinine Glucose POC Glucose 356 H 305 H Hemoglobin A1c Calcium Phosphorus Magnesium Iron TIBC Ferritin AST Alkaline Phosphatase Total Creatine Kinase NT-Pro-B Natriuret Pep Total Protein Albumin LDL Cholesterol Direct HDL Cholesterol Vitamin B12 Crossmatch 07/18/22 07/18/22 07/18/22 08:07 08:20 11:10 WBC RBC Hgb Hct MCV MCH MCHC RDW Plt Count Lymph % (Auto) [place] % (Auto) Lymph # (Auto) [place] # (Auto) Baso # (Auto) Seg Neutrophils % Seg Neuts % (Manual) Lymphocytes % (Manual) Monocytes % (Manual) Nucleated RBC % Seg Neutrophils # Seg Neutrophils # Man Lymphocytes # (Manual) Monocytes # (Manual) ABG pH 7.270 L ABG pO2 46.4 L 54.4 L ABG HCO3 19.5 L ABG O2 Saturation 78.6 L 78.1 L ABG Base Excess -6.9 L ABG Hemoglobin 7.7 L 7.6 L Oxyhemoglobin 76.7 L 76.3 L Sodium Potassium 3.1 L Chloride Carbon Dioxide BUN 35 H Creatinine 1.7 H Glucose 165 H POC Glucose Hemoglobin A1c Calcium 7.5 L Phosphorus Magnesium Iron TIBC Ferritin AST Alkaline Phosphatase 191 H Total Creatine Kinase NT-Pro-B Natriuret Pep Total Protein 5.3 L Albumin 2.0 L LDL Cholesterol Direct HDL Cholesterol Vitamin B12 Crossmatch 07/18/22 07/18/22 07/18/22 11:12 13:30 16:47 WBC RBC Hgb Hct MCV MCH MCHC RDW Plt Count Lymph % (Auto) [place] % (Auto) Lymph # (Auto) [place] # (Auto) Baso # (Auto) Seg Neutrophils % Seg Neuts % (Manual) Lymphocytes % (Manual) Monocytes % (Manual) Nucleated RBC % Seg Neutrophils # Seg Neutrophils # Man Lymphocytes # (Manual) Monocytes # (Manual) ABG pH 7.292 L ABG pO2 ABG HCO3 19.8 L ABG O2 Saturation ABG Base Excess -6.2 L ABG Hemoglobin 7.0 L Oxyhemoglobin 93.8 L Sodium Potassium Chloride Carbon Dioxide BUN Creatinine Glucose POC Glucose 193 H 212 H Hemoglobin A1c Calcium Phosphorus Magnesium Iron TIBC Ferritin AST Alkaline Phosphatase Total Creatine Kinase NT-Pro-B Natriuret Pep Total Protein Albumin LDL Cholesterol Direct HDL Cholesterol Vitamin B12 Crossmatch 07/18/22 07/19/22 07/19/22 22:35 03:35 05:00 WBC 22.4 H RBC 2.16 L Hgb 6.5 L Hct 21.2 L MCV 99 H MCH MCHC 30 L RDW 17.8 H Plt Count 44 L D Lymph % (Auto) [place] % (Auto) Lymph # (Auto) [place] # (Auto) Baso # (Auto) Seg Neutrophils % Seg Neuts % (Manual) Lymphocytes % (Manual) Monocytes % (Manual) Nucleated RBC % Seg Neutrophils # Seg Neutrophils # Man Lymphocytes # (Manual) Monocytes # (Manual) ABG pH 7.198 L* ABG pO2 115.9 H ABG HCO3 19.7 L ABG O2 Saturation ABG Base Excess -7.7 L ABG Hemoglobin 6.0 L Oxyhemoglobin Sodium Potassium Chloride Carbon Dioxide BUN Creatinine Glucose POC Glucose 260 H Hemoglobin A1c Calcium Phosphorus Magnesium Iron TIBC Ferritin AST Alkaline Phosphatase Total Creatine Kinase NT-Pro-B Natriuret Pep Total Protein Albumin LDL Cholesterol Direct HDL Cholesterol Vitamin B12 Crossmatch 07/19/22 05:00 WBC RBC Hgb Hct MCV MCH MCHC RDW Plt Count Lymph % (Auto) [place] % (Auto) Lymph # (Auto) [place] # (Auto) Baso # (Auto) Seg Neutrophils % Seg Neuts % (Manual) Lymphocytes % (Manual) Monocytes % (Manual) Nucleated RBC % Seg Neutrophils # Seg Neutrophils # Man Lymphocytes # (Manual) Monocytes # (Manual) ABG pH ABG pO2 ABG HCO3 ABG O2 Saturation ABG Base Excess ABG Hemoglobin Oxyhemoglobin Sodium Potassium Chloride Carbon Dioxide 18 L BUN 50 H Creatinine 2.7 H D Glucose 177 H POC Glucose Hemoglobin A1c Calcium 7.5 L Phosphorus 7.90 H D Magnesium 2.40 H Iron TIBC Ferritin AST Alkaline Phosphatase Total Creatine Kinase NT-Pro-B Natriuret Pep Total Protein Albumin LDL Cholesterol Direct HDL Cholesterol Vitamin B12 Crossmatch
--- NOTE | 2022-07-19 09:53 | Ultrasound Report ---
ULTRASOUND RENAL INDICATION / CLINICAL INFORMATION: per. COMPARISON: None available. FINDINGS: RIGHT KIDNEY: Length = 9.8 cm. - Echogenicity: Normal. - Parenchymal Thickness: Normal. - Hydronephrosis: None. - Cyst / Mass: None. - Stones: 2.6 cm cyst lower pole LEFT KIDNEY: Length = 9.2 cm. - Echogenicity: Normal. - Parenchymal Thickness: Normal. - Hydronephrosis: None. - Cyst / Mass: None. - Stones: None seen. URINARY BLADDER: No significant abnormality. FREE FLUID: None. ADDITIONAL FINDINGS: None. IMPRESSION: 1. No no acute or significant sonographic renal abnormality. Signer Name: Lamar Reynoso MD Signed: 07/19/2022 9:49 AM Workstation Name: [id number]
--- NOTE | 2022-07-19 11:06 | Progress Note ---
Assessment and Plan Cultures: 07/07/2022 blood culture: No growth 07/10/2022 left third toe surgical culture: In process. Gram stain appears mixed with GPC in pairs, rare GNR. 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 WBC elevated. S/p revascularization on 07/09/2022, followed by toe amputation 07/10/2022. Noted to have necrotic tissue. MRI with abscess between the third and fourth toe also extensive bony destruction of the third fourth fifth and even the second toe. S/p TMA of second through fifth toes on 07/12/2022 #Thrombocytopenia: ?acute #JACQUI: Improved. Renally adjust antibiotics as needed. #Peripheral vascular disease, history of RLE arterial bypass, prior right TMA. S/p revascularization on 07/09/2022. #Diabetes mellitus type 2, uncontrolled Recs: -Continue Daptomycin + Flagyl. Avoiding linezolid due to thrombocytopenia. -Continue meropenem -CK continues to downtrend, okay to continue IV daptomycin. -Surgical cultures are negative, white count remains elevated. -Follow up C diff PCR - could explain leukocytosis. Amelia Fajardo MD [facility], [place], [facility] O: [phone] F: [phone] Subjective Date of service: 07/19/22 Principal diagnosis: PVD with critical limb Interval history: Afebrile overnight, white count improving at 22.4. Cultures remain negative. Images reviewed: Chest x-ray: Slight worsening of diffuse bilateral pulmonary opacities Objective - Exam Narrative Exam: Physical Exam: Constitutional: Alert, cooperative. No acute distress Head, Ears, Nose: Normocephalic, atraumatic. Eyes: Conjunctivae/corneas clear. No icterus. No ptosis. Neck: Supple, no meningeal signs Cardiovascular: S1, S2 + Respiratory: Good air entry, clear to auscultation bilaterally GI: Soft, non-tender; bowel sounds normal. No peritoneal signs Musculoskeletal: Right TMA well-healed, left foot dressing + Skin: No rash or abscess Hem/Lymphatic: No palpable cervical or supraclavicular nodes. No lymphangitis Psych: Mood ok. Affect normal Neurological: Awake, alert, oriented. No gross abnormality - Constitutional Vitals: Vital Signs Temp Pulse Resp BP Pulse Ox 99 F 94 H 21 105/40 100 07/19/22 10:50 07/19/22 10:50 07/19/22 10:50 07/19/22 10:50 07/19/22 10:50 Temperature -Last 24 Hours Temperature 99 F Temperature 99 F Temperature 98 F Temperature 98.1 F - Labs CBC & Chem 7: 07/19/22 05:00 07/19/22 05:00 Labs: Abnormal lab results 07/15/22 07/18/22 07/18/22 Range/Units 16:19 11:10 11:12 WBC (4.5-11.0) K/mm3 RBC (3.65-5.03) M/mm3 Hgb (11.8-15.2) gm/dl Hct (35.5-45.6) % MCV (84-94) fl MCHC (32-34) % RDW (13.2-15.2) % Plt Count (140-440) K/mm3 ABG pH 7.270 L (7.350-7.450) pH Units ABG pO2 54.4 L (80.0-90.0) mm Hg ABG HCO3 19.5 L (20.0-26.0) mmol/L ABG O2 Saturation 78.1 L (95.0-99.0) % ABG Base Excess -6.9 L (-2.0-3.0) mmol/L ABG Hemoglobin 7.6 L (14.0-18.0) gm/dl Oxyhemoglobin 76.3 L (95.0-99.0) % Carbon Dioxide (22-30) mmol/L BUN (9-20) mg/dL Creatinine (0.8-1.3) mg/dL Glucose (75-100) mg/dL POC Glucose 193 H (70-105) mg/dL Calcium (8.4-10.2) mg/dL Phosphorus (2.5-4.5) mg/dL Magnesium (1.7-2.3) mg/dL Crossmatch See Detail 07/18/22 07/18/2222 Range/Units 13:30 16:47 22:35 WBC (4.5-11.0) K/mm3 RBC (3.65-5.03) M/mm3 Hgb (11.8-15.2) gm/dl Hct (35.5-45.6) % MCV (84-94) fl MCHC (32-34) % RDW (13.2-15.2) % Plt Count (140-440) K/mm3 ABG pH 7.292 L (7.350-7.450) pH Units ABG pO2 (80.0-90.0) mm Hg ABG HCO3 19.8 L (20.0-26.0) mmol/L ABG O2 Saturation (95.0-99.0) % ABG Base Excess -6.2 L (-2.0-3.0) mmol/L ABG Hemoglobin 7.0 L (14.0-18.0) gm/dl Oxyhemoglobin 93.8 L (95.0-99.0) % Carbon Dioxide (22-30) mmol/L BUN (9-20) mg/dL Creatinine (0.8-1.3) mg/dL Glucose (75-100) mg/dL POC Glucose 212 H 260 H (70-105) mg/dL Calcium (8.4-10.2) mg/dL Phosphorus (2.5-4.5) mg/dL Magnesium (1.7-2.3) mg/dL Crossmatch 07/19/22 07/19/22 07/19/22 Range/Units 03:35 05:00 05:00 WBC 22.4 H (4.5-11.0) K/mm3 RBC 2.16 L (3.65-5.03) M/mm3 Hgb 6.5 L (11.8-15.2) gm/dl Hct 21.2 L (35.5-45.6) % MCV 99 H (84-94) fl MCHC 30 L (32-34) % RDW 17.8 H (13.2-15.2) % Plt Count 44 L D (140-440) K/mm3 ABG pH 7.198 L* (7.350-7.450) pH Units ABG pO2 115.9 H (80.0-90.0) mm Hg ABG HCO3 19.7 L (20.0-26.0) mmol/L ABG O2 Saturation (95.0-99.0) % ABG Base Excess -7.7 L (-2.0-3.0) mmol/L ABG Hemoglobin 6.0 L (14.0-18.0) gm/dl Oxyhemoglobin (95.0-99.0) % Carbon Dioxide 18 L (22-30) mmol/L BUN 50 H (9-20) mg/dL Creatinine 2.7 H D (0.8-1.3) mg/dL Glucose 177 H (75-100) mg/dL POC Glucose (70-105) mg/dL Calcium 7.5 L (8.4-10.2) mg/dL Phosphorus 7.90 H D (2.5-4.5) mg/dL Magnesium 2.40 H (1.7-2.3) mg/dL Crossmatch 07/19/22 Range/Units 09:16 WBC (4.5-11.0) K/mm3 RBC (3.65-5.03) M/mm3 Hgb (11.8-15.2) gm/dl Hct (35.5-45.6) % MCV (84-94) fl MCHC (32-34) % RDW (13.2-15.2) % Plt Count (140-440) K/mm3 ABG pH (7.350-7.450) pH Units ABG pO2 (80.0-90.0) mm Hg ABG HCO3 (20.0-26.0) mmol/L ABG O2 Saturation (95.0-99.0) % ABG Base Excess (-2.0-3.0) mmol/L ABG Hemoglobin (14.0-18.0) gm/dl Oxyhemoglobin (95.0-99.0) % Carbon Dioxide (22-30) mmol/L BUN (9-20) mg/dL Creatinine (0.8-1.3) mg/dL Glucose (75-100) mg/dL POC Glucose (70-105) mg/dL Calcium (8.4-10.2) mg/dL Phosphorus (2.5-4.5) mg/dL Magnesium (1.7-2.3) mg/dL Crossmatch See Detail
[2022-07-19] MEDS: DEXTROSE 50% IN WATER (25GM) 50 ML SYRINGE IV PRN ×2 (12:14→21:46)
--- NOTE | 2022-07-19 13:06 | Progress Note ---
Assessment and Plan Assessment and plan: This is a 67-year-old male with DM, PVD s/p right lower extremity bypass for occluded popliteal to dorsalis pedis, s/p stents metatarsal rotation of the right foot, s/p left lower extremity SFA/popliteal stenting, CKD admitted with osteomyelitis and gangrene of his foot, acute on chronic kidney injury, now with acute hypoxic respiratory failure. Neuro: Acute metabolic encephalopathy -Sedated with fentanyl and propofol -on hold due to neuro status -RASS goal 0 to -1 -Reorientation as needed -Maintain sleep-wake cycle -As needed analgesia -Bilateral wrist restraints for safety -CTH pending Cardiac: Hypotension, h/o hypertension, CAD -Cardiology consulted, appreciate recommendations -Blood pressure monitoring via A-line -Vasopressor support with Levophed, vasopressin -MAP goal greater than 65 -Echocardiogram shows EF of 55 to 60%, RVSP 37 mmHg -Lipitor Vascular: PVD s/p revascularization followed by amputation -s/p revascularization on 07/09/2022, followed by toe amputation 07/10/2022, MRI with abscess between the third and fourth toe also extensive bony destruction of the third fourth fifth and even the second toe. S/p TMA of second through fifth toes on 07/12/2022 -General surgery, vascular surgery consulted, appreciate recommendations -Wound care per nursing -Plavix, Pletal Respiratory: Acute hypoxemic respiratory failure, ARDS -[facility] consulted, appreciate recommendations -S/p BiPAP -Intubated on 07/18 with a 8.00 ETT at 20 at the lips -Current vent settings: Assist-control, tidal volume 350 PEEP 18, rate 30, FiO2 60 % -See RT notes for titration -A.m. ABG and CXR noted -VAP bundle -SPO2 monitoring GI: Moderate protein calorie malnutrition -PPI -NTR consulted for tube feedings -BR: Senokot S : Acute on possible chronic kidney disease -Already consulted, appreciate recommendations -Urine lites pending -Renal ultrasound -May need a Phos binder but will defer to nephrology -Monitor intake and output -Renally dose medications -Avoid nephrotoxic medications -DC Lasix -Trend BMP ID: Sepsis secondary to osteomyelitis of left foot, wet gangrene of the left third distal and middle phalanx, diabetic foot infection with abscess of left third digit, r/o c diff -Infectious disease consulted, appreciate recommendations -MRI with abscess between the third and fourth toe also extensive bony destr uction of the third fourth fifth and even the second toe. -Antibiotic therapy with Daptomycin, Meropenem, Flagyl, PO Vanco -Contact precautions -Cdiff PCR pending -f/u blood culture, surgical culture -Monitor WBC and temperature curve Endo: h/o DM -Hemoglobin A1c 6.5 -Avoid hypoglycemia -SSI -Accu-Cheks q. 6 -Long-acting insulin, titrate as needed Heme: Microcytic anemia secondary to liver dysfunction and sepsis, thrombocytopenia secondary to sepsis/diabetic foot infection/osteomyelitis, Leukocytosis -Hematology/oncology consulted, appreciate recommendations -Transfuse platelets whenever platelets less than 20, transfuse 1 unit PRBC whenever hematocrit less than 23 -HIT negative -S/p 1 unit PRBC and 3 units of platelets -IV Ferrlicet while inpatient -Trend CBC -Transfuse hemoglobin less than 7 -hbg 6.5 -two units prbc -SCDs to BLE while in bed The high probability of a clinically significant, sudden or life threatening deterioration of the [multi] system(s) required my full and direct attention, intervention and personal management. The aggregate critical care time was [60] minutes. This time is in addition to time spent performing reported procedures but includes the following: [x] Data Review and interpretation [x] Patient assessment and monitoring of vital signs [x] Documentation [x] Medication orders and management Disposition Plan: icu Total Time Spent with Patient (Minutes): 60 History Interval history: This is a 67-year-old male with DM, PVD s/p right lower extremity bypass for occluded popliteal to dorsalis pedis, s/p transmetatarsal amputation of right foot, s/p left lower extremity SFA/popliteal stenting, CKD who presented to emergency department on 07/07 with complaints of infected diabetic foot. [facility] white gangrene of left third distal phalanx and middle phalanx, diabetic foot infection with ulceration of the left third digit, osteomyelitis of left foot, hyperglycemia, pseudohyponatremia, metabolic acidosis, leukocytosis, thrombocytopenia and acute kidney injury. Patient was admitted to the hospitalist service with consults to vascular and general surgery. ICU course to date: 07/17: Patient was hypoxic requiring supplemental oxygen 15 L/high flow, BiPAP as needed suddenly went into acute respiratory failure, and unresponsiveness, code met was called, Upon responding to code met, patient was severely hypoxemic on BiPAP respiratory therapist recommended intubation and ventilatory support. On auscultation bilateral basal crackles, advised 40 mg of IV Lasix x1 dose. I discussed with charge nurse of ICU and pulmonary critical Dr. Castillo. To transfer the patient to ICU for possible intubation and further management. I also requested critical care consult.. On arrival to ICU, patient was more alert, slightly improved, intubation held and pulmonary critical recommended BiPAP, Set of labs, chest x-ray, EKG and ABG was requested. 07/18: This morning patient was responsive and ABG was ran which showed hypoxemia and patient was intubated. Patient also received A-line. Due to multiple antibiotics and potential need for vasopressors PICC team was consulted. Patient was hypotensive for which 1 L bolus was given with minimal response and patient was ultimately placed on vasopressors. Family updated by nurse pract itioner and case management. 07/19: Patient noted with sluggish pupils, no cough/gag and stat CT ordered. Patient noted to be anemic today and noted to receive 2 units PRBC, nephrology consulted due to worsening renal function. Hospitalist Physical - Constitutional Vitals: Temp Pulse Resp BP Pulse Ox 99 F 93 H 26 H 104/41 92 07/19/22 10:50 07/19/22 12:51 07/19/22 12:10 07/19/22 12:51 07/19/22 12:51 General appearance: Present: no acute distress, well-nourished, other (intubated ) - EENT Eyes: Present: PERRL (sluggish) ENT: dentition normal - Neck Neck: Absent: masses or JVD, cervical LAD - Respiratory Respiratory effort: normal Respiratory: bilateral: diminished - Cardiovascular Rhythm: regular Heart Sounds: Present: S1 & S2. Absent: systolic murmur, diastolic murmur - Extremities Extremities: no ischemia, pulses intact Extremity abnormal: edema Peripheral Pulses: abnormal - Abdominal General gastrointestinal: soft, non-tender, non-distended, normal bowel sounds - Integumentary Integumentary: Present: warm, dry - Psychiatric Psychiatric: other - Neurologic Neurologic: other (pupils sluggish, no cough/gag. sedation held) - Allied Health Allied health notes reviewed: nursing, RT, social work Results - Labs CBC & Chem 7: 07/19/22 05:00 07/19/22 05:00 Labs: Laboratory Last Values WBC 22.4 K/mm3 (4.5-11.0) H 07/19/22 05:00 RBC 2.16 M/mm3 (3.65-5.03) L 07/19/22 05:00 Hgb 6.5 gm/dl (11.8-15.2) L 07/19/22 05:00 Hct 21.2 % (35.5-45.6) L 07/19/22 05:00 MCV 99 fl (84-94) H 07/19/22 05:00 MCH 30 pg (28-32) 07/19/22 05:00 MCHC 30 % (32-34) L 07/19/22 05:00 RDW 17.8 % (13.2-15.2) H 07/19/22 05:00 Plt Count 44 K/mm3 (140-440) L D 07/19/22 05:00 Lymph % (Auto) 8.6 % (13.4-35.0) L 07/18/22 08:07 [place] % (Auto) 2.8 % (0.0-7.3) 07/18/22 08:07 Eos % (Auto) 0.2 % (0.0-4.3) 07/18/22 08:07 Baso % (Auto) 0.8 % (0.0-1.8) 07/18/22 08:07 Lymph # (Auto) 2.6 K/mm3 (1.2-5.4) 07/18/22 08:07 [place] # (Auto) 0.8 K/mm3 (0.0-0.8) 07/18/22 08:07 Eos # (Auto) 0.1 K/mm3 (0.0-0.4) 07/18/22 08:07 Baso # (Auto) 0.2 K/mm3 (0.0-0.1) H 07/18/22 08:07 Add Manual Diff Complete 07/18/22 08:07 Total Counted Cancelled 07/18/22 08:07 Seg Neutrophils % 87.6 % (40.0-70.0) H 07/18/22 08:07 Seg Neuts % (Manual) Cancelled 07/18/22 08:07 Band Neutrophils % Cancelled 07/18/22 08:07 Lymphocytes % (Manual) Cancelled 07/18/22 08:07 Reactive Lymphs % (Man) Cancelled 07/18/22 08:07 Monocytes % (Manual) Cancelled 07/18/22 08:07 Eosinophils % (Manual) Cancelled 07/18/22 08:07 Basophils % (Manual) Cancelled 07/18/22 08:07 Metamyelocytes % Cancelled 07/18/22 08:07 Myelocytes % Cancelled 07/18/22 08:07 Promyelocytes % Cancelled 07/18/22 08:07 Blast Cells % Cancelled 07/18/22 08:07 Nucleated RBC % Cancelled 07/18/22 08:07 Seg Neutrophils # 26.5 K/mm3 (1.8-7.7) H 07/18/22 08:07 Seg Neutrophils # Man Cancelled 07/18/22 08:07 Band Neutrophils # Cancelled 07/18/22 08:07 Lymphocytes # (Manual) Cancelled 07/18/22 08:07 Abs React Lymphs (Man) Cancelled 07/18/22 08:07 Monocytes # (Manual) Cancelled 07/18/22 08:07 Eosinophils # (Manual) Cancelled 07/18/22 08:07 Basophils # (Manual) Cancelled 07/18/22 08:07 Metamyelocytes # Cancelled 07/18/22 08:07 Myelocytes # Cancelled 07/18/22 08:07 Promyelocytes # Cancelled 07/18/22 08:07 Blast Cells # Cancelled 07/18/22 08:07 WBC Morphology Cancelled 07/18/22 08:07 Hypersegmented Neuts Cancelled 07/18/22 08:07 Hyposegmented Neuts Cancelled 07/18/22 08:07 Hypogranular Neuts Cancelled 07/18/22 08:07 Hypersegmented Polys Cancelled 07/18/22 08:07 Smudge Cells Cancelled 07/18/22 08:07 Toxic Granulation Cancelled 07/18/22 08:07 Toxic Vacuolation Cancelled 07/18/22 08:07 Dohle Bodies Cancelled 07/18/22 08:07 Pelger-Huet Anomaly Cancelled 07/18/22 08:07 Lulu Rods Cancelled 07/18/22 08:07 Platelet Estimate Cancelled 07/18/22 08:07 Clumped Platelets Cancelled 07/18/22 08:07 Plt Clumps, EDTA Cancelled 07/18/22 08:07 Large Platelets Cancelled 07/18/22 08:07 Giant Platelets Cancelled 07/18/22 08:07 Platelet Satelliting Cancelled 07/18/22 08:07 Plt Morphology Comment Cancelled 07/18/22 08:07 RBC Morphology Cancelled 07/18/22 08:07 Dimorphic RBCs Cancelled 07/18/22 08:07 Polychromasia Cancelled 07/18/22 08:07 Hypochromasia Cancelled 07/18/22 08:07 Poikilocytosis Cancelled 07/18/22 08:07 Basophilic Stippling Cancelled 07/18/22 08:07 Anisocytosis Cancelled 07/18/22 08:07 Microcytosis Cancelled 07/18/22 08:07 Macrocytosis Cancelled 07/18/22 08:07 Spherocytes Cancelled 07/18/22 08:07 Pappenheimer Bodies Cancelled 07/18/22 08:07 Sickle Cells Cancelled 07/18/22 08:07 Target Cells Cancelled 07/18/22 08:07 Tear Drop Cells Cancelled 07/18/22 08:07 Ovalocytes Cancelled 07/18/22 08:07 Stomatocytes Cancelled 07/18/22 08:07 Helmet Cells Cancelled 07/18/22 08:07 [place] Bodies Cancelled 07/18/22 08:07 [place] Rings Cancelled 07/18/22 08:07 [place] Cells Cancelled 07/18/22 08:07 Bite Cells Cancelled 07/18/22 08:07 Crenated Cell Cancelled 07/18/22 08:07 Elliptocytes Cancelled 07/18/22 08:07 Acanthocytes (Spur) Cancelled 07/18/22 08:07 Rouleaux Cancelled 07/18/22 08:07 Hemoglobin C Crystals Cancelled 07/18/22 08:07 Schistocytes Cancelled 07/18/22 08:07 Malaria parasites Cancelled 07/18/22 08:07 Chintan Bodies Cancelled 07/18/22 08:07 Hem Pathologist Commnt Cancelled 07/18/22 08:07 PT 14.5 Sec. (12.2-14.9) 07/09/22 Unknown INR 0.99 (0.87-1.13) 07/09/22 Unknown Heparin Anti-Xa, Unfract Negative (Negative) 07/14/22 17:05 ABG pH 7.198 pH Units (7.350-7.450) L* 07/19/22 03:35 ABG pCO2 51.8 mm Hg 07/19/22 03:35 ABG pO2 115.9 mm Hg (80.0-90.0) H 07/19/22 03:35 ABG HCO3 19.7 mmol/L (20.0-26.0) L 07/19/22 03:35 ABG O2 Saturation 97.5 % (95.0-99.0) 07/19/22 03:35 ABG O2 Content 8.3 (0.0-44) 07/19/22 03:35 ABG Base Excess -7.7 mmol/L (-2.0-3.0) L 07/19/22 03:35 ABG Hemoglobin 6.0 gm/dl (14.0-18.0) L 07/19/22 03:35 ABG Carboxyhemoglobin 1.3 % (0.0-5.0) 07/19/22 03:35 ABG Methemoglobin 0.6 % (0.0-1.5) 07/19/22 03:35 Oxyhemoglobin 95.7 % (95.0-99.0) 07/19/22 03:35 FiO2 80 % 07/19/22 03:35 Sodium 144 mmol/L (137-145) 07/19/22 05:00 Potassium 4.5 mmol/L (3.6-5.0) D 07/19/22 05:00 Chloride 105.0 mmol/L (98-107) 07/19/22 05:00 Carbon Dioxide 18 mmol/L (22-30) L 07/19/22 05:00 Anion Gap 26 mmol/L 07/19/22 05:00 BUN 50 mg/dL (9-20) H 07/19/22 05:00 Creatinine 2.7 mg/dL (0.8-1.3) H D 07/19/22 05:00 Estimated GFR 28 ml/min 07/19/22 05:00 BUN/Creatinine Ratio 19 % 07/19/22 05:00 Glucose 177 mg/dL (75-100) H 07/19/22 05:00 POC Glucose 81 mg/dL (70-105) 07/19/22 09:25 Hemoglobin A1c 6.5 % (4-6) H 07/07/22 08:41 Lactic Acid 1.50 mmol/L (0.7-2.0) 07/07/22 02:26 Calcium 7.5 mg/dL (8.4-10.2) L 07/19/22 05:00 Phosphorus 7.90 mg/dL (2.5-4.5) H D 07/19/22 05:00 Magnesium 2.40 mg/dL (1.7-2.3) H 07/19/22 05:00 Iron 16 ug/dL (49-181) L 07/08/22 05:35 TIBC 133 mcg/dL (250-450) L 07/08/22 05:35 Ferritin 2888.0 ng/mL (30.0-300.0) H 07/08/22 05:35 Total Bilirubin 1.10 mg/dL (0.1-1.2) 07/18/22 08:07 AST 38 units/L (5-40) 07/18/22 08:07 ALT 30 units/L (7-56) 07/18/22 08:07 Alkaline Phosphatase 191 units/L (35-129) H 07/18/22 08:07 Total Creatine Kinase 95 units/L (55-170) 07/14/22 07:58 NT-Pro-B Natriuret Pep 3313 pg/mL (0-900) H 07/16/22 09:50 Total Protein 5.3 g/dL (6.3-8.2) L 07/18/22 08:07 Albumin 2.0 g/dL (3.9-5) L 07/18/22 08:07 Albumin/Globulin Ratio 0.6 % 07/18/22 08:07 Triglycerides 114 mg/dL (2-149) 07/07/22 08:41 Cholesterol 116 mg/dL (50-199) 07/07/22 08:41 LDL Cholesterol Direct 46 mg/dL (50-130) L 07/07/22 08:41 HDL Cholesterol 37 mg/dL (40-59) L 07/07/22 08:41 Cholesterol/HDL Ratio 3.13 % 07/07/22 08:41 Vitamin B12 > 2000 pg/mL (211-911) H 07/14/22 07:58 Heparin-induced Plt Ab Negative (Negative) 07/14/22 17:05 UF Heparin High Dose 3 % Release 07/14/22 17:05 AYUSH UFH Low Dose 0.1 2 % Release 07/14/22 17:05 AYUSH UFH Low Dose 0.5 3 % Release 07/14/22 17:05 SARS-CoV-2 (PCR) Negative (Negative) 07/18/22 09:38 Blood Type O POSITIVE 07/19/22 09:16 Antibody Screen Negative 07/19/22 09:16 Crossmatch See Detail 07/19/22 09:16 Microbiology: Microbiology 07/18/22 Unknown Tracheal Aspirate Sputum Culture - Preliminary 07/15/22 11:34 Peripheral/Venous Blood Culture - Preliminary NO GROWTH AFTER 72 HOURS 07/15/22 11:34 Peripheral/Venous Blood Culture - Preliminary NO GROWTH AFTER 72 HOURS [place]/IV: Voiding Method Condom Catheter Active Medications - Current Medications Current Medications: Generic Name Dose Route Start Last Admin Trade Name Freq PRN Reason Stop Dose Admin Acetaminophen 650 mg 07/07/22 08:30 07/15/22 20:37 Acetaminophen 325 Mg Tab PO 650 mg Q4H PRN Administration Pain MILD(1-3)/Fever >100.5/DAS Atorvastatin Calcium 40 mg 07/10/22 11:00 07/19/22 09:19 Atorvastatin 40 Mg Tab PO 40 mg DAILY APRIL Administration Cilostazol 100 mg 07/09/22 12:00 07/19/22 09:19 Cilostazol 100 Mg Tab PO 100 mg BID APRIL Administration Clopidogrel Bisulfate 75 mg 07/10/22 10:00 07/19/22 09:19 Clopidogrel 75 Mg Tab PO 75 mg QDAY APRIL Administration Dextrose 50 ml 07/07/22 08:35 07/19/22 12:14 Dextrose 50% In Water (25gm) 50 Ml Syringe IV 50 ml Q30MIN PRN Administration Hypoglycemia Protocol Famotidine 20 mg 07/18/22 22:00 07/18/22 22:27 Famotidine 20 Mg Tab FEEDTUBE 20 mg QHS APRIL Administration Fentanyl 50 mcg 07/18/22 10:36 07/18/22 10:42 Fentanyl 100 Mcg/2 Ml Inj IV 50 mcg Q2HR PRN Administration Pain , Severe (7-10) Hydrophilic Ointment 1 applic 07/18/22 09:59 Lip Therapy Vaseline TP Q2HR PRN Dry Lips Fentanyl Citrate 1,000 mcg in 100 mls @ 2.5 mls/hr 07/18/22 10:00 07/19/22 10:54 Fentanyl Drip Premix IV 0 mcg/hr TITR APRIL 0 mls/hr Titration Protocol 25 MCG/HR Propofol 1,000 mg in 100 mls @ 2.454 mls/hr 07/18/22 10:00 07/19/22 10:12 Diprivan 10 Mg/Ml IV 0 mcg/kg/min TITR APRIL 0 mls/hr Titration Protocol 5 MCG/KG/MIN NORepinephrine/NS 8 MG-250 ML 8 mg in 250 mls @ 15.338 mls/hr 07/18/22 16:00 07/19/22 10:23 Norepinephrine/Ns 8 Mg-250 Ml (Double Conc) IV 0.52 mcg/kg/min TITRATE APRIL 79.755 mls/hr Administration Protocol 0.1 MCG/KG/MIN Vasopressin 20 unit/ Sodium 101 mls @ 9.09 mls/hr 07/19/22 03:00 07/19/22 12:26 Chloride IV 0.03 units/min TITR APRIL 9.09 mls/hr Administration Protocol 0.03 UNITS/MIN Sodium Chloride 500 mls @ 0 mls/hr 07/19/22 08:00 07/19/22 09:26 Nacl 0.9% 500 Ml IV 07/19/22 19:00 5 mls/hr ONCE@0800 APRIL Administration As Directed Meropenem/Sodium Chloride 1 gram in 100 mls @ 100 mls/hr 07/19/22 18:00 Merrem/Ns 1 Gram/100 Ml IV Q12H APRIL Protocol Daptomycin 500 mg/ Sodium 100 mls @ 200 mls/hr 07/20/22 18:00 Chloride IV Q48H APRIL Protocol Insulin Glargine 20 units 07/18/22 22:00 07/18/22 22:41 Insulin Glargine 100 Units/Ml SUB-Q 20 units QHS APRIL Administration Insulin Human Regular 0 units 07/14/22 07:30 07/19/22 09:25 Insulin Regular, Human 100 Units/1 Ml SUB-Q Not Given ACHS [facility] Protocol Metoclopramide HCl 5 mg 07/19/22 09:00 Metoclopramide 10 Mg/2 Ml Inj IV Q6H PRN Nausea And Vomiting Metoprolol Tartrate 5 mg 07/17/22 12:00 07/19/22 06:05 Metoprolol Tartrate 5 Mg/5 Ml Inj IV Not Given Q6HR [facility] Multi-Ingred Cream/Lotion/Oil/Oint 1 applic 07/18/22 09:59 Mineral Oil/Petrolatum, White Ophth Oint 3.5 Gm OU Q4HR PRN Dry Eye(s) Ondansetron HCl 4 mg 07/07/22 08:30 07/15/22 19:18 Ondansetron 4 Mg/2 Ml Inj IV 4 mg Q8H PRN Administration Nausea And Vomiting Phenol 1 spray 07/17/22 01:14 07/17/22 01:43 Phenol 1.4% 177 Ml Bottle MM 1 spray PRN PRN Administration Sore Throat Senna/Docusate Sodium 1 tab 07/18/22 11:00 07/19/22 09:19 Sennosides/Docusate Sodium 8.6/50 Mg Tab FEEDTUBE 1 tab BID APRIL Administration Sodium Chloride 10 ml 07/07/22 10:00 07/19/22 09:20 Sodium Chloride 0.9% 10 Ml Flush Syringe IV 10 ml BID APRIL Administration Sodium Chloride 10 ml 07/07/22 08:30 Sodium Chloride 0.9% 10 Ml Flush Syringe IV PRN PRN LINE FLUSH Sodium Chloride 5 ml 07/18/22 11:50 Sodium Chloride 0.9% 1000 Ml Iv Soln IV PRN PRN ART-LINE FLUSH Sodium Hypochlorite 1 applic 07/14/22 10:00 07/19/22 09:21 Sodium Hypochlorite, Dakin's 1/2 Strength (0.25%) 473 Ml Topical Soln TP 1 applicatio BID APRIL Administration Vancomycin HCl 125 mg 07/18/22 12:00 07/19/22 06:06 Vancomycin 250 Mg/10 Ml Oral Liqd FEEDTUBE 125 mg Q6HR APRIL Administration Protocol Nutrition/Malnutrition Assess - Dietary Evaluation Nutrition/Malnutrition Findings: Nutrition Notes Start: 07/08/22 11:33 Freq: Status: Active Protocol: Document 07/18/22 10:16 SHANNON (Rec: 07/18/22 11:10 SHANNON [id number]) Nutrition Notes Initial or Follow up Reassessment Current Diagnosis Acute Kidney Injury,CKD(stage I-IV),Diabetes,Sepsis, Hypertension,Respiratory Failure,Malnutrition Other Pertinent Diagnosis PVD, PAD, s/p L-Toes Amputation, Pulmonary Edema, Anemia, Thrombocytopenia. Current Diet TF-Nepro w/CARBSTEADY @ 40 ml/ hr (from L 07/18). Labs/Tests 07/18: K 3.1, BUN 35, Crea 1.7 , Glu 165, Ca 7.5. Pertinent Medications 07/18: Humulin R 6U, others nutritionally unremarkable. Height 5 ft 8 in Weight 81.8 kg [place] Body Weight (kg) 70.00 BMI 27.4 Weight change and time frame Discrepancy of 11.7 Kg body weight gain in 1 week reported . Weight Status Overweight Subjective/Other Information RD consult for write/manage TF assessment. Pt currently on NPO. No reports available of Pt's PO intake of meals prior to intubatioin. Pt is on Mechanical Ventilation since 07/18, O2 saturation @ 93%, according to [facility] Vent notes. I will prescribe TF to provide Pt with energy/protein needs during LOS. Pt has missing teeth, but has dentures, according to Physical Assessment History notes. Pt continues to present diarrhea, and has been isolated due to C-Diff infection, according to Progress notes. Pt is s/p R-Foot transmetatarsal amputee poa, according to Progress notes. Pt underwent transmetatarsal amputation of second to fifth toes of his left foot on 07/12 , according to Operative Report notes. Pt shows LFoot surgical wound as sign of concern for skin risk at the time, according to Physical Assessment History notes. Percent of energy/protein needs met: Prescribed TF-Nepro w/ CARBSTEADY @ 40 ml/hr provides for energy/protein needs (1, 745 Kcal/79 g) during LOS, 93% Kcal; 100% AA. Burn Absent Trauma Absent GI Symptoms Diarrhea,Other Food Allergy No Skin Integrity/Comment L-Foot surgical wound. Current % PO Other Minimum of two criteria No Fluid Accumulation Mild (non-severe) Protein-Calorie Malnutrition N\A #1 Nutrition Diagnosis Inadequate oral intake Comments: Nutrition Diagnosis Change for precision. Etiology Pt is on Mechanical Ventilation. As Evidenced by Signs and Symptoms Pt currently on NPO. Is patient on ventilator? Yes Is Patient Ambulatory and/or Out of Bed No REE-([facility]-confined to bed) [phone] Calculation Used for Recommendations [facility] Additional Notes Protein: 0.8-1.2 g/Kg ABW; 66- 98 g/day. Fluids: 1 ml/Kcal, or as per MD. Nutrition Intervention Change Diet Order: Discontinued. Nutrition Support: Start TF-Nepro w/CARBSTEADY @ 40 ml/hr. Flush: 200 ml water Q 4 hr, or as per MD. Kcal 1,745 Protein (gm) 79 Carbohydrates (gm) 156 Fat (gm) 93 Fluid (mL) 705 Fiber (gm) 12 % RDI: 93% Kcal; 100% AA. Add Supplement/Snack (indicate name/kcal Discontinued. /protein ) Goal #1 Provide at least 75% of energy /protein needs through Enteral Feeding during LOS. Goal #2 Adjust the dietary intervention to better serve Pt's energy/protein needs and clinical conditions during LOS . Follow-Up By: 07/20/22 Additional Comments Start monitoring TF tolerance, Ventilation status, and BM.
--- NOTE | 2022-07-19 14:04 | Cat Scan Report ---
CT HEAD WITHOUT CONTRAST INDICATION / CLINICAL INFORMATION: change in mental status. TECHNIQUE: All CT scans at this location are performed using CT dose reduction for ALARA by means of automated exposure control. COMPARISON: None available. FINDINGS: BRAIN PARENCHYMA: No acute intracranial hemorrhage. No evidence of recent infarct. No mass effect or midline shift. VENTRICULAR SYSTEM/EXTRA-AXIAL SPACES: Ventricles are normal for age. No extra-axial fluid collection . ORBITS: Normal as visualized. SKELETAL SYSTEM/SOFT TISSUES: Normal bones and soft tissues. PARANASAL SINUSES/MASTOID AIR CELLS: There is nearly complete opacification of the bilateral mastoid air cells. The sinuses are clear. ADDITIONAL FINDINGS: None. IMPRESSION: 1. No acute intracranial abnormality. Signer Name: Jarrett Wood MD Signed: 07/19/2022 1:59 PM Workstation Name: [id number]
--- NOTE | 2022-07-19 15:49 | Hem/Onc Progress Note ---
Subjective Date of service: 07/19/22 Interval history: Heme Progress Note CPT 64614 Dx Thrombocytopenia 67yo male with worsening left foot infection Past medical history of diabetes, CKD, prior bypass of the RLE 10+ years ago, and stenting of the LLE Osteomyelitis S/p revascularization on 07/09/2022, followed by toe amputation 07/10/2022. Noted to have necrotic tissue. MRI with abscess between the third and fourth toe also extensive bony destruction of the third fourth fifth and even the second toe S/p TMA of second through fifth toes on 07/12/2022. Intubated 07/18 Now reports of sluggish pupils and no gag reflex Hematology following for thrombocytopenia. No overt bleeding noted or reported. Intubated and sedated. DATA REVIEWED BELOW HIT negative Abd U/S revealed hetergenous liver consistent with hepatocellular disease Head CT negative IMP: Thrombocytopenia secondary to sepsis, diabetic foot infection, osteomyelitis --reports chronic low platelets, likely due to liver dysfunction Macrocytic anemia secondary to liver dysfunction and sepsis --noted with iron deficiency, 12% sat PLAN: 2 units pRBC Monitor CBC Transfuse 1 dose of plts whenever plts <20 Transfuse 1 unit pRBC whenever HCT <23 IV antix per ID recommendations Case D/w Dr. Kike Méndez. Laboratory Last Values WBC 22.4 K/mm3 (4.5-11.0) H 07/19/22 05:00 Hgb 6.5 gm/dl (11.8-15.2) L 07/19/22 05:00 Hct 21.2 % (35.5-45.6) L 07/19/22 05:00 MCV 99 fl (84-94) H 07/19/22 05:00 Plt Count 44 K/mm3 (140-440) L D 07/19/22 05:00 Lymph % (Auto) 8.6 % (13.4-35.0) L 07/18/22 08:07 7 Baso # (Auto) 0.2 K/mm3 (0.0-0.1) H 07/18/22 08:07 Seg Neutrophils % 87.6 % (40.0-70.0) H 07/18/22 08:07 Seg Neutrophils # 26.5 K/mm3 (1.8-7.7) H 07/18/22 08:07 PT 14.5 Sec. (12.2-14.9) 07/09/22 Unknown INR 0.99 (0.87-1.13) 07/09/22 Unknown Heparin Anti-Xa, Unfract Negative (Negative) 07/14/22 17:05 Creatinine 2.7 mg/dL (0.8-1.3) H D 07/19/22 05:00 Iron 16 ug/dL (49-181) L 07/08/22 05:35 TIBC 133 mcg/dL (250-450) L 07/08/22 05:35 Ferritin 2888.0 ng/mL (30.0-300.0) H 07/08/22 05:35 Total Bilirubin 1.10 mg/dL (0.1-1.2) 07/18/22 08:07 AST 38 units/L (5-40) 07/18/22 08:07 ALT 30 units/L (7-56) 07/18/22 08:07 Alkaline Phosphatase 191 units/L (35-129) H 07/18/22 08:07 Vitamin B12 > 2000 pg/mL (211-911) H 07/14/22 07:58 Heparin-induced Plt Ab Negative (Negative) 07/14/22 17:05 UF Heparin High Dose 3 % Release 07/14/22 17:05 AYUSH UFH Low Dose 0.1 2 % Release 07/14/22 17:05 AY[facility] UFH Low Dose 0.5 3 % Release 07/14/22 17:05 SARS-CoV-2 (PCR) Negative (Negative) 07/18/22 09:38 Blood Type O POSITIVE 07/19/22 09:16 Antibody Screen Negative 07/19/22 09:16 Crossmatch See Detail 07/19/22 09:16 Objective - Constitutional Vitals: Last Vital Signs Temp 98.9 F 07/19/22 13:37 Pulse 87 07/19/22 14:30 Resp 22 07/19/22 14:30 BP 118/36 07/19/22 14:30 Pulse Ox 92 07/19/22 12:51 - Labs Lab Results: Laboratory Results - last 24 hr 07/15/22 07/18/22 07/18/22 16:19 16:47 22:35 WBC RBC Hgb Hct MCV MCH MCHC RDW Plt Count ABG pH ABG pCO2 ABG pO2 ABG HCO3 ABG O2 Saturation ABG O2 Content ABG Base Excess ABG Hemoglobin ABG Carboxyhemoglobin ABG Methemoglobin Oxyhemoglobin FiO2 Sodium Potassium Chloride Carbon Dioxide Anion Gap BUN Creatinine Estimated GFR BUN/Creatinine Ratio Glucose POC Glucose 212 H 260 H Calcium Phosphorus Magnesium Blood Type Antibody Screen Crossmatch See Detail 07/19/22 07/19/22 07/19/22 03:35 05:00 05:00 WBC 22.4 H RBC 2.16 L Hgb 6.5 L Hct 21.2 L MCV 99 H MCH 30 MCHC 30 L RDW 17.8 H Plt Count 44 L D ABG pH 7.198 L* ABG pCO2 51.8 ABG pO2 115.9 H ABG HCO3 19.7 L ABG O2 Saturation 97.5 ABG O2 Content 8.3 ABG Base Excess -7.7 L ABG Hemoglobin 6.0 L ABG Carboxyhemoglobin 1.3 ABG Methemoglobin 0.6 Oxyhemoglobin 95.7 FiO2 80 Sodium 144 Potassium 4.5 D Chloride 105.0 Carbon Dioxide 18 L Anion Gap 26 BUN 50 H Creatinine 2.7 H D Estimated GFR 28 BUN/Creatinine Ratio 19 Glucose 177 H POC Glucose Calcium 7.5 L Phosphorus 7.90 H D Magnesium 2.40 H Blood Type Antibody Screen Crossmatch 07/19/22 07/19/22 07/19/22 09:16 09:25 12:10 WBC RBC Hgb Hct MCV MCH MCHC RDW Plt Count ABG pH ABG pCO2 ABG pO2 ABG HCO3 ABG O2 Saturation ABG O2 Content ABG Base Excess ABG Hemoglobin ABG Carboxyhemoglobin ABG Methemoglobin Oxyhemoglobin FiO2 Sodium Potassium Chloride Carbon Dioxide Anion Gap BUN Creatinine Estimated GFR BUN/Creatinine Ratio Glucose POC Glucose 81 61 L Calcium Phosphorus Magnesium Blood Type O POSITIVE Antibody Screen Negative Crossmatch See Detail 07/19/22 12:33 WBC RBC Hgb Hct MCV MCH MCHC RDW Plt Count ABG pH ABG pCO2 ABG pO2 ABG HCO3 ABG O2 Saturation ABG O2 Content ABG Base Excess ABG Hemoglobin ABG Carboxyhemoglobin ABG Methemoglobin Oxyhemoglobin FiO2 Sodium Potassium Chloride Carbon Dioxide Anion Gap BUN Creatinine Estimated GFR BUN/Creatinine Ratio Glucose POC Glucose 104 Calcium Phosphorus Magnesium Blood Type Antibody Screen Crossmatch Medications & Allergies - Medications Allergies/Adverse Reactions: Allergies No Known Allergies Allergy (Verified 07/10/22 13:17) Home Medications: Home Medications Medication Instructions Recorded Confirmed Last Taken Type Tamsulosin [Flomax] 0.4 mg PO QDAY 07/07/22 07/10/22 Unknown History traZODone [Desyrel] 100 mg PO QHS 07/07/22 07/10/22 Unknown History AtorvaSTATin [Lipitor] 40 mg PO QHS 07/10/22 07/10/22 Unknown History Chlorthalidone [Thalitone] 25 mg PO QDAY 07/10/22 07/10/22 Unknown History Insulin Glargine,Hum.rec.anlog 60 units SQ QDAY 07/10/22 07/10/22 Unknown History [Lantus Solostar] Lisinopril [Zestril TAB] 30 mg PO QDAY 07/10/22 07/10/22 Unknown History Lispro Insulin [HumaLOG] 10 units SQ TIDWM 07/10/22 07/10/22 Unknown History Metoprolol [Lopressor] 100 mg PO BID 07/10/22 07/10/22 Unknown History Multivitamin 1 each PO QDAY 07/10/22 07/10/22 Unknown History Sertraline [Zoloft] 100 mg PO QDAY 07/10/22 07/10/22 Unknown History Timolol Maleate/Pf [Timolol 1 drop OU BID 07/10/22 07/10/22 Unknown History Maleate 0.5% Eye Drop] cilostazoL [Pletal] 100 mg PO BID 07/10/22 07/10/22 Unknown History Active Medications: Generic Name Dose Route Start Last Admin Trade Name Freq PRN Reason Stop Dose Admin Acetaminophen 650 mg 07/07/22 08:30 07/15/22 20:37 Acetaminophen 325 Mg Tab PO 650 mg Q4H PRN Administration Pain MILD(1-3)/Fever >100.5/DAS Atorvastatin Calcium 40 mg 07/10/22 11:00 07/19/22 09:19 Atorvastatin 40 Mg Tab PO 40 mg DAILY APRIL Administration Cilostazol 100 mg 07/09/22 12:00 07/19/22 09:19 Cilostazol 100 Mg Tab PO 100 mg BID APRIL Administration Clopidogrel Bisulfate 75 mg 07/10/22 10:00 07/19/22 09:19 Clopidogrel 75 Mg Tab PO 75 mg QDAY APRIL Administration Dextrose 50 ml 07/07/22 08:35 07/19/22 12:14 Dextrose 50% In Water (25gm) 50 Ml Syringe IV 50 ml Q30MIN PRN Administration Hypoglycemia Protocol Famotidine 20 mg 07/18/22 22:00 07/18/22 22:27 Famotidine 20 Mg Tab FEEDTUBE 20 mg QHS APRIL Administration Fentanyl 50 mcg 07/18/22 10:36 07/18/22 10:42 Fentanyl 100 Mcg/2 Ml Inj IV 50 mcg Q2HR PRN Administration Pain , Severe (7-10) Hydrophilic Ointment 1 applic 07/18/22 09:59 Lip Therapy Vaseline TP Q2HR PRN Dry Lips Fentanyl Citrate 1,000 mcg in 100 mls @ 2.5 mls/hr 07/18/22 10:00 07/19/22 10:54 Fentanyl Drip Premix IV 0 mcg/hr TITR APRIL 0 mls/hr Titration Protocol 25 MCG/HR Propofol 1,000 mg in 100 mls @ 2.454 mls/hr 07/18/22 10:00 07/19/22 10:12 Diprivan 10 Mg/Ml IV 0 mcg/kg/min TITR APRIL 0 mls/hr Titration Protocol 5 MCG/KG/MIN NORepinephrine/NS 8 MG-250 ML 8 mg in 250 mls @ 15.338 mls/hr 07/18/22 16:00 07/19/22 13:30 Norepinephrine/Ns 8 Mg-250 Ml (Double Conc) IV 0.52 mcg/kg/min TITRATE APRIL 79.755 mls/hr Administration Protocol 0.1 MCG/KG/MIN Vasopressin 20 unit/ Sodium 101 mls @ 9.09 mls/hr 07/19/22 03:00 07/19/22 12:26 Chloride IV 0.03 units/min TITR APRIL 9.09 mls/hr Administration Protocol 0.03 UNITS/MIN Sodium Chloride 500 mls @ 0 mls/hr 07/19/22 08:00 07/19/22 09:26 Nacl 0.9% 500 Ml IV 07/19/22 19:00 5 mls/hr ONCE@0800 APRIL Administration As Directed Meropenem/Sodium Chloride 1 gram in 100 mls @ 100 mls/hr 07/19/22 18:00 Merrem/Ns 1 Gram/100 Ml IV Q12H APRIL Protocol Daptomycin 500 mg/ Sodium 100 mls @ 200 mls/hr 07/20/22 18:00 Chloride IV Q48H [facility] Protocol Insulin Glargine 20 units 07/18/22 22:00 07/18/22 22:41 Insulin Glargine 100 Units/Ml SUB-Q 20 units QHS APRIL Administration Insulin Human Regular 0 units 07/14/22 07:30 07/19/22 14:53 Insulin Regular, Human 100 Units/1 Ml SUB-Q Not Given ACHS [facility] Protocol Metoclopramide HCl 5 mg 07/19/22 09:00 Metoclopramide 10 Mg/2 Ml Inj IV Q6H PRN Nausea And Vomiting Metoprolol Tartrate 5 mg 07/17/22 12:00 07/19/22 14:53 Metoprolol Tartrate 5 Mg/5 Ml Inj IV Not Given Q6HR [facility] Multi-Ingred Cream/Lotion/Oil/Oint 1 applic 07/18/22 09:59 Mineral Oil/Petrolatum, White Ophth Oint 3.5 Gm OU Q4HR PRN Dry Eye(s) Ondansetron HCl 4 mg 07/07/22 08:30 07/15/22 19:18 Ondansetron 4 Mg/2 Ml Inj IV 4 mg Q8H PRN Administration Nausea And Vomiting Phenol 1 spray 07/17/22 01:14 07/17/22 01:43 Phenol 1.4% 177 Ml Bottle MM 1 spray PRN PRN Administration Sore Throat Senna/Docusate Sodium 1 tab 07/18/22 11:00 07/19/22 09:19 Sennosides/Docusate Sodium 8.6/50 Mg Tab FEEDTUBE 1 tab BID APRIL Administration Sodium Bicarbonate 50 meq 07/19/22 16:00 Sodium Bicarb 8.4% 50 Meq/50 Ml Syringe IV 07/19/22 16:01 ONCE ONE Sodium Chloride 10 ml 07/07/22 10:00 07/19/22 09:20 Sodium Chloride 0.9% 10 Ml Flush Syringe IV 10 ml BID APRIL Administration Sodium Chloride 10 ml 07/07/22 08:30 Sodium Chloride 0.9% 10 Ml Flush Syringe IV PRN PRN LINE FLUSH Sodium Chloride 5 ml 07/18/22 11:50 Sodium Chloride 0.9% 1000 Ml Iv Soln IV PRN PRN ART-LINE FLUSH Sodium Hypochlorite 1 applic 07/14/22 10:00 07/19/22 09:21 Sodium Hypochlorite, Dakin's 1/2 Strength (0.25%) 473 Ml Topical Soln TP 1 applicatio BID APRIL Administration Vancomycin HCl 125 mg 07/18/22 12:00 07/19/22 14:56 Vancomycin 250 Mg/10 Ml Oral Liqd FEEDTUBE 125 mg Q6HR APRIL Administration Protocol
[2022-07-19] MEDS ORDERED: SODIUM BICARB 8.4% 50 MEQ/50 ML SYRINGE IV ONE (16:00)
[2022-07-19 16:31] LABS: Hematocrit 24.4 % (35.5-45.6); Hemoglobin 7.5 gm/dl (11.8-15.2); Mean Corpuscular HGB Conc 31 % (32-34); Mean Corpuscular Volume 105 fl (84-94); Red Blood Count 2.32 M/mm3 (3.65-5.03); Red Cell Distribution Width 19.8 % (13.2-15.2)
[2022-07-19 16:35] LABS: Platelet Count 58 K/mm3 (140-440)
[2022-07-19 17:14] LABS: Color,Urine Yellow (Yellow)
[2022-07-19 17:21] LABS: Bacteria,Urine 3+ /HPF (Negative); Mucus,Urine FEW /HPF; WBC,Urine < 1.0 /HPF (0.0-6.0)
[2022-07-19 17:42] LABS: Creatinine,Urine 28.8 mg/dL (0.1-20.0); Protein/Creatinine Ratio,Urine 0.49
[2022-07-19] MEDS ORDERED: MEROPENEM/NS 1 GRAM/100 ML 1 GRAM/100 ML BAG IV SCH (18:00)
[2022-07-19 19:25] LABS: Hematocrit 24.9 % (35.5-45.6); Hemoglobin 7.2 gm/dl (11.8-15.2)
[2022-07-19] MEDS ORDERED: PANTOPRAZOLE 40 MG INJ IV SCH (22:00)
[2022-07-19] MEDS: INSULIN GLARGINE 100 UNITS/ML SUB-Q SCH (22:00)
[2022-07-19 22:35] LABS: Creatinine,Urine 37.2 mg/dL (0.1-20.0)
[2022-07-19] MEDS: FAMOTIDINE 20 MG TAB FEEDTUBE SCH (22:50)
[2022-07-20] MEDS: VANCOMYCIN 250 MG/10 ML ORAL LIQD FEEDTUBE SCH
[2022-07-20] MEDS: METOPROLOL TARTRATE 5 MG/5 ML INJ IV SCH
[2022-07-20 00:42] VITALS: BP 95/34
[2022-07-20] MEDS ORDERED: EPINEPHrine 1 MG/10 ML SYRINGE ONE (01:00)
[2022-07-20] MEDS ORDERED: CALCIUM CHLORIDE 1,000 MG/10 ML SYRINGE IV ONE (01:00)
[2022-07-20] MEDS ORDERED: SODIUM BICARB 8.4% 50 MEQ/50 ML SYRINGE IV ONE (01:00)
--- NOTE | 2022-07-20 01:20 | Event Note ---
Date: 07/20/22 CODE DWIGHT is called. Patient is found asystole. CPR was given as per ACLS protocol for 12 minutes. 5 epinephrine, 2 bicarb, 1 calcium and 1 D50 was given. Patient regained ROSC. We are going to put the patient on epinephrine drip. Prognosis is poor. Family is notified
--- NOTE | 2022-07-20 01:41 | Death Note ---
Note Date of : 07/20/22 Time of : :34 Time Pronounced: :34 - Preliminary Cause of (problem) (1) Cardiac arrest Preliminary cause of CODE BLUE was called. Patient was found asystole. CPR was given as per ACLS protocol. 3 epinephrine bicarb was given. There is a second code but patient failed to regain ROSC. Patient at 1:30 AM on July 20, 2022 due to cardiopulmonary arrest, acute hypoxic respiratory failure. Hypertension. JACQUI. Prognosis is poor. Talk with the Scotty Hudson and notify about the patient . She will talk to the brother Jeremias Hudson. (2) Acute and chronic respiratory failure with hypoxia Preliminary cause of (3) Foot osteomyelitis, left Qualifiers: Osteomyelitis type: other acute Qualified Code(s): M86.172 - Other acute osteomyelitis, left ankle and foot Preliminary cause of
[2022-07-20] MEDS ORDERED: EPINEPHrine 1 MG/1 ML 5 MG in SODIUM CHLORIDE 0.9% 250ML 245 ML IV SCH (02:00)
--- NOTE | 2022-07-20 08:07 | Death Summary ---
Summary - Providers Date of service: 07/20/22 Consults: 07/07/22 05:19 Consult to Physician [CONS] Stat Comment: Consulting Provider: JACK LOZOYA Physician Instructions: Reason For Exam: Osteomyelitis Left Foot 07/07/22 05:24 Consult to Physician [CONS] Stat Comment: done Consulting Provider: AMMY KURTZ Physician Instructions: Reason For Exam: osteomyelitis foot 07/07/22 14:33 Consult to Physician [CONS] Stat Comment: Consulting Provider: REGINALD BAINS Physician Instructions: Reason For Exam: linezolid / septic 3rd toe 07/09/22 11:12 Midline [Consult to PICC Line RN] [CONS] Routine Reason For Exam: Difficulty with recent line infiltration Type Line:: Midline 07/11/22 14:01 Physical Therapy Evaluation and Treat [CONS] Routine Comment: Reason For Exam: s/p R great toe amp 07/13/22 09:40 Consult to Physician [CONS] Routine Comment: Consulting Provider: ALEXANDRU CLAUDIO Physician Instructions: Reason For Exam: thrombocytopenia 07/17/22 09:52 Consult to Physician [CONS] Urgent Comment: Consulting Provider: GABY DYE Physician Instructions: Reason For Exam: resp failure /intubated/CC /pulm consult 07/18/22 09:26 Consult to Dietitian/Nutrition [CONS] Routine Physician Instructions: Reason For Exam: Reason for Consult: Write/Manage Tube Feeding 07/18/22 13:43 Consult to PICC Line RN [CONS] Routine 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 Recommend the emergency department revealed white gangrene of left third distal phalanx and middle phalanx, diabetic foot infection with ulceration of the left third digit, osteomyelitis of left foot, hyperglycemia, pseudohyponatremia, metabolic acidosis, leukocytosis, thrombocytopenia and acute kidney injury. Patient was admitted to the hospitalist service with consults to vascular and general surgery. Patient was transferred to ICU on 07/17 as he was hypoxic requiring supplemental oxygen 15 L/high flow, BiPAP as needed suddenly went into acute respiratory failure, and unresponsiveness, code met was called, Upon responding to code met, patient was severely hypoxemic on BiPAP respiratory therapist recommended intubation and ventilatory support. On auscultation bilateral basal crackles, advised 40 mg of IV Lasix x1 dose and on arrival to ICU, patient was more alert, slightly improved, intubation held and pulmonary critical recommended BiPAP, Set of labs, chest x-ray, EKG and ABG was requested. On 07/18 patient was responsive and ABG was ran which showed hypoxemia and patient was intubated, louise and PICC placed, hypotensive for which 1 L bolus wa s given with minimal response and patient was ultimately placed on vasopressors. On 07/19, Patient was noted with sluggish pupils, no cough/gag and stat CT ordered which showed no acute events, noted to be anemic and received 2 units PRBC, nephrology consulted due to worsening renal function and CCM updated family at bedside. 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 Patient and time of was called by night hospitalist, Dr. Siu. According to noted, family was notified. Acute metabolic encephalopathy Hypotension, h/o hypertension, CAD PVD s/p revascularization followed by amputation Acute hypoxemic respiratory failure, ARDS Moderate protein calorie malnutrition Acute on possible chronic kidney disease Sepsis secondary to osteomyelitis of left foot, wet gangrene of the left third distal and middle phalanx, diabetic foot infection with abscess of left third digit, r/o c diff h/o DM Microcytic anemia secondary to liver dysfunction and sepsis, thrombocytopenia secondary to sepsis/diabetic foot infection/osteomyelitis, Leukocytosis
[2022-07-23 17:37] LABS: Albumin 1.5 g/dL (3.8-4.8); Gamma Globulin 1.3 g/dL (0.8-1.7)
== END 2022-07-20 01:34 | DRG 853 ==
LOC: ED 19:25 → 4A 07-07 08:30 → CC1 07-17 10:11
PROVIDERS: ADMIT Student in an Organized Health Care Education/Training Program; ATTEND Internal Medicine
PROC: 30233R1 Transfusion of Nonautologous Platelets into Peripheral Vein, Percutaneous Approach (ICD-10-PCS; 2022-07-08)
PROC: 04CN3ZZ Extirpation of Matter from Left Popliteal Artery, Percutaneous Approach (ICD-10-PCS; principal; 2022-07-09)
PROC: 047N3Z1 Dilation of Left Popliteal Artery using Drug-Coated Balloon, Percutaneous Approach (ICD-10-PCS; 2022-07-09)
PROC: 047D3Z1 Dilation of Left Common Iliac Artery using Drug-Coated Balloon, Percutaneous Approach (ICD-10-PCS; 2022-07-09)
PROC: B41D1ZZ Fluoroscopy of Aorta and Bilateral Lower Extremity Arteries using Low Osmolar Contrast (ICD-10-PCS; 2022-07-09)
PROC: 0Y6U0Z3 Detachment at Left 3rd Toe, Low, Open Approach (ICD-10-PCS; 2022-07-10)
PROC: 05HA33Z Insertion of Infusion Device into Left Brachial Vein, Percutaneous Approach (ICD-10-PCS; 2022-07-11)
PROC: 0Y6N0ZB Detachment at Left Foot, Partial 2nd Ray, Open Approach (ICD-10-PCS; 2022-07-12)
PROC: 0Y6N0ZC Detachment at Left Foot, Partial 3rd Ray, Open Approach (ICD-10-PCS; 2022-07-12)
PROC: 0Y6N0ZD Detachment at Left Foot, Partial 4th Ray, Open Approach (ICD-10-PCS; 2022-07-12)
PROC: 0Y6N0ZF Detachment at Left Foot, Partial 5th Ray, Open Approach (ICD-10-PCS; 2022-07-12)
PROC: 30233N1 Transfusion of Nonautologous Red Blood Cells into Peripheral Vein, Percutaneous Approach (ICD-10-PCS; 2022-07-15)
PROC: 4A033R1 Measurement of Arterial Saturation, Peripheral, Percutaneous Approach (ICD-10-PCS; 2022-07-15)
PROC: 5A0945A Assistance with Respiratory Ventilation, 24-96 Consecutive Hours, High Flow/Velocity Cannula (ICD-10-PCS; 2022-07-15)
PROC: 5A09357 Assistance with Respiratory Ventilation, Less than 24 Consecutive Hours, Continuous Positive Airway Pressure (ICD-10-PCS; 2022-07-17)
PROC: 5A1945Z Respiratory Ventilation, 24-96 Consecutive Hours (ICD-10-PCS; 2022-07-18)
PROC: 0BH17EZ Insertion of Endotracheal Airway into Trachea, Via Natural or Artificial Opening (ICD-10-PCS; 2022-07-18)
PROC: 02HV33Z Insertion of Infusion Device into Superior Vena Cava, Percutaneous Approach (ICD-10-PCS; 2022-07-18)
PROC: 03HY32Z Insertion of Monitoring Device into Upper Artery, Percutaneous Approach (ICD-10-PCS; 2022-07-18)
PROC: 5A12012 Performance of Cardiac Output, Single, Manual (ICD-10-PCS; 2022-07-20)
DX: A41.9 Sepsis, unspecified organism (principal); G93.41 Metabolic encephalopathy; J96.21 Acute and chronic respiratory failure with hypoxia; E11.52 Type 2 diabetes mellitus with diabetic peripheral angiopathy with gangrene; E44.0 Moderate protein-calorie malnutrition; M86.8X7 Other osteomyelitis, ankle and foot; N17.9 Acute kidney failure, unspecified; I96 Gangrene, not elsewhere classified; A04.72 Enterocolitis due to Clostridium difficile, not specified as recurrent; Z20.822 Contact with and (suspected) exposure to COVID-19; L97.529 Non-pressure chronic ulcer of other part of left foot with unspecified severity; Z68.24 Body mass index [BMI] 24.0-24.9, adult; D50.9 Iron deficiency anemia, unspecified; D69.6 Thrombocytopenia, unspecified; E11.22 Type 2 diabetes mellitus with diabetic chronic kidney disease; N18.9 Chronic kidney disease, unspecified; I12.9 Hypertensive chronic kidney disease with stage 1 through stage 4 chronic kidney disease, or unspecified chronic kidney disease; E11.621 Type 2 diabetes mellitus with foot ulcer; E11.65 Type 2 diabetes mellitus with hyperglycemia; E87.6 Hypokalemia; I25.10 Atherosclerotic heart disease of native coronary artery without angina pectoris; I46.9 Cardiac arrest, cause unspecified
CPT/HCPCS: 36415; 36600; 37220; 37225; 70450; 71045; 74018; 76700; 76770; 76937; 80048; 80053; 80061; 81001; 82106; 82140; 82550; 82570; 82607; 82728; 82803; 82962; 83010; 83036; 83550; 83735; 83880; 83935; 84100; 84133; 84156; 84165; 84300; 85007; 85014; 85018; 85025; 85027; 85384; 85610; 86021; 86022; 86038; 86160; 86850; 86900; 86901; 86920; 87040; 87070; 87075; 87116; 87205; 88305; 88311; 90732; 93306; 94002; 94003; 94660; 94760; 96365; 96366; 96367; 96375; 99285; G0378; J2354; J3490; J7502; J7517; Q0177; Q9967; A9575; C1714; C1725; C1760; C1769; C1884; C1887; C2623; C8929; C9113; J0171; J0330; J0690; J0692; J0878; J1170; J1644; J1815; J1940; J2020; J2060; J2185; J2250; J2270; J2405; J2704; J2765; J3010; J3370; J3480; J7030; J7040; J7120; P9016; P9035; U0003